=== PATIENT | female | born 1950 | race Caucasian/White ===

== ENCOUNTER 2019-04-05 10:43 | Outpatient (CLI) | payer MEDICARE, SELFPAY ==
[2019-04-05 11:28] LABS: Basophils % 0.2 %; Eosinophils # 0.1 10^3/uL (0.0-0.8); Eosinophils % 1.9 %; Hematocrit 37.3 % (37.0-47.0); Hemoglobin 12.6 g/dL (11.5-15.3); Lymphocytes # 2.5 10^3/uL (0.8-4.8); Lymphocytes % 38.9 %; Mean Corpuscular HGB Conc 33.8 g/dL (30.0-36.0); Mean Corpuscular Hemoglobin 34.2 pg (28.0-34.0); Mean Corpuscular Volume 101.4 fL (81-99); Mean Platelet Volume 9.5 fL (7.4-10.4); Monocytes # 0.5 10^3/uL (0.2-0.9); Monocytes % 7.3 %; Neutrophils # 3.3 10^3/uL (1.8-7.7); Neutrophils % 51.2 %; Nucleated Red Blood Cells % 0 %; Platelet Count 217 10^3/cmm (130-400); Red Blood Count 3.68 10^6/uL (4.1-5.3); Red Cell Distribution Width 12.8 % (12.1-15.1); White Blood Count 6.5 10^3/uL (4.0-10.0)
[2019-04-05 11:54] LABS: Alanine Aminotransferase 25 U/L (0-33); Albumin Level 4.2 g/dL (3.5-5.2); Alkaline Phosphatase 35 IU/L (35-105); Anion Gap 19.2 (5-19); Aspartate Amino Transferase 22 U/L (0-32); Blood Urea Nitrogen 31 mg/dL (8-23); Calcium 10.1 mg/dL (8.5-10.5); Carbon Dioxide 23 mmol/L (22-29); Chloride 99 mmol/L (98-107); Globulin 3.4 g/dL (1.3-4.6); Glomerular Filtration Rate 61.9 mL/min (90-130); Glucose 288 mg/dL (74-106); Potassium 4.2 mmol/L (3.5-5.1); Sodium 137 mmol/L (136-145); Total Bilirubin 0.5 mg/dL (0.15-1.2); Total Protein 7.6 g/dL (6.6-8.7)
== END 2019-04-05 10:44 | disposition home or self-care (01) ==
LOC: ONCMED 10:49
PROVIDERS: Family Provider Family Medicine; PCP Family Medicine; Visit Provider Internal Medicine Medical Oncology
DX: E83.110 Hereditary hemochromatosis (principal)
CPT/HCPCS: 36415; 80053; 85025; 99195; 99211

== ENCOUNTER 2019-04-21 07:50 | Outpatient (CLI) | payer MEDICARE, SELFPAY ==
--- NOTE | 2019-04-21 07:57 | MR_ITS ---
WS: [id number] MRI BRAIN WITH AND WITHOUT CONTRAST HISTORY: Vertigo; pupil ASYMMETRY COMPARISON: 01/16/2015 TECHNIQUE: Multiplanar imaging performed through the brain with Prohance 17 ml's IV. No acute infarcts are seen. Wells-white matter differentiation is well preserved. There are a few scat tered T2 and FLAIR signal hyperintensities in the white matter. No prior infarct. No susceptibility artifacts or prior lacunar infarcts. Ventricles and extra-axial spaces are normal. Clivus and pituitary gland are normal. Again noted is a CSF signal collection in the LEFT posterior fossa consistent with an arachnoid cyst. No increase in size. No mass effect upon the brain. Cerebellar vermis is intact. Postcontrast images are negative for masses or vascular malformations. Dural venous sinuses are normal. Paranasal sinuses: Well aerated with no significant disease. Mastoid air cells: Normal. Calvarium and scalp: Normal. MR/MR head wo/w con [id number] IMPRESSION: 1. No acute infarct or intracranial mass. 2. Stable retrocerebellar arachnoid cyst. 3. Mild chronic microvascular ischemic disease.
== END 2019-04-21 07:51 | disposition home or self-care (01) ==
LOC: RADSHAW 07:54
PROVIDERS: Family Provider Family Medicine; PCP Family Medicine; Visit Provider Nurse Practitioner Family
DX: R42 Dizziness and giddiness (principal); H57.02 Anisocoria
CPT/HCPCS: 70553; A9579

== ENCOUNTER 2019-05-22 12:36 | Outpatient (CLI) | payer MEDICARE, SELFPAY ==
[2019-05-22 13:23] LABS: Basophils % 0.3 %; Eosinophils # 0.1 10^3/uL (0.0-0.8); Eosinophils % 2.1 %; Hematocrit 36.8 % (37.0-47.0); Hemoglobin 12.4 g/dL (11.5-15.3); Lymphocytes # 2.5 10^3/uL (0.8-4.8); Lymphocytes % 40.5 %; Mean Corpuscular HGB Conc 33.7 g/dL (30.0-36.0); Mean Corpuscular Hemoglobin 34.6 pg (28.0-34.0); Mean Corpuscular Volume 102.8 fL (81-99); Mean Platelet Volume 9.7 fL (7.4-10.4); Monocytes # 0.4 10^3/uL (0.2-0.9); Neutrophils # 3.1 10^3/uL (1.8-7.7); Neutrophils % 49.8 %; Nucleated Red Blood Cells % 0 %; Platelet Count 198 10^3/cmm (130-400); Red Blood Count 3.58 10^6/uL (4.1-5.3); Red Cell Distribution Width 12.7 % (12.1-15.1); White Blood Count 6.2 10^3/uL (4.0-10.0)
[2019-05-22 13:38] LABS: Alanine Aminotransferase 30 U/L (0-33); Albumin Level 4.6 g/dL (3.5-5.2); Alkaline Phosphatase 30 IU/L (35-105); Anion Gap 11.6 (5-19); Aspartate Amino Transferase 30 U/L (0-32); Blood Urea Nitrogen 22 mg/dL (8-23); Calcium 10.4 mg/dL (8.5-10.5); Carbon Dioxide 32 mmol/L (22-29); Chloride 102 mmol/L (98-107); Globulin 2.9 g/dL (1.3-4.6); Glomerular Filtration Rate 61.9 mL/min (90-130); Glucose 145 mg/dL (65-115); Osmolality Calculated 291 mOsm/kg (285-295); Potassium 4.6 mmol/L (3.5-5.1); Sodium 141 mmol/L (136-145); Total Bilirubin 0.5 mg/dL (0.15-1.2); Total Protein 7.5 g/dL (6.6-8.7)
[2019-05-22 17:13] LABS: Ferritin 83 ng/mL (15-150); Iron 237 ug/dL (37-145); Percent Saturation 93.3 % (20-50); Total Iron Binding Capacity 254 mcg/dl; Unsaturated Iron Binding 17 ug/dL (112-347)
== END 2019-05-22 12:37 | disposition home or self-care (01) ==
LOC: ONCMED 12:38
PROVIDERS: Family Provider Family Medicine; PCP Family Medicine; Visit Provider Internal Medicine Medical Oncology
DX: E83.110 Hereditary hemochromatosis (principal)
CPT/HCPCS: 36415; 80053; 82728; 83540; 83550; 85025; 99195; 99211

== ENCOUNTER → 2019-07-04 07:50 | Outpatient (BNVA) | payer MEDICARE, SELFPAY | PROVIDERS: Family Provider Family Medicine; PCP Family Medicine; Referring Provider Nurse Practitioner Family; Visit Provider Specialist | DX: M06.9 Rheumatoid arthritis, unspecified (principal); H81.11 Benign paroxysmal vertigo, right ear; E83.119 Hemochromatosis, unspecified | CPT/HCPCS: 72050; 99204 ==

== ENCOUNTER 2019-07-04 09:42 | Outpatient (CLI) | payer MEDICARE, SELFPAY ==
--- NOTE | 2019-07-04 09:48 | XR_ITS ---
WS: [id number] CERVICAL SPINE 6 VIEWS HISTORY: RA COMPARISON: None available. TECHNIQUE: AP, oblique and lateral radiographs. Lateral neutral, flexion and extension. Mild LEFT convex curvature of the cervical spine. Narrowing of the predental space. No erosions at th e odontoid. With flexion and extension there is no instability. The lateral masses are aligned. No figueroa bluxation or invagination at the craniocervical junction. Atherosclerosis aorta. XR/XR cervical spine 4-5V [id number] IMPRESSION: 1. LEFT convex curvature cervical spine. 2. Degenerative changes at the odontoid and predental space. No instability wi th flexion or extension.
== END 2019-07-04 09:43 | disposition home or self-care (01) ==
LOC: RAD 09:47
PROVIDERS: Family Provider Family Medicine; PCP Family Medicine; Visit Provider Specialist
DX: M06.9 Rheumatoid arthritis, unspecified (principal)
CPT/HCPCS: 72050

== ENCOUNTER 2019-07-17 09:05 | Outpatient (CLI) | payer MEDICARE, SELFPAY ==
[2019-07-17 09:34] LABS: Basophils % 0.3 %; Eosinophils # 0.1 10^3/uL (0.0-0.8); Eosinophils % 2.2 %; Hematocrit 37.7 % (37.0-47.0); Hemoglobin 12.5 g/dL (11.5-15.3); Lymphocytes # 1.7 10^3/uL (0.8-4.8); Lymphocytes % 29.4 %; Mean Corpuscular HGB Conc 33.2 g/dL (30.0-36.0); Mean Corpuscular Hemoglobin 33.5 pg (28.0-34.0); Mean Corpuscular Volume 101.1 fL (81-99); Mean Platelet Volume 9.2 fL (7.4-10.4); Monocytes # 0.3 10^3/uL (0.2-0.9); Monocytes % 5.8 %; Neutrophils # 3.6 10^3/uL (1.8-7.7); Neutrophils % 61.8 %; Nucleated Red Blood Cells % 0 %; Platelet Count 216 10^3/cmm (130-400); Red Blood Count 3.73 10^6/uL (4.1-5.3); Red Cell Distribution Width 12.3 % (12.1-15.1); White Blood Count 5.9 10^3/uL (4.0-10.0)
[2019-07-17 09:56] LABS: Alanine Aminotransferase 28 U/L (0-33); Albumin Level 4.5 g/dL (3.5-5.2); Alkaline Phosphatase 34 IU/L (35-105); Anion Gap 15.5 (5-19); Aspartate Amino Transferase 33 U/L (0-32); Blood Urea Nitrogen 19 mg/dL (8-23); Calcium 10.1 mg/dL (8.5-10.5); Carbon Dioxide 28 mmol/L (22-29); Chloride 101 mmol/L (98-107); Globulin 3.2 g/dL (1.3-4.6); Glomerular Filtration Rate 54.8 mL/min (90-130); Glucose 154 mg/dL (65-115); Osmolality Calculated 290 mOsm/kg (285-295); Potassium 4.5 mmol/L (3.5-5.1); Sodium 140 mmol/L (136-145); Total Bilirubin 0.7 mg/dL (0.15-1.2); Total Protein 7.7 g/dL (6.6-8.7)
[2019-07-17 10:57] LABS: Ferritin 59 ng/mL (15-150); Iron 278 ug/dL (37-145)
[2019-07-17 12:53] LABS: Unsaturated Iron Binding < 17 ug/dL (112-347)
--- NOTE | 2019-07-17 14:48 | ONC FU_ITS ---
Dr. Chambers Patient Follow-Up Note Patient: Corinna Lance Unit #: [id number]: 1950 Dicatated By: Travis Chambers M.D.Date of Visit:July 17, 2019 Onc Med Follow-up/Prog Note Chief Complaint: Hemochromatosis. History of Present Illness: This is a 69 year-old woman with hereditary hemochromatosis, initially diagnosed in April 2010. Her ferritin was just moderately elevated at 440 ng/mL. She was found to be homozygous for the C282Y mutation. She was started on a phlebotomy program. As of November 2011 her ferritin was down to 94 ng/mL. In March 2016 she had fallen out of the bathtub and sustained fractures to the left tibia and fibula. I don't have any of those records. She has been showing gradual recovery. With her follow-up visit in August 2016 her transferrin saturation had decreased to 15.8% and her ferritin was down to 27.8 ng/mL. At that point I did have her stop phlebotomies. As of her follow-up visit in February 2018 her transferrin saturation was 29.4% and her serum ferritin remained in target range at 38.0 ng/mL. Her other medical illnesses include rheumatoid arthritis, hypertension, hypercholesterolemia, and type 2 diabetes. She was found to have dvim-mr-ppkyyqib coronary artery disease on cardiac catheterization in December 2009. Other illnesses include GERD and chronic depression. She has had multiple joint surgeries. She is a nonsmoker. INTERIM HISTORY: As of her follow-up visit in January 2019 there was an increase in both the transferrin saturation and ferritin, and I did have her restart phlebotomies every 2 months. She is seen for a scheduled visit. She has been feeling pretty good generally. She says her joint pain is not too bad, but she has been having pain in the sciatic area on the right side. She also has had pain in the left mid back area, which she thinks may have been related to some recent activity. Her pain is managed adequately with the hydrocodone/APAP. Her energy is somewhat variable. She is doing some walking and she is doing light work. ECOG score is 1. She has good appetite. She did not feel good generally this past weekend, and she thinks she may have had a slight fever. She has hot flashes/sweating all the time. She has some shortness of breath with activity. She has not been having cough, and she does not complain of chest pain. She has no GI or complaints. She has not been having headache. She says she just got over a bad spell of vertigo. She has neuropathy in her hands and feet, which is unchanged. Medications: Aldactazide 1 Tablet (of 25-25 mg) Oral daily, Avapro 1 Tablet (of 150 mg) Oral daily, Crestor 1 (10 mg) Tablet Oral daily, Effexor 1 (75 mg) Tablet Oral at bedtime, Fosamax 1 Tablet (of 70 mg) Oral daily, glipiZIDE ER 1 Tablet (of 2.5 mg) Tablet SR 24 HR Oral b.i.d., Hydrocodone-Acetaminophen 1 (10-325 mg) Tablet Oral b.i.d. PRN, Methotrexate 5 Tablet (of 2.5 mg) Oral q 7 days, Metoprolol Succinate ER 1 (25 mg) Tablet SR 24 HR Oral daily, Pantoprazole Sodium 1 Tablet (of 20 mg) Tablet, enteric coated Oral daily, ProAir HFA Aerosol, solution Inhalation PRN, Xeljanz 1 Tablet (of 5 mg) Oral b.i.d. Allergies: lisinopril and Sulfamethoxazole-Trimethoprim. Review of Systems: Constitutional - She is generally feeling good. She is doing some light walking as well as housework. Her appetite is good and weight is stable. She felt feverish over this past weekend. No chills. She has persistent hot flashes with sweating. ECOG score is 1, ENMT - She has sinus congestion/drainage. No mouth sores. She has a throat. No difficulty swallowing, Hematologic/Lymphatic - No abnormal bruising or bleeding, Respiratory - She is having shortness of breath with activity. No cough. No pleuritic pain or hemoptysis, Cardiovascular - No angina pain. No palpitations, Gastrointestinal - No nausea or vomiting. No heartburn or acid reflux. No diarrhea or constipation. No blood in the stool or black stools, Genitourinary (F) - No dysuria or hematuria. No urinary frequency. No urgency or incontinence, Musculoskeletal - She is having some pain in the lower back/sciatic area on the right side. She has some pain in her leftback/rib area. It is adequately managed with her pain medication, Integumentary - No skin complications, Neurologic - No headache or dizziness. She has unchanged neuropathy in her hands and feet, Psychiatric - No anxiety or depression. She has difficulty sleeping. Vital Signs: Performed on July 17, 2019 09:43 Height - 62.00 in Weight - 189.0 lbs (HIGH) BSA - 1.87 sq.m BMI - 34.57 (HIGH) Temperature - 97.5 F (LOW) Pulse - 74 /min Respiration - 20 /min BP - 106/64 mm(hg) O2 Sat - 97 % Pain - 2 Physical Examination: Constitutional - She looks pretty good generally, Eyes - Sclerae nonicteric. Conjunctivae clear, ENMT - No lesions noted in the oral cavity, Hematologic/Lymphatic - No cervical, clavicular, or axillary adenopathy, Respiratory - Lungs are clear, Cardiovascular - Heart rhythm is regular. There is no murmur, gallop, or rub noted, Abdomen - Soft. Liver and spleen are not enlarged. There is no abdominal mass or ascites noted and there is no inguinal adenopathy, Extremities - No edema. There are RA changes in both hands, Neurologic - No focal neurologic deficits noted. Lab/Imaging: Test performed on July 17, 2019 09:20 Ferritin 59 ng/mL Iron 278 mcg/dL Sodium 140 mmol/L Iron Binding Capacity (TIBC) 294.95034 mcg/dl Potassium 4.5 mmol/L % Iron Saturation 94.0 % Chloride 101 mmol/L CO2 28 mmol/L UIBC < 17 mcg/dL Anion Gap 15.5 BUN 19 mg/dL Creatinine 1.0 mg/dL Cr Clearance (Est) 70.8500 mL/min eGFR 54.8 mL/min Glucose 154 mg/dL Calcium 10.1 mg/dL Protein, Total 7.7 g/dL Albumin 4.5 g/dL Globulin 3.2 g/dL Bilirubin, Total 0.7 mg/dL ALT (SGPT) 28 U/L AST (SGOT) 33 U/L Alkaline Phosphatase 34 IU/L WBC 5.9 10 3/uL RBC 3.73 10 6/uL HGB 12.5 g/dL HCT 37.7 % MCV 101.1 fL MCH 33.5 pg MCHC 33.2 g/dL RDW 12.3 % Platelet Count 216 10 3/cmm MPV 9.2 fL Neutrophils 3.6 10 3/uL Lymphocytes 1.7 10 3/uL Monocytes 0.3 10 3/uL Eosinophils 0.1 10 3/uL Basophils 0.0 10 3/uL Neutrophil % 61.8 % Lymphocyte % 29.4 % Monocyte % 5.8 % Eosinophil % 2.2 % Basophils % 0.3 % Impression: 1. Patient with hereditary hemochromatosis, homozygous for the C282Y mutation. She has been managed adequately with phlebotomy. 2. She has underlying rheumatoid arthritis. Her other medical illnesses include: 3. Hypertension. 4. Hyperlipidemia. 5. Type II diabetes. 6. Coronary artery disease. 7. GERD. 8. Chronic depression. She has gradual recovery following a traumatic left leg fracture in March 2016. As of August 2016 her transferrin saturation and ferritin levels were actually a little bit low, and I did have her stop phlebotomies. She was phlebotomized again in August 2017, as her levels had gone up a little. As of her follow-up visit in January 2019 there was increase in both the transferrin saturation and ferritin, and at that point she did restart phlebotomies every 2 months. At this point the serum iron level is elevated, but I am not certain how accurate that is. Her ferritin has come down to 59%, which is in target range. Her clinical status appears stable. Plan: She will be phlebotomized and again in 3 months. I will see her for a follow-up visit in 6 months. Signed By: Travis Chambers M.D. <<Signature on File>>
== END 2019-07-17 09:06 | disposition home or self-care (01) ==
PROVIDERS: Family Provider Family Medicine; PCP Family Medicine; Visit Provider Internal Medicine Medical Oncology
DX: E83.110 Hereditary hemochromatosis (principal); M06.9 Rheumatoid arthritis, unspecified; I10 Essential (primary) hypertension; E78.5 Hyperlipidemia, unspecified; E11.9 Type 2 diabetes mellitus without complications; I25.10 Atherosclerotic heart disease of native coronary artery without angina pectoris; K21.9 Gastro-esophageal reflux disease without esophagitis; F32.9 Major depressive disorder, single episode, unspecified
CPT/HCPCS: 36415; 80053; 82728; 83540; 83550; 85025; 99195; 99214

== ENCOUNTER 2019-07-20 10:47 | Outpatient (CLI) | payer MEDICARE, SELFPAY ==
--- NOTE | 2019-07-20 11:18 | XR_ITS ---
WS: [id number] THORACIC SPINE TECHNIQUE: AP and lateral views are performed. HISTORY: ACUTE MID THORACIC BACK PAIN COMPARISON: 05/09/2010 Mild increase in thoracic kyphosis. No fractures are identified. Slight LEFT convex curvature of the thoracic spine. Pedicles are normal. XR/XR thoracic spine 2V [id number] IMPRESSION: Mild spondylosis and degenerative changes. No fracture.
== END 2019-07-20 10:48 | disposition home or self-care (01) ==
PROVIDERS: PCP Family Medicine; Visit Provider Nurse Practitioner Family
DX: M54.6 Pain in thoracic spine (principal); M47.814 Spondylosis without myelopathy or radiculopathy, thoracic region
CPT/HCPCS: 72070

== ENCOUNTER → 2019-08-23 15:06 | Outpatient (BNVA) | payer MEDICARE, SELFPAY | PROVIDERS: PCP Family Medicine; Visit Provider Internal Medicine | DX: M06.9 Rheumatoid arthritis, unspecified (principal); M35.3 Polymyalgia rheumatica; Z79.899 Other long term (current) drug therapy | CPT/HCPCS: 99213 ==

== ENCOUNTER 2019-09-11 13:05 | Outpatient (CLI) | payer MEDICARE, SELFPAY ==
--- NOTE | 2019-09-11 13:12 | XR_ITS ---
WS: [id number] LUMBAR SPINE TECHNIQUE: 3 views of the lumbar spine CLINICAL INFORMATION: lumbago COMPARISON: None. FINDINGS: Osteopenia. Mild lumbar curve. Valve nonrib-bearing lumbar vertebral bodies. Slight anterolisthesis L 3 on L4 and L4 on L5. Mild facet arthropathy L4-L5 and L5-S1. Anterolisthesis L4 on L5 measures 1.8 m m. XR/XR lumbar spine 2-3V* [id number] IMPRESSION: 1. Mild lumbar curve convex left. Osteopenia. 2. No acute appearing compression fractures. 3. Slight anterolisthesis L4 on L5 measuring 1.8 mm.
== END 2019-09-11 13:06 | disposition home or self-care (01) ==
LOC: RADWPI 13:10
PROVIDERS: Family Provider Family Medicine; PCP Family Medicine; Visit Provider Internal Medicine
DX: M54.5 Low back pain (principal); M85.88 Other specified disorders of bone density and structure, other site
CPT/HCPCS: 72100

== ENCOUNTER 2019-10-17 12:27 | Outpatient (CLI) | payer MEDICARE, SELFPAY ==
[2019-10-17 13:23] LABS: Basophils % 0.4 %; Eosinophils # 0.1 10^3/uL (0.0-0.8); Eosinophils % 1.8 %; Hematocrit 36.1 % (37.0-47.0); Hemoglobin 11.6 g/dL (11.5-15.3); Lymphocytes # 1.6 10^3/uL (0.8-4.8); Lymphocytes % 31.6 %; Mean Corpuscular HGB Conc 32.1 g/dL (30.0-36.0); Mean Corpuscular Hemoglobin 32.5 pg (28.0-34.0); Mean Corpuscular Volume 101.1 fL (81-99); Mean Platelet Volume 9.7 fL (7.4-10.4); Monocytes # 0.4 10^3/uL (0.2-0.9); Monocytes % 8.5 %; Neutrophils % 57.3 %; Nucleated Red Blood Cells % 0 %; Platelet Count 204 10^3/cmm (130-400); Red Blood Count 3.57 10^6/uL (4.1-5.3); Red Cell Distribution Width 13.3 % (12.1-15.1); White Blood Count 5.1 10^3/uL (4.0-10.0)
[2019-10-17 13:42] LABS: Ferritin 49 ng/mL (15-150); Iron 143 ug/dL (37-145); Percent Saturation 52.5 % (20-50); Total Iron Binding Capacity 272 mcg/dl; Unsaturated Iron Binding 129 ug/dL (112-347)
== END 2019-10-17 12:28 | disposition home or self-care (01) ==
LOC: ONCMED 12:29
PROVIDERS: PCP Family Medicine; Visit Provider Internal Medicine Medical Oncology
DX: E83.110 Hereditary hemochromatosis (principal); D50.9 Iron deficiency anemia, unspecified; M06.9 Rheumatoid arthritis, unspecified
CPT/HCPCS: 82728; 83540; 83550; 85025; 99195

== ENCOUNTER → 2019-11-09 12:37 | Outpatient (BNVA) | payer MEDICARE, SELFPAY | PROVIDERS: PCP Family Medicine; Visit Provider Internal Medicine | DX: M06.9 Rheumatoid arthritis, unspecified (principal); M35.3 Polymyalgia rheumatica; Z79.899 Other long term (current) drug therapy | CPT/HCPCS: 36415; 80053; 85025; 85651; 99213 ==

== ENCOUNTER → 2019-11-15 13:41 | Outpatient (BNVA) | payer MEDICARE, SELFPAY | PROVIDERS: PCP Family Medicine; Referring Provider Nurse Practitioner Family; Visit Provider Dermatology | DX: D09.9 Carcinoma in situ, unspecified (principal); D22.9 Melanocytic nevi, unspecified; L81.4 Other melanin hyperpigmentation | CPT/HCPCS: 99203 ==

== ENCOUNTER → 2019-12-06 09:38 | Outpatient (BNVA) | payer MEDICARE, SELFPAY | PROVIDERS: PCP Family Medicine; Visit Provider Dermatology | DX: D09.9 Carcinoma in situ, unspecified (principal); D04.39 Carcinoma in situ of skin of other parts of face | CPT/HCPCS: 17000 ==

== ENCOUNTER → 2020-01-16 08:04 | Outpatient (BNVA) | payer MEDICARE, SELFPAY | PROVIDERS: PCP Family Medicine; Referring Provider Nurse Practitioner Family; Visit Provider Podiatrist Foot & Ankle Surgery | DX: M79.671 Pain in right foot (principal); M79.672 Pain in left foot | CPT/HCPCS: 73630 ==

== ENCOUNTER 2020-03-20 11:20 | Outpatient (CLI) | payer MEDICARE, SELFPAY ==
[2020-03-20 12:26] LABS: Basophils % 0.2 %; Eosinophils # 0.1 10^3/uL (0.0-0.8); Eosinophils % 0.9 %; Hemoglobin 12.4 g/dL (11.5-15.3); Lymphocytes # 1.6 10^3/uL (0.8-4.8); Lymphocytes % 27.7 %; Mean Corpuscular HGB Conc 32.6 g/dL (30.0-36.0); Mean Corpuscular Hemoglobin 30.5 pg (28.0-34.0); Mean Corpuscular Volume 93.6 fL (81-99); Mean Platelet Volume 9.6 fL (7.4-10.4); Monocytes # 0.5 10^3/uL (0.2-0.9); Monocytes % 9.1 %; Neutrophils # 3.62 10^3/uL (1.8-7.7); Neutrophils % 61.8 %; Nucleated Red Blood Cells % 0 %; Platelet Count 217 10^3/cmm (130-400); Red Blood Count 4.06 10^6/uL (4.1-5.3); Red Cell Distribution Width 13.2 % (12.1-15.1); White Blood Count 5.9 10^3/uL (4.0-10.0)
[2020-03-20 13:41] LABS: Alanine Aminotransferase 20 U/L (0-33); Albumin Level 4.3 g/dL (3.5-5.2); Alkaline Phosphatase 33 IU/L (35-105); Anion Gap 14.5 (5-19); Aspartate Amino Transferase 25 U/L (0-32); Blood Urea Nitrogen 23 mg/dL (8-23); Calcium 9.9 mg/dL (8.5-10.5); Carbon Dioxide 26 mmol/L (22-29); Chloride 101 mmol/L (98-107); Ferritin 45 ng/mL (15-150); Globulin 3.3 g/dL (1.3-4.6); Glucose 206 mg/dL (65-115); Iron 233 ug/dL (37-145); Osmolality Calculated 294 mOsm/kg (285-295); Percent Saturation 80.9 % (20-50); Potassium 4.5 mmol/L (3.5-5.1); Sodium 137 mmol/L (136-145); Total Bilirubin 0.4 mg/dL (0.15-1.2); Total Iron Binding Capacity 288 mcg/dl; Total Protein 7.6 g/dL (6.6-8.7); Unsaturated Iron Binding 55 ug/dL (112-347)
[2020-03-20 15:39] LABS: Erythrocyte Sedimentation Rate 19 mm/hr (0-15)
[2020-03-20 16:10] LABS: CRP High Sensitivity Cardiac < 0.150 mg/dL (0.0-0.3)
--- NOTE | 2020-03-23 17:35 | ONC FU_ITS ---
Dr. Chambers Patient Follow-Up Note Patient: Corinna Lance Unit #: [id number]: 1950 Dicatated By: Travis Chambers M.D.Date of Visit:Mar 20, 2020 Onc Med Follow-up/Prog Note Chief Complaint: Hemochromatosis. History of Present Illness: This is a 70 year-old woman with hereditary hemochromatosis, initially diagnosed in April 2010. Her ferritin was just moderately elevated at 440 ng/mL. She was found to be homozygous for the C282Y mutation. She was started on a phlebotomy program. As of November 2011 her ferritin was down to 94 ng/mL. In March 2016 she had fallen out of the bathtub and sustained fractures to the left tibia and fibula. I don't have any of those records. She has been showing gradual recovery. With her follow-up visit in August 2016 her transferrin saturation had decreased to 15.8% and her ferritin was down to 27.8 ng/mL. At that point I did have her stop phlebotomies. As of her follow-up visit in February 2018 her transferrin saturation was 29.4% and her serum ferritin remained in target range at 38.0 ng/mL. However, as of her follow-up visit in January 2019 there was an increase in both the transferrin saturation and ferritin, and at that point I did have her restart phlebotomies every 2 months. Her other medical illnesses include rheumatoid arthritis, hypertension, hypercholesterolemia, and type 2 diabetes. She was found to have qxoo-ax-pjyfhhvr coronary artery disease on cardiac catheterization in December 2009. Other illnesses include GERD and chronic depression. She has had multiple joint surgeries. She is a nonsmoker. INTERIM HISTORY: She is seen for a scheduled visit. Her last phlebotomy was 4 months ago. Her main complaint is that she is getting short of breath with any activity. She was diagnosed with asthma/COPD. She still does not have much energy. Her ECOG score is 1. She has good appetite. She has not had fever. She sometimes has sweating at night. She does not complain of cough and she has not been having chest pain. She has no GI/ complaints other than she recently was treated for urinary tract infection. She has arthritis all over, but especially her hands and feet. She recently has had headache. She has numbness in the toes of her left foot. Medications: Aldactazide 1 Tablet (of 25-25 mg) Oral daily, Avapro 1 Tablet (of 150 mg) Oral daily, Crestor 1 (10 mg) Tablet Oral daily, Effexor 1 (75 mg) Tablet Oral at bedtime, Fosamax 1 Tablet (of 70 mg) Oral daily, glipiZIDE ER 1 Tablet (of 5 mg) Tablet SR 24 HR Oral b.i.d., Hydrocodone-Acetaminophen 1 (10-325 mg) Tablet Oral b.i.d. PRN, Methotrexate 5 Tablet (of 2.5 mg) Oral q 7 days, Metoprolol Succinate ER 1 (25 mg) Tablet SR 24 HR Oral daily, Pantoprazole Sodium 1 Tablet (of 20 mg) Tablet, enteric coated Oral daily, ProAir HFA Aerosol, solution Inhalation PRN, Xeljanz 1 Tablet (of 5 mg) Oral b.i.d. Allergies: lisinopril and Sulfamethoxazole-Trimethoprim. Vital Signs: Performed on Mar 20, 2020 13:14 Height - 62.00 in Weight - 192 lbs (HIGH) BSA - 1.88 sq.m BMI - 35.12 (HIGH) Temperature - 97.6 F (LOW) Pulse - 85 /min Respiration - 17 /min BP - 110/73 mm(hg) O2 Sat - 96 % Pain - 0 Physical Examination: Constitutional - She looks pretty good generally, Eyes - Sclerae nonicteric. Conjunctivae clear, ENMT - No lesions noted in the oral cavity, Hematologic/Lymphatic - No cervical, clavicular, or axillary adenopathy, Respiratory - Lungs are clear with good air movement bilaterally, Cardiovascular - Heart rhythm is regular. There is no murmur, gallop, or rub noted, Abdomen - Soft. Liver and spleen are not enlarged. There is no abdominal mass or ascites noted and there is no inguinal adenopathy, Extremities - No edema. There is ulnar deviation consistent with her rheumatoid arthritis, Neurologic - No focal neurologic deficits noted. Lab/Imaging: Test performed on Mar 20, 2020 11:49 Ferritin 45 ng/mL Iron 233 mcg/dL Sodium 137 mmol/L Iron Binding Capacity (TIBC) 288 mcg/dl Potassium 4.5 mmol/L % Iron Saturation 80.9 % Chloride 101 mmol/L CO2 26 mmol/L UIBC 55 mcg/dL Anion Gap 14.5 BUN 23 mg/dL Creatinine 0.9 mg/dL Cr Clearance (Est) 78.8300 mL/min Glucose 206 mg/dL Osmolality - Calculated 294 mOsm/kg Calcium 9.9 mg/dL Protein, Total 7.6 g/dL Albumin 4.3 g/dL Globulin 3.3 g/dL Bilirubin, Total 0.4 mg/dL ALT (SGPT) 20 U/L AST (SGOT) 25 U/L Alkaline Phosphatase 33 IU/L WBC 5.9 10 3/uL RBC 4.06 10 6/uL HGB 12.4 g/dL HCT 38.0 % MCV 93.6 fL MCH 30.5 pg MCHC 32.6 g/dL RDW 13.2 % Platelet Count 217 10 3/cmm MPV 9.6 fL Neutrophils 3.62 10 3/uL Lymphocytes 1.6 10 3/uL Monocytes 0.5 10 3/uL Eosinophils 0.1 10 3/uL Basophils 0.0 10 3/uL Neutrophil % 61.8 % Lymphocyte % 27.7 % Monocyte % 9.1 % Eosinophil % 0.9 % Basophils % 0.2 % NRBC % 0 % Historic Problem List: 1. Hereditary hemochromatosis, homozygous for the C282Y mutation. She has been managed adequately with phlebotomy. 2. Rheumatoid arthritis. 3. Hypertension. 4. Hyperlipidemia. 5. Type II diabetes. 6. Coronary artery disease. 7. GERD. 8. Chronic depression. Problems Addressed with this Encounter and Plan: 1. Hereditary hemochromatosis, homozygous for the C282Y mutation. She has been managed with phlebotomy. Her serum iron studies show elevated transferrin saturation at 80.9%. The significance of that finding is uncertain, as her ferritin remains in target range at 45 ng/mL. However, given that finding, she will be phlebotomized today and I will have her continue phlebotomies every 3 months. 2. She has having increased exertional dyspnea and decreased activity tolerance. She has been diagnosed with asthma/COPD. If she is agreeable, I will arrange for referral to a audiometrist. Signed By: Travis Chambers M.D. <<Signature on File>>
== END 2020-03-20 11:21 | disposition home or self-care (01) ==
LOC: ONCMED 11:23
PROVIDERS: PCP Nurse Practitioner Family; Visit Provider Internal Medicine Medical Oncology
DX: E83.110 Hereditary hemochromatosis (principal); M06.9 Rheumatoid arthritis, unspecified; I10 Essential (primary) hypertension; E78.5 Hyperlipidemia, unspecified; E11.59 Type 2 diabetes mellitus with other circulatory complications; I25.10 Atherosclerotic heart disease of native coronary artery without angina pectoris; K21.9 Gastro-esophageal reflux disease without esophagitis; F32.9 Major depressive disorder, single episode, unspecified; Z79.899 Other long term (current) drug therapy
CPT/HCPCS: 80053; 82728; 83540; 83550; 85025; 85651; 86140; 86141; 99195; 99214

== ENCOUNTER → 2020-03-25 11:39 | Outpatient (BNVA) | payer MEDICARE, SELFPAY | PROVIDERS: PCP Nurse Practitioner Family; Visit Provider Internal Medicine | DX: M06.9 Rheumatoid arthritis, unspecified (principal); Z79.899 Other long term (current) drug therapy | CPT/HCPCS: 99214 ==

== ENCOUNTER 2020-04-02 10:43 | Outpatient (CLI) | payer MEDICARE, SELFPAY ==
--- NOTE | 2020-04-02 10:46 | MM_ITS ---
WS: [id number] BILATERAL SCREENING DIGITAL MAMMOGRAM WITH CAD HISTORY: SCREENING COMPARISON: 07/29/2017 and 12/16/2015 Bilateral CC and MLO views submitted. Computer aided detection analyzed. Breast composition: There are scattered areas of fibroglandular density. No suspicious masses, microc alcifications or architectural distortion. Benign calcifications in each breast. MM/[place] [id number] IMPRESSION: BI-RADS: 2-Benign FOLLOW UP: 1 Year Follow-up
== END 2020-04-02 10:44 | disposition home or self-care (01) ==
LOC: RADSHAW 10:44
PROVIDERS: PCP Nurse Practitioner Family; Visit Provider Nurse Practitioner Family
DX: Z12.31 Encounter for screening mammogram for malignant neoplasm of breast (principal)
CPT/HCPCS: 77067

== ENCOUNTER 2020-04-08 12:23 | Outpatient (CLI) | payer MEDICARE, SELFPAY ==
[2020-04-08 13:49] LABS: Basophils % 0.4 %; Eosinophils # 0.1 10^3/uL (0.0-0.8); Eosinophils % 1.7 %; Hematocrit 34.2 % (37.0-47.0); Lymphocytes # 1.6 10^3/uL (0.8-4.8); Lymphocytes % 30.5 %; Mean Corpuscular HGB Conc 32.2 g/dL (30.0-36.0); Mean Corpuscular Hemoglobin 30.3 pg (28.0-34.0); Mean Corpuscular Volume 94.2 fL (81-99); Mean Platelet Volume 9.4 fL (7.4-10.4); Monocytes # 0.6 10^3/uL (0.2-0.9); Nucleated Red Blood Cells % 0 %; Platelet Count 219 10^3/cmm (130-400); Red Blood Count 3.63 10^6/uL (4.1-5.3); Red Cell Distribution Width 13.7 % (12.1-15.1); White Blood Count 5.2 10^3/uL (4.0-10.0)
[2020-04-09 17:03] LABS: Alternaria Alternata (M6) Ige <0.10 kU/L; Alternaria Class 0; Cat Dander (E1) Ige <0.10 kU/L; Cat Dander Class 0; Common Ragweed (Short) (W1) Ig <0.10 kU/L; D. Farinae Class 0; Dermatophagoides Class 0; Dermatophagoides Farinae (D2) <0.10 kU/L; Dermatophagoides Pteronyssinus <0.10 kU/L; Dog Dander (E5) Ige <0.10 kU/L; Dog Dander Class 0; Elm (T8) Ige <0.10 kU/L; Elm Class 0; English Plantain (W9) Ige <0.10 kU/L; English Plantain Class 0; House Dust (Greer) (H1) Ige <0.10 kU/L; House Dust (Hollister- Stier) <0.10 kU/L; House Dust Class 0; Immunoglobulin E 54 kU/L (<OR=114); Immunoglobulin E 55 kU/L (<OR=114); Lamb'S Quarters (Goose Foot) <0.10 kU/L; Lamb'S Quarters Class 0; Maple (Box Elder) (T1) Ige <0.10 kU/L; Maple Class 0; Mucor Racemosus Class 0; Oak (T7) Ige <0.10 kU/L; Oak Class 0; Penicillium Class 0; Penicillium Notatum (M1) Ige <0.10 kU/L; Ragweeed Class 0; Rough Marsh Elder (W16) Ige <0.10 kU/L; Rough Marsh Elder Class 0
[2020-04-10 18:09] LABS: Aspergillus Fumigatus, Igg Ab, 8.3 mg/L (<=102)
[2020-04-12 15:38] LABS: Bermuda Class 0; Bermuda Grass (G2) Ige <0.10 kU/L; Johnson Grass (G10) Ige <0.10 kU/L; Johnson Grass Cl 0; June Grass Class 0; June Grass(Kentucky Blue) (G8) <0.10 kU/L; Meadow Fescue (G4) Ige <0.10 kU/L; Meadow Fescue Class 0; Orchard Grass (Cocksfoot) (G3) <0.10 kU/L; Perennial Rye Grass (G5) Ige <0.10 kU/L; Perennial Rye Grass Class 0; Sweet Vernal Class 0; Sweet Vernal Grass (G1) Ige <0.10 kU/L; Timothy Grass (G6) Ige <0.10 kU/L; Timothy Grass Class 0
== END 2020-04-08 12:24 | disposition home or self-care (01) ==
PROVIDERS: PCP Nurse Practitioner Family; Visit Provider Internal Medicine Pulmonary Disease
DX: J44.9 Chronic obstructive pulmonary disease, unspecified (principal)
CPT/HCPCS: 82785; 85025; 86003

== ENCOUNTER → 2020-05-08 10:43 | Outpatient (BNVA) | payer MEDICARE, SELFPAY | PROVIDERS: PCP Nurse Practitioner Family; Visit Provider Emergency Medicine | DX: Z11.52 Encounter for screening for COVID-19 (principal); J44.9 Chronic obstructive pulmonary disease, unspecified | CPT/HCPCS: 87635 ==

== ENCOUNTER 2020-05-13 11:07 | Outpatient (CLI) | payer MEDICARE, SELFPAY ==
--- NOTE | 2020-05-13 11:53 | PC.NURSE ---
Stress test rescheduled Pt unable to walk on treadmill she states. Datar notified and given orders to change to Lexiscan mibi stress test. Pt rescheduled and given instructions for new test, verbalized understanding.
[2020-05-13 14:26] VITALS: BP 140/83
--- NOTE | 2020-05-13 14:34 | PFTS_ITS ---
Date of Study:05/13/20 Date of Dictation: MECHANICS: Forced vital capacity (FVC) is reduced. Forced expiratory volume in one second (FEV1) is reduced. FEV1/FVC is reduced. FLOW VOLUME LOOP: Reduced flow at all lung volumes with significant scooping. LUNG VOLUMES: Total lung capacity (TLC) is normal. Residual volume (RV) is increased. DIFFUSING CAPACITY FOR CARBON MONOXIDE: Normal. INTERPRETATION: The postbronchodilator spirometry is consistent with moderate airflow obstruction. There is no significant postbronchodilator response. Lung volumes are consistent with air trapping. Gas exchange (DLCO) is normal. MTDD
--- NOTE | 2020-05-20 07:00 | ECG_ITS ---
[facility] Test Date: 2020-05-20 Pat Name: Corinna Lance Department: Room: Gender: Female [employer]: : 1950 Requested By: Don Duongr Paulette Order Number: [id number] Sonny MD: CEDRIC ELIAS Interpretive Statements NAME OF STUDY: LEXISCAN SESTAMIBI STRESS TEST INDICATION: Chest Pain; Shortness of Breath NOTE: Please note that this is the electrocardiogram portion of the Lexiscan/Sestamibi stress test. The perfusion scan will be documented separately. DATA: Baseline heart rate was 72 beats per minute. Baseline blood pressure was 130/77 millimeters of mercury. Target heart rate was 149. Maximum heart rate achieved was 96. which was 64 % of the predicted target heart rate. Maximum blood pressure was 136/90 millimeters of mercury. The reason for ending the test was completion of the protocol. The patient did not experience any symptoms. ELECTROCARDIOGRAM: BASELINE: Sinus rhythm. Normal axis. Otherwise, no ST-T changes suggestive of ischemia noted. No arrhythmia noted. EXERCISE: After Lexiscan injection, no ST-T changes suggestive of ischemic noted. No arrhythmia noted. CONCLUSION: Please note due to baseline abnormality of the EKG specificity and sensitivity of the EKG portion of LexiScan MIBI stress test will be low 1. EKG not suggestive of ischemia 2. Lexiscan injection unremarkable. 3. Perfusion scan will be documented separately. Electronically Signed On 05-26-2020 20:49:35 CDT by CEDRIC ELIAS [id number]
== END 2020-05-13 11:08 | disposition home or self-care (01) ==
LOC: CDL 11:11
PROVIDERS: PCP Nurse Practitioner Family; Visit Provider Internal Medicine Pulmonary Disease
DX: J44.9 Chronic obstructive pulmonary disease, unspecified (principal); R06.00 Dyspnea, unspecified
CPT/HCPCS: 94060; 94618; 94726; 94729

== ENCOUNTER 2020-05-20 06:47 | Outpatient (CLI) | payer MEDICARE, SELFPAY ==
--- NOTE | 2020-05-20 07:05 | NMCV_ITS ---
NM kerri perf SPECT r/s* [id number] Corinna Lance Age: 70 Gender: F : 1950 Exam Date: 05/20/2020 08:19 Ordering Phys: Don Mueller MD Technologist: RAGHU Jay Exam Location: [facility] Indications: DYSPNEA; COPD STRESS TEST Please see separate stress test report in [facility] for full findings IMAGE PROTOCOL Rest/Stress 1 Lexiscan Day Radiopharmaceutical Dose (mCi) Administration Site Administered by Rest: Tc-99m 10.4 IV RAGHU Hall Sestamibi Stress:Tc-99m 32.5 IV RAGHU Jay Sestamidaniela Rest: 20-May-2020 60 Discovery 630 Stress: 20-May-2020 30 Discovery 630 0.4mg Lexiscan. Images obtained in supine and prone position. SPECT RESULTS Technical Quality: Excellent Raw Data Analysis: Normal Image Corrections: No attenuation or motion correction applied Summed Stress Score: 0 Summed Rest Score: 0 Summed Difference Score: 0 PERFUSION FINDINGS SPECT images demonstrate homogeneous tracer distribution throughout the myocardium. FUNCTIONAL RESULTS (calculated via Gated SPECT) Stress Image LV EF (%): 79 Stress EDV (mL):52 TID: 0.74 Stress ESV (mL):11 Rest Image LV EF (%): 79 FUNCTIONAL FINDINGS: There is hyperdynamic left ventricular systolic function. IMPRESSIONS Myocardial perfusion imaging is normal low probability for obstructive coronary artery disease. EKG segment will be documented separately. Jani Donovan MD (Electronically Signed) Final Date: 20 May 2020 18:04 S
[2020-05-20 07:12] VITALS: BMI 30.9
--- NOTE | 2020-05-20 09:32 | SUR.PREOP ---
Patient reports no pain or discomfort prior to the start of the procedure.
[2020-05-20] MEDS: regadenoson 0.4 Mg/5 ml Syringe IVP (09:43)
[2020-05-20 10:30] VITALS: BP 128/65; PULSE 70
== END 2020-05-20 06:48 | disposition home or self-care (01) ==
LOC: RAD 06:51 → CDL 07:11
PROVIDERS: PCP Nurse Practitioner Family; Visit Provider Internal Medicine Pulmonary Disease
DX: R06.00 Dyspnea, unspecified (principal); J44.9 Chronic obstructive pulmonary disease, unspecified
CPT/HCPCS: 78452; 93017; A9500; J2785

== ENCOUNTER 2020-06-27 09:45 | Outpatient (CLI) | payer MEDICARE, SELFPAY ==
[2020-06-27 10:31] LABS: Basophils % 0.3 %; Eosinophils % 0.5 %; Hematocrit 39.1 % (37.0-47.0); Hemoglobin 12.3 g/dL (11.5-15.3); Lymphocytes # 1.5 10^3/uL (0.8-4.8); Lymphocytes % 25.1 %; Mean Corpuscular HGB Conc 31.5 g/dL (30.0-36.0); Mean Corpuscular Hemoglobin 29.1 pg (28.0-34.0); Mean Corpuscular Volume 92.7 fL (81-99); Monocytes # 0.5 10^3/uL (0.2-0.9); Neutrophils # 3.75 10^3/uL (1.8-7.7); Neutrophils % 64.9 %; Nucleated Red Blood Cells % 0 %; Platelet Count 240 10^3/cmm (130-400); Red Blood Count 4.22 10^6/uL (4.1-5.3); Red Cell Distribution Width 12.9 % (12.1-15.1); White Blood Count 5.8 10^3/uL (4.0-10.0)
[2020-06-27 10:59] LABS: Alanine Aminotransferase 25 U/L (0-33); Albumin Level 4.7 g/dL (3.5-5.2); Alkaline Phosphatase 31 IU/L (35-105); Anion Gap 15.2 (5-19); Aspartate Amino Transferase 39 U/L (0-32); Blood Urea Nitrogen 11 mg/dL (8-23); Carbon Dioxide 24 mmol/L (22-29); Chloride 100 mmol/L (98-107); Ferritin 24 ng/mL (15-150); Globulin 3.1 g/dL (1.3-4.6); Glucose 150 mg/dL (65-115); Iron 82 ug/dL (37-145); Osmolality Calculated 282 mOsm/kg (285-295); Percent Saturation 22.3 % (20-50); Potassium 4.2 mmol/L (3.5-5.1); Sodium 135 mmol/L (136-145); Total Bilirubin 0.8 mg/dL (0.15-1.2); Total Iron Binding Capacity 367 mcg/dl; Total Protein 7.8 g/dL (6.6-8.7); Unsaturated Iron Binding 285 ug/dL (112-347)
--- NOTE | 2020-07-13 23:48 | ONC FU_ITS ---
[facility] Patient Note Patient: Corinna Gaytan Unit #: [id number]: 1950 Dictated By: Turner MenjivarDate of Visit: Jun 27, 2020 Onc MED Follow-Up/Prog Note Chief Complaint: Hemochromatosis. History of Present Illness: Ms Gaytan is a 70 year-old woman with hereditary hemochromatosis, initially diagnosed in April 2010. Her ferritin was just moderately elevated at 440 ng/mL. She was found to be homozygous for the C282Y mutation. She was started on a phlebotomy program. As of November 2011 her ferritin was down to 94 ng/mL. In March 2016 she had fallen out of the bathtub and sustained fractures to the left tibia and fibula. We do not have any of those records. She has been showing gradual recovery. With her follow-up visit in August 2016 her transferrin saturation had decreased to 15.8% and her ferritin was down to 27.8 ng/mL. At that point Dr Chambers did have her stop phlebotomies. As of her follow-up visit in February 2018 her transferrin saturation was 29.4% and her serum ferritin remained in target range at 38.0 ng/mL. However, as of her follow-up visit in January 2019 there was an increase in both the transferrin saturation and ferritin, and at that point she did restart phlebotomies every 2 months. Her other medical illnesses include rheumatoid arthritis, hypertension, hypercholesterolemia, and type 2 diabetes. She was found to have ajoh-al-qupzlcbi coronary artery disease on cardiac catheterization in December 2009. Other illnesses include GERD and chronic depression. She has had multiple joint surgeries. She is a nonsmoker. INTERIM HISTORY: Ms. Gaytan is here today for follow-up. Her last phlebotomy per our records was March 20, 2020. She has been doing relatively well overall. She states her breathing is about the same. She has seen Dr. Muleler and pulmonology on April 08, 2020. He requested labs, allergy panel, 6-minute walk test/PFT to evaluate obstructive/restrictive lung disease and plan to order age RCT if PFTs show restrictive lung disease to evaluate for RA and interstitial lung disease. She is currently being treated with upadactinib for her RA. He did start her on Symbicort and she feels this has helped her breathing. She has no new concerns today. She denies any chest pain or palpitations. She has had no hemoptysis. She denies any diarrhea or constipation. She states her energy is good and her breathing seems to be better overall with the Symbicort. She has no concerns regarding her need for phlebotomy today. She denies any pain. Her ECOG is 2. She continues to have chronic neuropathy and the toes of her left foot but states is unchanged and certainly no worse. Past Medical History: Depression Gastroesophageal reflux disease Hypercholesterolemia Hypertension Osteoporosis Type II diabetes Elevated Iron Level in 2010 Hemachromatosis in 2010 Coronary artery disease in 2009 Rheumatoid Arthritis in 1956 Past Surgical History: Breast biopsy - 2 breast biopsies for benign disease one in 1971 and one in 1975 Cholecystectomy Foot surgery - four foot surgeries, 1978, 1991, 2007, 2008 Hysterectomy Knuckle replacement - 3 knuckles on Right hand Tubal ligation Wrist surgery Left leg surgery in 2016 Mammogram in 2008 Right knee replacement/total knee arthroplasty in 1999 Appendectomy in 1958 Tonsillectomy in 1951 Allergies: lisinopril and Sulfamethoxazole-Trimethoprim. Medications: Aldactazide 1 Tablet (of 25-25 mg) Oral daily Avapro 1 Tablet (of 150 mg) Oral daily Crestor 1 (10 mg) Tablet Oral daily Effexor 1 (75 mg) Tablet Oral at bedtime Fosamax 1 Tablet (of 70 mg) Oral daily glipiZIDE ER 1 Tablet (of 5 mg) Tablet SR 24 HR Oral b.i.d. Hydrocodone-Acetaminophen 1 (10-325 mg) Tablet Oral b.i.d. PRN metFORMIN HCl 1 Tablet (of 500 mg) Oral daily Methotrexate 5 Tablet (of 2.5 mg) Oral q 7 days Metoprolol Succinate ER 1 (25 mg) Tablet SR 24 HR Oral daily Pantoprazole Sodium 1 Tablet (of 20 mg) Tablet, enteric coated Oral daily ProAir HFA Aerosol, solution Inhalation PRN Xeljanz 1 Tablet (of 5 mg) Oral b.i.d. Family History: Ms. Betancurs mother at age 42: medical history includes APPLIANCE SERVICE TECHNICIAN malignancy and coronary artery disease at age 41 (cause of ). Ms. Betancurs father at age 73: medical history includes emphysema at age 73. Ms. Gaytan has 2 brothers: 2 alive. Ms. Gaytan's first brother's medical history includes coronary artery disease at age 57. Another brother's medical history includes liver disease. She has 3 sisters: 3 alive. Ms. Gaytan's first sister's medical history includes osteoporosis and coronary artery disease. Another sister's medical history includes coronary artery disease. Another sister's cancer history consists of cancer while other medical history includes coronary artery disease and melanoma. She has 1 son who is alive: medical history includes Crohn's disease, liver disease, rheumatoid arthritis, and diabetes. Social History: Ms. Gaytan is and she is retired. Ms. Gaytan has never smoked. She has no history of drinking. Review Of Symptoms: see above Vital Signs: Performed on Jun 27, 2020 11:42 Height - 62.00 in Weight - 186.4 lbs (LOW) BSA - 1.86 sq.m BMI - 34.09 (HIGH) Temperature - 98.6 F Pulse - 109 /min (HIGH) Respiration - 19 /min BP - 115/78 mm(hg) O2 Sat - 95 % (LOW) Pain - 0,1 - No physically strenuous activity, but ambulatory and able to carry out light or sedentary work (e.g. office work, light house work). (ECOG) Physical Examination: Constitutional Alert, oriented, no acute distress. Skin pink, warm and dry. Head Normocephalic; atraumatic. Eyes Conjunctivae and sclerae are clear and without icterus. Pupils are reactive and equal. Neck Supple without masses or thyromegaly. No jugular venous distension. Hematologic/Lymphatic No petechiae or purpura. No tender or palpable lymph nodes in the cervical or supraclavicular areas. Respiratory Lungs are clear to auscultation without rhonchi or wheezing. Cardiovascular Regular rate and rhythm of heart without murmurs,clicks, gallops or rubs. Abdomen Non-tender, non-distended, no masses or ascites. Good bowel sounds noted in all quads. No guarding or rebound tenderness. No pulsatile masses. Back/Spine Non-tender to palpation. Extremities No visible deformities, no cyanosis, clubbing or edema. Musculoskeletal No tenderness or swelling, normal range of motion without obvious weakness. Integumentary No rashes or lesions. Neurologic No sensory or motor deficits, normal cerebellar function, normal gait. Psychiatric Alert and oriented times three. Coherent speech. Verbalizes understanding of our discussions today. Laboratory:Test performed on Jun 27, 2020 10:09 Ferritin 24 ng/mL Iron 82 mcg/dL Sodium 135 mmol/L Iron Binding Capacity (TIBC) 367 mcg/dl Potassium 4.2 mmol/L % Iron Saturation 22.3 % Chloride 100 mmol/L CO2 24 mmol/L UIBC 285 mcg/dL Anion Gap 15.2 BUN 11 mg/dL Creatinine 0.8 mg/dL Cr Clearance (Est) 86.09 mL/min Glucose 150 mg/dL Osmolality - Calculated 282 mOsm/kg Calcium 9.0 mg/dL Protein, Total 7.8 g/dL Albumin 4.7 g/dL Globulin 3.1 g/dL Bilirubin, Total 0.8 mg/dL ALT (SGPT) 25 U/L AST (SGOT) 39 U/L Alkaline Phosphatase 31 IU/L WBC 5.8 10 3/uL RBC 4.22 10 6/uL HGB 12.3 g/dL HCT 39.1 % MCV 92.7 fL MCH 29.1 pg MCHC 31.5 g/dL RDW 12.9 % Platelet Count 240 10 3/cmm MPV 9.0 fL Neutrophils 3.75 10 3/uL Lymphocytes 1.5 10 3/uL Monocytes 0.5 10 3/uL Eosinophils 0.0 10 3/uL Basophils 0.0 10 3/uL Neutrophil % 64.9 % Lymphocyte % 25.1 % Monocyte % 9.0 % Eosinophil % 0.5 % Basophils % 0.3 % NRBC % 0 % Test performed on Mar 20, 2020 11:49 CRP, High Sensitivity < 0.150 mg/dL ESR (Sed Rate) 19 mm/hr Impression: 1. Hereditary hemochromatosis, homozygous for the C282Y mutation. She has been managed adequately with phlebotomy. 2. Rheumatoid arthritis. 3. Hypertension. 4. Hyperlipidemia. 5. Type II diabetes. 6. Coronary artery disease. 7. GERD. 8. Chronic depression. Plan: PROBLEMS ADDRESSED TODAY 1. Hereditary hemochromatosis, homozygous for the C282Y mutation. She has been managed with phlebotomy. Her last phlebotomy was March 20, 2020. A. Her iron saturation today is 22.3% ferritin is 24 and iron level is 82. B. Her hematocrit is 39.1. She will not require phlebotomy today. C. The remainder of her labs were reviewed with her in detail and a copy was given to her. WBC 5.8, hemoglobin 12.2, platelets 240,000 ANC is 3750. Potassium 4.2 random glucose 150 creatinine 0.8 LFTs are normal ALT 39 with normal being 0-32. 2. She has having increased exertional dyspnea and decreased activity tolerance. She has been diagnosed with asthma/COPD. A. She is currently following with Dr. Mueller in [facility]. B. She was recently started on Symbicort and feels better per her report. 3. Follow-up plan We will plan to recheck her CBC CMP and iron studies again in 1 month. B. We will plan to see her back in 3 months with CBC CMP ferritin TIBC. She will tentatively would plan for phlebotomy at that time???it may not be necessary given her recent history of low iron and normal hematocrit. C. Ms. Gaytan has been instructed to contact us in the interim should questions or problems arise. Signed By: Turner Menjivar-, [facility] Travis Chambers MD <<Signature on File>>
== END 2020-06-27 09:46 | disposition home or self-care (01) ==
LOC: ONCMED 09:49
PROVIDERS: PCP Nurse Practitioner Family; Visit Provider Nurse Practitioner
DX: E83.110 Hereditary hemochromatosis (principal); M06.9 Rheumatoid arthritis, unspecified; D50.9 Iron deficiency anemia, unspecified; F32.9 Major depressive disorder, single episode, unspecified; K21.9 Gastro-esophageal reflux disease without esophagitis; E78.00 Pure hypercholesterolemia, unspecified; I10 Essential (primary) hypertension; M81.0 Age-related osteoporosis without current pathological fracture; E11.59 Type 2 diabetes mellitus with other circulatory complications; I25.10 Atherosclerotic heart disease of native coronary artery without angina pectoris; Z79.899 Other long term (current) drug therapy
CPT/HCPCS: 36415; 80053; 82728; 83540; 83550; 85025; 99214

== ENCOUNTER 2020-07-31 10:23 | Outpatient (CLI) | payer MEDICARE, SELFPAY ==
[2020-07-31 10:56] LABS: Basophils % 0.2 %; Eosinophils # 0.1 10^3/uL (0.0-0.8); Hematocrit 37.5 % (37.0-47.0); Hemoglobin 12.2 g/dL (11.5-15.3); Lymphocytes % 39.4 %; Mean Corpuscular HGB Conc 32.5 g/dL (30.0-36.0); Mean Corpuscular Hemoglobin 29.7 pg (28.0-34.0); Mean Corpuscular Volume 91.2 fL (81-99); Mean Platelet Volume 9.3 fL (7.4-10.4); Monocytes # 0.5 10^3/uL (0.2-0.9); Monocytes % 9.7 %; Neutrophils # 2.54 10^3/uL (1.8-7.7); Neutrophils % 49.5 %; Nucleated Red Blood Cells % 0 %; Platelet Count 221 10^3/cmm (130-400); Red Blood Count 4.11 10^6/uL (4.1-5.3); Red Cell Distribution Width 13.8 % (12.1-15.1); White Blood Count 5.1 10^3/uL (4.0-10.0)
[2020-07-31 11:13] LABS: Alanine Aminotransferase 18 U/L (0-33); Albumin Level 4.5 g/dL (3.5-5.2); Alkaline Phosphatase 26 IU/L (35-105); Anion Gap 15.1 (5-19); Aspartate Amino Transferase 23 U/L (0-32); Blood Urea Nitrogen 14 mg/dL (8-23); Calcium 8.8 mg/dL (8.5-10.5); Carbon Dioxide 23 mmol/L (22-29); Chloride 106 mmol/L (98-107); Ferritin 21 ng/mL (15-150); Globulin 3.1 g/dL (1.3-4.6); Glucose 135 mg/dL (65-115); Iron 100 ug/dL (37-145); Osmolality Calculated 293 mOsm/kg (285-295); Percent Saturation 31.5 % (20-50); Potassium 4.1 mmol/L (3.5-5.1); Sodium 140 mmol/L (136-145); Total Bilirubin 0.6 mg/dL (0.15-1.2); Total Iron Binding Capacity 317 mcg/dl; Total Protein 7.6 g/dL (6.6-8.7); Unsaturated Iron Binding 217 ug/dL (112-347)
== END 2020-07-31 10:24 | disposition home or self-care (01) ==
LOC: ONCMED 10:25
PROVIDERS: PCP Nurse Practitioner Family; Visit Provider Internal Medicine Medical Oncology
DX: E83.110 Hereditary hemochromatosis (principal); M06.9 Rheumatoid arthritis, unspecified
CPT/HCPCS: 80053; 82728; 83540; 83550; 85025

== ENCOUNTER → 2020-08-19 09:32 | Outpatient (BNVA) | payer MEDICARE, SELFPAY | PROVIDERS: PCP Nurse Practitioner Family; Visit Provider Internal Medicine Rheumatology | DX: M06.9 Rheumatoid arthritis, unspecified (principal); Z79.899 Other long term (current) drug therapy | CPT/HCPCS: 36415; 80053; 85025; 85651; 86140 ==

== ENCOUNTER → 2020-09-11 14:26 | Outpatient (BNVA) | payer MEDICARE, SELFPAY | PROVIDERS: PCP Nurse Practitioner Family; Visit Provider Internal Medicine | DX: M06.9 Rheumatoid arthritis, unspecified (principal); R05 Cough; Z79.899 Other long term (current) drug therapy | CPT/HCPCS: 71046; 99214 ==

== ENCOUNTER 2020-09-11 15:13 | Outpatient (CLI) | payer MEDICARE, SELFPAY ==
--- NOTE | 2020-09-11 15:21 | XR_ITS ---
WS: [id number] PROCEDURE: XR chest 2V* [id number] CLINICAL INFORMATION: Z79.899 - Other superintendent [employer] (current) drug therapy COMPARISON: FINDINGS: Heart: Cardiomegaly. Lungs: Chronic emphysematous changes. Calcified hilar nodes with calcified granulomas in the mid and lower lungs bilaterally appears progressed compared to previous. Patchy interstitial infiltrates in t he right midlung and right lower lobe new from previous. Lung apices are normal. Bones: Normal visualized bony structures. XR/XR chest 2V* [id number] IMPRESSION: 1. Cardiomegaly. 2. Chronic emphysematous changes. No focal pneumonia. 3. Calcified hilar nodes with patchy right lower lobe interstitial infiltrates and calcified granulomas in the lung bases appear progressed compared to previ ous. This can be further evaluated with chest CT. 4. Lung apices are normal.
== END 2020-09-11 15:14 | disposition home or self-care (01) ==
PROVIDERS: PCP Nurse Practitioner Family; Visit Provider Internal Medicine
DX: Z79.899 Other long term (current) drug therapy (principal)
CPT/HCPCS: 71046

== ENCOUNTER 2020-09-25 09:00 | Outpatient (CLI) | payer MEDICARE, SELFPAY ==
[2020-09-25 10:24] LABS: Basophils % 0.3 %; Eosinophils # 0.1 10^3/uL (0.0-0.8); Eosinophils % 0.9 %; Hematocrit 38.3 % (37.0-47.0); Hemoglobin 12.3 g/dL (11.5-15.3); Lymphocytes # 1.4 10^3/uL (0.8-4.8); Lymphocytes % 21.2 %; Mean Corpuscular HGB Conc 32.1 g/dL (30.0-36.0); Mean Corpuscular Hemoglobin 29.9 pg (28.0-34.0); Mean Corpuscular Volume 93.2 fL (81-99); Mean Platelet Volume 9.3 fL (7.4-10.4); Monocytes # 0.4 10^3/uL (0.2-0.9); Monocytes % 6.7 %; Neutrophils # 4.59 10^3/uL (1.8-7.7); Neutrophils % 70.4 %; Nucleated Red Blood Cells % 0 %; Platelet Count 304 10^3/cmm (130-400); Red Blood Count 4.11 10^6/uL (4.1-5.3); Red Cell Distribution Width 14.6 % (12.1-15.1); White Blood Count 6.5 10^3/uL (4.0-10.0)
[2020-09-25 10:48] LABS: Alanine Aminotransferase 21 U/L (0-33); Albumin Level 4.5 g/dL (3.5-5.2); Alkaline Phosphatase 41 IU/L (35-105); Aspartate Amino Transferase 31 U/L (0-32); Blood Urea Nitrogen 12 mg/dL (8-23); Calcium 9.1 mg/dL (8.5-10.5); Carbon Dioxide 24 mmol/L (22-29); Chloride 102 mmol/L (98-107); Ferritin 40 ng/mL (15-150); Globulin 3.5 g/dL (1.3-4.6); Glucose 142 mg/dL (65-115); Iron 132 ug/dL (37-145); Osmolality Calculated 290 mOsm/kg (285-295); Percent Saturation 44.4 % (20-50); Sodium 139 mmol/L (136-145); Total Bilirubin 0.6 mg/dL (0.15-1.2); Total Iron Binding Capacity 297 mcg/dl; Unsaturated Iron Binding 165 ug/dL (112-347)
[2020-09-25 10:50] LABS: Anion Gap 17.6 (5-19); Potassium 4.6 mmol/L (3.5-5.1)
== END 2020-09-25 09:01 | disposition home or self-care (01) ==
LOC: ONCMED 09:02
PROVIDERS: PCP Nurse Practitioner Family; Visit Provider Internal Medicine Medical Oncology
DX: E83.110 Hereditary hemochromatosis (principal); M06.9 Rheumatoid arthritis, unspecified; I10 Essential (primary) hypertension; E78.5 Hyperlipidemia, unspecified; E11.9 Type 2 diabetes mellitus without complications; I25.10 Atherosclerotic heart disease of native coronary artery without angina pectoris; K21.9 Gastro-esophageal reflux disease without esophagitis; F32.9 Major depressive disorder, single episode, unspecified; Z79.899 Other long term (current) drug therapy; J44.9 Chronic obstructive pulmonary disease, unspecified
CPT/HCPCS: 36415; 80053; 82728; 83540; 83550; 85025

== ENCOUNTER 2020-11-05 12:55 | Outpatient (CLI) | payer MEDICARE, SELFPAY ==
[2020-11-05 13:44] LABS: Basophils % 0.5 %; Eosinophils # 0.2 10^3/uL (0.0-0.8); Eosinophils % 3.4 %; Hematocrit 35.6 % (37.0-47.0); Hemoglobin 11.6 g/dL (11.5-15.3); Lymphocytes # 0.7 10^3/uL (0.8-4.8); Lymphocytes % 16.4 %; Mean Corpuscular HGB Conc 32.6 g/dL (30.0-36.0); Mean Corpuscular Hemoglobin 30.6 pg (28.0-34.0); Mean Corpuscular Volume 93.9 fl (81-99); Mean Platelet Volume 8.9 fL (7.4-10.4); Monocytes # 0.6 10^3/uL (0.2-0.9); Neutrophils # 2.88 10^3/uL (1.8-7.7); Neutrophils % 64.8 %; Nucleated Red Blood Cells % 0 %; Platelet Count 167 10^3/cmm (130-400); Red Blood Count 3.79 10^6/uL (4.1-5.3); Red Cell Distribution Width 14.2 % (12.1-15.1); White Blood Count 4.4 10^3/uL (4.0-10.0)
[2020-11-05 14:13] LABS: Alanine Aminotransferase 30 U/L (0-33); Albumin Level 4.1 g/dL (3.5-5.2); Alkaline Phosphatase 34 IU/L (35-105); Anion Gap 13.9 (5-19); Aspartate Amino Transferase 48 U/L (0-32); Blood Urea Nitrogen 11 mg/dL (8-23); Calcium 8.8 mg/dL (8.5-10.5); Carbon Dioxide 26 mmol/L (22-29); Chloride 105 mmol/L (98-107); Ferritin 27 ng/mL (15-150); Glucose 106 mg/dL (65-115); Iron 64 ug/dL (37-145); Osmolality Calculated 292 mOsm/kg (285-295); Percent Saturation 23.4 % (20-50); Potassium 3.9 mmol/L (3.5-5.1); Sodium 141 mmol/L (136-145); Total Bilirubin 0.6 mg/dL (0.15-1.2); Total Iron Binding Capacity 273 mcg/dl; Total Protein 7.1 g/dL (6.6-8.7); Unsaturated Iron Binding 209 ug/dL (112-347)
--- NOTE | 2020-11-09 12:00 | ONC FU_ITS ---
Dr. Chambers Patient Follow-Up Note Patient: Corinna Lance Unit #: [id number]: 1950 Dicatated By: Travis Chambers M.D.Date of Visit:Nov 05, 2020 Onc Med Follow-up/Prog Note Chief Complaint: Hemochromatosis. History of Present Illness: This is a 70 year-old woman with hereditary hemochromatosis, initially diagnosed in April 2010. Her ferritin was just moderately elevated at 440 ng/mL. She was found to be homozygous for the C282Y mutation. She was started on a phlebotomy program. As of November 2011 her ferritin was down to 94 ng/mL. In March 2016 she had fallen out of the bathtub and sustained fractures to the left tibia and fibula. I don't have any of those records. She has been showing gradual recovery. With her follow-up visit in August 2016 her transferrin saturation had decreased to 15.8% and her ferritin was down to 27.8 ng/mL. At that point I did have her stop phlebotomies. As of her follow-up visit in February 2018 her transferrin saturation was 29.4% and her serum ferritin remained in target range at 38.0 ng/mL. However, as of her follow-up visit in January 2019 there was an increase in both the transferrin saturation and ferritin, and at that point I did have her restart phlebotomies. Her other medical illnesses include rheumatoid arthritis, hypertension, hypercholesterolemia, and type 2 diabetes. She was found to have bidj-ia-kuddruty coronary artery disease on cardiac catheterization in December 2009. Other illnesses include GERD and chronic depression. She has had multiple joint surgeries. She is a nonsmoker. INTERIM HISTORY: As ofMarch 2020 her transferrin saturation remained elevated, and I did have her continue phlebotomies every 3 months. She is seen for a follow-up visit. She says her last phlebotomy was 6 months ago. Her energy is better now than it was. She has been doing some walking and she is able to do housework. ECOG score is 1. She has has been dieting and she has been able to lose some weight. She has not had fever. She does have quite a bit of sweating, sometimes with hot flashes. She has sinus drainage and she has had a bad cough. She does not complain of shortness of breath or chest pain. She has some nausea, possibly from the sinus drainage. She was having constipation, but that has improved. Bladder function has been okay. Her joint pain is adequately managed with medication. She has been having more headaches lately. She has numbness in her hands and feet. Medications: Aldactazide 1 Tablet (of 25-25 mg) Oral daily, Avapro 1 Tablet (of 150 mg) Oral daily, Crestor 1 (10 mg) Tablet Oral daily, Effexor 1 (75 mg) Tablet Oral at bedtime, Fosamax 1 Tablet (of 70 mg) Oral daily, glipiZIDE ER 1 Tablet (of 5 mg) Tablet SR 24 HR Oral b.i.d., Hydrocodone-Acetaminophen 1 (10-325 mg) Tablet Oral b.i.d. PRN, metFORMIN HCl 1 Tablet (of 500 mg) Oral daily, Methotrexate 5 Tablet (of 2.5 mg) Oral q 7 days, Metoprolol Succinate ER 1 (25 mg) Tablet SR 24 HR Oral daily, Pantoprazole Sodium 1 Tablet (of 20 mg) Tablet, enteric coated Oral daily, ProAir HFA Aerosol, solution Inhalation PRN, Xeljanz 1 Tablet (of 5 mg) Oral b.i.d. Allergies: lisinopril and Sulfamethoxazole-Trimethoprim. Vital Signs: Performed on Nov 05, 2020 15:02 Height - 62.00 in Weight - 174.2 lbs (LOW) BSA - 1.80 sq.m BMI - 31.86 (HIGH) Temperature - 98.3 F (LOW) Pulse - 103 /min (HIGH) Respiration - 18 /min BP - 127/86 mm(hg) O2 Sat - 95 % (LOW) Pain - 0 Fatigue - 5 Physical Examination: Constitutional - She looks pretty good generally, Eyes - Sclerae nonicteric. Conjunctivae clear, ENMT - No lesions noted in the oral cavity, Hematologic/Lymphatic - No cervical, clavicular, or axillary adenopathy, Respiratory - Lungs are clear with good air movement bilaterally, Cardiovascular - Heart rhythm is regular. There is no murmur, gallop, or rub noted, Abdomen - Soft. Liver and spleen are not enlarged. There is no abdominal mass or ascites noted and there is no inguinal adenopathy, Extremities - No edema. There are RA changes in both hands, Neurologic - No focal neurologic deficits noted. Lab/Imaging: Test performed on Nov 05, 2020 13:27 Ferritin 27 ng/mL Iron 64 mcg/dL Sodium 141 mmol/L Iron Binding Capacity (TIBC) 273 mcg/dl Potassium 3.9 mmol/L % Iron Saturation 23.4 % Chloride 105 mmol/L CO2 26 mmol/L UIBC 209 mcg/dL Anion Gap 13.9 BUN 11 mg/dL Creatinine 0.6 mg/dL Cr Clearance (Est) 107.28 mL/min Glucose 106 mg/dL Osmolality - Calculated 292 mOsm/kg Calcium 8.8 mg/dL Protein, Total 7.1 g/dL Albumin 4.1 g/dL Globulin 3.0 g/dL Bilirubin, Total 0.6 mg/dL ALT (SGPT) 30 U/L AST (SGOT) 48 U/L Alkaline Phosphatase 34 IU/L WBC 4.4 10 3/uL RBC 3.79 10 6/uL HGB 11.6 g/dL HCT 35.6 % MCV 93.9 fl MCH 30.6 pg MCHC 32.6 g/dL RDW 14.2 % Platelet Count 167 10 3/cmm MPV 8.9 fL Neutrophils 2.88 10 3/uL Lymphocytes 0.7 10 3/uL Monocytes 0.6 10 3/uL Eosinophils 0.2 10 3/uL Basophils 0.0 10 3/uL Neutrophil % 64.8 % Lymphocyte % 16.4 % Monocyte % 14.0 % Eosinophil % 3.4 % Basophils % 0.5 % NRBC % 0 % Problem List: 1. Hereditary hemochromatosis, homozygous for the C282Y mutation. She has been managed adequately with phlebotomy. 2. Rheumatoid arthritis. 3. Hypertension. 4. Hyperlipidemia. 5. Type II diabetes. 6. Coronary artery disease. 7. GERD. 8. Chronic depression. 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 She has been managed with phlebotomy. As of March 2020 her transferrin saturation was significantly elevated at 80.9%, though I was skeptical of the accuracy of that result, as her ferritin was only 45 ng/mL. Nonetheless, I did have her continue phlebotomies. Her current studies now are in target range with ferritin 27 ng/mL and transferrin saturation 23.4%. As such, for the time being she will remain off phlebotomies. She will be scheduled for a follow-up visit and repeat lab studies in 6 months. Signed By: Travis Chambers M.D. <<Signature on File>>
== END 2020-11-05 12:56 | disposition home or self-care (01) ==
LOC: ONCMED 12:58
PROVIDERS: PCP Nurse Practitioner Family; Visit Provider Internal Medicine Medical Oncology
DX: E83.110 Hereditary hemochromatosis (principal); Z79.899 Other long term (current) drug therapy
CPT/HCPCS: 36415; 80053; 82728; 83540; 83550; 85025; 99214

== ENCOUNTER 2020-11-07 10:32 | Outpatient (CLI) | payer MEDICARE, SELFPAY ==
--- NOTE | 2020-11-07 11:00 | CT_ITS ---
WS: [id number] CT CHEST TECHNIQUE: Noncontrast CT of the chest with coronal and sagittal reformatted images. CLINICAL INFORMATION: R93.89 - Abnormal findings on diagnostic imaging of other... COMPARISON: CT chest 6 DLP: 943.[address] scans at [facility] use at least one of these dose optimization techniques: automated e xposure control; mA and/or kV adjustment per patient size (includes targeted exams where dose is matc hed to clinical indication); or iterative reconstruction. FINDINGS: Moderate chronic emphysematous changes. No focal pneumonia or pleural fluid. Stable noncalcified nodu le along the lingula measuring 5 mm. Tree-in-bud micronodular infiltrates in the right upper lobe and both lower lobes new from previous. Subsegmental atelectasis or fibrosis in the right upper lobe suzanne ng the fissure. Mild traction bronchiectasis. Additional interstitial fibrotic infiltrates in the lef t lower lobe laterally. Several new Noncalcified nodules in the right lower lobe largest measuring 7 mm. Additional smaller hazy groundglass nodules right lower lobe. Stable 6.5 mm noncalcified nodule right lower lobe mediall y. This is progressed slightly since 2016 where it measured 5.3 mm. Normal caliber thoracic aorta. No mediastinal or hilar lymphadenopathy. No axillary lymphadenopathy. Adrenal glands are normal. Tiny left renal cyst or angiomyolipoma. CT/CT chest wo con [id number] IMPRESSION: 1. Several new noncalcified pulmonary nodules in the right lower lobe the larg est measuring 7 mm. Recommend 3-6 month follow-up. 2. 6.5 mm right lower lobe pulmonary nodule posterior medially slightly increa sed in size since 2016. 3. Tree-in-bud micronodular infiltrates in the right upper lobe and bilateral lower lobes right greater than left have progressed from previous. This is like ly infectious or inflammatory. 4. No focal pneumonia or pleural fluid. 5. Subsegmental atelectasis and fibrosis in both lower lobes. 6. Moderate chronic emphysematous changes. 7. No mediastinal or hilar lymphadenopathy.
== END 2020-11-07 10:33 | disposition home or self-care (01) ==
PROVIDERS: PCP Nurse Practitioner Family; Visit Provider Internal Medicine
DX: M06.9 Rheumatoid arthritis, unspecified (principal); R93.89 Abnormal findings on diagnostic imaging of other specified body structures
CPT/HCPCS: 71250

== ENCOUNTER → 2020-12-30 11:41 | Outpatient (BNVA) | payer MEDICARE, SELFPAY | PROVIDERS: PCP Nurse Practitioner Family; Visit Provider Internal Medicine | DX: M06.9 Rheumatoid arthritis, unspecified (principal); M79.605 Pain in left leg | CPT/HCPCS: 99213 ==

== ENCOUNTER 2020-12-31 09:10 | Outpatient (CLI) | payer MEDICARE, SELFPAY ==
--- NOTE | 2020-12-31 09:21 | XR_ITS ---
WS: [id number] FEMUR LEFT TECHNIQUE: 2 views of the left femur CLINICAL INFORMATION: M19.079 - Primary osteoarthritis, unspecified ankle and foot COMPARISON: None. FINDINGS: Mild degenerative arthritis left hip. Osteopenia. Normal femoral neck. No acute fractures. Femoral sh aft is normal. Partially visualized hardware in the tibia. XR/XR femur LT min 2V* [id number] IMPRESSION: Normal left femur
--- NOTE | 2020-12-31 09:21 | XR_ITS ---
WS: [id number] LUMBAR SPINE TECHNIQUE: 3 views of the lumbar spine CLINICAL INFORMATION: M19.079 - Primary osteoarthritis, unspecified ankle and foot COMPARISON: None. FINDINGS: Grade 1 anterolisthesis L3 on L4 and L4 on L5 measuring 2.5 mm and 1.8 mm respectively. Moderate face t arthropathy L4-L5 and L5-S1. Mild chronic anterior wedging lower thoracic spine. Mild lumbar curve. XR/XR lumbar spine 2-3V* [id number] IMPRESSION: Grade 1 anterolisthesis L3 on L4 and L4 on L5 measuring 2.5 mm and 1.8 mm respe ctively.
== END 2020-12-31 09:11 | disposition home or self-care (01) ==
PROVIDERS: PCP Nurse Practitioner Family; Visit Provider Internal Medicine
DX: M19.079 Primary osteoarthritis, unspecified ankle and foot (principal)
CPT/HCPCS: 72100; 73552

== ENCOUNTER 2021-03-27 09:44 | Outpatient (CLI) | payer MEDICARE, SELFPAY ==
--- NOTE | 2021-03-27 10:05 | XR_ITS ---
WS: [id number] LUMBAR SPINE TECHNIQUE: 7 views of the lumbar spine CLINICAL INFORMATION: ACUTE LEFT-SIDED LOW BACK PAIN WITHOUT SCIATICA COMPARISON: None. FINDINGS: Five [id number] lumbar vertebral bodies. Lumbar curve convex left. Advanced spondylitic changes lumbar spine with slight anterolisthesis L3 on L4 and L4 on L5. Anterolisthesis L3 on L4 measures 2.9 mm and L4 on L5 measures 2.4 mm. This increases slightly on fl exion to 4.1 mm and 3.5 mm at L3-4 and L4-5 respectively. This also increases in extension to 6.6 mm and 7.5 mm respectively L3-L4 and L4-L5. Disc space narrowing worse at L2-3. Disc space narrowing worse at L4-L5 and L5-S1. Moderate to advanced facet arthropathy L4-L5 and L5-S1 . No acute appearing compression fractures. XR/XR lumbar spine 6V w f/e [id number] IMPRESSION: 1. Lumbar curve convex left with advanced spondylitic changes. 2. No acute appearing compression fractures. 3. Grade 1 anterolisthesis L3 on L4 and L4 on L5 with flexion/extension instab ility described above. 4. Moderate to advanced facet arthropathy L4-L5 and L5-S1. 5. Disc space narrowing worse at L2-3.
--- NOTE | 2021-03-27 10:05 | XR_ITS ---
WS: [id number] HIP WITH PELVIS LEFT TECHNIQUE: 3 views of the left hip with pelvis CLINICAL INFORMATION: ACUTE PAIN OF LEFT HIP COMPARISON: None. FINDINGS: Mild degenerative narrowing left hip. No acute fractures. Normal femoral neck and proximal femoral sh aft. Left pubic rami are normal. Pelvic phleboliths. XR/XR hip LT 2-3V wo/w pel* [id number] IMPRESSION: Mild degenerative arthritis left hip. No acute fractures. Tonnis classification: grade 1: sclerosis of femoral head and acetabulum or sli ght joint space narrowing or slight lippig at joint margins
--- NOTE | 2021-03-27 10:05 | XR_ITS ---
WS: [id number] FEMUR LEFT TECHNIQUE: 2 views of the left femur CLINICAL INFORMATION: LEFT THIGH PAIN COMPARISON: None. FINDINGS: Left femoral shaft is normal in appearance. No acute fractures. Vascular calcification. Degenerative arthritis only partially visualized in the left lateral knee. XR/XR femur LT min 2V* [id number] IMPRESSION: Normal left femoral shaft. No acute fractures.
== END 2021-03-27 09:45 | disposition home or self-care (01) ==
PROVIDERS: PCP Nurse Practitioner Family; Visit Provider Nurse Practitioner Family
DX: M79.652 Pain in left thigh (principal); M47.816 Spondylosis without myelopathy or radiculopathy, lumbar region; M47.817 Spondylosis without myelopathy or radiculopathy, lumbosacral region; M16.12 Unilateral primary osteoarthritis, left hip
CPT/HCPCS: 72114; 73502; 73552

== ENCOUNTER 2021-03-29 08:24 | Emergency (ER) | payer MEDICARE, SELFPAY ==
[2021-03-29 08:46] VITALS: BP 88/57; PULSE 115; RESP 16; TEMP 36.4; O2SAT 97; BMI 31.8
--- NOTE | 2021-03-29 08:57 | ECG_ITS ---
[facility] Test Date: 2021-03-29 Pat Name: Corinna Lance Department: Room: Gender: Female Philosophy Faculty Member: : 1950 Requested By: Dane Waters Order Number: [id number] Sonny MD: Roxana Gonzalez M.D. Measurements Intervals [place] Rate: 96 P: 27 [place]: 163 QRS: -44 QRSD: 84 T: 42 QT: 331 QTc: 418 Interpretive Statements SINUS RHYTHM LEFT AXIS DEVIATION [QRS AXIS < -30] LOW QRS VOLTAGE IN PRECORDIAL LEADS [QRS DEFLECTION < 1.0 mV IN CHEST LEADS] PATTERN CONSISTENT WITH PULMONARY DISEASE INTERPRETATION BASED ON A DEFAULT AGE OF 40 YEARS No previous ECG available for comparison Electronically Signed On 03-30-2021 19:56:38 MACHINE SET UP by Roxana Gonzalez M.D. [id number]
--- NOTE | 2021-03-29 09:20 | ED_ITS ---
HPI - Back Pain/Injury General: Chief Complaint: Back Pain/Injury Stated Complaint: back pain Time Seen by Provider: 03/29/21 09:18 History of Present Illness: HPI Narrative: Ms. Gaytan is a 71-year-old lady with significant past medical history of hypertension, hyperlipidemia, CAD, diabetes who presents emergency department due to back pain. She reports longstanding history of gradual worsening without known specific provoking factor over the past 4 weeks or so. Pain is in the back and left hip region near the buttocks. There is some radiation down the leg and this limits her ability to ambulate secondary to pain. She denies saddle anesthesia or true weakness. No other exhibit red flag symptoms. Overall the course of symptoms has been worsening. Symptoms are exacerbated by ambulation or prolonged positions such as sitting. Intensity is moderate to severe. denies abdominal tenderness associated with this or radiation of pain around to the abdomen. No other specific changes in health, exacerbating, relieving factors identified. Onset (ago): week(s) Timing: progressively worsening Severity: severe Similar Symptoms Previously: Yes Quality: sharp and other Location: lumbar spine and left lower back Radiation: left upper leg Exacerbating factors: movement, sitting upright and walking Relieving factors: none Review of Systems General: Reports: 10 or more systems reviewed and unremarkable except in HPI and below PFSH ED PFSH: Medical History Controlled diabetes mellitus with diabetic polyneuropathy Diabetes Dizziness Surgical History History of appendectomy History of cataract extraction History of cholecystectomy History of hysterectomy History of tonsillectomy Family History Sister Hypertension Social History Smoking and tobacco status: never smoked Second hand smoke exposure: Yes Smoking risk assessment/counseling performed?: Yes Alcohol intake: never Lives independently: Yes Household members: none Housing: Apartment Marital status: / Current occupational status: retired Pets and animals: Yes History of recent travel: No Current gender identity: Female Physical Exam Const: COMMON NORMALS: alert GENERAL APPEARANCE: cooperative and well developed HENMT: COMMON NORMALS: normocephalic and atraumatic HEAD & SCALP: normocephalic and atraumatic THROAT: posterior oropharynx normal Eye: COMMON NORMALS: conjunctivae normal CONJUNCTIVA: Yes conjunctivae normal SCLERA: sclerae normal Neck/C-Spine: COMMON NORMALS: supple GENERAL: Yes trachea midline Resp: COMMON NORMALS: normal respiratory effort EFFORT & INSPECTION: Yes able to speak in complete sentences Cardio: COMMON NORMALS: regular rhythm RATE: tachycardic RHYTHM: regular rhythm GI: COMMON NORMALS: Soft to palpation PALPATION: Yes Soft to palpation and No Tenderness to palpation present (GI) PERCUSSION: normal to percussion Back/Pelvis: LUMBAR SPINE/LOWER BACK: Yes lumbar spinal tenderness, Yes paraspinal muscle tenderness and Yes straight leg raise positive left Extremity: NARRATIVE EXTREMITY EXAM: Distal CMS intact GENERAL: Yes normal exam except as noted and No edema Neuro: COMMON NORMALS: moves all extremities SENSORIUM/ORIENTATION: Yes alert and No Orientation impaired Psych: COMMON NORMALS: mental status grossly normal and Normal thought process present THOUGHT PROCESS: Normal thought process present Course ED course: - Patient was seen and evaluated by me at bedside - Patient placed on cardiac monitors, IV access obtained - Initial evaluation notable for exam as above - Symptom treatment ordered - Given severity of symptoms in conjugation with clinical history, medical hi story, and other factors I feel that medical evaluation is necessary - Labs notable for no leukocytosis, normal hemoglobin. Metabolic panel with perhaps mild evidence of dehydration. Transaminitis of unclear etiology. Urinalysis with evidence of urinary tract infection though there is small amount of squamous epithelial contamination. Given flank and low back component I will treat this. - Imaging notable for multilevel degenerative changes including moderate to severe disease at L5 and S1 - Upon serial reexamination after treatment the patient was improved - Based on patient history, evaluation, labs, and imaging as interpreted the most likely cause of the patient's condition is degenerative lumbar spine changes likely explaining the patient's radicular component of pain as well as urinary tract infection - The results of ED evaluation were discussed with the patient including presc riptions and/or symptomatic cares (if applicable) including appropriate and responsible use, followup plan, and return precautions. The patient verbalized understanding and felt safe for discharge. - Patient discharged in satisfactory condition. Note: Click bubbles or prepopulated son in note writing are used for assistance with data collection and billing and are inherently more limited than narrative and other text portions of this note. Please use narrative for additional clinical history and defer to narrative/free test for any case of contradictory information. If information appears in only free text or click bubble it should be considered present or absent as reported. Please contact note selling underwriter for clarifications of clinical information or contradictory information. MDM is a brief summary, contradictory or erroneous seeming information should be clarified and full note should be reviewed. Vital Signs: Vital signs: Vital Signs Temperature 97.5 F L 03/29/21 08:46 Pulse Rate 71 03/29/21 14:37 Respiratory Rate 16 03/29/21 14:37 Blood Pressure 100/71 03/29/21 14:37 Pulse Oximetry 97 03/29/21 14:37 MDM - Back Pain/Injury MDM Narrative Medical decision making narrative: 71-year-old lady presenting with acute on chronic back pain that has been worse for approximately 4 weeks. No specific red flag symptoms associated with this. Medical evaluation only notable for questionable urinary tract infection which will be treated. Patient satisfactory with improvement in symptoms for outpatient follow-up with orthopedic spine. Medical Records Attestation: I reviewed the patient's medical records. Lab Data Attestation: I reviewed the patient's lab results. Result diagrams: 03/29/21 10:23 03/29/21 10:23 Labs: Lab Results 03/29/21 03/29/21 03/29/21 10:23 10:23 10:23 WBC 8.6 10^3/uL 10^3/uL (4.0-10.0) RBC 4.77 10^6/uL 10^6/uL (4.1-5.3) Hgb 14.5 g/dL g/dL (11.5-15.3) Hct 43.5 % % (37.0-47.0) MCV 91.2 fl fl (81-99) MCH 30.4 pg pg (28.0-34.0) MCHC 33.3 g/dL g/dL (30.0-36.0) RDW 13.7 % % (12.1-15.1) Plt Count 243 10^3/cmm 10^3/cmm (130-400) MPV 9.2 fL fL (7.4-10.4) Neut % (Auto) 65.7 % % Lymph % (Auto) 24.6 % % [place] % (Auto) 8.6 % % Eos % (Auto) 0.6 % % Baso % (Auto) 0.0 % % Neut # (Auto) 5.68 10^3/uL 10^3/uL (1.8-7.7) Lymph # (Auto) 2.1 10^3/uL 10^3/uL (0.8-4.8) [place] # (Auto) 0.7 10^3/uL 10^3/uL (0.2-0.9) Eos # (Auto) 0.1 10^3/uL 10^3/uL (0.0-0.8) Baso # (Auto) 0.0 10^3/uL 10^3/uL (0.0-0.1) Nucleated RBC % (auto) 0 % % Nucleated RBCs # 0.0 /100WBC /100WBC PT 13.10 SECONDS SECONDS (12.1-14.9) INR 0.97 (0.8-1.2) Sodium 136 mmol/L mmol/L (136-145) Potassium 4.8 mmol/L mmol/L (3.5-5.1) Chloride 98 mmol/L mmol/L (98-107) Carbon Dioxide 21 mmol/L L mmol/L (22-29) Anion Gap 21.8 H (5-19) BUN 24 mg/dL H mg/dL (8-23) Creatinine 0.9 mg/dL mg/dL (0.5-0.9) GFR Calculation Not Reportable Glucose 124 mg/dL H mg/dL (65-115) Calculated Osmolality 287 mOsm/kg mOsm/kg (285-295) Calcium 10.1 mg/dL mg/dL (8.5-10.5) Total Bilirubin 0.9 mg/dL mg/dL (0.15-1.2) AST 24 U/L U/L (0-32) ALT 35 U/L H U/L (0-33) Alkaline Phosphatase 35 IU/L IU/L (35-105) Total Protein 7.3 g/dL g/dL (6.6-8.7) Albumin 4.5 g/dL g/dL (3.5-5.2) Globulin 2.8 g/dL g/dL (1.3-4.6) Urine Color Urine Appearance Urine pH Ur Specific [place] Urine Protein Urine Glucose (UA) Urine Ketones Urine Blood Urine Nitrate Urine Bilirubin Urine Urobilinogen Ur Leukocyte Esterase Urine RBC Urine WBC Ur Squamous Epith Cells Amorphous Sediment Urine Bacteria 03/29/21 12:15 WBC RBC Hgb Hct MCV MCH MCHC RDW Plt Count MPV Neut % (Auto) Lymph % (Auto) [place] % (Auto) Eos % (Auto) Baso % (Auto) Neut # (Auto) Lymph # (Auto) [place] # (Auto) Eos # (Auto) Baso # (Auto) Nucleated RBC % (auto) Nucleated RBCs # PT INR Sodium Potassium Chloride Carbon Dioxide Anion Gap BUN Creatinine GFR Calculation Glucose Calculated Osmolality Calcium Total Bilirubin AST ALT Alkaline Phosphatase Total Protein Albumin Globulin Urine Color Yellow (Yellow) Urine Appearance Hazy A (CLEAR) Urine pH 5 (5-7) Ur Specific [place] 1.020 (1.005-1.030) Urine Protein Trace (Negative) Urine Glucose (UA) Norm (Normal) Urine Ketones 1+ H (Negative) Urine Blood Neg (Negative) Urine Nitrate Positive H (Negative) Urine Bilirubin 1+ H (Negative) Urine Urobilinogen 1 mg/dL H mg/dL (Negative) Ur Leukocyte Esterase 2+ H (Negative) Urine RBC None /hpf /hpf (0-2) Urine WBC 40-55 /hpf H /hpf (0-5) Ur Squamous Epith Cells 5-10 /hpf H /hpf (0-5) Amorphous Sediment Not Reportable Urine Bacteria 4+ /hpf H /hpf (NONE) EKG Data^ EKG 1: Interpretation: Twelve-lead EKG shows a regular rhythm at a rate of 96. LA interval 163, QRS duration 84, QTc 384. Left axis deviation Interpretation: Sinus rhythm. Discharge Plan Discharge Patient Disposition: Home Clinical Impression: Lumbar radiculopathy, Lumbar back pain, Acute UTI Condition: Stable Prescriptions: New oxycodone 5 mg tablet 5 mg PO Q6H PRN (Reason: pain) Qty: 14 0RF cephalexin 500 mg capsule 500 mg PO Q6H 10 Days Qty: 40 0RF methocarbamol 750 mg tablet 750 mg PO Q8H PRN (Reason: spasms) Qty: 20 0RF prednisone 20 mg tablet 40 mg PO DAILY 5 Days Qty: 20 0RF No Action (DME) Diabetic Shoes extra deep See Rx Instructions .ROUTE .MEDSUPPLY Qty: 1 0RF Rx Instructions: three pair of custom molded inserts spironolacton-hydrochlorothiaz [Aldactazide] 25-25 mg tablet 1 tab PO DAILY 0RF alendronate 70 mg tablet 70 mg PO Q7D 0RF Rx Instructions: ON FRIDAYS pantoprazole 20 mg tablet,delayed release (DR/EC) 20 mg PO DAILY 0RF fluticasone propionate [Allergy Relief (fluticasone)] 50 mcg/actuation spray,suspension 1 spray INTRANASAL DAILY 0RF metoprolol succinate 25 mg capsule,sprinkle,ER 24hr 25 mg PO DAILY 0RF albuterol sulfate [Ventolin HFA] 90 mcg/actuation HFA aerosol inhaler 2 puff INHALATION Q6H PRN (Reason: Shortness Of Breath) 0RF rosuvastatin [Crestor] 10 mg tablet 10 mg PO DAILY 0RF levothyroxine [Synthroid] 25 mcg tablet 25 mcg PO DAILY 0RF venlafaxine [Effexor XR] 37.5 mg capsule,extended release 24hr 37.5 mg PO DAILY 0RF metformin 500 mg tablet extended release 24 hr 500 mg PO DAILY 0RF montelukast [Singulair] 10 mg tablet 10 mg PO DAILY Qty: 90 3RF Rinvoq 15 mg tablet extended release 24 hr 15 mg PO DAILY Qty: 30 3RF budesonide-formoterol [Symbicort] 80-4.5 mcg/actuation HFA aerosol inhaler 2 puff inhalation BID Qty: 10.2 5RF hydrocodone-acetaminophen 5-325 mg tablet 1 tab PO BID PRN (Reason: Pain) 0RF gabapentin 300 mg Capsule 300 mg PO TID 0RF omeprazole 20 mg Capsule,Delayed Release(Dr/Ec) 20 mg PO BID 0RF irbesartan 150 mg Tablet 150 mg PO DAILY 0RF Discharge Orders: Discharge ED (Routine); Ordered 03/29/21 Ordered By: Wolfgang Slaughter Referrals: Angela Abraham NP [Primary Care Provider] - Discharge Diet: Usual diet Discharge Activity: Resume usual activity Patient Instructions: Urinary Tract Infection in Women (ED), Back Pain (ED), Opioid Safety Activity Restrictions/Additional Instructions: Thank you for visiting the emergency department. You were seen and evaluated for back pain. The exact cause of your symptoms is unclear though you do have significant degenerative changes. This likely requires further outpatient evaluation and I will message our caser up for follow-up with our orthopedic spine surgeon. You may continue to use [id number] medications for treatments in addition to the prescribed medications. Please return to the emergency department for symptoms as discussed such as saddle anesthesia, loss of control of bowel or bladder, uncontrolled pain, or anything that you are concerned about a feel needs emergency department evaluation. Coding Level of Care Code ED Commercial Lines Manager for Shiloh Wright
--- NOTE | 2021-03-29 09:33 | CTR_ITS ---
PROCEDURE INFORMATION: Exam: CT Lumbar Spine Without Contrast Exam date and time: 03/29/2021 9:33 AM Age: 71 years old Clinical indication: Low back pain; Additional info: Low back pain, L leg radiation TECHNIQUE: Imaging protocol: Computed tomography images of the lumbar spine without contrast. Radiation optimization: All CT scans at this facility use at least one of these dose optimization techniques: automated exposure control; mA and/or kV adjustment per patient size (includes targeted exams where dose is matched to clinical indication); or iterative reconstruction. COMPARISON: CR XR lumbar spine 6V w f/e [id number] 03/27/2021 10:15 AM RADIATION DOSE METRICS: Total DLP (mGy-cm): 2113.1 FINDINGS: Vertebrae: L1 and L5 benign intraosseous bony hemangiomas. L1-L2: Mild degenerative disc disease and spondylosis. L2-L3: Moderate degenerative disc disease and spondylosis. Mild bilateral facet hypertrophy and degenerative change. L3-L4: No significant disc protrusion. No severe spinal canal stenosis. No significant neural foraminal narrowing. L4-L5: Mild degenerative disc disease and spondylosis. Mild posterior disc bulge. [id number] bilateral facet hypertrophy and degenerative change. Mild degenerative disc disease and spondylosis. Moderate to severe bilateral facet hypertrophy and degenerative change. L5-S1: Moderate to severe bilateral facet hypertrophy and degenerative change. Vasculature: Calcification of the abdominal aorta and/or iliac arteries consistent with atherosclerotic vessel disease. Soft tissues: Unremarkable. CT/CT lumbar spine wo con* [id number] IMPRESSION: 1. Multilevel degenerative changes as discussed above. 2. No obvious disc herniation or stenosis.
[2021-03-29 10:14] VITALS: RESP 16
[2021-03-29] MEDS: sodium chloride 0.9% 1,000 ML 999 ML IV (10:14)
[2021-03-29] MEDS: morphine 4 mg/mL SDV 1 mL IVP (10:14)
[2021-03-29] MEDS: methocarbamol 750 mg Tablet PO (10:16)
[2021-03-29] MEDS: ketorolac 30 mg/mL INJ 15 MG IVP (10:16)
[2021-03-29 10:20] VITALS: BP 102/64; PULSE 96; RESP 20; O2SAT 94
[2021-03-29 10:41] LABS: Eosinophils # 0.1 10^3/uL (0.0-0.8); Eosinophils % 0.6 %; Hematocrit 43.5 % (37.0-47.0); Hemoglobin 14.5 g/dL (11.5-15.3); Lymphocytes # 2.1 10^3/uL (0.8-4.8); Lymphocytes % 24.6 %; Mean Corpuscular HGB Conc 33.3 g/dL (30.0-36.0); Mean Corpuscular Hemoglobin 30.4 pg (28.0-34.0); Mean Corpuscular Volume 91.2 fl (81-99); Mean Platelet Volume 9.2 fL (7.4-10.4); Monocytes # 0.7 10^3/uL (0.2-0.9); Monocytes % 8.6 %; Neutrophils # 5.68 10^3/uL (1.8-7.7); Neutrophils % 65.7 %; Nucleated Red Blood Cells % 0 %; Platelet Count 243 10^3/cmm (130-400); Red Blood Count 4.77 10^6/uL (4.1-5.3); Red Cell Distribution Width 13.7 % (12.1-15.1); White Blood Count 8.6 10^3/uL (4.0-10.0)
[2021-03-29 10:55] LABS: INR 0.97 (0.8-1.2)
[2021-03-29 11:04] LABS: Alanine Aminotransferase 35 U/L (0-33); Albumin Level 4.5 g/dL (3.5-5.2); Alkaline Phosphatase 35 IU/L (35-105); Anion Gap 21.8 (5-19); Aspartate Amino Transferase 24 U/L (0-32); Blood Urea Nitrogen 24 mg/dL (8-23); Calcium 10.1 mg/dL (8.5-10.5); Carbon Dioxide 21 mmol/L (22-29); Chloride 98 mmol/L (98-107); Globulin 2.8 g/dL (1.3-4.6); Glucose 124 mg/dL (65-115); Osmolality Calculated 287 mOsm/kg (285-295); Potassium 4.8 mmol/L (3.5-5.1); Sodium 136 mmol/L (136-145); Total Bilirubin 0.9 mg/dL (0.15-1.2); Total Protein 7.3 g/dL (6.6-8.7)
[2021-03-29 12:43] LABS: Add Urine Microscopic? YES; Bilirubin Urine 1+ (Negative); Blood Urine Neg (Negative); Glucose Urine UA Norm (Normal); Ketones Urine 1+ (Negative); Leukocyte Esterase Urine 2+ (Negative); Nitrate Urine Positive (Negative); Protein Urine Trace (Negative); Urine Appearance Hazy (CLEAR); Urine Color Yellow (Yellow); Urobilinogen Urine 1 mg/dL (Negative); pH Urine 5 (5-7)
[2021-03-29 12:44] LABS: Add Urine Culture? Yes; Bacteria Urine 4+ /hpf; WBC Urine 40-55 /hpf (0-5)
[2021-03-29 14:15] VITALS: BP 93/62; PULSE 668; RESP 18; O2SAT 97
--- NOTE | 2021-03-29 14:34 | PC.NURSE ---
THIS CHIEF DEVELOPMENT OFFICER REMOVED HER IV AND WENT OVER [facility] [employer] WITH HER AND SON. THIS CHIEF DEVELOPMENT OFFICER TOOK HER OUT TO PRIVATE CAR VIA WHEELCHAIR. IS GOOD CONDITIONS.
[2021-03-29 14:37] VITALS: BP 100/71; PULSE 71; RESP 16; O2SAT 97
--- NOTE | 2021-03-30 14:59 | DCPLANNER ---
Addendum entered by Sandra Maddox 04/03/21 12:45: Patient had a follow up appointment scheduled with ortho - patient did attend appointment. Original Note: manager of operations had message to schedule a follow up appointment for patient with ortho. manager of operations emailed patients information to both Sandra and Sandra at the ortho clinic. Patients information will be printed and reviewed. Clinic will call patient with appointment information.
== END 2021-03-29 14:08 | disposition home or self-care (01) ==
PROVIDERS: Nurse Practitioner Family; Emergency Provider Emergency Medicine; PCP Nurse Practitioner Family
DX: M54.16 Radiculopathy, lumbar region (principal); N39.0 Urinary tract infection, site not specified; Z79.84 Long term (current) use of oral hypoglycemic drugs
CPT/HCPCS: 72131; 80053; 81001; 85025; 85610; 87077; 87086; 87186; 93005; 96361; 96374; 96375; 99284; J1885; J2270; J7030

== ENCOUNTER → 2021-04-01 13:22 | Outpatient (BNVA) | payer MEDICARE, SELFPAY | PROVIDERS: PCP Nurse Practitioner Family; Visit Provider Internal Medicine | DX: M06.9 Rheumatoid arthritis, unspecified (principal); Z79.899 Other long term (current) drug therapy; M54.16 Radiculopathy, lumbar region | CPT/HCPCS: 99214 ==

== ENCOUNTER → 2021-04-07 09:28 | Outpatient (BNVA) | payer MEDICARE, SELFPAY | PROVIDERS: PCP Family Medicine; Referring Provider Orthopaedic Surgery; Visit Provider Anesthesiology Pain Medicine | DX: M43.16 Spondylolisthesis, lumbar region (principal); M51.16 Intervertebral disc disorders with radiculopathy, lumbar region; M47.816 Spondylosis without myelopathy or radiculopathy, lumbar region; Z79.891 Long term (current) use of opiate analgesic | CPT/HCPCS: 99205 ==

== ENCOUNTER → 2021-04-21 13:38 | Outpatient (BNVA) | payer MEDICARE, SELFPAY | PROVIDERS: PCP Family Medicine; Visit Provider Anesthesiology Pain Medicine | DX: M54.16 Radiculopathy, lumbar region (principal); E11.42 Type 2 diabetes mellitus with diabetic polyneuropathy; Z79.891 Long term (current) use of opiate analgesic | CPT/HCPCS: 36416; 64483; 64484; 82962; J1100; J3490 ==

== ENCOUNTER → 2021-05-07 09:42 | Outpatient (BNVA) | payer MEDICARE, SELFPAY | PROVIDERS: PCP Family Medicine; Visit Provider Anesthesiology Pain Medicine | DX: M43.16 Spondylolisthesis, lumbar region (principal); M47.816 Spondylosis without myelopathy or radiculopathy, lumbar region; M51.16 Intervertebral disc disorders with radiculopathy, lumbar region; M79.605 Pain in left leg; Z79.891 Long term (current) use of opiate analgesic | CPT/HCPCS: 99214 ==

== ENCOUNTER 2021-05-08 13:17 | Outpatient (CLI) | payer MEDICARE, SELFPAY ==
[2021-05-08 14:04] LABS: Hematocrit 34.9 % (37.0-47.0); Hemoglobin 11.5 g/dL (11.5-15.3); Mean Corpuscular Hemoglobin 31.3 pg (28.0-34.0); Mean Corpuscular Volume 95.1 fl (81-99); Platelet Count 522 10^3/cmm (130-400); Red Blood Count 3.67 10^6/uL (4.1-5.3); Red Cell Distribution Width 15.6 % (12.1-15.1); White Blood Count 8.1 10^3/uL (4.0-10.0)
[2021-05-08 14:23] LABS: Slide Review Slide Review Perform
[2021-05-08 14:24] LABS: Absolute Eosinophils 0.1 10^3/cmm (0.0-0.7); Absolute Neutrophil 4.7 10^3/cmm (1.4-6.5); Absolute Segmented Neutrophil 4.2 10/cmm (1.6-7.1); Band Neutrophils Absolute 0.5 10^3/cmm (0.0-1.2); Eosinophils 2 %; Lymphocytes 26 %; Lymphocytes Absolute 2.1 10^3/cmm (1.2-3.4); Monocytes Absolute 0.1 10^3/cmm (0.1-0.6); Platelet Estimate Increased (Normal); Segmented Neutrophils 52 %; Total Cells Counted 100 (0-100)
[2021-05-08 14:35] LABS: Alanine Aminotransferase 25 U/L (0-33); Albumin Level 4.2 g/dL (3.5-5.2); Alkaline Phosphatase 57 IU/L (35-105); Anion Gap 23.3 (5-19); Aspartate Amino Transferase 30 U/L (0-32); Blood Urea Nitrogen 42 mg/dL (8-23); Calcium 10.6 mg/dL (8.5-10.5); Carbon Dioxide 18 mmol/L (22-29); Chloride 99 mmol/L (98-107); Ferritin 270 ng/mL (15-150); Globulin 3.8 g/dL (1.3-4.6); Glucose 125 mg/dL (65-115); Iron 256 ug/dL (37-145); Osmolality Calculated 292 mOsm/kg (285-295); Percent Saturation 87.9 % (20-50); Potassium 5.3 mmol/L (3.5-5.1); Sodium 135 mmol/L (136-145); Total Bilirubin 0.4 mg/dL (0.15-1.2); Total Iron Binding Capacity 291 mcg/dl; Unsaturated Iron Binding 35 ug/dL (112-347)
--- NOTE | 2021-05-11 13:26 | ONC FU_ITS ---
Dr. Chambers Patient Follow-Up Note Patient: Corinna Lance Unit #: [id number]: 1950 Dicatated By: Travis Chambers M.D.Date of Visit:May 08, 2021 Onc Med Follow-up/Prog Note Chief Complaint: Hemochromatosis. History of Present Illness: This is a 70 year-old woman with hereditary hemochromatosis, initially diagnosed in April 2010. Her ferritin was just moderately elevated at 440 ng/mL. She was found to be homozygous for the C282Y mutation. She was started on a phlebotomy program. As of November 2011 her ferritin was down to 94 ng/mL. In March 2016 she had fallen out of the bathtub and sustained fractures to the left tibia and fibula. I don't have any of those records. She has been showing gradual recovery. With her follow-up visit in August 2016 her transferrin saturation had decreased to 15.8% and her ferritin was down to 27.8 ng/mL. At that point I did have her stop phlebotomies. As of her follow-up visit in February 2018 her transferrin saturation was 29.4% and her serum ferritin remained in target range at 38.0 ng/mL. However, as of her follow-up visit in January 2019 there was an increase in both the transferrin saturation and ferritin, and at that point I did have her restart phlebotomies. Her other medical illnesses include rheumatoid arthritis, hypertension, hypercholesterolemia, and type 2 diabetes. She was found to have [id number] coronary artery disease on cardiac catheterization in December 2009. Other illnesses include GERD and chronic depression. She has had multiple joint surgeries. She is a nonsmoker. INTERIM HISTORY: As of March 2020 her transferrin saturation remained elevated, and I did have her continue phlebotomies every 3 months. As of her follow-up visit in October 2020 her transferrin saturation and ferritin were in target range, and at that point I opted to stop her phlebotomies. She is seen for a follow-up visit. She has been having back problems. She had seen Dr. Prieto in pain clinic, and her back pain had initially improved with an epidural injection. However, the pain had subsequently recurred, but mainly in the left leg. It is severe enough that she can hardly do anything. She is able to get up and walk, but she cannot stand very long. Her ECOG score is 2. Her appetite has been okay. She has no fever or night sweats. She has not had sore mouth or throat. She has a little bit of cough. She has shortness of breath, and she also tends to have a fast heart rate with activity. She has not been having chest pain. She has no GI complaints other than she has had some diarrhea since her Metformin was increased to twice daily. Bladder function has been okay. Her rheumatoid arthritis pain has not been too bad. She has occasional headache. Recently she has had some dizziness. She has numbness in her feet. Medications: Aldactazide 1 Tablet (of 25-25 mg) Oral daily, Avapro 1 Tablet (of 150 mg) Oral daily, Crestor 1 (10 mg) Tablet Oral daily, Effexor 1 (75 mg) Tablet Oral at bedtime, Fosamax 1 Tablet (of 70 mg) Oral daily, Gabapentin 1 Tablet (of 300 mg) Capsule Oral t.i.d., glipiZIDE ER 1 Tablet (of 5 mg) Tablet SR 24 HR Oral b.i.d., metFORMIN HCl 1 Tablet (of 500 mg) Oral daily, Methocarbamol (750 mg) Tablet Oral Take as Directed, Methotrexate 5 Tablet (of 2.5 mg) Oral q 7 days, Metoprolol Succinate ER 1 (25 mg) Tablet SR 24 HR Oral daily, Pantoprazole Sodium 1 Tablet (of 20 mg) Tablet, enteric coated Oral daily, ProAir HFA Aerosol, solution Inhalation PRN, Xeljanz 1 Tablet (of 5 mg) Oral b.i.d. Allergies: lisinopril and Sulfamethoxazole-Trimethoprim. Vital Signs: Performed on May 08, 2021 16:27 Height - 62.00 in Weight - 162.2 lbs (LOW) BSA - 1.75 sq.m BMI - 29.67 Temperature - 97.0 F (LOW) Pulse - 102 /min (HIGH) Respiration - 18 /min BP - 95/63 mm(hg) O2 Sat - 97 % Pain - 10 Fatigue - 9 Physical Examination: Constitutional - She looks pretty good generally, Eyes - Sclerae nonicteric. Conjunctivae clear, ENMT - No lesions noted in the oral cavity, Hematologic/Lymphatic - No cervical, clavicular, or axillary adenopathy, Respiratory - Lungs are clear with good air movement bilaterally, Cardiovascular - Heart rhythm is regular. There is no murmur, gallop, or rub noted, Abdomen - Soft. Liver and spleen are not enlarged. There is no abdominal mass or ascites noted and there is no inguinal adenopathy, Extremities - No edema. There are significant RA changes in both hands, Neurologic - No focal neurologic deficits noted. Lab/Imaging: Test performed on May 08, 2021 13:46 Ferritin 270 ng/mL Iron 256 mcg/dL Sodium 135 mmol/L Iron Binding Capacity (TIBC) 291 mcg/dl Potassium 5.3 mmol/L % Iron Saturation 87.9 % Chloride 99 mmol/L CO2 18 mmol/L UIBC 35 mcg/dL Anion Gap 23.3 BUN 42 mg/dL Creatinine 1.5 mg/dL Cr Clearance (Est) 39.38 mL/min Glucose 125 mg/dL Osmolality - Calculated 292 mOsm/kg Calcium 10.6 mg/dL Protein, Total 8.0 g/dL Albumin 4.2 g/dL Globulin 3.8 g/dL Bilirubin, Total 0.4 mg/dL ALT (SGPT) 25 U/L AST (SGOT) 30 U/L Alkaline Phosphatase 57 IU/L WBC 8.1 10 3/uL Manual Segs % 52 % Manual Bands % 6.0 % RBC 3.67 10 6/uL HGB 11.5 g/dL Manual Lymphs % 26 % Atypical Lymphs % 0.0 % HCT 34.9 % MCV 95.1 fl Total Cells Counted 100 Manual Monos % 1.0 % MCH 31.3 pg Manual Eos % 2 % MCHC 33.0 g/dL Manual Basos % 0.0 % RDW 15.6 % Metamyelocytes % 9.0 % Platelet Count 522 10 3/cmm MPV 9.0 fL Myelocytes % 4.0 % CBC Slide Review Slide Review Perform IG PRESENT. MANUAL DIFF ORDERED. Platelet Estimate Increased Manual Segs Abs 4.2 10/cmm Manual Bands Abs 0.5 10 3/cmm Manual Neutrophils Abs 4.7 10 3/cmm Manual Lymphocytes Abs 2.1 10 3/cmm Manual Monocytes Abs 0.1 10 3/cmm Manual Eosinophils Abs 0.1 10 3/cmm Manual Basophils Abs 0.0 10 3/cmm Problem List: 1. Hereditary hemochromatosis, homozygous for the C282Y mutation. She has been managed adequately with phlebotomy. 2. Rheumatoid arthritis. 3. Hypertension. 4. Hyperlipidemia. 5. Type II diabetes. 6. Coronary artery disease. 7. GERD. 8. Chronic depression. Problems Addressed with this Encounter and Plan: 1. 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 She has been managed with phlebotomy. As of her follow-up visit in October 2020 her transferrin saturation and ferritin were in target range, and I did have her stop phlebotomies. However, her current studies show significantly elevated transferrin saturation at 87% and ferritin elevated at 270 ng/mL. As such, she will be phlebotomized today and I will put her back on a 3-month phlebotomy schedule. I will see her again in 6 months. 2. Her chest CT from 11/07/2020 showed several new noncalcified pulmonary nodules in the right lower lobe, and there were additional tree-in-bud micronodular infiltrates in the right upper lobe and lower lobes bilaterally. The probability is high that the findings are related to the underlying rheumatoid arthritis, but it does require follow-up, and I will get that scheduled. She will have further evaluation as indicated. Signed By: Travis Chambers M.D. <<Signature on File>>
== END 2021-05-08 13:18 | disposition home or self-care (01) ==
LOC: ONCMED 13:24
PROVIDERS: PCP Family Medicine; Visit Provider Internal Medicine Medical Oncology
DX: E83.110 Hereditary hemochromatosis (principal); I10 Essential (primary) hypertension; E78.00 Pure hypercholesterolemia, unspecified; E11.9 Type 2 diabetes mellitus without complications; I25.10 Atherosclerotic heart disease of native coronary artery without angina pectoris; K21.9 Gastro-esophageal reflux disease without esophagitis; F32.A Depression, unspecified; M06.9 Rheumatoid arthritis, unspecified; Z79.899 Other long term (current) drug therapy
CPT/HCPCS: 80053; 82728; 83540; 83550; 85007; 85025; 99195; 99214

== ENCOUNTER 2021-05-09 11:01 | Observation (INO) | payer MEDICARE, MEDICAID, SELFPAY ==
[2021-05-09] VITALS (12 sets, daily range): BP systolic 89–114; BP diastolic 58–78; PULSE 69–90; RESP 13–19; TEMP 36.6–36.8; O2SAT 93–98; BMI 31.0
--- NOTE | 2021-05-09 11:04 | W.ED.GENADLT ---
HPI - General Adult General: Chief complaint: Fall Stated complaint: HYPOTENSION Time Seen by Provider: 05/09/21 11:03 History of Present Illness: Ms. Lance is a 71-year-old lady with significant past medical history of hypertension, hyperlipidemia, CAD, diabetes, hemochromatosis who presents the emergency department due to recurrent syncope. She reports essentially being at her baseline health over the past week perhaps a mild cough though no other infectious symptoms. Yesterday she began to have lightheadedness associated with position changes. She went to her physician for scheduled appointment for hemochromatosis and had therapeutic phlebotomy. Subsequently she has had 2 or 3 episodes of falls/syncope. She reports that this occurs when going from sitting to standing. She fell and hurt her right knee and one episode did involve focal loss of consciousness. She denies associated chest pain or shortness of breath. Intensity of symptoms when present is moderate to severe. Overall course of symptoms has persisted. No other specific changes in health, exacerbating, or relieving factors identified. Patient does note recent increase in antihypertensive due to hypertension. EMS found the patient to be hypotensive and administered small fluid bolus and subsequently push dose epi. Onset (ago): day(s) Location: lower extremity Severity: moderate Quality: aching and sharp Pain Consistency: constant Relieving factors: none Exacerbating factors: movement Review of Systems General: Reports: 10 or more systems reviewed and unremarkable except in HPI and below PFSH ED PFSH: Medical History (Updated 05/19/21 @ 15:42 by Wolfgang Slaughter MD) SUSAN (acute kidney injury) Asthma CAD (coronary artery disease) Controlled diabetes mellitus with diabetic polyneuropathy COPD (chronic obstructive pulmonary disease) Diabetes Dizziness Fracture of bone adjacent to prosthesis Fracture, femur, distal Hypotension Lactic acidosis Lumbar radiculopathy 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 Pneumonia Pulmonary nodules Rheumatoid arthritis Syncope Surgical History History of appendectomy History of cataract extraction History of cholecystectomy History of hysterectomy History of tonsillectomy Family History Sister Hypertension Social History Smoking and tobacco status: never smoked Second hand smoke exposure: Yes Smoking risk assessment/counseling performed?: Yes Alcohol intake: never Lives independently: Yes Household members: none Housing: Apartment Marital status: / Current occupational status: retired Pets and animals: Yes History of recent travel: No Current gender identity: Female Physical Exam Const: COMMON NORMALS: alert GENERAL APPEARANCE: cooperative and well developed HENMT: COMMON NORMALS: normocephalic and atraumatic HEAD & SCALP: normocephalic and atraumatic Eye: COMMON NORMALS: conjunctivae normal CONJUNCTIVA: Yes conjunctivae normal SCLERA: sclerae normal Neck/C-Spine: COMMON NORMALS: supple GENERAL: Yes trachea midline Resp: COMMON NORMALS: normal respiratory effort EFFORT & INSPECTION: Yes able to speak in complete sentences Cardio: COMMON NORMALS: regular rate and regular rhythm RATE: regular rate RHYTHM: regular rhythm GI: COMMON NORMALS: Soft to palpation PALPATION: Yes Soft to palpation and No Tenderness to palpation present (GI) PERCUSSION: normal to percussion Extremity: NARRATIVE EXTREMITY EXAM: Tenderness to palpation of right knee GENERAL: No edema Neuro: COMMON NORMALS: moves all extremities SENSORIUM/ORIENTATION: Yes alert and No Orientation impaired Psych: COMMON NORMALS: mental status grossly normal and Normal thought process present THOUGHT PROCESS: Normal thought process present Course ED course: - Patient was seen and evaluated by me at bedside - Patient placed on cardiac monitors, IV access obtained - Initial evaluation notable for exam as above - IV fluids given and antibiotics given. - Labs notable for no leukocytosis. Normocytic anemia. Metabolic panel with evidence of dehydration and SUSAN. Lactic acid is elevated, there is some improvement on repeat after fluid administration. Urinalysis is not concerning for urinary tract infection. - Imaging notable for CT head negative for acute intercranial hemorrhage, no evidence of acute surgical pathology. Chest x-ray with possible right midlung opacity concerning for pneumonia versus atelectasis. There is a fracture identified in the periprosthetic region of the right lower extremity. -Case was discussed with orthopedics on-call. Given location adjacent to prosthesis CT requested prior to decision regarding admission versus possible need for transfer for orthopedic surgery. After CT obtained this was reviewed by orthopedics and patient will be seen in hospital though likely no acute surgical invention required. - Upon serial reexamination after treatment the patient was mildly improved though patient continued to be mildly hypotensive. - Based on patient history, evaluation, labs, and imaging as interpreted the most likely cause of the patient's condition is pneumonia with periprosthetic fractures secondary to fall. - The results of ED evaluation were discussed with the patient including plan for admission due to requirement for level of care not available if discharged to prevent significant worsening/deterioration. - Hospitalist service contacted and agreed to meet the patient. In discussion regarding patient's medical history it is noted that she has had intermittent doses of steroids including prolonged courses, therefore hydrocortisone bolus ordered. - Patient was admitted without further deterioration or significant events. Note: Click bubbles or prepopulated son in note writing are used for assistance with data collection and billing and are inherently more limited than narrative and other text portions of this note. Please use narrative for additional clinical history and defer to narrative/free test for any case of contradictory information. If information appears in only free text or click bubble it should be considered present or absent as reported. Please contact note check writer salesperson for clarifications of clinical information or contradictory information. MDM is a brief summary, contradictory or erroneous seeming information should be clarified and full note should be reviewed. Vital Signs: Vital signs: Vital Signs Temperature 98.6 F 05/16/21 10:45 Pulse Rate 87 05/16/21 10:45 Respiratory Rate 18 05/16/21 10:45 Blood Pressure 109/65 05/16/21 10:45 Pulse Oximetry 93 05/16/21 10:45 MDM - General Adult Medical Decision Making 71-year-old lady with complex past medical history presenting with recurrent syncope. Patient apparently hypotensive prehospital a and likely does have orthostatics. Secondary to fall she did have knee pain and was found to have periprosthetic fractures. Additionally patient found to have pneumonia and SUSAN which likely explains some element of symptoms. Admitted for further definitive management and treatment as well as orthopedic evaluation Medical Records I reviewed the patient's medical records. Lab Data I reviewed the patient's lab results. : 05/13/21 02:31 05/13/21 02:31 Radiology Impressions Chest X-Ray 05/09/21 11:05 Impression: Minimal right midlung opacity which could represent atelectasis and/or minimal pneumonia. Cervical Spine CT 05/09/21 11:14 IMPRESSION: No evidence of acute fracture or dislocation. Head CT 05/09/21 11:14 IMPRESSION: 1. No evidence of intracranial hemorrhage or mass effect. 2. Mild small vessel changes. Mild parenchymal volume loss. 3. No acute intracranial findings. Knee X-Ray 05/09/21 11:14 Impression: 1. Fracture of distal right femur with impaction. 2. The fracture is adjacent to the distal femoral arthroplasty component. 3. There is soft tissue swelling in the suprapatellar bursa. Kellgren-Walter Classification: Femur X-Ray 05/09/21 12:50 Impression: 1. Distal right femoral fracture adjacent to femoral arthroplasty component. 2. Proximal right femur and midshaft of the femur are intact. Hip/Pelvis X-Ray 05/09/21 12:50 Impression: Negative right hip. Tonnis classification: grade 0: normal radiographs Knee CT 05/09/21 14:39 IMPRESSION: 1. Comminuted slightly impacted fracture involving the distal femoral diametaphysis extending to the medial femoral condyle. Minimal fracture widening measuring 2-3 mm. 2. Femoral fracture involves the cortex anteriorly and posteriorly with extension to the level of the arthroplasty. 3. Tibial plateau is normal in appearance with normal tibial arthroplasty component. No evidence of hardware loosening involving the tibial component. 4. Mild to moderate suprapatellar hemarthrosis. 5. No other significant findings. Chest CTA 05/12/21 13:28 IMPRESSION: 1. Subsegmental nonocclusive RIGHT lower lobe emboli. 2. Irregular opacification RIGHT upper lobe measures 2.2 x 3.5 cm. New since 11/07/2020. Pneumonia versus neoplasm. Recommend short-term follow-up after treatment. There are additional nodules in the RIGHT lower lobe which are stable over snf. Laboratory Results WBC 9.3 10^3/uL (4.0-10.0) 05/09/21 10:40 RBC 3.25 10^6/uL (4.1-5.3) L 05/09/21 10:40 Hgb 10.1 g/dL (11.5-15.3) L 05/09/21 10:40 Hct 31.5 % (37.0-47.0) L 05/09/21 10:40 MCV 96.9 fl (81-99) 05/09/21 10:40 MCH 31.1 pg (28.0-34.0) 05/09/21 10:40 MCHC 32.1 g/dL (30.0-36.0) 05/09/21 10:40 RDW 15.7 % (12.1-15.1) H 05/09/21 10:40 Plt Count 413 10^3/cmm (130-400) H 05/09/21 10:40 MPV 9.1 fL (7.4-10.4) 05/09/21 10:40 Neut % (Auto) 66.2 % 05/09/21 10:40 Lymph % (Auto) 18.4 % 05/09/21 10:40 [place] % (Auto) 10.8 % 05/09/21 10:40 Eos % (Auto) 0.3 % 05/09/21 10:40 Baso % (Auto) 0.3 % 05/09/21 10:40 Neut # (Auto) 6.16 10^3/uL (1.8-7.7) 05/09/21 10:40 Lymph # (Auto) 1.7 10^3/uL (0.8-4.8) 05/09/21 10:40 [place] # (Auto) 1.0 10^3/uL (0.2-0.9) H 05/09/21 10:40 Eos # (Auto) 0.0 10^3/uL (0.0-0.8) 05/09/21 10:40 Baso # (Auto) 0.0 10^3/uL (0.0-0.1) 05/09/21 10:40 Nucleated RBC % (auto) 0.5 % 05/09/21 10:40 Nucleated RBCs # 0.1 /100WBC 05/09/21 10:40 Sodium 133 mmol/L (136-145) L 05/09/21 10:40 Potassium 5.0 mmol/L (3.5-5.1) 05/09/21 10:40 Chloride 98 mmol/L (98-107) 05/09/21 10:40 Carbon Dioxide 18 mmol/L (22-29) L 05/09/21 10:40 Anion Gap 22.0 (5-19) H 05/09/21 10:40 BUN 47 mg/dL (8-23) H 05/09/21 10:40 Creatinine 1.4 mg/dL (0.5-0.9) H 05/09/21 10:40 GFR Calculation Not Reportable 05/09/21 10:40 Glucose 168 mg/dL (65-115) H 05/09/21 10:40 Calculated Osmolality 292 mOsm/kg (285-295) 05/09/21 10:40 Lactic Acid 4.3 mmol/L (0.5-2.2) H* 05/09/21 11:12 Lactic Acid (Sepsis) 3.5 mmol/L (0.5-2.2) H 05/09/21 13:45 Calcium 9.3 mg/dL (8.5-10.5) 05/09/21 10:40 Total Bilirubin 0.4 mg/dL (0.15-1.2) 05/09/21 10:40 AST 29 U/L (0-32) 05/09/21 10:40 ALT 26 U/L (0-33) 05/09/21 10:40 Alkaline Phosphatase 40 IU/L (35-105) 05/09/21 10:40 Troponin T Baseline 19 ng/L (0-10) H 05/09/21 10:40 Troponin T 120 Minute 11.04 ng/L (0-10) H 05/09/21 13:45 Delta Troponin T -7.96 ABS# (0-10) L 05/09/21 13:45 C-Reactive Protein 10.9 mg/L (0.0-4.9) H 05/09/21 10:40 NT-Pro-B Natriuret Pep 43 pg/mL (0-125) 05/09/21 10:40 Total Protein 6.7 g/dL (6.6-8.7) 05/09/21 10:40 Albumin 3.9 g/dL (3.5-5.2) 05/09/21 10:40 Globulin 2.8 g/dL (1.3-4.6) 05/09/21 10:40 Procalcitonin 0.26 ng/mL (0-0.5) 05/09/21 10:40 TSH 2.88 uIU/mL (0.27-4.20) 05/09/21 10:40 EKG Data EKG 1: I personally reviewed and interpreted this EKG as follows: EKG interpretation date: 05/09/21 EKG interpretation time: 11:27 Interpretation: Twelve-lead EKG shows a regular rhythm at a rate of 75. NM interval 174, QRS duration 69, QTc 394. Normal axis. Interpretation: Sinus rhythm with nonspecific ST segment abnormalities. Computer generated interpretation: Chest X-Ray 05/09/21 11:05 Impression: Minimal right midlung opacity which could represent atelectasis and/or minimal pneumonia. Cervical Spine CT 05/09/21 11:14 IMPRESSION: No evidence of acute fracture or dislocation. Head CT 05/09/21 11:14 IMPRESSION: 1. No evidence of intracranial hemorrhage or mass effect. 2. Mild small vessel changes. Mild parenchymal volume loss. 3. No acute intracranial findings. Knee X-Ray 05/09/21 11:14 Impression: 1. Fracture of distal right femur with impaction. 2. The fracture is adjacent to the distal femoral arthroplasty component. 3. There is soft tissue swelling in the suprapatellar bursa. Kellgren-Walter Classification: Femur X-Ray 05/09/21 12:50 Impression: 1. Distal right femoral fracture adjacent to femoral arthroplasty component. 2. Proximal right femur and midshaft of the femur are intact. Hip/Pelvis X-Ray 05/09/21 12:50 Impression: Negative right hip. Tonnis classification: grade 0: normal radiographs Knee CT 05/09/21 14:39 IMPRESSION: 1. Comminuted slightly impacted fracture involving the distal femoral diametaphysis extending to the medial femoral condyle. Minimal fracture widening measuring 2-3 mm. 2. Femoral fracture involves the cortex anteriorly and posteriorly with extension to the level of the arthroplasty. 3. Tibial plateau is normal in appearance with normal tibial arthroplasty component. No evidence of hardware loosening involving the tibial component. 4. Mild to moderate suprapatellar hemarthrosis. 5. No other significant findings. Chest CTA 05/12/21 13:28 IMPRESSION: 1. Subsegmental nonocclusive RIGHT lower lobe emboli. 2. Irregular opacification RIGHT upper lobe measures 2.2 x 3.5 cm. New since 11/07/2020. Pneumonia versus neoplasm. Recommend short-term follow-up after treatment. 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 EKG 2: I personally reviewed and interpreted this EKG as follows: EKG interpretation date: 05/09/21 EKG interpretation time: 13:45 Interpretation: Twelve-lead EKG shows a regular rhythm at a rate of 73. NM interval 181, QRS duration 73, QTc 417. Normal axis. Interpretation: Sinus rhythm with nonspecific ST segment abnormalities. Computer generated interpretation: Chest X-Ray 05/09/21 11:05 Impression: Minimal right midlung opacity which could represent atelectasis and/or minimal pneumonia. Cervical Spine CT 05/09/21 11:14 IMPRESSION: No evidence of acute fracture or dislocation. Head CT 05/09/21 11:14 IMPRESSION: 1. No evidence of intracranial hemorrhage or mass effect. 2. Mild small vessel changes. Mild parenchymal volume loss. 3. No acute intracranial findings. Knee X-Ray 05/09/21 11:14 Impression: 1. Fracture of distal right femur with impaction. 2. The fracture is adjacent to the distal femoral arthroplasty component. 3. There is soft tissue swelling in the suprapatellar bursa. Kellgren-Walter Classification: Femur X-Ray 05/09/21 12:50 Impression: 1. Distal right femoral fracture adjacent to femoral arthroplasty component. 2. Proximal right femur and midshaft of the femur are intact. Hip/Pelvis X-Ray 05/09/21 12:50 Impression: Negative right hip. Tonnis classification: grade 0: normal radiographs Knee CT 05/09/21 14:39 IMPRESSION: 1. Comminuted slightly impacted fracture involving the distal femoral diametaphysis extending to the medial femoral condyle. Minimal fracture widening measuring 2-3 mm. 2. Femoral fracture involves the cortex anteriorly and posteriorly with extension to the level of the arthroplasty. 3. Tibial plateau is normal in appearance with normal tibial arthroplasty component. No evidence of hardware loosening involving the tibial component. 4. Mild to moderate suprapatellar hemarthrosis. 5. No other significant findings. Chest CTA 05/12/21 13:28 IMPRESSION: 1. Subsegmental nonocclusive RIGHT lower lobe emboli. 2. Irregular opacification RIGHT upper lobe measures 2.2 x 3.5 cm. New since 11/07/2020. Pneumonia versus neoplasm. Recommend short-term follow-up after treatment. 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 EKG 3: I personally reviewed and interpreted this EKG as follows: EKG interpretation date: 05/09/21 EKG interpretation time: 17:45 Interpretation: Twelve-lead EKG shows a 168, QRS duration 75, QTc 379. Nonspecific ST segment abnormalities. Normal axis. Interpretation: Sinus rhythm. Computer generated interpretation: Chest X-Ray 05/09/21 11:05 Impression: Minimal right midlung opacity which could represent atelectasis and/or minimal pneumonia. Cervical Spine CT 05/09/21 11:14 IMPRESSION: No evidence of acute fracture or dislocation. Head CT 05/09/21 11:14 IMPRESSION: 1. No evidence of intracranial hemorrhage or mass effect. 2. Mild small vessel changes. Mild parenchymal volume loss. 3. No acute intracranial findings. Knee X-Ray 05/09/21 11:14 Impression: 1. Fracture of distal right femur with impaction. 2. The fracture is adjacent to the distal femoral arthroplasty component. 3. There is soft tissue swelling in the suprapatellar bursa. Kellgren-Walter Classification: Femur X-Ray 05/09/21 12:50 Impression: 1. Distal right femoral fracture adjacent to femoral arthroplasty component. 2. Proximal right femur and midshaft of the femur are intact. Hip/Pelvis X-Ray 05/09/21 12:50 Impression: Negative right hip. Tonnis classification: grade 0: normal radiographs Knee CT 05/09/21 14:39 IMPRESSION: 1. Comminuted slightly impacted fracture involving the distal femoral diametaphysis extending to the medial femoral condyle. Minimal fracture widening measuring 2-3 mm. 2. Femoral fracture involves the cortex anteriorly and posteriorly with extension to the level of the arthroplasty. 3. Tibial plateau is normal in appearance with normal tibial arthroplasty component. No evidence of hardware loosening involving the tibial component. 4. Mild to moderate suprapatellar hemarthrosis. 5. No other significant findings. Chest CTA 05/12/21 13:28 IMPRESSION: 1. Subsegmental nonocclusive RIGHT lower lobe emboli. 2. Irregular opacification RIGHT upper lobe measures 2.2 x 3.5 cm. New since 11/07/2020. Pneumonia versus neoplasm. Recommend short-term follow-up after treatment. 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 Critical Care Time Critical Care Time: Critical Care Time: Yes Total Critical Care Time: 40 Attestation: Due to a high probability of clinically significant, possibly life threatening deterioration, the patient required my highest level of attention and preparedness to intervene emergently and I personally spent this critical care time directly and personally managing the patient. This critical care time included obtaining a history; examining the patient; pulse oximetry; ordering and review of laboratory and imaging studies; arranging urgent treatment with development of a management plan; evaluation of patient's response to treatment; frequent reassessment; and, discussions with other providers as applicable. It was exclusive of separately billable procedures. Primary systems involved is cardiovascular, pulmonary, immune Discharge Plan Discharge Patient Disposition: Placed in Observation Admit Provider: Butch Dodge Clinical Impression: Pneumonia, Hypotension, SUSAN (acute kidney injury), Sepsis Discharge Diet: Cardiac Discharge Activity: As per PT/OT instructions Coding Level of Care Code ED Telecom Sales Consultant for Chg Fwd Exam Comprehensive
--- NOTE | 2021-05-09 11:05 | XR_ITS ---
WS: [id number] Portable AP upright chest, 05/09/2021 Clinical Data: hypotension Comparison: PA and lateral chest, 09/11/2020. Findings: There is a small patchy opacity in the midportion of the right lung which may represent ate lectasis and/or minimal pneumonia. The remainder of the lungs is clear. The heart is normal. No nodul es, masses or effusions are seen. Monitor leads are on the chest wall. XR/XR chest 1V portable [id number] Impression: Minimal right midlung opacity which could represent atelectasis and/or minimal pneumonia.
--- NOTE | 2021-05-09 11:06 | ECG_ITS ---
[facility] Test Date: 2021-05-09 Pat Name: Corinna Lance Department: Room: Gender: Female Set Decorator: : 1950 Requested By: Wolfgang Slaughter Order Number: [id number] Sonny MD: Kelly Mendez M.D. Measurements Intervals [place] Rate: 75 P: 42 OK: 174 QRS: 9 QRSD: 69 T: 53 QT: 365 QTc: 409 Interpretive Statements SINUS RHYTHM Compared to ECG 03/29/2021 10:00:55 Left-axis deviation no longer present Electronically Signed On 05-10-2021 8:34:07 FOURTH OFFICER by Kelly Mendez M.D. [email or web address]
--- NOTE | 2021-05-09 11:08 | PC.NURSE ---
PT PLACED ON CONTINUOUS SPO2, NIBP, AND CM.
--- NOTE | 2021-05-09 11:14 | CT_ITS ---
WS: [id number] CT CERVICAL TRAUMA TECHNIQUE: Noncontrast CT of the cervical spine with coronal and sagittal reformatted images. CLINICAL INFORMATION: fall, headstrike COMPARISON: MRI 2009 DLP: 761.[address] scans at [facility] use at least one of these dose optimization techniques: automated e xposure control; mA and/or kV adjustment per patient size (includes targeted exams where dose is matc hed to clinical indication); or iterative reconstruction. FINDINGS: Straightening of the normal cervical lordosis. Mild spondylitic changes. Slight anterolisthesis C4 on C5. Disc space narrowing worse at C5-C6 and C6-C7. Normal craniocervical junction. Normal C1-C2 jocelyne culation. Dens is normal in appearance. Normal occipital condyles. No high-grade spinal canal narrowi ng. Normal C1 ring. No evidence of acute fracture or dislocation. Normal prevertebral soft tissues. Mastoids air cells are well aerated. CT/CT cervical spin wo con* [id number] IMPRESSION: No evidence of acute fracture or dislocation.
--- NOTE | 2021-05-09 11:14 | XR_ITS ---
WS: [id number] Right knee, 3 views, 05/09/2021 Clinical Data: fall, knee pain Comparison: None. Findings: There is a fracture of the distal femur just superior and adjacent to the distal femoral arthroplasty component. There is impaction with little displacement. The arthroplasty components remain in position without loosening. There is swelling of the suprapatel lar bursa. XR/XR knee RT 3V* [id number] Impression: 1. Fracture of distal right femur with impaction. 2. The fracture is adjacent to the distal femoral arthroplasty component. 3. There is soft tissue swelling in the suprapatellar bursa. Kellgren-Walter Classification:
--- NOTE | 2021-05-09 11:14 | CT_ITS ---
WS: [id number] CT HEAD TECHNIQUE: Noncontrast CT of the head obtained from the skullbase to the vertex. CLINICAL INFORMATION: fall, headstrike, syncope COMPARISON: MRI April 21, 2019 DLP: 742.[address] scans at [facility] use at least one of these dose optimization techniques: automated e xposure control; mA and/or kV adjustment per patient size (includes targeted exams where dose is matc hed to clinical indication); or iterative reconstruction. FINDINGS: No evidence of intracranial hemorrhage or mass effect. Ventricular system and basal cisterns are alfaro nt. Mild small vessel changes with mild parenchymal volume loss. No extra-axial fluid collections. No evidence of mass or mass effect. Normal pratt-white differentiation. Dense basilar artery calcificati on appears unchanged since CT 2015 Small retention cyst RIGHT maxillary sinus. Paranasal sinuses are otherwise well aerated. Mastoid air cells are well aerated. Normal posterior nasopharynx. CT/CT head wo con* [id number] IMPRESSION: 1. No evidence of intracranial hemorrhage or mass effect. 2. Mild small vessel changes. Mild parenchymal volume loss. 3. No acute intracranial findings.
[2021-05-09 11:24] LABS: Basophils % 0.3 %; Eosinophils % 0.3 %; Hematocrit 31.5 % (37.0-47.0); Hemoglobin 10.1 g/dL (11.5-15.3); Lymphocytes # 1.7 10^3/uL (0.8-4.8); Lymphocytes % 18.4 %; Mean Corpuscular HGB Conc 32.1 g/dL (30.0-36.0); Mean Corpuscular Hemoglobin 31.1 pg (28.0-34.0); Mean Corpuscular Volume 96.9 fl (81-99); Mean Platelet Volume 9.1 fL (7.4-10.4); Monocytes % 10.8 %; Neutrophils # 6.16 10^3/uL (1.8-7.7); Neutrophils % 66.2 %; Nucleated Red Blood Cells # 0.1 /100WBC; Nucleated Red Blood Cells % 0.5 %; Platelet Count 413 10^3/cmm (130-400); Red Blood Count 3.25 10^6/uL (4.1-5.3); Red Cell Distribution Width 15.7 % (12.1-15.1); White Blood Count 9.3 10^3/uL (4.0-10.0)
[2021-05-09] MEDS: lactated ringers 1,000 ML 999 ML IV (11:49)
[2021-05-09 11:51] LABS: Troponin(5th) Baseline 19 ng/L (0-10)
[2021-05-09 11:59] LABS: NT Pro B Type Natriuretic Pept 43 pg/mL (0-125); Procalcitonin 0.26 ng/mL (0-0.5); Thyroid Stimulating Hormone 2.88 uIU/mL (0.27-4.20)
[2021-05-09 12:00] LABS: Lactic Sepsis W/Reflex 4.3 mmol/L (0.5-2.2)
[2021-05-09 12:10] LABS: Alanine Aminotransferase 26 U/L (0-33); Albumin Level 3.9 g/dL (3.5-5.2); Alkaline Phosphatase 40 IU/L (35-105); Blood Urea Nitrogen 47 mg/dL (8-23); C Reactive Protein 10.9 mg/L (0.0-4.9); Calcium 9.3 mg/dL (8.5-10.5); Carbon Dioxide 18 mmol/L (22-29); Chloride 98 mmol/L (98-107); Globulin 2.8 g/dL (1.3-4.6); Glucose 168 mg/dL (65-115); Osmolality Calculated 292 mOsm/kg (285-295); Sodium 133 mmol/L (136-145); Total Bilirubin 0.4 mg/dL (0.15-1.2); Total Protein 6.7 g/dL (6.6-8.7)
[2021-05-09 12:11] LABS: Aspartate Amino Transferase 29 U/L (0-32)
--- NOTE | 2021-05-09 12:50 | XR_ITS ---
WS: [id number] Right femur and thigh, AP and lateral views, 05/09/2021 Clinical Data: fall, distal fx, eval remainder of femur Comparison: None. Findings: The distal right femoral fracture just superior to the femoral arthroplasty component is seen. The sh aft of the femur is intact. The soft tissues are normal. The right hip is unremarkable. XR/XR femur RT min 2V* [id number] Impression: 1. Distal right femoral fracture adjacent to femoral arthroplasty component. 2. Proximal right femur and midshaft of the femur are intact.
--- NOTE | 2021-05-09 12:50 | XR_ITS ---
WS: [id number] Right hip, 2 views, 05/09/2021 Clinical Data: femur fracture Comparison: None. Findings: No fractures or dislocations are seen. The hip joint is intact. The soft tissues are not remarkable. The adjacent pelvis is normal. XR/XR hip RT 2-3V wo/w pel* [id number] Impression: Negative right hip. Tonnis classification: grade 0: normal radiographs
--- NOTE | 2021-05-09 13:06 | ECG_ITS ---
[facility] Test Date: 2021-05-09 Pat Name: Corinna Lance Department: Room: Gender: Female Superintendent Tests: : 1950 Requested By: Wolfgang Slaughter Order Number: [id number] Sonny MD: Kelly Mendez M.D. Measurements Intervals [place] Rate: 73 P: 67 [place]: 181 QRS: 19 QRSD: 73 T: 21 QT: 391 QTc: 433 Interpretive Statements SINUS RHYTHM SEPTAL MYOCARDIAL INFARCTION , OF INDETERMINATE AGE [40+ ms Q WAVE IN V1/V2] Compared to ECG 05/09/2021 11:25:37 Myocardial infarct finding now present Electronically Signed On 05-10-2021 8:59:22 LANGUAGES AND LITERATURE INSTRUCTOR by Kelly Mendez M.D. [id number]
[2021-05-09 13:18] LABS: Reflex Lactate Order REFLEX LACTIC ORDERD
[2021-05-09] MEDS: fentaNYL 50 mcg/mL INJ 2mL IVP (13:23)
[2021-05-09] MEDS: lactated ringers 500 ML 999 ML IV (13:23)
[2021-05-09] MEDS: cefTRIAXone 1,000 MG in sodium chloride 0.9% (plus) 50 ML 100 MG IV (13:28)
[2021-05-09] MEDS: doxycycline 100 MG in sodium chloride 0.9% (plus) 100 ML IV (13:30)
[2021-05-09 14:14] LABS: Lactic Acid level (Lactate) 3.5 mmol/L (0.5-2.2)
[2021-05-09 14:15] LABS: Troponin 5 2HR 11.04 ng/L (0-10)
--- NOTE | 2021-05-09 14:15 | PC.NURSE ---
WHILE AT BEDSIDE PT PROVIDED WITH ADDITIONAL BLANKET PT DENIES ANY FURTHER NEEDS.
[2021-05-09 14:16] LABS: Troponin 5 2HR Delta -7.96 ABS# (0-10)
--- NOTE | 2021-05-09 14:39 | CT_ITS ---
WS: [id number] NONCONTRAST CT RIGHT KNEE TECHNIQUE: Noncontrast CT RIGHT knee with coronal and sagittal reformatted images. CLINICAL INFORMATION: eval fracture COMPARISON: Radiograph earlier today DLP: 405.[address] scans at [facility] use at least one of these dose optimization techniques: automated e xposure control; mA and/or kV adjustment per patient size (includes targeted exams where dose is matc hed to clinical indication); or iterative reconstruction. FINDINGS: Prior postoperative changes RIGHT TKA. RIGHT TKA with patellar resurfacing. Osteopenia. Comminuted fracture involving the distal femoral diametaphysis just above the femoral arthroplasty. T his extends to the medial femoral condyle. Mild fracture widening measuring 2 to 3 mm. Fracture is sl ightly compacted. Small moderate suprapatellar hemarthrosis. Fracture lines involve the anterior and posterior cortex of the femur distally. Normal proximal tibia. Tibial arthroplasty component appears intact. No evidence of loosening. CT/CT knee RT wo con* [id number] IMPRESSION: 1. Comminuted slightly impacted fracture involving the distal femoral diametap hysis extending to the medial femoral condyle. Minimal fracture widening measur ing 2-3 mm. 2. Femoral fracture involves the cortex anteriorly and posteriorly with extens ion to the level of the arthroplasty. 3. Tibial plateau is normal in appearance with normal tibial arthroplasty comp onent. No evidence of hardware loosening involving the tibial component. 4. Mild to moderate suprapatellar hemarthrosis. 5. No other significant findings.
--- NOTE | 2021-05-09 17:06 | ECG_ITS ---
[facility] Test Date: 2021-05-09 Pat Name: Corinna Lance Department: Room: Gender: Female Sap Pi Architect: : 1950 Requested By: Wolfgang Slaughter Order Number: [id number] Sonny MD: Kelly Mendez M.D. Measurements Intervals [place] Rate: 71 P: 4 [place]: 168 QRS: 13 QRSD: 75 T: 47 QT: 357 QTc: 389 Interpretive Statements SINUS RHYTHM Compared to ECG 05/09/2021 13:42:09 Myocardial infarct finding no longer present Electronically Signed On 05-10-2021 8:54:13 HEATING AND VENTILATION ENGINEER by Kelly Mendez M.D. [id number]
[2021-05-09 17:19] LABS: Troponin 5 6HR 9.93 ng/L (0-10)
[2021-05-09] MEDS: hydrocortisone 100 mg/2 mL SDV IVP ×2 (17:29→21:44)
[2021-05-09 17:36] LABS: Cortisol Random 13.52 ug/dL (2.47-19.5)
[2021-05-09 17:41] LABS: Troponin 5 6HR Delta -9.07 ng/L (0-12)
[2021-05-09 17:45] LABS: Add Urine Microscopic? NO; Charge for UA Resulting for Rev
[2021-05-09 17:50] LABS: Bilirubin Urine Neg (Negative); Blood Urine Neg (Negative); Glucose Urine UA Trace (Normal); Ketones Urine Negative (Negative); Leukocyte Esterase Urine Negative (Negative); Nitrate Urine Negative (Negative); Protein Urine Neg (Negative); Urine Appearance Clear (CLEAR); Urine Color Yellow (Yellow); Urobilinogen Urine Neg (Negative); pH Urine 5 (5-7)
--- NOTE | 2021-05-09 19:07 | PC.NURSE ---
report given to mesha lyn assumed care.
--- NOTE | 2021-05-09 20:00 | PM.HP ---
Providers/Chief Complaint Admitting Physician: Butch Dodge Primary Care Provider: Raleigh Carcamo MD Chief Complaint: HYPOTENSION History of Present Illness Pleasant 71-year-old lady presents to the hospital due to recently feeling weak, with episodes of dizziness/lightheadedness, presyncope and one syncopal event, with a fall onto the right knee. She reports she also had phlebotomy performed for hemochromatosis yesterday and reports blood pressure was soft afterward with diastolic blood pressure of 50, but reports she had felt fine so ended up going home. She reports some mild cough recently, nonproductive. She reports intermittent episodes of shortness of breath with asthma. She reports week before last she had a steroid injection for pain in the left hip in pain clinic. She denies any redness, swelling, warmth at the site of the injection or any worse pain in the hip. She reports she received several courses of steroids recently, and I see Solu-Medrol Dosepak as well as prednisone taper in March. She is also on inhaled steroids. Chest x-ray in ER with minimal right midlung opacity which could represent atelectasis and/or minimal pneumonia. UA unremarkable. She is afebrile, without leukocytosis. Hemoglobin 10.1, yesterday was 11.5. Sodium 133, potassium 5. Bicarb 18, anion gap 22, BUN 47, creatinine 1.4, lactic acid 4.3. With fluid resuscitation down to 3.5. Troponin XIX-11. CRP 10.9. We also assessed her serum cortisol which was 13.52, she started on stress dose steroids with hydrocortisone. Additional studies performed include CT head, CT C-spine without evidence of acute process. She is found to have periprosthetic fracture of distal right femur with impaction with remote history of distal femoral arthroplasty. Again noted on femur XR. Noted soft tissue swelling in suprapatellar bursa. CT of right knee with noted comminuted slightly impacted fracture involving distal femoral diametaphysis extending limb medial femoral condyle. Minimal fracture widening measuring 2-3 mm. Femoral fracture involves cortex anteriorly and posteriorly with extension to the level of arthroplasty. Tibial plateau is normal in appearance with normal tibial arthroplasty component. No evidence of hardware loosening involving the tibial component. Mild to moderate suprapatellar hemarthrosis. RLE stabilized in a brace. Unremarkable hip and pelvis x-ray. She had just lost her to COVID. Review of Systems Const: Reports: fatigue; Denies: fever(s), chills, body aches or malaise Eyes: Denies: change in vision or eye redness ENMT: Denies: throat pain, oral sores or ear or mastoid pain Card: Reports: lightheadedness, syncope and pre-syncope; Denies: chest pain, edema or dyspnea on exertion Resp: Reports: non-productive cough; Denies: dyspnea, productive cough, change in phlegm color or hemoptysis GI: Denies: abdominal pain, nausea, vomiting, diarrhea, constipation, hematochezia or melena : Denies: flank pain, urinary frequency or hematuria Musc: Reports: other (R knee pain after fall); Denies: back pain, joint swelling or joint redness Skin/Breast: Denies: rash, sores or new lesions Neuro: Reports: dizziness; Denies: headache(s), numbness in extremities, weakness in extremities, confusion or seizure-like activity Endo: Denies: polyuria or polydipsia Blayne/Lymph: Denies: easy bleeding or purpura All/Imm: Denies: urticaria, throat swelling or tongue swelling Medications/Allergies Home Medications Medication Instructions Recorded Confirmed Last Taken Type albuterol sulfate 90 mcg/actuation 2 puff INHALATION Q6H PRN 07/04/19 05/09/21 Unknown History aerosol inhaler (Ventolin HFA) alendronate 70 mg tablet 70 mg PO Q7D 07/04/19 05/09/21 03/28/21 History spironolactone 25 1 tab PO DAILY 07/04/19 05/09/21 03/29/21 History mg-hydrochlorothiazide 25 mg tablet (Aldactazide) venlafaxine 37.5 mg 37.5 mg PO DAILY 07/04/19 05/09/21 03/29/21 History capsule,extended release 24 hr (Effexor XR) Diabetic Shoes extra deep #1 ea 01/16/20 05/09/21 Unknown Rx montelukast 10 mg tablet 10 mg PO DAILY #90 tab 07/15/20 05/09/21 03/29/21 Rx (Singulair) metformin 500 mg tablet,extended 500 mg PO QPM tab 0905/09/21 03/29/21 History release 24 hr gabapentin 300 mg capsule 300 mg PO TID 03/29/21 05/09/21 03/29/21 History irbesartan 150 mg tablet 150 mg PO DAILY 03/29/21 05/09/21 03/29/21 History omeprazole 20 mg capsule,delayed 20 mg PO BID 03/29/21 05/09/21 03/29/21 History release oxycodone 5 mg tablet 5 mg PO TID PRN 7 Days #21 tab 04/07/21 05/09/21 Unknown Rx Symbicort 80 mcg-4.5 mcg/actuation 2 puff INHALATION BID #10.2 g NS 04/17/21 05/09/21 Unknown Rx HFA aerosol inhaler (budesonide-formoterol) methocarbamol 750 mg tablet 750 mg PO Q8H PRN #120 tab 04/17/21 05/09/21 Unknown Rx upadacitinib 15 mg tablet,extended 15 mg PO DAILY #30 tab 04/22/21 05/09/21 Unknown Rx release 24 hr (Rinvoq) acetaminophen 500 mg tablet 1,000 mg PO Q6H PRN 05/09/21 05/09/21 Unknown History amlodipine 2.5 mg tablet 2.5 mg PO DAILY 05/09/21 05/09/21 Unknown History ibuprofen 200 mg tablet 400 mg PO Q6H PRN 05/09/21 05/09/21 Unknown History metoprolol succinate 50 mg 50 mg PO DAILY 05/09/21 05/09/21 Unknown History tablet,extended release 24 hr rosuvastatin 20 mg tablet 20 mg PO BEDTIME 05/09/21 05/09/21 Unknown History Allergies Allergy/AdvReac Type Severity Reaction Status Date / Time lisinopril Allergy Unknown unknown Verified 05/07/21 09:47 sulfabenzamide Allergy Unknown unknown Verified 05/07/21 09:47 apremilast [From Otezla] Allergy cough Verified 05/07/21 09:47 Sulfa (Sulfonamide Allergy Unknown Verified 05/09/21 11:37 Antibiotics) PFSH Acute PFSH: Medical History (Updated 05/09/21 @ 20:57 by Butch Dodge MD) Asthma CAD (coronary artery disease) Controlled diabetes mellitus with diabetic polyneuropathy COPD (chronic obstructive pulmonary disease) Diabetes Dizziness Lumbar radiculopathy Pulmonary nodules Rheumatoid arthritis Surgical History History of appendectomy History of cataract extraction History of cholecystectomy History of hysterectomy History of tonsillectomy Family History Sister Hypertension Social History Smoking and tobacco status: never smoked Second hand smoke exposure: Yes Smoking risk assessment/counseling performed?: Yes Alcohol intake: never Lives independently: Yes Household members: none Housing: Apartment Marital status: / Current occupational status: retired Pets and animals: Yes History of recent travel: No Current gender identity: Female Vitals/I&O/Wt Last Vital Signs Temp 97.8 F 05/09/21 11:16 Pulse 78 05/09/21 18:00 Resp 17 05/09/21 18:00 BP 107/71 05/09/21 18:00 Pulse Ox 93 05/09/21 18:00 05/09/21 05/09/21 05/09/21 06:59 14:59 22:59 Intake Total 1650 / 1650 Balance 1650 / 1650 Weight last 48 hrs Weight 72.121 kg Physical Exam Narrative: Daughter at bedside. Const: COMMON NORMALS: no acute distress, patient oriented x3 and alert GENERAL APPEARANCE: cooperative NUTRITIONAL APPEARANCE: overweight ORIENTATION/CONSCIOUSNESS: Yes awake HENMT: COMMON NORMALS: oropharynx normal Neck/C-Spine: COMMON NORMALS: no JVD Resp: COMMON NORMALS: normal respiratory effort and clear to auscultation bilaterally AUSCULTATION: clear to auscultation bilaterally Cardio: COMMON NORMALS: no JVD, regular rhythm, S1 normal heart sound present, S2 normal heart sound present and No murmurs present (Cardio) RHYTHM: regular rhythm HEART SOUNDS: S1 normal heart sound present and S2 normal heart sound present GI: COMMON NORMALS: Normal to inspection, nondistended, normoactive bowel sounds present, Soft to palpation and non-tender PALPATION: Yes Soft to palpation Extremity: COMMON NORMALS: no joint enlargement and no pedal edema OTHER: RLE in brace Neuro: COMMON NORMALS: patient oriented x3 and moves all extremities Skin: COMMON NORMALS: no rashes or lesions noted GENERAL SKIN EXAM: no rashes or lesions noted Data : 05/09/21 10:40 05/09/21 10:40 Micro: Microbiology 05/09/21 13:45 Blood Culture - Preliminary Blood SPECIMEN COLLECTED 05/09/21 11:13 Blood Culture - Preliminary Blood SPECIMEN COLLECTED A&P Assessment and plan (1) Hypotension: Appears possibly multifactorial, appears to have adrenal insufficiency with inadequate cortisol response with prior history of repeat courses of steroids, steroid injections, inhaled steroids. Started on stress dose cortisol after fluid challenge. Blood pressure currently better. Continue hydrocortisone, taper as tolerating, and discussed with her with need to progress to evaluate on discharge. Discussed with her risks of steroids. Normal TSH. Additionally phlebotomy yesterday with subsequent soft blood pressure, as well as fall and fracture with possibly some acute blood loss anemia contributing. Hemoglobin 10.1. Follow. Additionally he irbesartan, metoprolol, amlodipine, spironolactone-HCTZ, gabapentin possibly contributing to hypotension in setting of SUSAN. Hold antihypertensives for now. Less likely Metformin induced lactic acidosis. Hold Metformin. Status: Acute (2) Pneumonia: Possible pneumonia right lung. Dry cough. Check COVID-19 has recently lost her to Covid. Continue ceftriaxone, azithromycin. Nonproductive cough. Check urine bacterial antigens, MRSA PCR. Status: Acute (3) Syncope: Likely secondary to hypotension. As above. Status: Acute (4) SUSAN (acute kidney injury): Suspect prerenal with episodes of hypotension. Hold irbesartan, other. Additional management as above antihypertensives. Status: Acute (5) Fracture of bone adjacent to prosthesis: Brace applied in ER. Pending Ortho assessment. Pain management as needed.Recheck hemoglobin. Status: Acute (6) Lactic acidosis: 4.3-3.5. Suspect secondary to hypertension, hypoperfusion. Not suspecting sepsis at this time, but cannot entirely exclude. Blood cultures were collected. Empiric antibiotics as above. Less likely but also possible Metformin induced lactic acidosis, possibly contributing to symptoms of hypotension, although has other causes for this. Hold Metformin at this time. Status: Acute Plan RA Immunocompromised Asthma COPD CAD DM2 Lumbar radiculopathy Other chronic medical conditions Attestations Medical Necessity Statement*: Admission of over [address] in observation for additional assessment and management of hypotension, orthostasis, syncope, adrenal insufficiency, pneumonia, SUSAN, periprosthetic femoral fracture. Coding Level of Care Code Acute [employer] Instructor for Chg Fwd Diagnoses Hypotension I95.9 Pneumonia J18.9 Syncope R55 SUSAN (acute kidney injury) N17.9 Fracture of bone adjacent to prosthesis M97.9XXA Lactic acidosis E87.2
[2021-05-09] MEDS: heparin 5,000 unit/mL INJ 1 mL 5000 UNIT SUBCUT (21:43)
[2021-05-09] MEDS: atorvastatin 40 mg Tablet 80 MG PO (21:43)
[2021-05-09] MEDS: oxyCODONE 5 mg IR Tab/Cap PO (21:44)
[2021-05-09] MEDS: gabapentin 300 mg Capsule PO (21:55)
[2021-05-09 22:13] LABS: Adenovirus Not Detected (NOT DETECT); Chlamydia Pneumoniae Not Detected (NOT DETECT); Coronavirus 229E,HKU1,NL63,OC4 Not Detected (NOT DETECT); Human Metapneumovirus Not Detected (NOT DETECT); Human Rhinovirus/Enterovirus Not Detected (NOT DETECT); Influenza A Not Detected (NOT DETECT); Influenza A H1 Not Detected (NOT DETECT); Influenza A H1-2009 Not Detected (NOT DETECT); Influenza A H3 Not Detected (NOT DETECT); Influenza B Not Detected (NOT DETECT); Mycoplasma Pneumoniae Not Detected (NOT DETECT); Parainfluenza Virus Type 1 Not Detected (NOT DETECT); Parainfluenza Virus Type 2 Not Detected (NOT DETECT); Parainfluenza Virus Type 3 Not Detected (NOT DETECT); Parainfluenza Virus Type 4 Not Detected (NOT DETECT); Respiratory Syncytial Virus A Not Detected (NOT DETECT); Respiratory Syncytial Virus B Not Detected (NOT DETECT); SARS-COV-2 Not Detected (NOT DETECT)
[2021-05-10] VITALS (10 sets, daily range): BP systolic 102–150; BP diastolic 65–91; PULSE 83–112; RESP 16–18; TEMP 36.4–36.8; O2SAT 92–96
[2021-05-10] MEDS: hydrocortisone 100 mg/2 mL SDV IVP (04:13)
[2021-05-10 05:50] LABS: Basophils % 0.3 %; Hematocrit 28.8 % (37.0-47.0); Hemoglobin 9.3 g/dL (11.5-15.3); Lymphocytes # 0.8 10^3/uL (0.8-4.8); Lymphocytes % 7.7 %; Mean Corpuscular HGB Conc 32.3 g/dL (30.0-36.0); Mean Corpuscular Hemoglobin 31.3 pg (28.0-34.0); Mean Platelet Volume 9.3 fL (7.4-10.4); Monocytes # 0.5 10^3/uL (0.2-0.9); Monocytes % 4.7 %; Neutrophils # 9.01 10^3/uL (1.8-7.7); Nucleated Red Blood Cells # 0.1 /100WBC; Nucleated Red Blood Cells % 0.5 %; Platelet Count 340 10^3/cmm (130-400); Red Blood Count 2.97 10^6/uL (4.1-5.3); Red Cell Distribution Width 15.7 % (12.1-15.1); White Blood Count 10.9 10^3/uL (4.0-10.0)
[2021-05-10 06:17] LABS: Alanine Aminotransferase 24 U/L (0-33); Albumin Level 3.8 g/dL (3.5-5.2); Alkaline Phosphatase 43 IU/L (35-105); Anion Gap 15.3 (5-19); Aspartate Amino Transferase 22 U/L (0-32); Blood Urea Nitrogen 33 mg/dL (8-23); Calcium 9.5 mg/dL (8.5-10.5); Carbon Dioxide 25 mmol/L (22-29); Chloride 102 mmol/L (98-107); Globulin 2.9 g/dL (1.3-4.6); Glucose 186 mg/dL (65-115); Osmolality Calculated 298 mOsm/kg (285-295); Potassium 4.3 mmol/L (3.5-5.1); Sodium 138 mmol/L (136-145); Total Bilirubin 0.4 mg/dL (0.15-1.2); Total Protein 6.7 g/dL (6.6-8.7)
--- NOTE | 2021-05-10 08:10 | P.CONIM_ITS ---
Documented by User: Dimitry Bello PA-C 05/10/21 08:17 Providers/Reason For Consult Consulting Physician/Specialty*: Orthopedics Reason for Consult*: Right knee/leg pain Attending Physician: Butch Dodge Primary Care Provider: Raleigh Carcamo MD History of Present Illness History of Present Illness Corinna Lance is a 71 year old female who fell at home sustaining injury to her right lower extremity. She reports having some blood draws for her hemochromatosis felt lightheaded. She fell at her residence denies any elbow or shoulder pain denies any hip pain but has had increased pain in her right leg since the fall. She had a knee replacement done 20+ years ago by an orthopedic surgeon locally but she is unable to recall the name. She is evaluated in room 272 with family present still complaining of intermittent right knee pain. Denies any hip or back pain. She has had injections with Dr. Prieto in her low back. She reports an operative procedure on her left tibia number of years ago as well. Pain has been sharp stabbing constant in the right knee with any movement making it much worse. Rest is giving her some temporary relief. An extensive review of the patient's past medical history, surgical history, allergies, medications, family history, social history, and review of systems was completed Review of Systems General: Reports: 10 or more systems reviewed and unremarkable except in HPI and below Const: Reports: fatigue; Denies: fever(s), chills, body aches or malaise Eyes: Denies: change in vision or eye redness ENMT: Denies: throat pain, oral sores or ear or mastoid pain Card: Reports: lightheadedness, syncope and pre-syncope; Denies: chest pain, edema or dyspnea on exertion Resp: Reports: non-productive cough; Denies: dyspnea, productive cough, change in phlegm color or hemoptysis GI: Denies: abdominal pain, nausea, vomiting, diarrhea, constipation, hematochezia or melena : Denies: flank pain, urinary frequency or hematuria Musc: Reports: other (R knee pain after fall); Denies: back pain, joint swelling or joint redness Skin/Breast: Denies: rash, sores or new lesions Neuro: Reports: dizziness; Denies: headache(s), numbness in extremities, weakness in extremities, confusion or seizure-like activity Endo: Denies: polyuria or polydipsia Blayne/Lymph: Denies: easy bleeding or purpura All/Imm: Denies: urticaria, throat swelling or tongue swelling Medications/Allergies Home Medications Medication Instructions Recorded Confirmed Last Taken Type albuterol sulfate 90 mcg/actuation 2 puff INHALATION Q6H PRN 07/04/19 05/09/21 Unknown History aerosol inhaler (Ventolin HFA) alendronate 70 mg tablet 70 mg PO Q7D 07/04/19 05/09/21 03/28/21 History spironolactone 25 1 tab PO DAILY 07/04/19 05/09/21 03/29/21 History mg-hydrochlorothiazide 25 mg tablet (Aldactazide) venlafaxine 37.5 mg 37.5 mg PO DAILY 07/04/19 05/09/21 03/29/21 History capsule,extended release 24 hr (Effexor XR) Diabetic Shoes extra deep #1 ea 01/16/20 05/09/21 Unknown Rx montelukast 10 mg tablet 10 mg PO DAILY #90 tab 07/15/20 05/09/21 03/29/21 Rx (Singulair) metformin 500 mg tablet,extended 500 mg PO QPM tab 11/21/20 05/09/21 03/29/21 History release 24 hr gabapentin 300 mg capsule 300 mg PO TID 03/29/21 05/09/21 03/29/21 History irbesartan 150 mg tablet 150 mg PO DAILY 03/29/21 05/09/21 03/29/21 History omeprazole 20 mg capsule,delayed 20 mg PO BID 03/29/21 05/09/21 03/29/21 History release oxycodone 5 mg tablet 5 mg PO TID PRN 7 Days #21 tab 04/07/21 05/09/21 Unknown Rx Symbicort 80 mcg-4.5 mcg/actuation 2 puff INHALATION BID #10.2 g NS 04/17/21 05/09/21 Unknown Rx HFA aerosol inhaler (budesonide-formoterol) methocarbamol 750 mg tablet 750 mg PO Q8H PRN #120 tab 04/17/21 05/09/21 Unknown Rx upadacitinib 15 mg tablet,extended 15 mg PO DAILY #30 tab 04/22/21 05/09/21 Unknown Rx release 24 hr (Rinvoq) acetaminophen 500 mg tablet 1,000 mg PO Q6H PRN 05/09/21 05/09/21 Unknown History amlodipine 2.5 mg tablet 2.5 mg PO DAILY 05/09/21 05/09/21 Unknown History ibuprofen 200 mg tablet 400 mg PO Q6H PRN 05/09/21 05/09/21 Unknown History metoprolol succinate 50 mg 50 mg PO DAILY 05/09/21 05/09/21 Unknown History tablet,extended release 24 hr rosuvastatin 20 mg tablet 20 mg PO BEDTIME 05/09/21 05/09/21 Unknown History Allergies Allergy/AdvReac Type Severity Reaction Status Date / Time lisinopril Allergy Unknown unknown Verified 05/07/21 09:47 sulfabenzamide Allergy Unknown unknown Verified 05/07/21 09:47 apremilast [From Otezla] Allergy cough Verified 05/07/21 09:47 Sulfa (Sulfonamide Allergy Unknown Verified 05/09/21 11:37 Antibiotics) Current Medications Generic Name Dose Route Start Last Admin Trade Name Freq PRN Reason Stop Dose Admin Atorvastatin Calcium 80 mg 05/09/21 21:00 05/09/21 21:43 Atorvastatin 40 Mg Tablet PO 80 mg BEDTIME SAVANA Administration Gabapentin 300 mg 05/09/21 21:00 05/09/21 21:55 Gabapentin 300 Mg Capsule PO 300 mg TID SAVANA Administration Heparin Sodium (Porcine) 5,000 unit 05/09/21 21:15 05/09/21 21:43 Heparin 5,000 Unit/Ml Inj 1 Ml SUBCUT 5,000 unit Q12H SAVANA Administration Hydrocortisone Sodium Succinate 100 mg 05/09/21 22:30 05/10/21 04:13 Hydrocortisone 100 Mg/2 Ml Sdv IVP 100 mg Q6H SAVANA Administration Oxycodone HCl 5 mg 05/09/21 20:52 05/09/21 21:44 Oxycodone 5 Mg Ir Tab/Cap PO 5 mg TID PRN Administration pain PFSH Acute PFSH: Medical History (Updated 05/10/21 @ 08:16 by Dimitry Bello PA-C) Asthma CAD (coronary artery disease) Controlled diabetes mellitus with diabetic polyneuropathy COPD (chronic obstructive pulmonary disease) Diabetes Dizziness Lumbar radiculopathy Pulmonary nodules Rheumatoid arthritis Surgical History History of appendectomy History of cataract extraction History of cholecystectomy History of hysterectomy History of tonsillectomy Family History Sister Hypertension Social History Smoking and tobacco status: never smoked Second hand smoke exposure: Yes Smoking risk assessment/counseling performed?: Yes Alcohol intake: never Lives independently: Yes Household members: none Housing: Apartment Marital status: / Current occupational status: retired Pets and animals: Yes History of recent travel: No Current gender identity: Female Vitals/I&O/Wt Last Vital Signs Temp 97.5 F L 05/10/21 07:45 Pulse 90 05/10/21 07:45 Resp 18 05/10/21 07:45 BP 112/75 05/10/21 07:45 Pulse Ox 92 05/10/21 07:45 05/09/21 05/10/21 05/10/21 22:59 06:59 14:59 Intake Total 1890 / 1890 360 / 2250 Balance 1890 / 1890 360 / 2250 Weight last 48 hrs Weight 174 lb 4.8 oz Weight 159 lb Physical Exam Const: COMMON NORMALS: patient oriented x3 HENMT: COMMON NORMALS: normocephalic and atraumatic HEAD & SCALP: normocephalic and atraumatic Resp: COMMON NORMALS: normal respiratory effort Cardio: COMMON NORMALS: regular rate and regular rhythm RATE: regular rate RHYTHM: regular rhythm GI: COMMON NORMALS: Soft to palpation and non-tender PALPATION: Yes Soft to palpation : COMMON NORMALS: Yes no CVA tenderness BLADDER/KIDNEY EXAM: Yes no CVA tenderness Back/Pelvis: COMMON NORMALS: no CVA tenderness Extremity: NARRATIVE EXTREMITY EXAM: Knee immobilizer on her right lower extremity. She wiggles all digits on both lower extremities feet are warm good cap refill dorsalis pedis posterior pulses are palpable. Calves are supple no medial thigh tenderness. She has no palpable pain over either hip. She has well-healed incision over the anterior aspect of her right knee with moderate swelling over the right distal femur region. She has well-healed incision over her left tibia. Neuro: COMMON NORMALS: patient oriented x3, moves all extremities and no sen cristina deficits noted Psych: COMMON NORMALS: mental status grossly normal and cooperative Data : 05/10/21 04:49 05/10/21 04:49 Micro: Microbiology 05/09/21 13:45 Blood Culture - Preliminary Blood SPECIMEN COLLECTED 05/09/21 11:13 Blood Culture - Preliminary Blood SPECIMEN COLLECTED A&P Assessment and plan (1) 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: Continue knee immobilizer. We will follow her closely and try and treat her nonoperatively. we will consult physical therapy for toe-touch weightbearing right lower extremity. Ice and elevate right lower extremity. See her back in the office in 1 to 2 weeks for repeat radiographs. Continue anticoagulants per hospitalist team. 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 [facility] Fwd Exam Comprehensive Diagnoses 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 M97.8XXA; Z96.649 Fracture, femur, distal S72.409A Documented by User: Cristian Dumont DO 05/10/21 09:13 Medications/Allergies Home Medications Medication Instructions Recorded Confirmed Last Taken Type albuterol sulfate 90 mcg/actuation 2 puff INHALATION Q6H PRN 07/04/19 05/09/21 Unknown History aerosol inhaler (Ventolin HFA) alendronate 70 mg tablet 70 mg PO Q7D 07/04/19 05/09/21 03/28/21 History spironolactone 25 1 tab PO DAILY 07/04/19 05/09/21 03/29/21 History mg-hydrochlorothiazide 25 mg tablet (Aldactazide) venlafaxine 37.5 mg 37.5 mg PO DAILY 07/04/19 05/09/21 03/29/21 History capsule,extended release 24 hr (Effexor XR) Diabetic Shoes extra deep #1 ea 01/16/20 05/09/21 Unknown Rx montelukast 10 mg tablet 10 mg PO DAILY #90 tab 07/15/20 05/09/21 03/29/21 Rx (Singulair) metformin 500 mg tablet,extended 500 mg PO QPM tab 11/21/20 05/09/21 03/29/21 History release 24 hr gabapentin 300 mg capsule 300 mg PO TID 03/29/21 05/09/21 03/29/21 History irbesartan 150 mg tablet 150 mg PO DAILY 03/29/21 05/09/21 03/29/21 History omeprazole 20 mg capsule,delayed 20 mg PO BID 03/29/21 05/09/21 03/29/21 History release oxycodone 5 mg tablet 5 mg PO TID PRN 7 Days #21 tab 04/07/21 05/09/21 Unknown Rx Symbicort 80 mcg-4.5 mcg/actuation 2 puff INHALATION BID #10.2 g NS 04/17/21 05/09/21 Unknown Rx HFA aerosol inhaler (budesonide-formoterol) methocarbamol 750 mg tablet 750 mg PO Q8H PRN #120 tab 04/17/21 05/09/21 Unknown Rx upadacitinib 15 mg tablet,extended 15 mg PO DAILY #30 tab 04/22/21 05/09/21 Unknown Rx release 24 hr (Rinvoq) acetaminophen 500 mg tablet 1,000 mg PO Q6H PRN 05/09/21 05/09/21 Unknown History amlodipine 2.5 mg tablet 2.5 mg PO DAILY 05/09/21 05/09/21 Unknown History ibuprofen 200 mg tablet 400 mg PO Q6H PRN 05/09/21 05/09/21 Unknown History metoprolol succinate 50 mg 50 mg PO DAILY 05/09/21 05/09/21 Unknown History tablet,extended release 24 hr rosuvastatin 20 mg tablet 20 mg PO BEDTIME 05/09/21 05/09/21 Unknown History Allergies Allergy/AdvReac Type Severity Reaction Status Date / Time lisinopril Allergy Unknown unknown Verified 05/07/21 09:47 sulfabenzamide Allergy Unknown unknown Verified 05/07/21 09:47 apremilast [From Otezla] Allergy cough Verified 05/07/21 09:47 Sulfa (Sulfonamide Allergy Unknown Verified 05/09/21 11:37 Antibiotics) PFSH Acute PFSH: Medical History (Updated 05/10/21 @ 08:16 by Dimitry Bello PA-C) Asthma CAD (coronary artery disease) Controlled diabetes mellitus with diabetic polyneuropathy COPD (chronic obstructive pulmonary disease) Diabetes Dizziness Lumbar radiculopathy Pulmonary nodules Rheumatoid arthritis Surgical History History of appendectomy History of cataract extraction History of cholecystectomy History of hysterectomy History of tonsillectomy Family History Sister Hypertension Social History Smoking and tobacco status: never smoked Second hand smoke exposure: Yes Smoking risk assessment/counseling performed?: Yes Alcohol intake: never Lives independently: Yes Household members: none Housing: Apartment Marital status: / Current occupational status: retired Pets and animals: Yes History of recent travel: No Current gender identity: Female Data : 05/10/21 04:49 05/10/21 04:49 A&P Assessment and plan (1) 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: Continue knee immobilizer. We will follow her closely and try and treat her nonoperatively. we will consult physical therapy for toe-touch weightbearing right lower extremity. Ice and elevate right lower extremity. See her back in the office in 1 to 2 weeks for repeat radiographs. Continue anticoagulants per hospitalist team. 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
[2021-05-10 08:15] LABS: Glucose Point of Care 195 mg/dL (70-110)
[2021-05-10] MEDS: gabapentin 300 mg Capsule PO ×3 (09:34→20:11)
[2021-05-10] MEDS: pantoprazole DR 40 mg Tablet PO (09:35)
[2021-05-10] MEDS: acetaminophen 325 mg Tablet 650 MG PO (09:35)
[2021-05-10] MEDS: insulin lispro 100 unit/1 mL SUBCUT ×2 (09:35→12:40)
[2021-05-10] MEDS: venlafaxine ER (24HR) 37.5 mg Capsule PO (09:35)
[2021-05-10] MEDS: montelukast sodium 10 mg Tablet PO (09:35)
[2021-05-10] MEDS: heparin 5,000 unit/mL INJ 1 mL 5000 UNIT SUBCUT ×2 (09:35→20:11)
[2021-05-10 11:05] LABS: Glucose Point of Care 273 mg/dL (70-110)
[2021-05-10] MEDS: azithromycin 500 MG in sodium chloride 0.9% 250 ML 250 MG IV (12:33)
[2021-05-10] MEDS: cefTRIAXone 1,000 MG in sodium chloride 0.9% (plus) 50 ML 100 MG IV (12:34)
--- NOTE | 2021-05-10 19:41 | P.PN_ITS ---
Subjective Subjective: She is overall doing better today. Mild intermittent cough. Denies chest pain or pressure. Vitals/I&O/Wt Last Vital Signs Temp 98.2 F 05/10/21 19:34 Pulse 97 05/10/21 19:34 Resp 16 05/10/21 19:34 BP 102/65 05/10/21 19:34 Pulse Ox 95 05/10/21 19:34 05/10/21 05/10/21 05/10/21 06:59 14:59 22:59 Intake Total 360 / 2250 740 / 740 240 / 980 Output Total 250 / 250 Balance 360 / 2250 740 / 740 -10 / 730 Weight last 48 hrs Weight 79.061 kg Weight 72.121 kg Physical Exam Narrative: Daughter at bedside. Const: COMMON NORMALS: no acute distress, patient oriented x3 and alert GENERAL APPEARANCE: cooperative NUTRITIONAL APPEARANCE: overweight ORIENTATION/CONSCIOUSNESS: Yes awake HENMT: COMMON NORMALS: oropharynx normal Neck/C-Spine: COMMON NORMALS: no JVD Resp: COMMON NORMALS: normal respiratory effort and clear to auscultation bilaterally AUSCULTATION: clear to auscultation bilaterally Cardio: COMMON NORMALS: no JVD, regular rhythm, S1 normal heart sound present, S2 normal heart sound present and No murmurs present (Cardio) RHYTHM: regular rhythm HEART SOUNDS: S1 normal heart sound present and S2 normal heart sound present GI: COMMON NORMALS: Normal to inspection, nondistended, normoactive bowel sounds present, Soft to palpation and non-tender PALPATION: Yes Soft to palpation Extremity: COMMON NORMALS: no joint enlargement and no pedal edema OTHER: RLE in brace Neuro: COMMON NORMALS: patient oriented x3 and moves all extremities SENSORIUM/ORIENTATION: Yes alert Skin: COMMON NORMALS: no rashes or lesions noted GENERAL SKIN EXAM: no rashes or lesions noted Data : 05/10/21 04:49 05/10/21 04:49 Micro: Microbiology 05/09/21 13:45 Blood Culture - Preliminary Blood NEGATIVE TO DATE 05/09/21 11:13 Blood Culture - Preliminary Blood NEGATIVE TO DATE A&P Assessment and plan (1) Hypotension: Improved. Pressure is low, although blood pressure still soft.. She has declined hydrocortisone this morning and tonight. Blood pressure 102/65. We will transition to prednisone. Discussed with her multifactorial nature of hypotension likely secondary to IV blood loss after phlebotomy, then fracture, also antihypertensives in the setting of SUSAN, possibly mild hypovolemia with diuretics, as well as adrenal insufficiency. Hold additional IV fluids for now as she received good challenge. Will recheck hemoglobin, however. Hold irbesartan, metoprolol, amlodipine, spironolactone-HCTZ, gabapentin possibly contributing to hypotension in setting of SUSAN. Hold antihypertensives for now. Less likely Metformin induced lactic acidosis. Hold Metformin. Status: Acute (2) Pneumonia: Continues with cough. Continue ceftriaxone, azithromycin. So far has been doing well on room air. Possible pneumonia right lung. Dry cough. Check COVID-19 has recently lost her to Covid. Check urine bacterial antigens, MRSA PCR. Status: Acute (3) Syncope: Likely secondary to hypotension. As above. Status: Acute (4) SUSAN (acute kidney injury): With good response to fluid challenge and improvement in blood pressures. Reassess renal function. Hold irbesartan, other antihypertensives. Avoid hypotension. Status: Acute (5) Fracture of bone adjacent to prosthesis: Appreciate orthopedic recommendations. Toe-touch weightbearing. PT assessment. CM working with her regarding disposition planning and post discharge rehabilitation. Pain management. Recheck hemoglobin. Status: Acute (6) Lactic acidosis: 4.3-3.5 on presentation Suspect secondary to hypertension, hypoperfusion. Not suspecting sepsis at this time, but cannot entirely exclude. Blood cultures were collected. Empiric antibiotics as above. Less likely but also possible Metformin induced lactic acidosis, possibly contributing to symptoms of hypotension, although has other causes for this. Hold Metformin at this time. Likely resolved. Bicarb Improved. Iron gap closed. Status: Acute Plan RA Immunocompromised Asthma COPD CAD DM2 Lumbar radiculopathy Other chronic medical conditions Attestations Medical Necessity Statement*: Of multifactorial low blood pressure, reassessment of hemoglobin after phlebotomy, fracture with acute blood loss ane cricket, improving SUSAN, immobilization following periprosthetic right femoral fracture, disposition planning and arrangements for post discharge rehabilitation. 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
[2021-05-10] MEDS: atorvastatin 40 mg Tablet 80 MG PO (20:10)
[2021-05-10] MEDS: predniSONE 10 mg Tablet PO (20:10)
[2021-05-10] MEDS: oxyCODONE 5 mg IR Tab/Cap PO (20:11)
[2021-05-10 20:23] LABS: Glucose Point of Care 179 mg/dL (70-110)
[2021-05-11] VITALS (11 sets, daily range): BP systolic 105–129; BP diastolic 70–85; PULSE 87–117; RESP 16–20; TEMP 36.7–36.9; O2SAT 90–96
[2021-05-11 04:54] LABS: Basophils % 0.4 %; Eosinophils % 0.1 %; Hematocrit 25.8 % (37.0-47.0); Hemoglobin 8.4 g/dL (11.5-15.3); Lymphocytes # 0.9 10^3/uL (0.8-4.8); Lymphocytes % 10.2 %; Mean Corpuscular HGB Conc 32.6 g/dL (30.0-36.0); Mean Corpuscular Hemoglobin 31.5 pg (28.0-34.0); Mean Corpuscular Volume 96.6 fl (81-99); Mean Platelet Volume 9.3 fL (7.4-10.4); Monocytes # 0.8 10^3/uL (0.2-0.9); Monocytes % 9.1 %; Neutrophils # 6.29 10^3/uL (1.8-7.7); Neutrophils % 75.4 %; Nucleated Red Blood Cells # 0.1 /100WBC; Nucleated Red Blood Cells % 1.7 %; Platelet Count 248 10^3/cmm (130-400); Red Blood Count 2.67 10^6/uL (4.1-5.3); Red Cell Distribution Width 15.9 % (12.1-15.1); White Blood Count 8.3 10^3/uL (4.0-10.0)
[2021-05-11 05:06] LABS: Alanine Aminotransferase 19 U/L (0-33); Albumin Level 3.5 g/dL (3.5-5.2); Alkaline Phosphatase 39 IU/L (35-105); Anion Gap 15.4 (5-19); Aspartate Amino Transferase 19 U/L (0-32); Blood Urea Nitrogen 27 mg/dL (8-23); Calcium 8.4 mg/dL (8.5-10.5); Carbon Dioxide 26 mmol/L (22-29); Chloride 105 mmol/L (98-107); Globulin 2.7 g/dL (1.3-4.6); Glucose 199 mg/dL (65-115); Osmolality Calculated 305 mOsm/kg (285-295); Potassium 4.4 mmol/L (3.5-5.1); Sodium 142 mmol/L (136-145); Total Bilirubin 0.3 mg/dL (0.15-1.2); Total Protein 6.2 g/dL (6.6-8.7)
[2021-05-11 06:42] LABS: Glucose Point of Care 185 mg/dL (70-110)
[2021-05-11] MEDS: insulin lispro 100 unit/1 mL SUBCUT ×3 (10:11→17:59)
[2021-05-11] MEDS: heparin 5,000 unit/mL INJ 1 mL 5000 UNIT SUBCUT ×2 (10:12→20:22)
[2021-05-11] MEDS: pantoprazole DR 40 mg Tablet PO (10:12)
[2021-05-11] MEDS: montelukast sodium 10 mg Tablet PO (10:12)
[2021-05-11] MEDS: gabapentin 300 mg Capsule PO ×3 (10:12→20:22)
[2021-05-11] MEDS: predniSONE 10 mg Tablet PO ×2 (10:12→16:41)
[2021-05-11] MEDS: venlafaxine ER (24HR) 37.5 mg Capsule PO (10:13)
[2021-05-11 11:11] LABS: Glucose Point of Care 308 mg/dL (70-110)
--- NOTE | 2021-05-11 11:51 | PM.PN ---
Subjective Subjective: Having a mild but persistent headache. Continues with cough. Denies chest pain. No further vomiting or diarrhea. Work with physical therapy, having some pain in her right knee after sitting at the edge of bed. Vitals/I&O/Wt Last Vital Signs Temp 98.0 F 05/11/21 07:19 Pulse 87 05/11/21 08:10 Resp 16 05/11/21 08:10 BP 116/85 05/11/21 07:19 Pulse Ox 96 05/11/21 08:10 05/10/21 05/11/21 05/11/21 22:59 06:59 14:59 Intake Total 240 / 980 Output Total 250 / 250 450 / 700 Balance - -450 / 280 Weight last 48 hrs Weight 79.424 kg Weight 79.061 kg Physical Exam Narrative: Daughter at bedside. Const: COMMON NORMALS: no acute distress, patient oriented x3 and alert GENERAL APPEARANCE: cooperative NUTRITIONAL APPEARANCE: overweight ORIENTATION/CONSCIOUSNESS: Yes awake HENMT: COMMON NORMALS: oropharynx normal Neck/C-Spine: COMMON NORMALS: no JVD Resp: COMMON NORMALS: normal respiratory effort and clear to auscultation bilaterally AUSCULTATION: clear to auscultation bilaterally Cardio: COMMON NORMALS: no JVD, regular rhythm, S1 normal heart sound present, S2 normal heart sound present and No murmurs present (Cardio) RHYTHM: regular rhythm HEART SOUNDS: S1 normal heart sound present and S2 normal heart sound present GI: COMMON NORMALS: Normal to inspection, nondistended, normoactive bowel sounds present, Soft to palpation and non-tender PALPATION: Yes Soft to palpation Extremity: COMMON NORMALS: no joint enlargement and no pedal edema OTHER: RLE in brace Neuro: COMMON NORMALS: patient oriented x3 and moves all extremities SENSORIUM/ORIENTATION: Yes alert Skin: COMMON NORMALS: no rashes or lesions noted GENERAL SKIN EXAM: no rashes or lesions noted Data : 05/11/21 04:02 05/11/21 04:02 Micro: Microbiology 05/09/21 13:45 Blood Culture - Preliminary Blood NEGATIVE TO DATE 05/09/21 11:13 Blood Culture - Preliminary Blood NEGATIVE TO DATE A&P Assessment and plan (1) Hypotension: Improved. Stop hydrocortisone. Switch to prednisone. Gradually taper down. For now continue to hold antihypertensives. Multifactorial nature of hypotension likely secondary to IV blood loss after phlebotomy, then fracture, also antihypertensives in the setting of SUSAN, possibly mild hypovolemia with diuretics, as well as adrenal insufficiency. Hold additional IV fluids for now as she received good challenge. Less likely Metformin induced lactic acidosis, corrected acidosis on presentation. Held Metformin. Status: Acute (2) Acute anemia: Giurgius 5 decrease down to 8.4 hemoglobin. Hopefully can avoid blood transfusion due to hemochromatosis. Reassess hemoglobin tomorrow. Discussed with her and family. Multifactorial anemia, had phlebotomy on 05/08. Also with fall, right lower extremity fracture and likely some acute blood loss that way. Status: Acute (3) Pneumonia: Continues with cough. Continue ceftriaxone, azithromycin. So far has been doing well on room air. Possible pneumonia right lung. Dry cough. Negative COVID-19 Requested urine bacterial antigens, MRSA PCR. Status: Acute (4) Syncope: Likely secondary to hypotension. As above. Status: Acute (5) SUSAN (acute kidney injury): Resolving. With good response to fluid challenge and improvement in blood pressures. Reassess renal function. Hold irbesartan, other antihypertensives. Avoid hypotension. Status: Acute (6) Fracture of bone adjacent to prosthesis: Appreciate orthopedic recommendations. Toe-touch weightbearing. PT assessment. CM working with her regarding disposition planning and post discharge rehabilitation. Pain management. Recheck hemoglobin. Status: Acute (7) Lactic acidosis: 4.3-3.5 on presentation Suspect secondary to hypertension, hypoperfusion. Not suspecting sepsis at this time, but cannot entirely exclude. Blood cultures were collected. Empiric antibiotics as above. Less likely but also possible Metformin induced lactic acidosis, possibly contributing to symptoms of hypotension, although has other causes for this. Hold Metformin at this time. Likely resolved. Bicarb Improved. Iron gap closed. Status: Acute Plan RA Immunocompromised Asthma COPD CAD DM2 Lumbar radiculopathy Other chronic medical conditions Attestations Medical Necessity Statement*: Admission for taper steroid after hypertension, atrial fibrillation, on Eliquis, daily pneumonia, reassessment of acute Giurgius anemia, pending arrangements for post discharge rehabilitation. Coding Level of Care Code Acute [facility] for [facility] Diagnoses Hypotension I95.9 Pneumonia J18.9 Syncope R55 SUSAN (acute kidney injury) N17.9 Fracture of bone adjacent to prosthesis M97.9XXA Lactic acidosis E87.2 Acute anemia D64.9
[2021-05-11] MEDS: cefTRIAXone 1,000 MG in sodium chloride 0.9% (plus) 50 ML 100 MG IV (12:30)
[2021-05-11] MEDS: acetaminophen 500 mg Tablet 1000 MG PO (12:30)
[2021-05-11] MEDS: azithromycin 500 MG in sodium chloride 0.9% 250 ML 250 MG IV (16:29)
[2021-05-11 17:05] LABS: Glucose Point of Care 247 mg/dL (70-110)
[2021-05-11 19:17] LABS: Glucose Point of Care 131 mg/dL (70-110)
[2021-05-11] MEDS: atorvastatin 40 mg Tablet 80 MG PO (20:21)
[2021-05-11] MEDS: oxyCODONE 5 mg IR Tab/Cap PO (20:21)
[2021-05-11 21:34] LABS: Glucose Point of Care 251 mg/dL (70-110)
[2021-05-12] VITALS (11 sets, daily range): BP systolic 118–130; BP diastolic 70–82; PULSE 72–130; RESP 16–23; TEMP 36.6–36.8; O2SAT 92–98
[2021-05-12 04:18] LABS: Basophils % 0.4 %; Eosinophils % 0.1 %; Hematocrit 24.9 % (37.0-47.0); Hemoglobin 8.2 g/dL (11.5-15.3); Lymphocytes # 1.1 10^3/uL (0.8-4.8); Lymphocytes % 11.9 %; Mean Corpuscular HGB Conc 32.9 g/dL (30.0-36.0); Mean Corpuscular Hemoglobin 31.7 pg (28.0-34.0); Mean Corpuscular Volume 96.1 fl (81-99); Mean Platelet Volume 9.2 fL (7.4-10.4); Monocytes # 0.8 10^3/uL (0.2-0.9); Monocytes % 9.4 %; Neutrophils # 6.53 10^3/uL (1.8-7.7); Neutrophils % 73.1 %; Nucleated Red Blood Cells # 0.2 /100WBC; Nucleated Red Blood Cells % 2.6 %; Platelet Count 269 10^3/cmm (130-400); Red Blood Count 2.59 10^6/uL (4.1-5.3); Red Cell Distribution Width 16.2 % (12.1-15.1); White Blood Count 8.9 10^3/uL (4.0-10.0)
[2021-05-12 04:39] LABS: Alanine Aminotransferase 18 U/L (0-33); Albumin Level 3.7 g/dL (3.5-5.2); Alkaline Phosphatase 40 IU/L (35-105); Anion Gap 14.8 (5-19); Aspartate Amino Transferase 18 U/L (0-32); Blood Urea Nitrogen 19 mg/dL (8-23); Calcium 8.4 mg/dL (8.5-10.5); Carbon Dioxide 27 mmol/L (22-29); Chloride 102 mmol/L (98-107); Globulin 2.4 g/dL (1.3-4.6); Glucose 171 mg/dL (65-115); Osmolality Calculated 296 mOsm/kg (285-295); Potassium 3.8 mmol/L (3.5-5.1); Sodium 140 mmol/L (136-145); Total Bilirubin 0.4 mg/dL (0.15-1.2); Total Protein 6.1 g/dL (6.6-8.7)
[2021-05-12 04:48] LABS: Slide Review Slide Review Perform
[2021-05-12 06:19] LABS: Glucose Point of Care 164 mg/dL (70-110)
[2021-05-12] MEDS: pantoprazole DR 40 mg Tablet PO (10:51)
[2021-05-12] MEDS: gabapentin 300 mg Capsule PO ×3 (10:51→21:00)
[2021-05-12] MEDS: predniSONE 10 mg Tablet PO ×2 (10:52→18:35)
[2021-05-12] MEDS: montelukast sodium 10 mg Tablet PO (10:52)
[2021-05-12] MEDS: venlafaxine ER (24HR) 37.5 mg Capsule PO (10:53)
--- NOTE | 2021-05-12 11:07 | ECG_ITS ---
[facility] Test Date: 2021-05-12 Pat Name: Corinna Lance Department: Room: 272 Gender: Female Television Cameraman: : 1950 Requested By: Jani Cormier Order Number: [id number] Sonny MD: Kelly Mendez M.D. Measurements Intervals [place] Rate: 131 P: -18 KS: 141 QRS: -9 QRSD: 66 T: 4 QT: 369 QTc: 546 Interpretive Statements SINUS TACHYCARDIA LOW QRS VOLTAGE IN PRECORDIAL LEADS POSSIBLE ANTERIOR MYOCARDIAL INFARCTION , PROBABLY OLD Compared to ECG 05/09/2021 17:39:17 Low QRS voltage now present Myocardial infarct finding now present Sinus rhythm no longer present Electronically Signed On 05-12-2021 16:15:51 COAL GASIFICATION TECHNICIAN by Kelly Mendez M.D. [id number]
[2021-05-12 11:37] LABS: Glucose Point of Care 240 mg/dL (70-110)
--- NOTE | 2021-05-12 13:28 | CT_ITS ---
WS: [id number] CT CHEST ANGIOGRAPHY WITH REFORMATS HISTORY: Persistent sinus tachycardia TECHNIQUE: Contiguous axial images are obtained through the chest during arterial injection of intrav enous contrast. Images are reconstructed to evaluate the pulmonary arteries. MIP imaging also reviewe d. All CT scans at [facility] use at least one of these dose optimization techniques: automat ed exposure control; mA and/or kV adjustment per patient size (includes targeted exams where dose is matched to clinical indication); or iterative reconstruction. CONTRAST: Omnipaque 350; 73 mL IV. DLP: 581.32 mGy.cm COMPARISON: 11/07/2020 Good opacification of the pulmonary arteries. No filling defects within the pulmonary arteries at fe st to the segmental branches. There is a peripheral partial filling defect in a subsegmental branch o f the RIGHT lower lobe pulmonary artery. There is a new irregular shaped opacification in the RIGHT upper lobe measuring 2.2 x 3.5 cm. There a re additional subcentimeter nodules in the RIGHT lower lobe which are stable as 2015. Normal size pulmonary artery. No filling defects. Normal size aorta. Heart size is normal. No pericar dial or pleural effusions. No mediastinal or hilar adenopathy. Small hiatal hernia. No abnormality in the upper abdomen. No adrenal mass. CT/CT angio chest PE protcl [id number] IMPRESSION: 1. Subsegmental nonocclusive RIGHT lower lobe emboli. 2. Irregular opacification RIGHT upper lobe measures 2.2 x 3.5 cm. New since . Pneumonia versus neoplasm. Recommend short-term follow-up after treatm ent. There are additional nodules in the RIGHT lower lobe which are stable over intermediate.
--- NOTE | 2021-05-12 13:59 | PM.PN ---
Subjective Subjective: Patient was laying flat no active complaints Family at the bedside Tachycardic, obtain 12-lead EKG, no chest pain EKG shows sinus rhythm, sinus tachycardia, no signs of ischemia or infarctive changes however T wave inversion noted troponin unremarkable at the time of admission Awaiting half-way placement Resume metoprolol succinate which she was missing since her admission Obtain D-dimer requested CTA chest Vitals/I&O/Wt Last Vital Signs Temp 97.9 F 05/12/21 12:00 Pulse 130 H 05/12/21 12:00 Resp 18 05/12/21 12:00 BP 129/70 05/12/21 12:00 Pulse Ox 95 05/12/21 12:00 05/11/21 05/12/21 05/12/21 22:59 06:59 14:59 Intake Total 370 / 660 950 / 1610 120 / 120 Output Total 600 / 600 350 / 950 Balance -230 / 60 600 / 660 120 / 120 Weight last 48 hrs Weight 78.698 kg Weight 79.424 kg Physical Exam Narrative: Patient was laying supine Saturating well on room air Sinus tachycardia No active chest pain S1, S2 No signs of fluid overload No audible stridor or wheezing Appropriate mood Nonfocal neuro exam Data : 05/12/21 03:41 05/12/21 03:41 Micro: Microbiology 05/09/21 12:55 MRSA Culture - Final Nose A&P Assessment and plan (1) Acute anemia: Status: Acute (2) Fracture, femur, distal: Status: Acute (3) 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: Status: Acute (4) Lactic acidosis: Status: Acute (5) Fracture of bone adjacent to prosthesis: Status: Acute (6) Syncope: Status: Acute Plan Became hypotensive after phlebotomy Hypotension related SUSAN Periprosthetic distal right femur fracture with conservative management Blood pressure improved w multiple fluid boluses Hypotension is multifactorial related to adrenal deficiency and volume depletion This morning patient was tachycardic, requested D-dimer, CTA chest rule out PE, I resume her metoprolol succinate For hemochromatosis she gets scheduled regular phlebotomy On empirical antibiotic coverage secondary to immunocompromise state, changed to p.o. Levaquin Toe-touch weightbearing as per orthopedics Pending half-way placement Attestations Medical Necessity Statement*: Continue hospitalization, awaiting half-way placement Time Spent in Patient Care: 20min Coding Level of Care Code Acute Grants Director for Chg Fwd Diagnoses Acute anemia D64.9 Fracture, femur, distal S72.409A 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 M97.8XXA; Z96.649 Lactic acidosis E87.2 Fracture of bone adjacent to prosthesis M97.9XXA Syncope R55
[2021-05-12] MEDS: iohexol 350 mg/mL 100 mL Btl IV (14:36)
[2021-05-12 15:23] LABS: D Dimer 3.56 ug/mIFEU (0-0.59)
[2021-05-12] MEDS: metoprolol succinate ER (24 HR) 50 mg Tablet PO (16:27)
[2021-05-12 17:03] LABS: Glucose Point of Care 243 mg/dL (70-110)
--- NOTE | 2021-05-12 18:13 | USCV_ITS ---
Corinna Lance Age: 71 Gender: F : 1950 Exam Date: 05/12/2021 19:10 Ordering Phys: Jani Cormier MD Technologist: Abundio Mendoza [place]am [place] [facility] [place]: PE HISTORY: Pulmonary embolism. PROCEDURES: Venous duplex imaging was performed in bilateral lower extremities. The following venous structures were evaluated: common femoral vein, profunda vein, proximal portion of the greater saphenous vein, superficial femoral vein, and the popliteal vein. In addition, the posterior tibial and peroneal trunk were evaluated. Serial compression, augmentation maneuvers, and spectral Doppler flow evaluation were performed. FINDINGS: The veins were found to be easily compressible with spontaneous blood flow. Non pulsatile flow pattern. CONCLUSIONS No evidence of DVT in the above-mentioned identifiable veins. Dr Roxana Gonzalez MD [facility] (Electronically Signed) Final Date: 15 May 2021 00:44 S
[2021-05-12] MEDS: insulin lispro 100 unit/1 mL SUBCUT (18:36)
[2021-05-12] MEDS: enoxaparin 80 mg/0.8 mL Syringe SUBCUT (19:30)
[2021-05-12] MEDS: acetaminophen 500 mg Tablet 1000 MG PO (21:00)
[2021-05-12] MEDS: atorvastatin 40 mg Tablet 80 MG PO (21:00)
[2021-05-12 21:23] LABS: Glucose Point of Care 232 mg/dL (70-110)
[2021-05-13] VITALS (11 sets, daily range): BP systolic 104–117; BP diastolic 66–74; PULSE 70–106; RESP 16–22; TEMP 36.6–36.9; O2SAT 92–96
[2021-05-13] MEDS: methocarbamol 750 mg Tablet PO (02:10)
[2021-05-13 03:24] LABS: Basophils % 0.3 %; Eosinophils % 0.1 %; Hemoglobin 8.1 g/dL (11.5-15.3); Lymphocytes % 11.8 %; Mean Corpuscular HGB Conc 32.4 g/dL (30.0-36.0); Mean Corpuscular Hemoglobin 31.9 pg (28.0-34.0); Mean Corpuscular Volume 98.4 fl (81-99); Mean Platelet Volume 9.4 fL (7.4-10.4); Monocytes # 0.8 10^3/uL (0.2-0.9); Monocytes % 9.6 %; Neutrophils # 6.38 10^3/uL (1.8-7.7); Neutrophils % 73.9 %; Nucleated Red Blood Cells # 0.2 /100WBC; Nucleated Red Blood Cells % 2.3 %; Platelet Count 241 10^3/cmm (130-400); Red Blood Count 2.54 10^6/uL (4.1-5.3); Red Cell Distribution Width 16.5 % (12.1-15.1); White Blood Count 8.6 10^3/uL (4.0-10.0)
[2021-05-13 03:43] LABS: Anion Gap 16.1 (5-19); Blood Urea Nitrogen 21 mg/dL (8-23); Calcium 9.3 mg/dL (8.5-10.5); Carbon Dioxide 25 mmol/L (22-29); Chloride 100 mmol/L (98-107); Glucose 196 mg/dL (65-115); Osmolality Calculated 292 mOsm/kg (285-295); Potassium 4.1 mmol/L (3.5-5.1); Sodium 137 mmol/L (136-145)
[2021-05-13] MEDS: enoxaparin 80 mg/0.8 mL Syringe SUBCUT ×2 (05:42→18:14)
[2021-05-13] MEDS: levoFLOXacin 750 mg Tablet PO (05:42)
[2021-05-13 06:38] LABS: Glucose Point of Care 171 mg/dL (70-110)
[2021-05-13] MEDS: predniSONE 10 mg Tablet PO (08:49)
[2021-05-13] MEDS: gabapentin 300 mg Capsule PO ×3 (08:49→20:18)
[2021-05-13] MEDS: venlafaxine ER (24HR) 37.5 mg Capsule PO (08:49)
[2021-05-13] MEDS: insulin lispro 100 unit/1 mL SUBCUT ×3 (08:49→18:14)
[2021-05-13] MEDS: montelukast sodium 10 mg Tablet PO (08:49)
[2021-05-13] MEDS: pantoprazole DR 40 mg Tablet PO (08:49)
[2021-05-13 11:17] LABS: Glucose Point of Care 177 mg/dL (70-110)
--- NOTE | 2021-05-13 11:47 | P.PN_ITS ---
Subjective Subjective: For sinus tachycardia CTA revealed PE Started therapeutic Lovenox Initiation of metoprolol succinate also helped to bring her heart rate down No overnight events Awaiting residential placement Vitals/I&O/Wt Last Vital Signs Temp 97.9 F 05/13/21 11:11 Pulse 95 05/13/21 11:11 Resp 18 05/13/21 11:11 BP 115/72 05/13/21 11:11 Pulse Ox 96 05/13/21 11:11 05/12/21 05/13/21 05/13/21 22:59 06:59 14:59 Intake Total 360 / 720 120 / 120 Output Total 600 / 600 450 / 1050 Balance -240 / 120 -450 / -330 120 / 120 Weight last 48 hrs Weight 77.882 kg Weight 78.698 kg Physical Exam Narrative: Patient is euvolemic Saturating well on room air S1, S2 Abdomen soft Right leg in brace No signs of vascular compromise Nonfocal neuro exam Abdomen soft No audible stridor or wheezing Data : 05/13/21 02:31 05/13/21 02:31 A&P Assessment and plan (1) Acute anemia: Status: Acute (2) Fracture, femur, distal: Status: Acute (3) 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: Status: Acute (4) Lactic acidosis: Status: Acute (5) Fracture of bone adjacent to prosthesis: Status: Acute (6) Syncope: Status: Acute (7) Hypotension: Status: Acute Plan Acute pulmonary embolism Venous Doppler results pending CTA consistent with PE I do not believe this PE is the cause of her syncopal event, no signs of right heart strain Will need therapeutic Eliquis at the time of discharge Sinus tachycardia improved Awaiting residential placement Hypotension I will de-escalate prednisone to 10 mg daily SUSAN: Resolved Pneumonia: Currently on Levaquin Acute anemia being managed medically, patient does phlebotomy for iron overload Attestations Medical Necessity Statement*: Awaiting residential placement Time Spent in Patient Care: 20min Coding Level of Care Code Acute Manager Category for Chg Fwd Diagnoses Acute anemia D64.9 Fracture, femur, distal S72.409A 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 M97.8XXA; Z96.649 Lactic acidosis E87.2 Fracture of bone adjacent to prosthesis M97.9XXA Syncope R55 Hypotension I95.9
[2021-05-13] MEDS: metoprolol succinate ER (24 HR) 50 mg Tablet PO (12:37)
[2021-05-13 16:41] LABS: Glucose Point of Care 214 mg/dL (70-110)
[2021-05-13] MEDS: acetaminophen 500 mg Tablet 1000 MG PO (20:18)
[2021-05-13] MEDS: atorvastatin 40 mg Tablet 80 MG PO (20:19)
[2021-05-13 20:54] LABS: Glucose Point of Care 248 mg/dL (70-110)
[2021-05-14] VITALS (9 sets, daily range): BP systolic 100–132; BP diastolic 62–78; PULSE 68–113; RESP 16–18; TEMP 36.5–36.9; O2SAT 92–96
[2021-05-14] MEDS: enoxaparin 80 mg/0.8 mL Syringe SUBCUT (06:26)
[2021-05-14] MEDS: levoFLOXacin 750 mg Tablet PO (06:26)
[2021-05-14 08:01] LABS: Glucose Point of Care 134 mg/dL (70-110)
[2021-05-14] MEDS: gabapentin 300 mg Capsule PO ×3 (09:33→20:52)
[2021-05-14] MEDS: venlafaxine ER (24HR) 37.5 mg Capsule PO (09:34)
[2021-05-14] MEDS: pantoprazole DR 40 mg Tablet PO (09:34)
[2021-05-14] MEDS: montelukast sodium 10 mg Tablet PO (09:34)
[2021-05-14] MEDS: metoprolol succinate ER (24 HR) 50 mg Tablet PO (09:35)
--- NOTE | 2021-05-14 10:20 | P.PN_ITS ---
Subjective Subjective: No overnight events She is complaining of leg cramps in her left leg Saturating well on room air Awaiting jail placement Vitals/I&O/Wt Last Vital Signs Temp 97.7 F 05/14/21 07:29 Pulse 104 H 05/14/21 08:42 Resp 18 05/14/21 08:42 BP 111/72 05/14/21 07:29 Pulse Ox 95 05/14/21 08:42 05/13/21 05/14/21 05/14/21 22:59 06:59 14:59 Intake Total 360 / 720 120 / 120 Output Total 350 / 350 360 / 710 Balance 10 / 370 -360 / 10 120 / 120 Weight last 48 hrs Weight 77.927 kg Weight 77.882 kg Physical Exam Narrative: Comfortably in her bed Satting well on room air No active chest pain or shortness of breath No audible stridor or wheezing Abdomen soft Left leg no active signs swelling edema or sign of cellulitis Rojo catheter in place Awake and alert Nonfocal neuro exam Data : 05/13/21 02:31 05/13/21 02:31 A&P Assessment and plan (1) Fracture, femur, distal: Status: Acute (2) 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: Status: Acute (3) Syncope: Status: Acute (4) Hypotension: Status: Acute (5) Pulmonary embolism: Status: Acute Plan Pulmonary embolism Distal right femoral fracture, leg in brace Switch therapeutic Lovenox to Eliquis Venous Doppler report is pending Sinus tachycardia has improved Participating with PT Awaiting jail placement Cardiac diet Patient well on room air Normotensive Pain control with analgesia Senna S bowel regimen Limited resuscitation Avoid Metformin at the time of discharge SUSAN: Resolved Hemoglobin stable Hemodynamically stable Hypertension: Resolved Attestations Medical Necessity Statement*: Awaiting jail placement Time Spent in Patient Care: 20min Coding Level of Care Code Acute Executive Compensation Analyst for g Fwd Diagnoses Fracture, femur, distal S72.409A 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 M97.8XXA; Z96.649 Syncope R55 Hypotension I95.9 Pulmonary embolism I26.99
[2021-05-14 10:48] LABS: Glucose Point of Care 155 mg/dL (70-110)
[2021-05-14] MEDS: insulin lispro 100 unit/1 mL SUBCUT (12:41)
[2021-05-14 16:59] LABS: Glucose Point of Care 122 mg/dL (70-110)
[2021-05-14 20:27] LABS: Glucose Point of Care 176 mg/dL (70-110)
[2021-05-14] MEDS: oxyCODONE 5 mg IR Tab/Cap PO (20:51)
[2021-05-14] MEDS: atorvastatin 40 mg Tablet 80 MG PO (20:53)
[2021-05-14] MEDS: apixaban 5 mg Tablet 10 MG PO (20:53)
[2021-05-14] MEDS: lanolin oint 7 gm 1 APPLIC TOPICAL (21:34)
[2021-05-15] VITALS (9 sets, daily range): BP systolic 113–128; BP diastolic 74–78; PULSE 76–100; RESP 16–18; TEMP 36.5–37.1; O2SAT 92–98
[2021-05-15] MEDS: levoFLOXacin 750 mg Tablet PO (05:55)
[2021-05-15 06:20] LABS: Glucose Point of Care 139 mg/dL (70-110)
[2021-05-15] MEDS: apixaban 5 mg Tablet 10 MG PO ×2 (08:18→22:12)
[2021-05-15] MEDS: metoprolol succinate ER (24 HR) 50 mg Tablet PO (08:18)
[2021-05-15] MEDS: pantoprazole DR 40 mg Tablet PO (08:18)
[2021-05-15] MEDS: venlafaxine ER (24HR) 37.5 mg Capsule PO (08:18)
[2021-05-15] MEDS: gabapentin 300 mg Capsule PO ×3 (08:19→22:12)
[2021-05-15] MEDS: montelukast sodium 10 mg Tablet PO (08:19)
[2021-05-15 11:39] LABS: SARS Covid-2 Antigen Negative (Negative)
[2021-05-15 13:03] LABS: Glucose Point of Care 191 mg/dL (70-110)
[2021-05-15] MEDS: insulin lispro 100 unit/1 mL SUBCUT ×2 (13:10→19:19)
[2021-05-15] MEDS: oxyCODONE 5 mg IR Tab/Cap PO (15:36)
[2021-05-15 16:36] LABS: Glucose Point of Care 167 mg/dL (70-110)
--- NOTE | 2021-05-15 18:48 | PM.MISC ---
Miscellaneous Note Note: This is a progress note No overnight events Patient is not complaining of any new complaints Patient was laying comfortably in the bed Saturating well on room air Abdomen soft No cramps of legs No edema of legs Abdomen soft Nonfocal neuro exam S1, S2 variable Continue loading dose of Eliquis for PE Continue analgesia along bowel regimen Able to pass flatus No change in her medications No evidence of DVT on venous Doppler Likely will be discharged tomorrow Time: 10 minutes
[2021-05-15 21:15] LABS: Glucose Point of Care 213 mg/dL (70-110)
[2021-05-15] MEDS: atorvastatin 40 mg Tablet 80 MG PO (22:12)
[2021-05-16] VITALS: BP 110/72; PULSE 88; RESP 16; O2SAT 93
[2021-05-16 04:00] VITALS: BP 117/71; PULSE 90; RESP 16; TEMP 36.6; O2SAT 95
[2021-05-16 06:00] VITALS: BMI 33.3
[2021-05-16] MEDS: levoFLOXacin 750 mg Tablet PO (06:32)
[2021-05-16 07:40] VITALS: BP 94/66; PULSE 97; RESP 18; TEMP 36.7; O2SAT 92
[2021-05-16] MEDS: montelukast sodium 10 mg Tablet PO (08:07)
[2021-05-16] MEDS: metoprolol succinate ER (24 HR) 50 mg Tablet PO (08:07)
[2021-05-16] MEDS: pantoprazole DR 40 mg Tablet PO (08:07)
[2021-05-16] MEDS: gabapentin 300 mg Capsule PO (08:08)
[2021-05-16] MEDS: apixaban 5 mg Tablet 10 MG PO (08:08)
[2021-05-16] MEDS: venlafaxine ER (24HR) 37.5 mg Capsule PO (08:08)
[2021-05-16 08:16] LABS: Glucose Point of Care 131 mg/dL (70-110)
--- NOTE | 2021-05-16 08:55 | PM.DCS ---
Discharge Providers Date of Admission: 05/09/21 16:41 Date of Discharge: May 16, 2021 Attending Provider at Admission: Butch Dodge Attending Provider at Discharge: Jani Cormier MD Primary Care Provider: Raleigh Carcamo MD Diagnoses at Discharge Discharge Diagnosis (1) Fracture, femur, distal: Status: Acute (2) 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: Status: Acute (3) Syncope: Status: Acute (4) Hypotension: Status: Acute (5) Pulmonary embolism: Status: Acute Reason for Visit Reason for Visit: HYPOTENSION Hospital Course Hospital Course 71-year-old female with a history of hemochromatosis has been receiving regular phlebotomies, presented to the hospital with episode of lightheadedness presyncope, 1 syncopal event after her phlebotomy. Her syncopal event led to periprosthetic distal right femur fracture. On presentation she received multiple fluid boluses, secondary to hemochromatosis blood transfusion was avoided. Hypotension improved after fluids and stress dose steroids. Midodrine was added. Blood pressure remained stable afterwards. Steroids not continued, she did not show any signs of adrenal insufficiency. Her antihypertensive regimen was held. During her hospitalization her heart rate was pretty high, EKG showed sinus tachycardia, CTA chest revealed nonocclusive right-sided pulmonary embolism. Venous Doppler negative. She was started on therapeutic dose of Eliquis. She remained hemodynamically stable afterwards. She will be discharged to half-way on 05/16. Antihypertensive regimen has been discontinued. Midodrine added. Orthopedics recommended conservative management for her periprosthetic fracture. Orthopedics recommended only toe-touch weightbearing and leg brace. Her syncope was related to hypotension related to polypharmacy. I do not think PE contributed to her syncope. Considering her sedentary lifestyle now Eliquis has been resumed. There was concern related to Metformin induced lactic acidosis, which I will discontinue at the time of discharge. Hemoglobin remained stable. Community-acquired pneumonia: Received antibiotics during her hospitalization, CT chest showed irregular opacity of right upper lobe 2 x 2 x3.5 cm which is new since 11/07/2020. I will give her follow-up CT scan after 8 weeks and referral to pulmonary medicine SUSAN improved with IV fluid hydration Physical Exam Narrative: Comfortably in her bed Satting well on room air No active chest pain or shortness of breath No audible stridor or wheezing Abdomen soft Left leg no active signs swelling edema or sign of cellulitis Rojo catheter in place Awake and alert Nonfocal neuro exam Discharge Data Studies Completed and Pending Completed Studies During Hospitalization Category Date Time Status CT cervical spin wo con* [id number] Urgent Cat Scan 05/09/21 11:[address] head wo con* [id number] Urgent Cat Scan 05/09/21 11:[address] knee RT wo con* [id number] Urgent Cat Scan 05/09/21 14:39 Completed CTA PE [CT angio chest PE protcl [id number]] Stat Cat Scan 05/12/21 13:28 Completed XR chest 1V portable [id number] Urgent Exams 05/09/21 11:05 Completed XR femur RT min 2V* [id number] Urgent Exams 05/09/21 12:50 Completed XR hip RT 2-3V wo/w pel* [id number] Urgent Exams 05/09/21 12:50 Completed XR knee RT 3V* [id number] Urgent Exams 05/09/21 11:14 [place] [id number] Routine Ultrasound 05/12/21 18:13 Completed Radiology Impressions Chest X-Ray 05/09/21 11:05 Impression: Minimal right midlung opacity which could represent atelectasis and/or minimal pneumonia. Cervical Spine CT 05/09/21 11:14 IMPRESSION: No evidence of acute fracture or dislocation. Head CT 05/09/21 11:14 IMPRESSION: 1. No evidence of intracranial hemorrhage or mass effect. 2. Mild small vessel changes. Mild parenchymal volume loss. 3. No acute intracranial findings. Knee X-Ray 05/09/21 11:14 Impression: 1. Fracture of distal right femur with impaction. 2. The fracture is adjacent to the distal femoral arthroplasty component. 3. There is soft tissue swelling in the suprapatellar bursa. Kellgren-Walter Classification: Femur X-Ray 05/09/21 12:50 Impression: 1. Distal right femoral fracture adjacent to femoral arthroplasty component. 2. Proximal right femur and midshaft of the femur are intact. Hip/Pelvis X-Ray 05/09/21 12:50 Impression: Negative right hip. Tonnis classification: grade 0: normal radiographs Knee CT 05/09/21 14:39 IMPRESSION: 1. Comminuted slightly impacted fracture involving the distal femoral diametaphysis extending to the medial femoral condyle. Minimal fracture widening measuring 2-3 mm. 2. Femoral fracture involves the cortex anteriorly and posteriorly with extension to the level of the arthroplasty. 3. Tibial plateau is normal in appearance with normal tibial arthroplasty component. No evidence of hardware loosening involving the tibial component. 4. Mild to moderate suprapatellar hemarthrosis. 5. No other significant findings. Chest CTA 05/12/21 13:28 IMPRESSION: 1. Subsegmental nonocclusive RIGHT lower lobe emboli. 2. Irregular opacification RIGHT upper lobe measures 2.2 x 3.5 cm. New since 11/07/2020. Pneumonia versus neoplasm. Recommend short-term follow-up after treatment. There are additional nodules in the RIGHT lower lobe which are stable over emt intermediate. Laboratory Results WBC 8.6 10^3/uL (4.0-10.0) 05/13/21 02:31 RBC 2.54 10^6/uL (4.1-5.3) L 05/13/21 02:31 Hgb 8.1 g/dL (11.5-15.3) L 05/13/21 02:31 Hct 25.0 % (37.0-47.0) L 05/13/21 02:31 MCV 98.4 fl (81-99) 05/13/21 02:31 MCH 31.9 pg (28.0-34.0) 05/13/21 02:31 MCHC 32.4 g/dL (30.0-36.0) 05/13/21 02:31 RDW 16.5 % (12.1-15.1) H 05/13/21 02:31 Plt Count 241 10^3/cmm (130-400) 05/13/21 02:31 MPV 9.4 fL (7.4-10.4) 05/13/21 02:31 Neut % (Auto) 73.9 % 05/13/21 02:31 Lymph % (Auto) 11.8 % 05/13/21 02:31 Ashe % (Auto) 9.6 % 05/13/21 02:31 Eos % (Auto) 0.1 % 05/13/21 02:31 Baso % (Auto) 0.3 % 05/13/21 02:31 Neut # (Auto) 6.38 10^3/uL (1.8-7.7) 05/13/21 02:31 Lymph # (Auto) 1.0 10^3/uL (0.8-4.8) 05/13/21 02:31 Ashe # (Auto) 0.8 10^3/uL (0.2-0.9) 05/13/21 02:31 Eos # (Auto) 0.0 10^3/uL (0.0-0.8) 05/13/21 02:31 Baso # (Auto) 0.0 10^3/uL (0.0-0.1) 05/13/21 02:31 Nucleated RBC % (auto) 2.3 % 05/13/21 02:31 Nucleated RBCs # 0.2 /100WBC 05/13/21 02:31 D-Dimer 3.56 ug/mIFEU (0-0.59) H 05/12/21 14:32 Sodium 137 mmol/L (136-145) 05/13/21 02:31 Potassium 4.1 mmol/L (3.5-5.1) 05/13/21 02:31 Chloride 100 mmol/L (98-107) 05/13/21 02:31 Carbon Dioxide 25 mmol/L (22-29) 05/13/21 02:31 Anion Gap 16.1 (5-19) 05/13/21 02:31 BUN 21 mg/dL (8-23) 05/13/21 02:31 Creatinine 0.5 mg/dL (0.5-0.9) 05/13/21 02:31 GFR Calculation Not Reportable 05/13/21 02:31 Glucose 196 mg/dL (65-115) H 05/13/21 02:31 POC Glucose 131 mg/dL (70-110) H 05/16/21 06:35 Calculated Osmolality 292 mOsm/kg (285-295) 05/13/21 02:31 Lactic Acid 4.3 mmol/L (0.5-2.2) H* 05/09/21 11:12 Lactic Acid (Sepsis) 3.5 mmol/L (0.5-2.2) H 05/09/21 13:45 Calcium 9.3 mg/dL (8.5-10.5) 05/13/21 02:31 Total Bilirubin 0.4 mg/dL (0.15-1.2) 05/12/21 03:41 AST 18 U/L (0-32) 05/12/21 03:41 ALT 18 U/L (0-33) 05/12/21 03:41 Alkaline Phosphatase 40 IU/L (35-105) 05/12/21 03:41 Troponin T Baseline 19 ng/L (0-10) H 05/09/21 10:40 Troponin T 120 Minute 11.04 ng/L (0-10) H 05/09/21 13:45 Delta Troponin T -7.96 ABS# (0-10) L 05/09/21 13:45 Troponin T Hi Sens 6Hr 9.93 ng/L (0-10) 05/09/21 16:45 Troponin T Hi Sens 6Hr Delta -9.07 ng/L (0-12) L 05/09/21 16:45 C-Reactive Protein 10.9 mg/L (0.0-4.9) H 05/09/21 10:40 NT-Pro-B Natriuret Pep 43 pg/mL (0-125) 05/09/21 10:40 Total Protein 6.1 g/dL (6.6-8.7) L 05/12/21 03:41 Albumin 3.7 g/dL (3.5-5.2) 05/12/21 03:41 Globulin 2.4 g/dL (1.3-4.6) 05/12/21 03:41 Procalcitonin 0.26 ng/mL (0-0.5) 05/09/21 10:40 TSH 2.88 uIU/mL (0.27-4.20) 05/09/21 10:40 Random Cortisol 13.52 ug/dL (2.47-19.5) 05/09/21 16:45 Urine Color Yellow (Yellow) 05/09/21 17:34 Urine Appearance Clear (CLEAR) 05/09/21 17:34 Urine pH 5 (5-7) 05/09/21 17:34 Ur Specific Bittinger 1.020 (1.005-1.030) 05/09/21 17:34 Urine Protein Neg (Negative) 05/09/21 17:34 Urine Glucose (UA) Trace (Normal) H 05/09/21 17:34 Urine Ketones Negative (Negative) 05/09/21 17:34 Urine Blood Neg (Negative) 05/09/21 17:34 Urine Nitrate Negative (Negative) 05/09/21 17:34 Urine Bilirubin Neg (Negative) 05/09/21 17:34 Urine Urobilinogen Neg mg/dL (Negative) 05/09/21 17:34 Ur Leukocyte Esterase Negative (Negative) 05/09/21 17:34 Coronavirus 229E (PCR) Not detected (NOT DETECT) 05/09/21 19:55 SARS-CoV-2 (PCR) Not detected (NOT DETECT) 05/09/21 19:55 SARS-CoV-2 Ag (Rapid) Negative (Negative) 05/15/21 10:50 Vitals Last Vital Signs Temp 98.1 F 05/16/21 07:40 Pulse 97 05/16/21 07:40 Resp 18 05/16/21 07:40 BP 94/66 05/16/21 07:40 Pulse Ox 92 05/16/21 07:40 Discharge Plan Discharge Patient Disposition: Xfer SNF Condition: Stable Prescriptions: New levofloxacin 750 mg Tablet 750 mg PO DAILY@0600 Qty: 5 0RF Eliquis DVT-PE Treat 30D Start 5 mg (74 tabs) tablets,dose pack 5 mg PO BID Qty: 74 2RF oxycodone 10 mg tablet 10 mg PO DAILY Qty: 20 0RF Senna-S 8.6-50 mg tablet 1 tab-cap PO DAILY Qty: 20 0RF Senna-S 8.6-50 mg tablet 1 tab-cap PO DAILY Qty: 20 0RF Continued (DME) Diabetic Shoes extra deep See Rx Instructions .ROUTE .MEDSUPPLY Qty: 1 0RF Rx Instructions: three pair of custom molded inserts alendronate 70 mg tablet 70 mg PO Q7D 0RF albuterol sulfate [Ventolin HFA] 90 mcg/actuation HFA aerosol inhaler 2 puff INHALATION Q6H PRN (Reason: Shortness Of Breath) 0RF venlafaxine [Effexor XR] 37.5 mg capsule,extended release 24hr 37.5 mg PO DAILY 0RF oxycodone 5 mg tablet 5 mg PO TID PRN (Reason: pain) 7 Days Qty: 21 0RF Rx Instructions: Not to be taken with hydrocodone. Only for PRN severe pain. methocarbamol 750 mg tablet 750 mg PO Q8H PRN (Reason: spasms) Qty: 120 0RF montelukast [Singulair] 10 mg tablet 10 mg PO DAILY Qty: 90 3RF budesonide-formoterol [Symbicort] 80-4.5 mcg/actuation HFA aerosol inhaler 2 puff inhalation BID Qty: 10.2 5RF Rinvoq 15 mg tablet extended release 24 hr 15 mg PO DAILY Qty: 30 3RF acetaminophen 500 mg Tablet 1,000 mg PO Q6H PRN (Reason: Pain) 0RF metoprolol succinate 50 mg tablet extended release 24 hr 50 mg PO DAILY 0RF rosuvastatin 20 mg tablet 20 mg PO BEDTIME 0RF gabapentin 300 mg Capsule 300 mg PO TID 0RF omeprazole 20 mg Capsule,Delayed Release(Dr/Ec) 20 mg PO BID 0RF Discontinued spironolacton-hydrochlorothiaz [Aldactazide] 25-25 mg tablet 1 tab PO DAILY 0RF metformin 500 mg tablet extended release 24 hr 500 mg PO QPM 0RF ibuprofen 200 mg Tablet 400 mg PO Q6H PRN (Reason: Pain) 0RF amlodipine 2.5 mg tablet 2.5 mg PO DAILY 0RF irbesartan 150 mg Tablet 150 mg PO DAILY 0RF Discharge Orders: Discharge Order (Routine); Ordered 05/16/21 Ordered By: Jani Cormier Other Ambulatory Orders: CT chest w con* [id number] (Routine) Timeframe: 8 Weeks Facility: [facility] - Location: Radiology [facility] Ordered By: Jani Cormier Referrals: [facility], [place] [Outside] Cristian Dumont DO [Physician] - 2 weeks Raleigh Carcamo MD [Primary Care Provider] - 05/23/21 8:50 am DatarDon MD [Physician] - 6 Weeks Discharge Diet: Cardiac Discharge Activity: As per PT/OT instructions Activity Restrictions/Additional Instructions: ?toe-touch weightbearing right lower extremity Discharge Attestations Time Spent in Discharge Care*: less than 30 min Quality Metrics Clinical Quality Measures [ No reported AMI, CVA or VTE this stay] Coding Level of Care Code Acute Chg FW DC note Diagnoses Fracture, femur, distal S72.409A 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 M97.8XXA; Z96.649 Syncope R55 Hypotension I95.9 Pulmonary embolism I26.99
--- NOTE | 2021-05-16 09:49 | PC.NURSE ---
Report called to Monica at [facility]. PIV and gardner cath removed per student.
[2021-05-16 10:45] VITALS: BP 109/65; PULSE 87; RESP 18; TEMP 37; O2SAT 93
--- NOTE | 2021-05-16 11:51 | PC.NURSE ---
Pt taken to waiting NH van. Tolerated well. NH staff took pt from this nurse
== END 2021-05-16 11:35 | disposition skilled nursing facility (03) ==
LOC: ER 17:09 → MEDSURG 18:59
PROVIDERS: Admitting Provider Internal Medicine; Emergency Provider Emergency Medicine; PCP Family Medicine; Visit Provider Internal Medicine
DX: S72.401A Unspecified fracture of lower end of right femur, initial encounter for closed fracture (principal); M97.8XXA Periprosthetic fracture around other internal prosthetic joint, initial encounter; Z96.649 Presence of unspecified artificial hip joint; R55 Syncope and collapse; I95.9 Hypotension, unspecified; I26.99 Other pulmonary embolism without acute cor pulmonale; J90 Pleural effusion, not elsewhere classified; D64.9 Anemia, unspecified; J18.9 Pneumonia, unspecified organism; Z79.01 Long term (current) use of anticoagulants; I25.10 Atherosclerotic heart disease of native coronary artery without angina pectoris; E11.42 Type 2 diabetes mellitus with diabetic polyneuropathy; M06.9 Rheumatoid arthritis, unspecified
CPT/HCPCS: 36415; 36416; 70450; 71045; 71275; 72125; 73502; 73552; 73562; 73700; 80048; 80053; 81003; 82533; 82962; 83605; 83880; 84145; 84443; 84484; 85025; 85378; 86140; 86403; 87040; 87426; 87449; 87635; 87641; 93005; 93970; 94640; 96365; 96367; 96372; 96375; 97161; 97165; 97530; 97535; 99285; G0378; J0456; J0696; J1644; J1650; J1720; J1815; J3010; J3490; J7050; J7512; Q9967

== ENCOUNTER → 2021-05-27 10:03 | Outpatient (BNVA) | payer MEDICARE, SELFPAY | PROVIDERS: PCP Family Medicine; Visit Provider Physician Assistant | DX: Z20.822 Contact with and (suspected) exposure to COVID-19 (principal); M97.11XD Periprosthetic fracture around internal prosthetic right knee joint, subsequent encounter; S72.90XA Unspecified fracture of unspecified femur, initial encounter for closed fracture; X58.XXXA Exposure to other specified factors, initial encounter | CPT/HCPCS: 73560; 87635 ==

== ENCOUNTER 2021-05-30 09:02 | Inpatient (IN) | payer MEDICARE, MEDICAID, SELFPAY ==
[2021-05-29 15:59] VITALS: BMI 31.0
[2021-05-30] VITALS (24 sets, daily range): BP systolic 121–174; BP diastolic 69–105; PULSE 75–99; RESP 12–20; TEMP 36.3–37.1; O2SAT 91–100
--- NOTE | 2021-05-30 | SCC_ITS ---
Procedure done: Intramedullary nail Right distal femur 159.5 seconds of fluoroscopic guidance, for a cumulative dose of 13.19 mGy, was provided to Dr. Dumont by the radiology department. C-arm images of the right femur were saved for the patient's permanent record. [facility]
[2021-05-30 06:48] LABS: Glucose Point of Care 151 mg/dL (70-110)
[2021-05-30] MEDS: sodium chloride 0.9% 1,000 ML 30 ML IV (06:50)
--- NOTE | 2021-05-30 06:52 | W.PM.OPSUD ---
Surgery/Procedure H&P Update DATE OF PROCEDURE: May 30, 2021 DATE H&P PERFORMED: 05/27/21 H&P UPDATE INFORMATION: I have reviewed H&P completed within last 30 days, I have examined patient prior to procedure and No changes to prior documentation PREOP DIAGNOSIS: Right Distal Femur Fracture PLANNED PROCEDURE: Operation Date: 05/30/21 07:00 Proposed Procedures p ORIF Distal Femur 87231/s72.4002a(Right) - Cristian Dumont DO
--- NOTE | 2021-05-30 07:44 | ANES.PREANE2 ---
Pre-Anesthetic Assessment Height/Weight: Height 1.52 m Weight 72.121 kg Preop Diagnosis: Right Distal Femur Fracture Operation Date: 05/30/21 07:00 Proposed Procedures p ORIF Distal Femur [id number]/s72.4002a(Right) - Cristian Dumont DO Familial anesthetic complications: None Was Beta Violette taken within 24 hours: Yes Was Clonidine taken within 24 hours: N/A Last intake: Intake Last Liquid Date 05/29/21 Last Liquid Time 21:00 Last Solid Date 05/29/21 Last Solid Time 17:30 Social No alcohol and No tobacco Exam alert, oriented x 3, clear to auscultation bilaterally and regular rate & rhythm Airway Submandibular: within normal limits Cervical ROM: within normal limits Mallampati: Class II Dentition: partials Pulmonary Asthma CV/HEM Deep Vein Thrombosis (PE) and Hypertension GI Gastroesophageal Reflux Disease Metabolic Hyperlipidemia and Morbid Obesity Musc/skel Lower Back Pain and Rheumatoid Arthritis Anesthetic Plan ASA status: 3 Anesthesia: General Medications/Allergies Home Medications Medication Instructions Recorded Confirmed Last Taken Type albuterol sulfate 90 mcg/actuation 2 puff INHALATION Q6H PRN 07/04/19 05/29/21 Unknown History aerosol inhaler (Ventolin HFA) alendronate 70 mg tablet 70 mg PO Q7D 07/04/19 05/30/21 05/23/21 History venlafaxine 37.5 mg 37.5 mg PO DAILY 07/04/19 05/30/21 05/29/21 History capsule,extended release 24 hr (Effexor XR) Diabetic Shoes extra deep #1 ea 01/16/20 05/27/21 Unknown Rx montelukast 10 mg tablet 10 mg PO DAILY #90 tab 07/15/20 05/30/21 05/29/21 Rx (Singulair) gabapentin 300 mg capsule 300 mg PO TID 03/29/21 05/30/21 05/29/21 History omeprazole 20 mg capsule,delayed 20 mg PO BID 03/29/21 05/30/21 05/29/21 History release oxycodone 5 mg tablet 5 mg PO TID PRN 7 Days #21 tab 04/07/21 05/29/21 Unknown Rx Symbicort 80 mcg-4.5 mcg/actuation 2 puff INHALATION BID #10.2 g NS 04/17/21 05/29/21 Unknown Rx HFA aerosol inhaler (budesonide-formoterol) methocarbamol 750 mg tablet 750 mg PO Q8H PRN #120 tab 04/17/21 05/29/21 Unknown Rx acetaminophen 500 mg tablet 1,000 mg PO Q6H PRN 05/09/21 05/29/21 Unknown History metoprolol succinate 50 mg 50 mg PO DAILY 05/09/21 05/30/21 05/29/21 History tablet,extended release 24 hr rosuvastatin 20 mg tablet 20 mg PO BEDTIME 05/09/21 05/30/21 05/29/21 History oxycodone 10 mg tablet 10 mg PO DAILY #20 tab 05/16/21 05/30/21 05/29/21 Rx sennosides 8.6 mg-docusate sodium 1 tab-cap PO DAILY #20 tab 05/16/21 05/30/21 05/29/21 Rx 50 mg tablet (Senna-S) amlodipine 2.5 mg tablet 2.5 mg PO DAILY 05/29/21 05/30/21 05/29/21 History apixaban 5 mg tablet (Eliquis) 10 mg PO BID 05/29/21 05/29/21 05/17/21 History guaifenesin 600 mg tablet, 600 mg PO BID 05/29/21 05/30/21 05/29/21 History extended release 12 hr (Mucinex) oxycodone 5 mg capsule 5 mg PO TID PRN 05/29/21 05/30/21 Unknown History Allergies Allergy/AdvReac Type Severity Reaction Status Date / Time lisinopril Allergy Unknown unknown Verified 05/30/21 06:22 sulfabenzamide Allergy Unknown unknown Verified 05/30/21 06:22 apremilast [From Otezla] Allergy cough Verified 05/30/21 06:22 Sulfa (Sulfonamide Allergy Unknown Verified 05/30/21 06:22 Antibiotics) Current Medications Generic Name Dose Route Start Last Admin Trade Name Freq PRN Reason Stop Dose Admin Sodium Chloride 1,000 mls @ 30 mls/hr 05/30/21 06:15 05/30/21 06:50 Sodium Chloride 0.9% IV 05/31/21 06:14 30 mls/hr .Q24H SAVANA Administration PFSH Anesthesia Medical History SUSAN (acute kidney injury) Asthma CAD (coronary artery disease) Controlled diabetes mellitus with diabetic polyneuropathy COPD (chronic obstructive pulmonary disease) Diabetes Dizziness Fracture of bone adjacent to prosthesis Fracture, femur, distal Hypotension Lactic acidosis Lumbar radiculopathy Cehly-prosthetic femur fracture at tip of prosthesis Pneumonia Pulmonary nodules Rheumatoid arthritis Syncope Surgical History History of appendectomy History of cataract extraction History of cholecystectomy History of hysterectomy History of tonsillectomy Family History Sister Hypertension Social History Smoking and tobacco status: never smoked Second hand smoke exposure: Yes Smoking risk assessment/counseling performed?: Yes Alcohol intake: never Lives independently: Yes Household members: none Housing: Apartment Marital status: / Current occupational status: retired Pets and animals: Yes History of recent travel: No Current gender identity: Female Data Anesthesia Cardiac Studies: Sestamibi Stress Test (Cardiology) 05/20/20
--- NOTE | 2021-05-30 09:03 | XR_ITS ---
WS: [id number] Right femur and thigh, C-arm fluoroscopy, 05/30/2021 Clinical Data: OR PICS Comparison: Right knee, 05/27/2021. Findings: Dr. Dumont inserted a long femoral marco antonio to repair a distal right femoral fracture. XR/XR femur RT 1V [id number] Impression: Internal fixation of distal right femoral fracture.
--- NOTE | 2021-05-30 09:18 | PM.OP ---
Operative Report Date of procedure: May 30, 2021 Pre-op diagnosis: Preop Diagnosis Right Distal Femur Fracture Post-op diagnosis: same Procedure done: Intramedullary nail Right distal femur Surgeon: Cristian Dumont Pocketed Spring Machine Operator: Dimitry Bello Pocketed Spring Machine Operator: The cardiovascular surgical tech, Dimitry Bello, EZIO was needed for his expertise under the microscope. He was important and necessary throughout the procedure to complete in a safe and timely manner. He assisted with patient positioning prepping and draping tissue retraction suctioning of the operative field protection of the dural sac and tissue closure Estimated blood loss (mL): 25 Procedure: 1. Intramedullary nail Right distal femur Patient was brought to the operative suite after undergoing anesthesia was placed in the supine position all areas impingement were well-padded. The right leg was prepped and draped in normal sterile fashion. The anterior condylar split was reduced with a King brigid retractor. Once this was reduced then a cannulated wire was placed across from the medial to lateral side holding the fracture in place as well. Next incision was made over the patella tendon using the previous incision of her total knee. The patella tendon was split and then the opening reamer was inserted through the center of the total knee. Wire was passed nail was then measured it was a 340 nail. And we plan on putting in a 10 mm diameter nail. The canal was reamed to 11-1/2. And the size 10 x 340 Eunice nail was inserted. Multiple screws were placed through the distal holes as well as cannulated screws to hold the distal fragments in place. And then 2 screws were placed proximally in the nail. AP and lateral fluoroscopy were done ensure the hardware and fracture were in good position. Wounds irrigated and closed with Vicryl and jovon. Sterile dressings were applied and patient was transferred to the PACU in stable condition.
[2021-05-30] MEDS: fentaNYL 50 mcg/mL INJ 2mL IVP ×2 (09:22→09:32)
[2021-05-30 11:51] LABS: Glucose Point of Care 196 mg/dL (70-110)
[2021-05-30] MEDS: oxyCODONE 5 mg IR Tab/Cap PO ×2 (12:02→20:04)
[2021-05-30] MEDS: gabapentin 300 mg Capsule PO ×3 (14:45→20:05)
[2021-05-30] MEDS: acetaminophen 500 mg Tablet 1000 MG PO (14:56)
--- NOTE | 2021-05-30 17:39 | ANE.PACU2 ---
Inpatient post-anesthesia follow up: Airway intact: Yes Vital signs: Temperature 98.8 F Pulse Rate 99 Respiratory Rate 16 Blood Pressure 124/80 Pulse Oximetry 91 Oxygen Delivery Me thod Room Air Oxygen Flow Rate 3 Fraction of Inspir ed Oxygen Hydration adequate: Yes Nausea and vomiting: No Pain level: 2 Mental status: Baseline
[2021-05-30] MEDS: docusate sodium 100 mg Capsule PO (17:46)
[2021-05-30] MEDS: guaiFENesin 600 mg Tablet PO (17:46)
[2021-05-30] MEDS: apixaban 5 mg Tablet 10 MG PO (17:46)
[2021-05-30] MEDS: pantoprazole DR 40 mg Tablet PO (17:46)
[2021-05-30] MEDS: sodium chloride 0.9% 1,000 ML 80 ML IV (20:03)
[2021-05-30] MEDS: atorvastatin 40 mg Tablet 80 MG PO (20:05)
[2021-05-31] VITALS (12 sets, daily range): BP systolic 88–123; BP diastolic 59–85; PULSE 79–103; RESP 16–18; TEMP 36.5–37.1; O2SAT 91–95
[2021-05-31] MEDS: oxyCODONE 5 mg IR Tab/Cap PO ×3 (03:48→23:02)
--- NOTE | 2021-05-31 05:22 | PC.NURSE ---
SHIFT SUMMARY Has had a good night.Medicated X2 with po OXYIR tonight with good relief expressed. Dressing/delgado wrap to right LE. Had some drainage showing through at beginning of shift and has not came all the way through or changed. Immobilizer to E and ice packs t knee. Neurovascular check to E WNL. Denies any numbness or tingling. IV fluids infusing at 80ml/hr rate and will receive last dose of IV antibiotics this am at 0700. Voiding well per bedpan. Taking po well. Is very pleasant
--- NOTE | 2021-05-31 07:34 | P.PN_ITS ---
Subjective Subjective: POD 1 Patient resting comfortably. Has mild right knee pain. Denies any chest pain, shortness of breath. Vitals/I&O/Wt Last Vital Signs Temp 98.5 F 05/31/21 04:06 Pulse 92 05/31/21 04:06 Resp 17 05/31/21 04:06 BP 123/85 05/31/21 04:06 Pulse Ox 94 05/31/21 04:06 05/30/21 05/31/21 05/31/21 22:59 06:59 14:59 Intake Total 260 / 320 310 / 630 60 / 60 Output Total 700 / 850 875 / 1725 Balance -440 / -530 -565 / -1095 60 / 60 Weight last 48 hrs Weight 159 lb Weight 159 lb Physical Exam Narrative: She is alert and orient x3 she has good general appearance normal normal affect. Incisions are clean and dry. She is wiggling her toes on the right lower extremity. Normal station light touch they are warm to the touch. Good cap refill all digits. A&P Assessment and plan (1) Periprosthetic fracture around internal prosthetic right knee joint, subsequent encounter: Physical therapy to eval with toe-touch weightbearing only to the right lower extremity. Ice and elevate the right lower extremity. Plan for [facility]. Status: Acute Attestations Medical Necessity Statement*: Transfer back to [facility] when bed available Coding Level of Care Code Acute Electromechanical Equipment Assembler for Shiloh Wright Diagnoses Periprosthetic fracture around internal prosthetic right knee joint, subsequent encounter M97.11XD
[2021-05-31] MEDS: apixaban 5 mg Tablet 10 MG PO ×2 (08:55→17:08)
[2021-05-31] MEDS: montelukast sodium 10 mg Tablet PO (08:55)
[2021-05-31] MEDS: docusate sodium 100 mg Capsule PO ×2 (08:55→17:09)
[2021-05-31] MEDS: sennosides-docusate Tablet 1 TAB PO (08:55)
[2021-05-31] MEDS: guaiFENesin 600 mg Tablet PO ×2 (08:55→17:09)
[2021-05-31] MEDS: oxyCODONE 5 mg IR Tab/Cap 10 MG PO (08:55)
[2021-05-31] MEDS: pantoprazole DR 40 mg Tablet PO ×2 (08:56→17:09)
[2021-05-31] MEDS: venlafaxine ER (24HR) 37.5 mg Capsule PO (08:56)
[2021-05-31] MEDS: metoprolol succinate ER (24 HR) 50 mg Tablet PO (08:56)
[2021-05-31] MEDS: sodium chloride 0.9% 1,000 ML 80 ML IV ×2 (08:56→20:27)
[2021-05-31] MEDS: amlodipine 5 mg Tablet 2.5 MG PO (08:56)
--- NOTE | 2021-05-31 11:50 | PC.CHAP ---
Pastoral Care Encounter/Spiritual Assessment Type of Contact [] Declined dipper and drier visit [] Patient/Family/Request visit [] Outpatient visit [] Follow-up visit [] Physician referral [] Code/Alert [X] Routine visit [] Staff referral [] Actively dying [] Patient sleeping [] Family support [] [] Out of room [] Palliative care [] [] Receiving care in room [] Pre-surgical visit [] Trauma [] Long length of stay [] ICU visit [X] Other: Pt on phone Relational/Emotional Strength [] Patient feels connected with others/family/visitors/staff [] Distress [] Loneliness/isolation [] Abandonment Spirituality of Patient [] Person of [place] [] Attends Rastafarian of their [place] [] Believes in Prayer [] Reads Bible or Anglican materials [] There are Spiritual issues to be addressed Brick Chimney Builder Interventions [] Prayer [] Active listening [] Non-anxious presence [] Spiritual/emotional support [] Crisis/trauma care [] Spiritual counseling [] Bereavement support [] Provided bereavement packet [] Provided Bible/devotional materials [] Provided toy/stuffed animal, coloring book to patient or family member [] Provided Communion [] Anointing/Portal [] Salvation [] Completed spiritual assessment [] Other: Impact on Illness or Injury [] Angry [] Fearful [] Anxious [] Often cries [] Exhaustion [] Unable to work [] Unable to attend cheondoism [] Unable to walk/stand [] Unable to read [] Unable to drive [] Unable to eat/drink [] Unable to sleep [] Unable to be with family [] Patient intubated [] Other: Summary Time spent with patient
[2021-05-31] MEDS: gabapentin 300 mg Capsule PO ×2 (15:02→20:24)
[2021-05-31] MEDS: acetaminophen 500 mg Tablet 1000 MG PO (19:20)
[2021-05-31] MEDS: atorvastatin 40 mg Tablet 80 MG PO (20:24)
[2021-06-01] VITALS (8 sets, daily range): BP systolic 95–107; BP diastolic 62–70; PULSE 76–88; RESP 16–18; TEMP 36.6–36.9; O2SAT 92–95
--- NOTE | 2021-06-01 06:45 | P.PN_ITS ---
Subjective Subjective: POD 2 Patient resting comfortably. Denies any shortness of breath or chest pain. Vitals/I&O/Wt Last Vital Signs Temp 98.2 F 06/01/21 04:00 Pulse 78 06/01/21 04:00 Resp 16 06/01/21 04:00 BP 97/64 06/01/21 04:00 Pulse Ox 92 06/01/21 04:00 05/31/21 05/31/21 06/01/21 14:59 22:59 06:59 Intake Total 1060 / 1060 921.333 / 1981.333 240 / 2221.333 Output Total 300 / 300 950 / 1250 550 / 1800 Balance 760 / 760 -28.667 / 731.333 -310 / 421.333 Physical Exam Narrative: She is alert and orient x3 has a good general appearance normal normal affect. Toes are warm good cap refill wiggling all digits. Dressings clean and dry. Calves are supple. A&P Assessment and plan (1) Periprosthetic fracture around internal prosthetic right knee joint, subsequent encounter: Continue with physical therapy. Ice and elevate the right lower extremity. Transfer back to longterm tomorrow. Status: Acute Attestations Medical Necessity Statement*: Nursing tomorrow Coding Level of Care Code Acute Payroll And Benefits Analyst for Shiloh Wright Diagnoses Periprosthetic fracture around internal prosthetic right knee joint, subsequent encounter M97.11XD
[2021-06-01] MEDS: metoprolol succinate ER (24 HR) 50 mg Tablet PO (08:09)
[2021-06-01] MEDS: apixaban 5 mg Tablet 10 MG PO ×2 (08:09→17:21)
[2021-06-01] MEDS: docusate sodium 100 mg Capsule PO ×2 (08:09→17:21)
[2021-06-01] MEDS: montelukast sodium 10 mg Tablet PO (08:09)
[2021-06-01] MEDS: gabapentin 300 mg Capsule PO ×3 (08:10→20:05)
[2021-06-01] MEDS: pantoprazole DR 40 mg Tablet PO ×2 (08:10→17:21)
[2021-06-01] MEDS: amlodipine 5 mg Tablet 2.5 MG PO (08:10)
[2021-06-01] MEDS: oxyCODONE 5 mg IR Tab/Cap 10 MG PO (08:10)
[2021-06-01] MEDS: guaiFENesin 600 mg Tablet PO ×2 (08:10→17:21)
[2021-06-01] MEDS: sennosides-docusate Tablet 1 TAB PO (08:10)
[2021-06-01] MEDS: venlafaxine ER (24HR) 37.5 mg Capsule PO (08:13)
[2021-06-01] MEDS: sodium chloride 0.9% 1,000 ML 80 ML IV ×2 (09:35→21:43)
[2021-06-01] MEDS: oxyCODONE 5 mg IR Tab/Cap PO (15:50)
[2021-06-01] MEDS: atorvastatin 40 mg Tablet 80 MG PO (20:05)
[2021-06-01] MEDS: acetaminophen 500 mg Tablet 1000 MG PO (20:07)
[2021-06-02] VITALS (11 sets, daily range): BP systolic 100–139; BP diastolic 65–74; PULSE 69–82; RESP 14–20; TEMP 36.6–36.9; O2SAT 92–97
[2021-06-02] MEDS: oxyCODONE 5 mg IR Tab/Cap PO ×2 (00:07→15:26)
--- NOTE | 2021-06-02 05:38 | PC.NURSE ---
SHIFT SUMMARY Had a good night. Getting up to BSC for voiding with use of walker and one assist. Dressings intact to right knee and upper thigh areas. No drainage noted. Received po Tylenol and OXYIR for pain. Is very pleasant and is hoping to go to SNF today for therapy. Taking po well and IV infusing at 80ml/hr rate
--- NOTE | 2021-06-02 07:10 | PM.PN ---
Subjective Subjective: Patient resting comfortably. No complaints this morning. Ready for discharge back to detention. Vitals/I&O/Wt Last Vital Signs Temp 98.4 F 06/02/21 04:00 Pulse 76 06/02/21 04:00 Resp 17 06/02/21 04:00 BP 112/73 06/02/21 04:00 Pulse Ox 96 06/02/21 04:00 06/01/21 06/02/21 06/02/21 22:59 06:59 14:59 Intake Total 1090.667 / 2255.667 240 / 2495.667 Output Total 600 / 900 950 / 1850 Balance 490.667 / 1355.667 -710 / 645.667 Physical Exam Narrative: She is alert and orient x3 has a good general appearance normal normal affect.? Toes are warm good cap refill wiggling all digits.? Dressings clean and dry.? Calves are supple. A&P Assessment and plan (1) Periprosthetic fracture around internal prosthetic right knee joint, subsequent encounter: Continue physical therapy. Okay from orthopedic standpoint transfer to detention when bed available. Have her follow-up in the office in 2 weeks time for staple removal. Continue to ice and elevate right lower extremity. Status: Acute Attestations Medical Necessity Statement*: defer to medical team Coding Level of Care Code Acute Clinical Study Manager for Shiloh Wright Diagnoses Periprosthetic fracture around internal prosthetic right knee joint, subsequent encounter M97.11XD
[2021-06-02] MEDS: apixaban 5 mg Tablet 10 MG PO ×2 (08:18→17:11)
[2021-06-02] MEDS: montelukast sodium 10 mg Tablet PO (08:18)
[2021-06-02] MEDS: guaiFENesin 600 mg Tablet PO ×2 (08:19→17:11)
[2021-06-02] MEDS: docusate sodium 100 mg Capsule PO ×2 (08:19→17:11)
[2021-06-02] MEDS: venlafaxine ER (24HR) 37.5 mg Capsule PO (08:19)
[2021-06-02] MEDS: oxyCODONE 5 mg IR Tab/Cap 10 MG PO (08:19)
[2021-06-02] MEDS: gabapentin 300 mg Capsule PO ×3 (08:19→21:13)
[2021-06-02] MEDS: metoprolol succinate ER (24 HR) 50 mg Tablet PO (08:19)
[2021-06-02] MEDS: amlodipine 5 mg Tablet 2.5 MG PO (08:20)
[2021-06-02] MEDS: pantoprazole DR 40 mg Tablet PO ×2 (08:20→17:11)
[2021-06-02] MEDS: sennosides-docusate Tablet 1 TAB PO (08:20)
--- NOTE | 2021-06-02 09:47 | PC.SOCIAL ---
IMM update IMM updated with patient. Copy Pg 2 provided. Verbalized an understanding. Initialled, dated, timed, and placed in chart.
[2021-06-02] MEDS: atorvastatin 40 mg Tablet 80 MG PO (21:13)
[2021-06-03] VITALS (8 sets, daily range): BP systolic 104–118; BP diastolic 66–76; PULSE 75–90; RESP 13–17; TEMP 36.4–36.8; O2SAT 95–96
[2021-06-03] MEDS: docusate sodium 100 mg Capsule PO (08:07)
[2021-06-03] MEDS: gabapentin 300 mg Capsule PO (08:07)
[2021-06-03] MEDS: guaiFENesin 600 mg Tablet PO (08:07)
[2021-06-03] MEDS: pantoprazole DR 40 mg Tablet PO (08:07)
[2021-06-03] MEDS: montelukast sodium 10 mg Tablet PO (08:07)
[2021-06-03] MEDS: apixaban 5 mg Tablet 10 MG PO (08:07)
[2021-06-03] MEDS: oxyCODONE 5 mg IR Tab/Cap 10 MG PO (08:08)
[2021-06-03] MEDS: sennosides-docusate Tablet 1 TAB PO (08:08)
[2021-06-03] MEDS: metoprolol succinate ER (24 HR) 50 mg Tablet PO (08:08)
[2021-06-03] MEDS: amlodipine 5 mg Tablet 2.5 MG PO (08:08)
[2021-06-03] MEDS: venlafaxine ER (24HR) 37.5 mg Capsule PO (08:15)
--- NOTE | 2021-06-03 09:09 | P.PN_ITS ---
Subjective Subjective: POD 4 Patient resting comfortably. She is ready for [facility]. Denies any chest pain, shortness of breath. Vitals/I&O/Wt Last Vital Signs Temp 98.3 F 06/03/21 08:00 Pulse 90 06/03/21 08:55 Resp 16 06/03/21 08:54 BP 112/75 06/03/21 08:00 Pulse Ox 95 06/03/21 08:54 06/02/21 06/03/21 06/03/21 22:59 06:59 14:59 Intake Total 300 / 1570 Balance 300 / 1570 Physical Exam Narrative: Incisions are clean and dry. Wiggles both feet and ankle without any problem. Calves are supple no medial thigh tenderness. A&P Assessment and plan (1) Periprosthetic fracture around internal prosthetic right knee joint, subsequent encounter: Okay to discharge patient back to prison. Continue physical therapy. See her back in the office in 1 week's time for wound check. Continue splint incentive spirometer for pulmonary toilet. Status: Acute Attestations Medical Necessity Statement*: DC back to NH when medical stable Coding Level of Care Code Acute Plug Overwrap Machine Tender for Shiloh Wright Diagnoses Periprosthetic fracture around internal prosthetic right knee joint, subsequent encounter M97.11XD
--- NOTE | 2021-06-03 10:08 | PC.CHAP ---
Pastoral Care Encounter/Spiritual Assessment Type of Contact [] Declined consumer loan processor visit [] Patient/Family/Request visit [] Outpatient visit [] Follow-up visit [] Physician referral [] Code/Alert [x] Routine visit [] Staff referral [] Actively dying [] Patient sleeping [] Family support [] [] Out of room [] Palliative care [] [] Receiving care in room [] Pre-surgical visit [] Trauma [] Long length of stay [] ICU visit [] Other: Relational/Emotional Strength [x] Patient feels connected with others/family/visitors/staff [] Distress [] Loneliness/isolation [] Abandonment Spirituality of Patient [x] Person of [place] [x] Attends Denominational of their [place] [x] Believes in Prayer [x] Reads Bible or Quaker materials [] There are Spiritual issues to be addressed Forest Examiner Interventions [x] Prayer [x] Active listening [x] Non-anxious presence [x] Spiritual/emotional support [] Crisis/trauma care [] Spiritual counseling [] Bereavement support [] Provided bereavement packet [] Provided Bible/devotional materials [] Provided toy/stuffed animal, coloring book to patient or family member [] Provided Communion [] Anointing/[place] [] Salvation [x] Completed spiritual assessment [] Other: Impact on Illness or Injury [] Angry [] Fearful [] Anxious [] Often cries [] Exhaustion [] Unable to work [] Unable to attend confucianist [] Unable to walk/stand [] Unable to read [] Unable to drive [] Unable to eat/drink [] Unable to sleep [] Unable to be with family [] Patient intubated [] Other: Summary Pt stated she is leaving hospital today. She will not be able to go home just yet, going into a longterm for a short while before returning home. She had been in the longterm prior to coming to hospital. She says she has not been home for about a month. She does enjoy the longterm and is looking forward to returning for her stay. She does have in home health arranged so when she is able to go home she will continue with PT and has aids coming into assist. Her sister, who lives in [facility], is taking care of her dog for her while she is away. Pt is a person of [place]ma [place] and said one thing she misses, due to her illness, is being able to attend christian. She hopes she will heal and be able to attend soon. Time spent with patient 15m
--- NOTE | 2021-06-03 11:15 | PC.NURSE ---
Tried calling report to [facility] twice with no answer. Will continue to try. Patients IV discontinued. Belongings accounted for. Vitals stable. Dressing dry clean and intact. Neurovasculars are WNL.
--- NOTE | 2021-06-03 12:00 | PC.NURSE ---
Report given to MAREK Boateng at [facility].
--- NOTE | 2021-06-17 10:28 | P.DS_ITS ---
Discharge Providers Date of Admission: 05/30/21 09:02 Date of Discharge: 06/03/212021 Attending Provider at Admission: Cristian Dumont DO Attending Provider at Discharge: Cristian uDmont DO Primary Care Provider: Raleigh Carcamo MD Diagnoses at Discharge Discharge Diagnosis (1) Periprosthetic fracture around internal prosthetic right knee joint, subsequent encounter: Status: Acute Reason for Visit Reason for Visit: Right distal femur fx Hospital Course Hospital Course uneventful Discharge Data Studies Completed and Pending Completed Studies During Hospitalization Category Date Time Status XR femur RT 1V [id number] Routine Exams 05/30/21 09:03 Completed Radiology Impressions Femur X-Ray 05/30/21 09:03 Impression: Internal fixation of distal right femoral fracture. Laboratory Results POC Glucose 196 mg/dL (70-110) H 05/30/21 11:04 Vitals Last Vital Signs Temp 98.3 F 06/03/21 10:13 Pulse 78 06/03/21 11:59 Resp 13 06/03/21 11:59 BP 104/66 06/03/21 11:59 Pulse Ox 95 06/03/21 11:59 Discharge Plan Discharge Patient Disposition: Xfer SNF Condition: Stable Prescriptions: Continued (DME) Diabetic Shoes extra deep See Rx Instructions .ROUTE .MEDSUPPLY Qty: 1 0RF Rx Instructions: three pair of custom molded inserts alendronate 70 mg tablet 70 mg PO Q7D 0RF albuterol sulfate [Ventolin HFA] 90 mcg/actuation HFA aerosol inhaler 2 puff INHALATION Q6H PRN (Reason: Shortness Of Breath) 0RF venlafaxine [Effexor XR] 37.5 mg capsule,extended release 24hr 37.5 mg PO DAILY 0RF oxycodone 5 mg tablet 5 mg PO TID PRN (Reason: pain) 7 Days Qty: 21 0RF methocarbamol 750 mg tablet 750 mg PO Q8H PRN (Reason: spasms) Qty: 120 0RF montelukast [Singulair] 10 mg tablet 10 mg PO DAILY Qty: 90 3RF budesonide-formoterol [Symbicort] 80-4.5 mcg/actuation HFA aerosol inhaler 2 puff inhalation BID Qty: 10.2 5RF acetaminophen 500 mg Tablet 1,000 mg PO Q6H PRN (Reason: Pain) 0RF metoprolol succinate 50 mg tablet extended release 24 hr 50 mg PO DAILY 0RF rosuvastatin 20 mg tablet 20 mg PO BEDTIME 0RF oxycodone 10 mg tablet 10 mg PO DAILY Qty: 20 0RF sennosides-docusate sodium [Senna-S] 8.6-50 mg tablet 1 tab-cap PO DAILY Qty: 20 0RF gabapentin 300 mg Capsule 300 mg PO TID 0RF omeprazole 20 mg Capsule,Delayed Release(Dr/Ec) 20 mg PO BID 0RF amlodipine 2.5 mg Tablet 2.5 mg PO DAILY 0RF Eliquis 5 mg Tablet 5 mg PO BID 0RF guaifenesin [Mucinex] 600 mg Tablet Extended Release 12hr 600 mg PO BID 0RF albuterol sulfate 2.5 mg /3 mL (0.083 %) Solution For Nebulization 2.5 mg INHALATION Q4H PRN (Reason: Shortness Of Breath) 0RF magnesium hydroxide [Milk of Magnesia] 400 mg/5 mL Suspension 30 ml PO DAILY PRN (Reason: Constipation) 0RF bisacodyl 10 mg Suppository 10 mg DC DAILY PRN (Reason: Constipation) 0RF Fleet Enema 19-7 gram/118 mL Enema 118 ml DC DAILY PRN (Reason: Constipation) 0RF Discharge Orders: Discharge Order (Routine); Ordered 06/03/21 Ordered By: Dimitry Bello Discharge Diet: Advance as tolerated Discharge Activity: Limit activity as instructed Patient Instructions: Pain Management After Surgery (GEN), Acute Wound Care (GEN), Opioid Safety (GEN) Activity Restrictions/Additional Instructions: You are being discharged from the hospital today during which time you have been under the care of Dr Dumont. You had a distal femur fracture. You were treated for this injury with IM nail. You may resume you normal diet (including any special diets as directed by your primary doctor) as well as your home medications. You should follow up with you primary doctor if you have any questions regarding medication you took prior to your stay in the hospital. You may take your pain medication as prescribed. After the first few days, take your pain medication as needed. Do not drive or drink alcohol while taking your pain medication. Your injury may increase your risk of developing a blood clot,or DVT, in your arm or leg. This could potentially dislodge and travel to your lungs and become a life threatening condition called apulmonary embolus,or PE. You have been prescribed eliquis to be taken to prevent this. Frequent movement of the legs will also help prevent this from occurring. If you develop any new or worsening cough, chestpain, bloody sputum or shortness of breath, call 911 or go to the EmergencyRoom. Always keep your surgical incision/dressing clean and dry. If you experience increasing pain at your incision site, redness, swelling, increasing discharge, foul odors, or fevers (greater than 100.4), night sweats or chills you should call the office at the above number. If you feel this is an emergency you should be evaluated in the Emergency Department of a nearby hospital. Orthopedic Patient Instructions Summary: Weight Bearing: TTWB Activity: as tolerated. Diet: regular. Wound Care: Keep dressing clean and dry. Change as needed Anticoagulation: eliquis Pain Medication: Take only as needed. Ice, rest and elevation will be of great benefit. Please plan to follow-up [facility] Dr Dumont in 2 weeks. You will need to call the clinic [phone] to schedule this visit. Thank you far allowing me to participate in your care. Do not hesitate to call the office with any questions or concerns. Discharge Attestations Time Spent in Discharge Care*: less than 30 min Quality Metrics Clinical Quality Measures [ No reported AMI, CVA or VTE this stay] Coding Level of Care Code Acute Chg FW [place] note Diagnoses Periprosthetic fracture around internal prosthetic right knee joint, subsequent encounter M97.11XD
== END 2021-06-03 13:45 | disposition skilled nursing facility (03) | DRG 482 ==
LOC: MEDSURG 09:18
PROVIDERS: Admitting Provider Orthopaedic Surgery; PCP Family Medicine; Visit Provider Orthopaedic Surgery
PROC: 0QSB06Z Reposition Right Lower Femur with Intramedullary Internal Fixation Device, Open Approach (ICD-10-PCS; principal; 2021-05-30 07:00)
DX: M97.11XD Periprosthetic fracture around internal prosthetic right knee joint, subsequent encounter (principal); E78.5 Hyperlipidemia, unspecified; K21.9 Gastro-esophageal reflux disease without esophagitis; J45.909 Unspecified asthma, uncomplicated
CPT/HCPCS: 36416; 73551; 73560; 76000; 82962; 87635; 94640; 97110; 97162; 97165; 97530; 97535; C1713; J0690; J2405; J2704; J2710; J3010; J3490; J7030

== ENCOUNTER 2021-06-09 15:40 | Outpatient (CLI) | payer MEDICARE, SELFPAY ==
[2021-06-09 16:11] LABS: Basophils % 0.5 %; Eosinophils # 0.1 10^3/uL (0.0-0.8); Eosinophils % 2.9 %; Hematocrit 28.7 % (37.0-47.0); Hemoglobin 8.3 g/dL (11.5-15.3); Lymphocytes # 1.2 10^3/uL (0.8-4.8); Lymphocytes % 28.6 %; Mean Corpuscular HGB Conc 28.9 g/dL (30.0-36.0); Mean Platelet Volume 9.2 fL (7.4-10.4); Monocytes # 0.5 10^3/uL (0.2-0.9); Monocytes % 10.9 %; Neutrophils # 2.34 10^3/uL (1.8-7.7); Neutrophils % 56.6 %; Nucleated Red Blood Cells % 0 %; Platelet Count 209 10^3/cmm (130-400); Red Blood Count 2.96 10^6/uL (4.1-5.3); Red Cell Distribution Width 16.4 % (12.1-15.1); White Blood Count 4.1 10^3/uL (4.0-10.0)
[2021-06-09 16:42] LABS: Anion Gap 11.5 (5-19); Blood Urea Nitrogen 7 mg/dL (8-23); Carbon Dioxide 27 mmol/L (22-29); Chloride 103 mmol/L (98-107); Glucose 158 mg/dL (65-115); Osmolality Calculated 287 mOsm/kg (285-295); Potassium 3.5 mmol/L (3.5-5.1); Sodium 138 mmol/L (136-145)
[2021-06-09 22:27] LABS: Iron 36 ug/dL (37-145); Percent Saturation 19.5 % (20-50); Total Iron Binding Capacity 184 mcg/dl; Unsaturated Iron Binding 148 ug/dL (112-347)
== END 2021-06-09 15:41 | disposition home or self-care (01) ==
PROVIDERS: PCP Family Medicine; Visit Provider Internal Medicine
DX: N17.9 Acute kidney failure, unspecified (principal)
CPT/HCPCS: 80048; 83540; 83550; 85025

== ENCOUNTER → 2021-06-12 10:04 | Outpatient (BNVA) | payer MEDICARE, MEDICAID, SELFPAY | PROVIDERS: PCP Family Medicine; Visit Provider Orthopaedic Surgery | DX: M97.11XD Periprosthetic fracture around internal prosthetic right knee joint, subsequent encounter (principal) | CPT/HCPCS: 73552; 99024 ==

== ENCOUNTER 2021-06-23 08:43 | Outpatient (CLI) | payer MEDICARE, MEDICAID, SELFPAY ==
--- NOTE | 2021-06-23 08:53 | CT_ITS ---
WS: [id number] CT CHEST WITHOUT INTRAVENOUS CONTRAST HISTORY: FOLLOW UP PULMONARY NODULES TECHNIQUE: Contiguous 5 mm axial imaging performed on the thorax. Coronal and sagittal reformats are submitted. All CT scans at [facility] use at least one of these dose optimization techniques: automated exposure control; mA and/or kV adjustment per patient size (includes targeted exams where dose is matched to clinical indication); or iterative reconstruction. CONTRAST: None DLP: 712.38 mGy.cm COMPARISON: 05/12/2021, 08/14/2011 and 11/07/2020 Lungs and central airway: Hyperexpanded lungs with emphysema. Focal consolidation RIGHT upper lobe urias s mildly progressed. There is more dense consolidation centrally with adjacent atelectatic lung. The dense area of consolidation now measures 2.0 x 1.5 cm. There is also more central bronchial wall thic kening with moderate narrowing of the lumen RIGHT upper lobe. There are numerous bilateral subcentime ter pulmonary nodules which have been seen on prior examinations. Some of these nodules appear slight ly larger in size. This may be due to volume averaging and slice selection. The largest nodules measu re approximately 6 mm. Pleura: Normal. No pleural effusion. Heart and pericardium: Normal size heart with no pericardial effusion. Mediastinum and allison: No mediastinum or hilar adenopathy. Vessels: Mild atherosclerosis aorta. No aneurysm. Normal pulmonary artery. Chest wall and lower neck: No soft tissue masses. Upper abdomen: Small hiatal hernia. Distended stomach with food products. 8mm nodule cortex upper nacho e LEFT kidney is stable. No adrenal mass. Osseous structures: Prior healed rib fracture lateral inferior RIGHT thorax. No destructive bone lesi ons. CT/CT chest wo con [id number] IMPRESSION: 1. Increased consolidation with adjacent atelectasis RIGHT upper lobe with no improvement since 05/12/2021. There is bronchial wall thickening centrally. Recom mend bronchoscopy for further evaluation and exclude endobronchial lesion. PET/ CT may be helpful also. 2. There are additional subcentimeter scattered pulmonary nodules which are st able.
== END 2021-06-23 08:44 | disposition home or self-care (01) ==
LOC: RAD 08:45
PROVIDERS: PCP Family Medicine; Visit Provider Internal Medicine Medical Oncology
DX: J98.11 Atelectasis (principal); R91.8 Other nonspecific abnormal finding of lung field
CPT/HCPCS: 71250

== ENCOUNTER → 2021-07-10 11:16 | Outpatient (BNVA) | payer MEDICARE, MEDICAID, SELFPAY | PROVIDERS: PCP Family Medicine; Visit Provider Orthopaedic Surgery | DX: M97.11XD Periprosthetic fracture around internal prosthetic right knee joint, subsequent encounter (principal); X58.XXXD Exposure to other specified factors, subsequent encounter | CPT/HCPCS: 73552; 99024 ==

== ENCOUNTER → 2021-07-17 09:37 | Outpatient (BNVA) | payer MEDICARE, SELFPAY | PROVIDERS: PCP Family Medicine; Visit Provider Internal Medicine Pulmonary Disease | DX: J44.9 Chronic obstructive pulmonary disease, unspecified (principal); I25.10 Atherosclerotic heart disease of native coronary artery without angina pectoris; J45.20 Mild intermittent asthma, uncomplicated; M06.9 Rheumatoid arthritis, unspecified; R06.00 Dyspnea, unspecified | CPT/HCPCS: 99214 ==

== ENCOUNTER 2021-08-07 06:00 | Outpatient (CLI) | payer MEDICARE, SELFPAY | END 2021-08-07 06:01 | disposition home or self-care (01) | LOC: RAD 01-01 07:10 | PROVIDERS: PCP Family Medicine; Visit Provider Internal Medicine Pulmonary Disease | DX: Z51.81 Encounter for therapeutic drug level monitoring (principal); I10 Essential (primary) hypertension; E11.8 Type 2 diabetes mellitus with unspecified complications | CPT/HCPCS: 80053; 83036; 85025 ==

== ENCOUNTER 2021-08-13 12:51 | Oncology outpatient (recurring) (ONCR) | payer MEDICARE, SELFPAY ==
[2021-08-13 13:44] LABS: Eosinophils # 0.1 10^3/uL (0.0-0.8); Eosinophils % 1.7 %; Hematocrit 36.3 % (37.0-47.0); Hemoglobin 10.5 g/dL (11.5-15.3); Lymphocytes % 41.8 %; Mean Corpuscular HGB Conc 28.9 g/dL (30.0-36.0); Mean Corpuscular Hemoglobin 24.4 pg (28.0-34.0); Mean Corpuscular Volume 84.2 fl (81-99); Mean Platelet Volume 9.7 fL (7.4-10.4); Monocytes # 0.3 10^3/uL (0.2-0.9); Monocytes % 6.9 %; Neutrophils # 2.35 10^3/uL (1.8-7.7); Neutrophils % 49.4 %; Nucleated Red Blood Cells % 0 %; Platelet Count 222 10^3/cmm (130-400); Red Blood Count 4.31 10^6/uL (4.1-5.3); Red Cell Distribution Width 16.8 % (12.1-15.1); White Blood Count 4.8 10^3/uL (4.0-10.0)
[2021-08-13 14:12] LABS: Alanine Aminotransferase 10 U/L (0-33); Albumin Level 4.5 g/dL (3.5-5.2); Alkaline Phosphatase 84 IU/L (35-105); Aspartate Amino Transferase 16 U/L (0-32); Blood Urea Nitrogen 15 mg/dL (8-23); Calcium 9.1 mg/dL (8.5-10.5); Carbon Dioxide 25 mmol/L (22-29); Chloride 106 mmol/L (98-107); Globulin 2.6 g/dL (1.3-4.6); Glucose 156 mg/dL (65-115); Osmolality Calculated 296 mOsm/kg (285-295); Sodium 141 mmol/L (136-145); Total Bilirubin 0.4 mg/dL (0.15-1.2); Total Protein 7.1 g/dL (6.6-8.7)
[2021-08-13 14:25] VITALS: BP 144/88; PULSE 77; RESP 16; TEMP 36; O2SAT 98
[2021-08-13 14:33] LABS: Ferritin 24 ng/mL (15-150); Iron 60 ug/dL (37-145); Percent Saturation 20.7 % (20-50); Total Iron Binding Capacity 289 mcg/dl; Unsaturated Iron Binding 229 ug/dL (112-347)
[2021-08-13 14:39] VITALS: BP 119/82; PULSE 83; RESP 16; TEMP 35.9; O2SAT 99
== END 2021-09-04 23:59 | disposition home or self-care (01) ==
PROVIDERS: PCP Family Medicine; Visit Provider Internal Medicine Medical Oncology
DX: E83.119 Hemochromatosis, unspecified (principal)
CPT/HCPCS: 36415; 80053; 82728; 83540; 83550; 85025; 99195

== ENCOUNTER 2021-08-19 05:36 | Day surgery (SDC) | payer MEDICARE, SELFPAY ==
[2021-08-08 10:01] VITALS: BMI 31.6
[2021-08-15 12:35] VITALS: BMI 31.6
--- NOTE | 2021-08-19 | CT_ITS ---
Guided Bronchoscopy Planning CT images; total exam DLP:764.08 mGy-cm MTDD
[2021-08-19] MEDS: sodium chloride 0.9% 1,000 ML 30 ML IV ×2 (06:20→08:30)
[2021-08-19 06:27] VITALS: BP 136/93; PULSE 87; RESP 18; TEMP 36.2; O2SAT 98
--- NOTE | 2021-08-19 06:41 | P.ANESASSM_ITS ---
Pre-Anesthetic Assessment Height/Weight: Height 1.52 m Weight 73.482 kg Temp Pulse Resp BP Pulse Ox 97.1 F L 87 18 136/93 98 08/19/21 06:27 08/19/21 06:27 08/19/21 06:27 08/19/21 06:27 08/19/21 06:27 Preop Diagnosis: Right Distal Femur Fracture Operation Date: 08/19/21 07:10 Proposed Procedures p Navigational Bronchoscopy 16286, 00669, 60457, 38433, 76293, 46032, 84898,R91.8(Not Applicable) Chanda Caldwell DatarMD Familial anesthetic complications: none Last intake: Intake Last Liquid Date 08/18/21 Last Liquid Time 18:00 Last Solid Date 08/18/21 Last Solid Time 17:30 Social No alcohol and No tobacco Airway Submandibular: within normal limits Cervical ROM: within normal limits Mallampati: Class III Dentition: partials Pulmonary Asthma, Chronic Obstructive Pulmonary Disease and Shortness of Breath CV/HEM Coronary Artery Disease, Deep Vein Thrombosis and Hypertension None reported Hepatic None reported GI Gastroesophageal Reflux Disease Metabolic Diabetes Mellitus and Hyperlipidemia [facility] [place] Rheumatoid Arthritis Neuropsych None reported Anesthetic Plan ASA status: 3 Anesthesia: General Medications/Allergies Home Medications Medication Instructions Recorded Confirmed Last Taken Type alendronate 70 mg tablet 70 mg PO Q7D 07/04/19 08/19/21 08/15/21 History venlafaxine 37.5 mg 37.5 mg PO DAILY 07/04/19 08/19/21 08/18/21 History capsule,extended release 24 hr (Effexor XR) Diabetic Shoes extra deep #1 ea 01/16/20 07/17/21 Unknown Rx montelukast 10 mg tablet 10 mg PO DAILY #90 tab 07/15/20 08/15/21 08/18/21 Rx (Singulair) gabapentin 300 mg capsule 300 mg PO TID 03/29/21 08/15/21 08/18/21 History omeprazole 20 mg capsule,delayed 20 mg PO BID 03/29/21 08/15/21 08/18/21 History release Symbicort 80 mcg-4.5 mcg/actuation 2 puff INHALATION BID #10.2 g NS 04/17/21 08/15/21 Unknown Rx HFA aerosol inhaler (budesonide-formoterol) methocarbamol 750 mg tablet 750 mg PO Q8H PRN #120 tab 04/17/21 08/15/21 08/18/21 Rx acetaminophen 500 mg tablet 1,000 mg PO DAILY PRN 05/09/21 08/15/21 Unknown History metoprolol succinate 50 mg 50 mg PO DAILY 05/09/21 08/19/21 08/19/21 History tablet,extended release 24 hr rosuvastatin 20 mg tablet 20 mg PO BEDTIME 05/09/21 08/15/21 08/18/21 History amlodipine 2.5 mg tablet 2.5 mg PO DAILY 05/29/21 08/15/21 08/18/21 History apixaban 5 mg tablet (Eliquis) 5 mg PO BID 05/29/21 08/19/21 08/15/21 History Allergies Allergy/AdvReac Type Severity Reaction Status Date / Time lisinopril Allergy Unknown unknown Verified 08/15/21 12:32 sulfabenzamide Allergy Unknown unknown Verified 08/15/21 12:32 apremilast [From Otezla] Allergy cough Verified 08/15/21 12:32 Sulfa (Sulfonamide Allergy Unknown Verified 08/15/21 12:32 Antibiotics) [facility] Anesthesia Medical History SUSAN (acute kidney injury) Asthma CAD (coronary artery disease) Controlled diabetes mellitus with diabetic polyneuropathy COPD (chronic obstructive pulmonary disease) Diabetes Dizziness Fracture of bone adjacent to prosthesis Fracture, femur, distal Hypotension Lactic acidosis Lumbar radiculopathy 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 Pneumonia Pulmonary nodules Rheumatoid arthritis Syncope Surgical History History of appendectomy History of cataract extraction History of cholecystectomy History of hysterectomy History of tonsillectomy Family History Sister Hypertension Social History Smoking and tobacco status: never smoked Second hand smoke exposure: Yes Smoking risk assessment/counseling performed?: Yes Alcohol intake: never Lives independently: Yes Household members: none Housing: Apartment Marital status: / Current occupational status: retired Pets and animals: Yes History of recent travel: No Current gender identity: Female Data Anesthesia Cardiac Studies: Sestamibi Stress Test (Cardiology) 05/20/20
--- NOTE | 2021-08-19 07:11 | P.HP_ITS ---
Providers/Chief Complaint Admitting Physician: Don Mueller MD Primary Care Provider: Raleigh Carcamo MD Chief Complaint: Persistent right upper lobe opacity on CT chest History of Present Illness Corinna Lance is a 71 year old female with past medical history of diabetes, hereditary hemochromatosis, COPD/asthma, hypertension, hypercholesterolemia, rheumatoid arthritis, mild to moderate coronary artery disease, nonmelanoma skin cancer on left cheek, GERD, chronic depression had a right upper lobe opacity measuring 2.5 x 3[address] chest 05/11/2021 along with subsegmental nonocclusive right lower lobe emboli. She was treated with antibiotic and follow-up CT chest in 6 weeks 06/23/2021 again showed increased consolidation with adjacent atelectasis right upper lobe with no improvement since 05/12/2021. There is bronchial wall thickening centrally. PET/CT was ordered but it was not covered by insurance. Planning to do navigational bronchoscopy guided biopsies of right upper lobe opacity. Patient is on Eliquis for her nonocclusive pulmonary emboli seen on CT dated 05/30/2021. She held Eliquis 48 hours ago She is on upadacitinib for her RA which was diagnosed in her 20s. Still complaining of exertional shortness of breath. Medications/Allergies Home Medications Medication Instructions Recorded Confirmed Last Taken Type alendronate 70 mg tablet 70 mg PO Q7D 07/04/19 08/19/21 08/15/21 History venlafaxine 37.5 mg 37.5 mg PO DAILY 07/04/19 08/19/21 08/18/21 History capsule,extended release 24 hr (Effexor XR) Diabetic Shoes extra deep #1 ea 01/16/20 07/17/21 Unknown Rx montelukast 10 mg tablet 10 mg PO DAILY #90 tab 07/15/20 08/15/21 08/18/21 Rx (Singulair) gabapentin 300 mg capsule 300 mg PO TID 03/29/21 08/15/21 08/18/21 History omeprazole 20 mg capsule,delayed 20 mg PO BID 03/29/21 08/15/21 08/18/21 History release Symbicort 80 mcg-4.5 mcg/actuation 2 puff INHALATION BID #10.2 g NS 04/17/21 08/15/21 Unknown Rx HFA aerosol inhaler (budesonide-formoterol) methocarbamol 750 mg tablet 750 mg PO Q8H PRN #120 tab 04/17/21 08/15/21 08/18/21 Rx acetaminophen 500 mg tablet 1,000 mg PO DAILY PRN 05/09/21 08/15/21 Unknown History metoprolol succinate 50 mg 50 mg PO DAILY 05/09/21 08/19/21 08/19/21 History tablet,extended release 24 hr rosuvastatin 20 mg tablet 20 mg PO BEDTIME 05/09/21 08/15/21 08/18/21 History amlodipine 2.5 mg tablet 2.5 mg PO DAILY 05/29/21 08/15/21 08/18/21 History apixaban 5 mg tablet (Eliquis) 5 mg PO BID 05/29/21 08/19/21 08/15/21 History Allergies Allergy/AdvReac Type Severity Reaction Status Date / Time lisinopril Allergy Unknown unknown Verified 08/15/21 12:32 sulfabenzamide Allergy Unknown unknown Verified 08/15/21 12:32 apremilast [From Otezla] Allergy cough Verified 08/15/21 12:32 Sulfa (Sulfonamide Allergy Unknown Verified 08/15/21 12:32 Antibiotics) PFSH PFSH: Medical History SUSAN (acute kidney injury) Asthma CAD (coronary artery disease) Controlled diabetes mellitus with diabetic polyneuropathy COPD (chronic obstructive pulmonary disease) Diabetes Dizziness Fracture of bone adjacent to prosthesis Fracture, femur, distal Hypotension Lactic acidosis Lumbar radiculopathy 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 Pneumonia Pulmonary nodules Rheumatoid arthritis Syncope Surgical History History of appendectomy History of cataract extraction History of cholecystectomy History of hysterectomy History of tonsillectomy Family History Sister Hypertension Social History Smoking and tobacco status: never smoked Second hand smoke exposure: Yes Smoking risk assessment/counseling performed?: Yes Alcohol intake: never Lives independently: Yes Household members: none Housing: Apartment Marital status: / Current occupational status: retired Pets and animals: Yes History of recent travel: No Current gender identity: Female Dietary Habits: Caffeine: No Vital Signs Vitals Signs: Last Vital Signs Temp 97.1 F L 08/19/21 06:27 Pulse 87 08/19/21 06:27 Resp 18 08/19/21 06:27 BP 136/93 08/19/21 06:27 Pulse Ox 98 08/19/21 06:27 Physical Exam Narrative: EXAM NARRATIVE: General: alert, NAD HEENT: conj clear, EOMI, PERRL, mmm, Neck: supple, no meningismus Heme: no cervical LAP Pulmonary: CTAB, no wheezing, rhonchi, crackles Cardiovascular: rrr, nl s1s2, no mrg Abdomen: soft, nt, nd, no r/g, bs+ Extremities: Deformed bilateral hand digits, pulses +, no edema, no c/c : no CVA tenderness Skin: intact, no rash MSK: no back or neck pain Neurologic: grossly intact A&P Assessment and plan (1) Opacity of lung on imaging study: Status: Acute (2) Pulmonary embolism: Status: Acute (3) Rheumatoid arthritis: Status: Acute Qualifiers: Rheumatoid arthritis location: hand Rheumatoid factor presence: unspecified presence Laterality: bilateral Qualified Code(s): M06.9 - Rheumatoid arthritis, unspecified Plan # Irregular opacification RIGHT upper lobe measures 2.2 x 3.5 cm. New since 11/07/2020 -? Increased consolidation with adjacent atelectasis RIGHT upper lobe with no improvement since 05/12/2021 # Several new noncalcified pulmonary nodules in the right lower lobe the largest measuring [address] chest 11/07/2020 #? 6.5 mm right lower lobe pulmonary nodule posterior medially slightly increased in size since 2016. -Likely RA related nodules -Patient had an episode of syncope and was admitted to hospital on 05/11/2021- initial chest x-ray and following CT chest showed? Subsegmental nonocclusive RIGHT lower lobe emboli..? Follow-up CT chest in 6 weeks on 06/23/2021 again showed increased consolidation with adjacent atelectasis RIGHT upper lobe with no improvement since 05/12/2021. There is bronchial wall thickening centrally. -Today she is scheduled for bronchoscopy guided biopsies for endobronchial lesion and right upper lobe opacity - There are additional subcentimeter scattered pulmonary nodules which are stable. -? she underwent IM nail repair of right distal femur fracture. She is currently on Eliquis for her sedentary life and her nonocclusive pulmonary emboli seen on CT dated -on 05/30/2021. 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
[2021-08-19] MEDS: lidocaine 1% INJ 20 mL XX (07:45)
--- NOTE | 2021-08-19 08:25 | P.OP_ITS ---
Operative Report Date of procedure: August 19, 2021 Pre-op diagnosis: Preop Diagnosis persistent right upper lobe opacity-suspicious for pneumonia; rule out malignancy Post-op diagnosis: Pneumonia-rule out malignancy Procedure done: -CPT code 17067: Bronchoscope for airway inspection -CPT code 54524: Bronchoscope with BAL from right upper lobe -CPT Code 14917: Navigational Bronchoscopy -CPT code 27717: Bronchoscope with transbronchial lung biopsy of right upper lobe -CPT Code 42623: Bronchoscopy w/Transbronchial needle aspiration biopsy(s) of right upper lobe -Control of bleeding Surgeon: Don Mueller MD Brief History: Corinna Lance is a 71 year old female with past medical history of diabetes, hereditary hemochromatosis, COPD/asthma, hypertension, hypercholesterolemia, rheumatoid arthritis, mild to moderate coronary artery disease, nonmelanoma skin cancer on left cheek, GERD, chronic depression had a right upper lobe opacity measuring 2.5 x 3.[address] chest 05/11/2021 along with subsegmental nonocclusive right lower lobe emboli.? She was treated with antibiotic and follow-up CT chest in 6 weeks 06/23/2021 again showed increased consolidation with adjacent atelectasis right upper lobe with no improvement since 05/12/2021.? There is bronchial wall thickening centrally. There is no mediastinal or hilar adenopathy. PET/CT was ordered but it was not covered by insurance.? Patient is on Eliquis for her nonocclusive pulmonary emboli seen on CT dated 05/30/2021.? She held Eliquis 48 hours ago. She is on upadacitinib for her RA which was diagnosed in her 20s. Still complaining of exertional shortness of breath. Today's plan is to do navigational bronchoscopy guided transbronchial biopsies of right upper lobe opacity Procedure: Procedure: -CPT code 42255: Bronchoscope for airway inspection -CPT code 27058: Bronchoscope with BAL from right upper lobe -CPT Code 84889: Navigational Bronchoscopy -CPT code 57302: Bronchoscope with transbronchial lung biopsy of right upper lobe -CPT Code 45604: Bronchoscopy w/Transbronchial needle aspiration biopsy(s) of right upper lobe -Control of bleeding Indication: Persistent right upper lobe opacity on CT chest Anesthesia: General anesthesia. Local anesthesia: The farshad in the right and left mainstem bronchi were anesthetized with 1% lidocaine, 3 mL. Description of the procedure: The procedure was explained to the patient and the consent was obtained. The patient was brought to the OR. The patient underwent endotracheal intubation for general anesthesia. Following induction of general anesthesia, the bronchoscope was advanced through the ET tube. The lower trachea mucosa appeared normal, no endotracheal lesion was seen. The farshad was sharp. The farshad, the right and left mainstem bronchi are anesthetized with 1% lidocaine. In a systematic manner bilateral bronchial tree was then examined. The bronchoscope was advanced into the left mainstem bronchus. The mucosa appeared normal with no endobronchial lesions. The left upper lobe, lingula and left lower lobe bronchi were examined up to the third subsegmental level and no abnormalities were identified. Mucosa appeared normal with no endobronchial lesion, active bleeding or mucous plug. There were some clear secretions in lower lobe-which were suctioned right away. The bronchoscope was then introduced into the right mainstem bronchus. The right upper lobe, right middle lobe and right lower lobe bronchi were examined up to the third subsegmental level and no abnormalities were identified. The mucosa appeared normal with no endobronchial lesions, active bleeding or mucous plugs. Using [employer] navigational system-obtained 3 biopsies specimens with forceps and 4 specimens with aspiration needle for cytology from right upper lobe opacity. All specimens were placed in cup with formalin and sent to pathology. 2 forceps specimen from same site were placed in normal saline and sent for microbiology.. Bronchoalveolar lavage was performed from the anterior segment of the right upper lobe. 40 mL of saline was instilled, fluid return was 20 mL. The fluid was mixed with blood. Samples: 1. Bronchoalveolar lavage specimen was sent for cell count and differential, gram stain and culture, fungal stain and culture, AFB stain and culture, histoplasma antigen, galactomannan antigen, HCV PCR 2. The transbronchial forcep biopsies are sent for histopathology. 3. Transbronchial fine-needle aspiration cytology of right upper lobe lesion sent for cytology 4. 1 specimen was sent for microbiology. Complications: There was no immediate complications. Postprocedure fluoroscopy did not reveal any pneumothorax. The patient was extubated and brought to the PACU in stable condition. Chest x-ray: No evidence of pneumothorax
[2021-08-19 08:42] VITALS: BP 169/101; PULSE 86; RESP 10; TEMP 36.4; O2SAT 97
[2021-08-19 08:47] VITALS: BP 162/93; PULSE 80; RESP 18; O2SAT 100
[2021-08-19 08:52] VITALS: BP 160/88; PULSE 75; RESP 18; O2SAT 100
[2021-08-19 09:01] VITALS: BP 142/113; PULSE 77; RESP 18; TEMP 36.1; O2SAT 94
--- NOTE | 2021-08-19 09:01 | XRR_ITS ---
PROCEDURE INFORMATION: Exam: XR Chest Exam date and time: 08/19/2021 9:08 AM Age: 71 years old Clinical indication: Device placement; Other: Post bronch; Prior surgery; Surgery date: Post-operative (0-2 days) TECHNIQUE: Imaging protocol: XR of the chest. Views: 1 view. Total images: 2 COMPARISON: 1. CT chest wo con [id number] 08/19/2021 7:03 AM 2. CR XR chest 1V portable [id number] 05/09/2021 11:45 AM FINDINGS: Lungs: Irregular opacities present in the right upper lung seen on prior CT felt to represent areas of atelectasis, scarring, or neoplasm. These areas appear slightly worse when compared to prior chest x-ray. Trace atelectasis or scar noted in the left lung base. Pleural spaces: No pneumothorax nor pleural fluid collection. Heart/Mediastinum: Unremarkable. No cardiomegaly. Bones/joints: Unremarkable. XR/XR chest 1V portable [id number] IMPRESSION: 1. Irregular opacities present in the right upper lung seen on prior CT felt to represent areas of atelectasis, scarring, or neoplasm. These areas appear slightly worse when compared to prior chest x-ray. 2. Trace atelectasis or scar noted in the left lung base. 3. No pneumothorax nor pleural fluid collection.
[2021-08-19 09:14] VITALS: BP 161/81; PULSE 76; RESP 18; O2SAT 95
[2021-08-19 10:40] LABS: Cyto Order Verification Order Verified
[2021-08-19 19:22] LABS: Apprearance, Bronch Wash Bloody (CLEAR); Color, Bronc Wash Red; Other Cells, Bronch Wash 29 %; PATH Referral Yes; Total Cells Counted Bronch 200
[2021-08-19 19:23] LABS: Bronch Source Right Upper Lobe
--- NOTE | 2021-08-20 17:12 | ANE.PACU2 ---
Inpatient post-anesthesia follow up: Airway intact: Yes Vital signs: Temperature 97.0 F Pulse Rate 76 Respiratory Rate 18 Blood Pressure 161/81 Pulse Oximetry 95 Oxygen Delivery Me thod Room Air Oxygen Flow Rate 3 Fraction of Inspir ed Oxygen Hydration adequate: Yes Nausea and vomiting: Yes Pain level: 2 Mental status: Baseline
[2021-08-22 21:48] LABS: Pneumocystis Jirovecii Carinii NOT DETECTED
[2021-08-22 21:53] LABS: Legionella Specimen Source BRONCH WASH
[2021-08-26 10:03] LABS: Aspergillus AG,EIA DETECTED; Aspergillus AG,EIA, Index 0.83
== END 2021-08-19 09:32 | disposition home or self-care (01) ==
PROVIDERS: PCP Family Medicine; Visit Provider Internal Medicine Pulmonary Disease
PROC: 0BJ08ZZ Inspection of Tracheobronchial Tree, Via Natural or Artificial Opening Endoscopic (ICD-10-PCS; CPT 31622; principal; 2021-08-19 07:00)
DX: J18.0 Bronchopneumonia, unspecified organism (principal); J44.9 Chronic obstructive pulmonary disease, unspecified; I25.10 Atherosclerotic heart disease of native coronary artery without angina pectoris; I10 Essential (primary) hypertension; Z86.718 Personal history of other venous thrombosis and embolism; K21.9 Gastro-esophageal reflux disease without esophagitis; E78.5 Hyperlipidemia, unspecified; M06.9 Rheumatoid arthritis, unspecified; E11.42 Type 2 diabetes mellitus with diabetic polyneuropathy
CPT/HCPCS: 31624; 31627; 31628; 71045; 71250; 77011; 80503; 87015; 87070; 87102; 87116; 87176; 87205; 87206; 87278; 87281; 87305; 87798; 87799; 87801; 88108; 88305; 88307; 89050; J1100; J2370; J2405; J2704; J3010; J3490; J7030

== ENCOUNTER → 2021-08-21 10:42 | Outpatient (BNVA) | payer MEDICARE, SELFPAY | PROVIDERS: PCP Family Medicine; Visit Provider Orthopaedic Surgery | DX: M97.11XD Periprosthetic fracture around internal prosthetic right knee joint, subsequent encounter (principal) | CPT/HCPCS: 73552; 99024 ==

== ENCOUNTER → 2021-08-28 11:00 | Outpatient (BNVA) | payer MEDICARE, SELFPAY | PROVIDERS: PCP Family Medicine; Visit Provider Internal Medicine Pulmonary Disease | DX: J44.9 Chronic obstructive pulmonary disease, unspecified (principal); R06.00 Dyspnea, unspecified; J45.20 Mild intermittent asthma, uncomplicated; M06.9 Rheumatoid arthritis, unspecified; I25.10 Atherosclerotic heart disease of native coronary artery without angina pectoris; I26.99 Other pulmonary embolism without acute cor pulmonale; R91.8 Other nonspecific abnormal finding of lung field | CPT/HCPCS: 36415; 85378; 99214 ==

== ENCOUNTER → 2021-09-01 14:26 | Outpatient (BNVA) | payer MEDICARE, SELFPAY | PROVIDERS: PCP Family Medicine; Visit Provider Internal Medicine | DX: M06.9 Rheumatoid arthritis, unspecified (principal); I26.99 Other pulmonary embolism without acute cor pulmonale; R91.8 Other nonspecific abnormal finding of lung field; R91.1 Solitary pulmonary nodule; Z79.01 Long term (current) use of anticoagulants | CPT/HCPCS: 99214 ==

== ENCOUNTER 2021-09-10 09:41 | Observation (INO) | payer MEDICARE, SELFPAY ==
[2021-09-10] VITALS (12 sets, daily range): BP systolic 99–162; BP diastolic 60–90; PULSE 68–86; RESP 15–20; TEMP 36.4–36.7; O2SAT 94–96; BMI 31.4
--- NOTE | 2021-09-10 10:02 | CT_ITS ---
WS: [id number] CT HEAD TECHNIQUE: Noncontrast CT of the head obtained from the skullbase to the vertex. CLINICAL INFORMATION: syncope COMPARISON: May 09, 2021 DLP: 978.[address] scans at [facility] use at least one of these dose optimization techniques: automated e xposure control; mA and/or kV adjustment per patient size (includes targeted exams where dose is matc hed to clinical indication); or iterative reconstruction. FINDINGS: No evidence of intracranial hemorrhage or mass effect. Ventricular system and basal cisterns are alfaro nt. Mild small vessel changes with mild parenchymal volume loss. No extra-axial fluid collections. No evidence of mass or mass effect. Intracranial vascular calcification. Paranasal sinuses and mastoid air cells are well aerated. .Normal visualized soft tissues. CT/CT head wo con* [id number] IMPRESSION: 1. No evidence of intracranial hemorrhage or mass effect. 2. Mild small vessel changes. Mild parenchymal volume loss. 3. No acute intracranial findings.
--- NOTE | 2021-09-10 10:03 | ECG_ITS ---
[facility] Test Date: 2021-09-10 Pat Name: Corinna Lance Department: Room: Gender: Female Station Installer: : [id number] Requested By: Abdullahi Moscoso Order Number: [id number] Sonny MD: Joselito Romero M.D. Measurements Intervals [place] Rate: 68 P: 13 W[place]: 172 QRS: -1 QRSD: 82 T: 48 QT: 396 QTc: 421 Interpretive Statements SINUS RHYTHM NONSPECIFIC T-WAVE ABNORMALITY Compared to ECG 05/12/2021 11:44:44 T-wave abnormality now present Sinus tachycardia no longer present Myocardial infarct finding no longer present Electronically Signed On 09-10-2021 17:55:30 CDT by Joselito Romero M.D. [email or web address]
--- NOTE | 2021-09-10 10:03 | CT_ITS ---
WS: [id number] CT CERVICAL TRAUMA TECHNIQUE: Noncontrast CT of the cervical spine with coronal and sagittal reformatted images. CLINICAL INFORMATION: syncope COMPARISON: May 09, 2021 DLP: 275.[address] scans at [facility] use at least one of these dose optimization techniques: automated e xposure control; mA and/or kV adjustment per patient size (includes targeted exams where dose is matc hed to clinical indication); or iterative reconstruction. FINDINGS: Straightening of the normal cervical lordosis. Mild spondylitic changes. Disc space narrowing worse a t C5-C6 and C6-C7. Anterior hypertrophic changes. Normal craniocervical junction. Normal C1-C2 articu lation. Dens is normal in appearance. Normal occipital condyles. No high-grade spinal canal narrowing . Normal C1 ring. No evidence of acute fracture or dislocation. Normal prevertebral soft tissues. Mastoids air cells are well aerated. CT/CT cervical spin wo con* [id number] IMPRESSION: 1. No evidence of acute fracture or dislocation. 2. Straightening of the normal cervical lordosis with mild spondylitic changes .
--- NOTE | 2021-09-10 10:04 | ED_ITS ---
HPI - Syncope General: Chief Complaint: Weakness Stated Complaint: LIGHTHEADED Time Seen by Provider: 09/10/21 09:55 History of Present Illness: 71-year-old presents after syncopal episode. Today she was walking around food pantry. Then felt lightheaded and passed out. Denies any focal pain. Denies any headache neck pain chest pain shortness of breath palpitations. Denies any focal weakness numbness tingling. Denies any vertigo. Per EMS blood pressure was 85/60 at the scene but improved after 300 cc bolus of normal saline. She is currently 99/60. Review of Systems Narrative: - CONSTITUTIONAL: Denies weight loss, fever and chills. - HEENT: Denies changes in vision and hearing. - RESPIRATORY: Denies SOB and cough. - CV: Denies palpitations and CP. - GI: Denies abdominal pain, nausea, vomiting and diarrhea. - : Denies dysuria and urinary frequency. - MSK: Denies myalgia and joint pain. - SKIN: Denies rash and pruritus. - NEUROLOGICAL: Denies headache, weakness, numbness. - PSYCHIATRIC: Denies suicidal ideation PFSH ED PFSH: Medical History SUSAN (acute kidney injury) Asthma CAD (coronary artery disease) Controlled diabetes mellitus with diabetic polyneuropathy COPD (chronic obstructive pulmonary disease) Diabetes Dizziness Fracture of bone adjacent to prosthesis Fracture, femur, distal Hypotension Lactic acidosis Lumbar radiculopathy 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 Pneumonia Pulmonary nodules Rheumatoid arthritis Syncope Surgical History History of appendectomy History of cataract extraction History of cholecystectomy History of hysterectomy History of tonsillectomy Family History Sister Hypertension Social History Smoking and tobacco status: never smoked Second hand smoke exposure: Yes Smoking risk assessment/counseling performed?: Yes Alcohol intake: never Lives independently: Yes Household members: none Housing: Apartment Marital status: / Current occupational status: retired Pets and animals: Yes History of recent travel: No Current gender identity: Female Physical Exam Narrative: EXAM NARRATIVE: - GENERAL: Alert and oriented x 3. No acute distress. Well-nourished. - EYES: EOMI. Anicteric. - HENT: Atraumatic, no C-spine tenderness. Moist mucous membranes. No scleral icterus. No cervical lymphadenopathy. - LUNGS: Clear to auscultation bilaterally. No accessory muscle use. Equal lung sounds bilaterally. No respiratory distress. - CARDIOVASCULAR: Regular rate and rhythm. No murmur. No JVD. - ABDOMEN: Soft, non-tender and non-distended. Negative CVA tenderness bilaterally, no rebound or guarding, negative [place] sign. No palpable masses. - EXTREMITIES: No edema. Non-tender. - SKIN: No rashes or lesions. Warm. - NEUROLOGIC: No meningismus or focal neurological deficits. CN II-XII grossly intact. - PSYCHIATRIC: Cooperative. Appropriate mood and affect. Course Vital Signs: Vital signs: Vital Signs Temperature 97.6 F 09/10/21 10:19 Pulse Rate 69 09/10/21 10:19 Respiratory Rate 16 09/10/21 10:19 Blood Pressure 99/60 09/10/21 10:19 Pulse Oximetry 95 09/10/21 10:19 MDM - Syncope Medical Decision Making 71-year-old presents after syncopal episode. Denies any focal pain. CT scan of the head and C-spine does not reveal any intracranial hemorrhage fracture dislocation. She was initially hypotensive but improved with IV fluids. Currently she is hemodynamically stable. EKG does not show any arrhythmia. Lab work unremarkable except for low white blood cell count and absolute neutrophil count. She denies any focal infectious signs. Major blood work unremarkable. Remainder of lab work and imaging reviewed. Discussed with hospitalist and they agreed patient would benefit from admission. Patient admitted in stable condition. Further evaluation management per hospitalist team. Lab Data : 09/10/21 10:15 09/10/21 10:[address] 09/10/21 10:02 IMPRESSION: 1. No evidence of intracranial hemorrhage or mass effect. 2. Mild small vessel changes. Mild parenchymal volume loss. 3. No acute intracranial findings. Cervical Spine CT 09/10/21 10:03 IMPRESSION: 1. No evidence of acute fracture or dislocation. 2. Straightening of the normal cervical lordosis with mild spondylitic changes. Laboratory Results WBC 2.3 10^3/uL (4.0-10.0) L 09/10/21 10:15 RBC 3.85 10^6/uL (4.1-5.3) L 09/10/21 10:15 Hgb 10.3 g/dL (11.5-15.3) L 09/10/21 10:15 Hct 34.1 % (37.0-47.0) L 09/10/21 10:15 MCV 88.6 fl (81-99) 09/10/21 10:15 MCH 26.8 pg (28.0-34.0) L 09/10/21 10:15 MCHC 30.2 g/dL (30.0-36.0) 09/10/21 10:15 RDW 21.9 % (12.1-15.1) H 09/10/21 10:15 Plt Count 101 10^3/cmm (130-400) L 09/10/21 10:15 MPV 10.1 fL (7.4-10.4) 09/10/21 10:15 Neut % (Auto) 41.5 % 09/10/21 10:15 Lymph % (Auto) 43.3 % 09/10/21 10:15 [place] % (Auto) 13.0 % 09/10/21 10:15 Eos % (Auto) 0.9 % 09/10/21 10:15 Baso % (Auto) 0.4 % 09/10/21 10:15 Neut # (Auto) 0.96 10^3/uL (1.8-7.7) L* 09/10/21 10:15 Lymph # (Auto) 1.0 10^3/uL (0.8-4.8) 09/10/21 10:15 [place] # (Auto) 0.3 10^3/uL (0.2-0.9) 09/10/21 10:15 Eos # (Auto) 0.0 10^3/uL (0.0-0.8) 09/10/21 10:15 Baso # (Auto) 0.0 10^3/uL (0.0-0.1) 09/10/21 10:15 Nucleated RBC % (auto) 0 % 09/10/21 10:15 Nucleated RBCs # 0.0 /100WBC 09/10/21 10:15 Sodium 140 mmol/L (136-145) 09/10/21 10:15 Potassium 3.8 mmol/L (3.5-5.1) 09/10/21 10:15 Chloride 106 mmol/L (98-107) 09/10/21 10:15 Carbon Dioxide 20 mmol/L (22-29) L 09/10/21 10:15 Anion Gap 17.8 (5-19) 09/10/21 10:15 BUN 13 mg/dL (8-23) 09/10/21 10:15 Creatinine 0.8 mg/dL (0.5-0.9) 09/10/21 10:15 GFR Calculation Not Reportable 09/10/21 10:15 Glucose 202 mg/dL (65-115) H 09/10/21 10:15 Calculated Osmolality 296 mOsm/kg (285-295) H 09/10/21 10:15 Calcium 8.4 mg/dL (8.5-10.5) L 09/10/21 10:15 Total Bilirubin 0.4 mg/dL (0.15-1.2) 09/10/21 10:15 AST 48 U/L (0-32) H 09/10/21 10:15 ALT 33 U/L (0-33) 09/10/21 10:15 Alkaline Phosphatase 56 IU/L (35-105) 09/10/21 10:15 Troponin T Baseline 9 ng/L (0-10) 09/10/21 10:15 NT-Pro-B Natriuret Pep 28 pg/mL (0-125) 09/10/21 10:15 Total Protein 6.6 g/dL (6.6-8.7) 09/10/21 10:15 Albumin 4.2 g/dL (3.5-5.2) 09/10/21 10:15 Globulin 2.4 g/dL (1.3-4.6) 09/10/21 10:15 TSH 2.66 uIU/mL (0.27-4.20) 09/10/21 10:15 Free T4 0.66 ng/dL (0.82-1.77) L 09/10/21 10:15 Urine Color Yellow (Yellow) 09/10/21 10:35 Urine Appearance Clear (CLEAR) 09/10/21 10:35 Urine pH 5 (5-7) 09/10/21 10:35 Ur Specific [place] 1.025 (1.005-1.030) 09/10/21 10:35 Urine Protein 1+ (Negative) H 09/10/21 10:35 Urine Glucose (UA) Norm (Normal) 09/10/21 10:35 Urine Ketones Negative (Negative) 09/10/21 10:35 Urine Blood Neg (Negative) 09/10/21 10:35 Urine Nitrate Negative (Negative) 09/10/21 10:35 Urine Bilirubin 1+ (Negative) H 09/10/21 10:35 Urine Urobilinogen Norm mg/dL (Negative) 09/10/21 10:35 Ur Leukocyte Esterase Negative (Negative) 09/10/21 10:35 Urine RBC 0-4 /hpf (0-2) H 09/10/21 10:35 Urine WBC 0-4 /hpf (0-5) H 09/10/21 10:35 Ur Squamous Epith Cells 0-4 /hpf (0-5) H 09/10/21 10:35 Amorphous Sediment Not Reportable 09/10/21 10:35 Urine Bacteria 2+ /hpf (NONE) H 09/10/21 10:35 Hyaline Casts 15-25 /lpf H 09/10/21 10:35 Urine Opiates Screen Negative ng/mL (Negative) 09/10/21 10:35 Ur Barbiturates Screen Negative ng/mL (Negative) 09/10/21 10:35 Ur Phencyclidine Scrn Negative ng/mL (Negative) 09/10/21 10:35 Ur Amphetamines Screen Negative ng/mL (Negative) 09/10/21 10:35 U Benzodiazepines Scrn Negative ng/mL (Negative) 09/10/21 10:35 Urine Cocaine Screen Negative ng/mL (Negative) 09/10/21 10:35 U Marijuana (THC) Screen Negative ng/mL (Negative) 09/10/21 10:35 EKG Data EKG 1: Other EKG Comments: Sinus rhythm, rate of 68, no sign of acute ischemia or acute abnormality. Discharge Plan Discharge Condition: Stable Prescriptions: No Action (DME) Diabetic Shoes extra deep See Rx Instructions .ROUTE .MEDSUPPLY Qty: 1 0RF Rx Instructions: three pair of custom molded inserts alendronate 70 mg tablet 70 mg PO Q7D 0RF venlafaxine [Effexor XR] 37.5 mg capsule,extended release 24hr 37.5 mg PO DAILY 0RF methocarbamol 750 mg tablet 750 mg PO Q8H PRN (Reason: spasms) Qty: 120 0RF ferrous sulfate [FeroSul] 325 mg (65 mg iron) tablet 325 mg PO DAILY 0RF montelukast [Singulair] 10 mg tablet 10 mg PO DAILY Qty: 90 3RF budesonide-formoterol [Symbicort] 80-4.5 mcg/actuation HFA aerosol inhaler 2 puff inhalation BID Qty: 10.2 5RF Rinvoq 15 mg tablet extended release 24 hr 15 mg PO DAILY Qty: 30 3RF acetaminophen 500 mg Tablet 1,000 mg PO DAILY PRN (Reason: Pain) 0RF metoprolol succinate 50 mg tablet extended release 24 hr 50 mg PO DAILY 0RF rosuvastatin 20 mg tablet 20 mg PO BEDTIME 0RF gabapentin 300 mg Capsule 300 mg PO TID 0RF omeprazole 20 mg Capsule,Delayed Release(Dr/Ec) 20 mg PO BID 0RF amlodipine 2.5 mg Tablet 2.5 mg PO DAILY 0RF Eliquis 5 mg Tablet 5 mg PO BID 0RF Referrals: Raleigh Carcamo MD [Primary Care Provider] - Coding Level of Care Code ED Dry Cleaning Supervisor for [facility]
[2021-09-10 10:41] LABS: Troponin(5th) Baseline 9 ng/L (0-10)
[2021-09-10 10:42] LABS: Basophils % 0.4 %; Eosinophils % 0.9 %; Hematocrit 34.1 % (37.0-47.0); Hemoglobin 10.3 g/dL (11.5-15.3); Lymphocytes % 43.3 %; Mean Corpuscular HGB Conc 30.2 g/dL (30.0-36.0); Mean Corpuscular Hemoglobin 26.8 pg (28.0-34.0); Mean Corpuscular Volume 88.6 fl (81-99); Mean Platelet Volume 10.1 fL (7.4-10.4); Monocytes # 0.3 10^3/uL (0.2-0.9); Neutrophils % 41.5 %; Nucleated Red Blood Cells % 0 %; Platelet Count 101 10^3/cmm (130-400); Red Blood Count 3.85 10^6/uL (4.1-5.3); Red Cell Distribution Width 21.9 % (12.1-15.1); White Blood Count 2.3 10^3/uL (4.0-10.0)
[2021-09-10 10:44] LABS: Neutrophils # 0.96 10^3/uL (1.8-7.7)
[2021-09-10 10:56] LABS: Alanine Aminotransferase 33 U/L (0-33); Albumin Level 4.2 g/dL (3.5-5.2); Alkaline Phosphatase 56 IU/L (35-105); Anion Gap 17.8 (5-19); Aspartate Amino Transferase 48 U/L (0-32); Blood Urea Nitrogen 13 mg/dL (8-23); Calcium 8.4 mg/dL (8.5-10.5); Carbon Dioxide 20 mmol/L (22-29); Chloride 106 mmol/L (98-107); Free T4 Free Thyroxine 0.66 ng/dL (0.82-1.77); Globulin 2.4 g/dL (1.3-4.6); Glucose 202 mg/dL (65-115); NT Pro B Type Natriuretic Pept 28 pg/mL (0-125); Osmolality Calculated 296 mOsm/kg (285-295); Potassium 3.8 mmol/L (3.5-5.1); Sodium 140 mmol/L (136-145); Thyroid Stimulating Hormone 2.66 uIU/mL (0.27-4.20); Total Bilirubin 0.4 mg/dL (0.15-1.2); Total Protein 6.6 g/dL (6.6-8.7)
[2021-09-10 10:57] LABS: Amphetamines Screen Urine Negative (Negative); Barbiturates Screen Urine Negative (Negative); Benzodiazepines Screen Urine Negative (Negative); Cocaine Screen Urine Negative (Negative); Opiate Screen Urine Negative (Negative); PCP Screen Urine Negative (Negative); THC Screen Urine Negative (Negative)
[2021-09-10 11:17] LABS: Add Urine Culture? Yes; Bacteria Urine 2+ /hpf; Bilirubin Urine 1+ (Negative); Blood Urine Neg (Negative); Glucose Urine UA Norm (Normal); Hyaline Casts Urine 15-25 /lpf; Ketones Urine Negative (Negative); Leukocyte Esterase Urine Negative (Negative); Nitrate Urine Negative (Negative); Protein Urine 1+ (Negative); RBC Urine 0-4 /hpf (0-2); Specific Gravity, Urine 1.025 (1.005-1.030); Squamous Epithelial Cell Urine 0-4 /hpf (0-5); Urine Appearance Clear (CLEAR); Urine Color Yellow (Yellow); Urobilinogen Urine Norm (Negative); WBC Urine 0-4 /hpf (0-5); pH Urine 5 (5-7)
--- NOTE | 2021-09-10 12:35 | P.HP_ITS ---
Providers/Chief Complaint Admitting Physician: Toby Cutler MD, hospitalist Primary Care Provider: Raleigh Carcamo MD Chief Complaint: LIGHTHEADED History of Present Illness Corinna Lance is a 71 year old female who presents to the emergency department after syncopal episode. She reports that when she went in the food pantry, she commented that she felt weak thought she was going to faint and did. She is not for sure if she lost consciousness. She thinks she hit her head on some water bottles when collapsing. She reports her legs felt very weak prior to the event. She also had some nausea and vomiting directly afterwards. She states just prior to this she had gone outside to walk to the [facility] and back which was approximately 1 block. It was very hot out, and she was sweating. She did not feel bad at that time. She has had syncope in the past, approximately 2 months ago was her last episode but this was associated with phlebotomy for her hemochromatosis. She states she has had a sore throat and a slight cough lately but no fever. She denies any chest discomfort, or nausea currently. The event occurred at approximately 9 AM this morning. She does report occasional tick bites, and did find some ticks on her lately. There is been no recent changes in her medicine. She comets that occasionally her blood pressure is low, but she is still taking blood pressure medication. Last phlebotomy over a month ago for hemochromatosis. Reports she is vaccinated for COVID, and knows of no recent exposure. Review of Systems General: Reports: 10 or more systems reviewed and unremarkable except in HPI and below Const: Reports: fatigue and malaise; Denies: fever(s) or chills Eyes: Denies: change in vision ENMT: Reports: throat pain Card: Denies: chest pain Resp: Reports: non-productive cough; Denies: dyspnea GI: Reports: nausea and vomiting; Denies: abdominal pain, hematochezia or melena : Denies: flank pain or difficulty voiding Musc: Denies: neck pain Skin/Breast: Denies: rash Neuro: Reports: weakness in extremities; Denies: headache(s) Psych: Denies: anxiety or depression Endo: Denies: polyuria [place]/Lymph: Denies: easy bruising All/Imm: Denies: urticaria Medications/Allergies Home Medications Medication Instructions Recorded Confirmed Last Taken Type alendronate 70 mg tablet 70 mg PO Q7D 07/04/19 09/01/21 08/15/21 History venlafaxine 37.5 mg 37.5 mg PO DAILY 07/04/19 09/01/21 08/18/21 History capsule,extended release 24 hr (Effexor XR) Diabetic Shoes extra deep #1 ea 01/16/20 09/01/21 Unknown Rx montelukast 10 mg tablet 10 mg PO DAILY #90 tab 07/15/20 09/01/21 08/18/21 Rx (Singulair) gabapentin 300 mg capsule 300 mg PO TID 03/29/21 09/01/21 08/18/21 History Symbicort 80 mcg-4.5 mcg/actuation 2 puff INHALATION BID #10.2 g NS 04/17/21 09/01/21 Unknown Rx HFA aerosol inhaler (budesonide-formoterol) methocarbamol 750 mg tablet 750 mg PO Q8H PRN #120 tab 04/17/21 09/01/21 08/18/21 Rx acetaminophen 500 mg tablet 1,000 mg PO DAILY PRN 05/09/21 09/01/21 Unknown History metoprolol succinate 50 mg 50 mg PO DAILY 05/09/21 09/01/21 08/19/21 History tablet,extended release 24 hr rosuvastatin 20 mg tablet 20 mg PO BEDTIME 05/09/21 09/01/21 08/18/21 History amlodipine 2.5 mg tablet 2.5 mg PO DAILY 05/29/21 09/01/21 08/18/21 History apixaban 5 mg tablet (Eliquis) 5 mg PO BID 05/29/21 09/01/21 08/15/21 History upadacitinib 15 mg tablet,extended 15 mg PO DAILY #30 tab 08/25/21 09/01/21 U nknown Rx release 24 hr (Rinvoq) ferrous sulfate 325 mg (65 mg 325 mg PO DAILY 08/28/21 09/01/21 Unknown History iron) tablet (FeroSul) albuterol sulfate 90 mcg/actuation 2 puff INHALATION 6XD PRN 09/10/21 09/10/21 Unknown History aerosol inhaler irbesartan 150 mg tablet 150 mg PO DAILY 09/10/21 09/10/21 Unknown History pantoprazole 20 mg tablet,delayed 20 mg PO DAILY 09/10/21 09/10/21 Unknown History release sennosides 8.6 mg tablet (senna) 8.6 mg PO DAILY 09/10/21 09/10/21 Unknown History spironolactone 25 1 tab PO DAILY 09/10/21 09/10/21 Unknown History mg-hydrochlorothiazide 25 mg tablet Allergies Allergy/AdvReac Type Severity Reaction Status Date / Time lisinopril Allergy Unknown unknown Verified 09/10/21 13:16 sulfabenzamide Allergy Unknown unknown Verified 09/10/21 13:16 apremilast [From Otezla] Allergy cough Verified 09/10/21 13:16 Sulfa (Sulfonamide Allergy Unknown Verified 09/10/21 13:16 Antibiotics) PFSH Acute PFSH: Medical History (Updated 09/10/21 @ 13:23 by Toby Cutler MD) SUSAN (acute kidney injury) Asthma CAD (coronary artery disease) Controlled diabetes mellitus with diabetic polyneuropathy COPD (chronic obstructive pulmonary disease) Diabetes Dizziness Fracture of bone adjacent to prosthesis Fracture, femur, distal GERD (gastroesophageal reflux disease) Hemochromatosis Hyperlipidemia Hypotension Lactic acidosis Lumbar radiculopathy 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 Pneumonia Pulmonary nodules Rheumatoid arthritis Surgical History History of appendectomy History of cataract extraction History of cholecystectomy History of hysterectomy History of tonsillectomy Family History Sister Hypertension Social History Smoking and tobacco status: never smoked Second hand smoke exposure: Yes Smoking risk assessment/counseling performed?: Yes Alcohol intake: never Lives independently: Yes Household members: none Housing: Apartment Marital status: / Current occupational status: retired Pets and animals: Yes History of recent travel: No Current gender identity: Female Vitals/I&O/Wt Last Vital Signs Temp 97.6 F 09/10/21 10:19 Pulse 69 09/10/21 10:19 Resp 16 09/10/21 10:19 BP 99/60 09/10/21 10:19 Pulse Ox 95 09/10/21 10:19 Weight last 48 hrs Weight 73.028 kg Physical Exam Narrative: General exam is a white female, conversant, denying any symptoms currently. HEENT: Pupils equally round. Oropharynx clear.Mucous membranes dry Neck is supple no lymphadenopathy or thyromegaly Cardiovascular regular rate and rhythm without murmur, no S3 or S4 Lungs clear no wheezing or crackles Abdomen is soft nontender positive bowel sounds. No obvious organomegaly. exams deferred Extremities no cyanosis clubbing or edema, cap refill brisk Skin no rash Neuro no obvious focal deficits. Data : 09/10/21 10:15 09/10/21 10:15 Other Labs: EKG demonstrates sinus rhythm, borderline left axis deviation, rate of 68, no ST or T wave changes Head CT no acute findings Cervical spine CT, femur x-ray with no fractures Nuclear stress test May 2020 negative Absolute neutrophil count of 960 Calcium 8.4 LFTs normal with exception of AST of 48 BNP 28 TSH 2.66 Urinalysis 0-4 reds 0-4 whites Urine drug screen negative A&P Assessment and plan (1) Syncope: Patient presented to the ED with an episode of syncope. Patient has had synco pal episodes and falls in the past. Patient states she was outside walking approximately a block prior to her syncopal episode. She states that she was hot and sweaty. Syncopal episode may be relative to hypotension caused by blood pressure medication or due to dehydration. Vasovagal episode is suspected. Rule out cardiac arrhythmia. Toxicology report was conducted in the ER was negative. Will hold patient blood pressure medications. Start patient on maintenance fluids. Ordered magnesium level. Ordered random cortisol. Ordered COVID. Secondary to laboratory abnormalities regarding thrombocytopenia and leukopenia elevated AST and patient with history of tick bites do a tick panel and initiate doxycycline, see below Status: Acute (2) Neutropenia: Patient CBC shows neutropenia at 0.96. Neutropenia may be relative to possible tick bite. Patient reports having 2-3 tick bites in her lower legs recently. Neutropenia may also be relative to her upadacitinib. We will hold the patient's upadacitinib. Tick panel has been ordered. Will start the patient on doxycycline p.o. Recheck laboratory in the morning Blood culture will be obtained Status: Acute (3) Pulmonary embolism: Patient has history of pulmonary embolism. Continue her chronic Eliquis Status: Acute (4) CAD (coronary artery disease): Patient with history of coronary artery disease. Troponin conducted in the ED was within normal limits. She has not had a recent echocardiogram. Certainly major valvular abnormalities could cause syncope, although unlikely with a normal physical exam. Check echocardiogram. Status: Acute Qualifiers: Associated angina: angina presence unspecified Coronary Disease- Associated Artery/Lesion type: unspecified vessel or lesion type [place] vs. transplanted heart: unspecified whether [place] or transplanted heart Qualified Code(s): I25.10 - Atherosclerotic heart disease of [place] coronary artery without angina pectoris (5) Rheumatoid arthritis: Patient has rheumatoid arthritis. Patient currently taking upadacitinib. Will hold upadacitinib due to neutropenia. Status: Acute Qualifiers: Laterality: bilateral Rheumatoid arthritis location: hand Rheumatoid factor presence: unspecified presence Qualified Code(s): M06.9 - Rheumatoid arthritis, unspecified (6) Hypotension: Patient presented with hypotension. This may reflect her blood pressure medications, in combination with dehydration and other factors. Continue to monitor. Rehydrate. Hold blood pressure medication. Status: Acute Plan Multiple other medical conditions as noted in past medical history. Observation patient Eliquis will suffice for DVT prophylaxis Attestations Medical Necessity Statement*: Will need less than 2 midnight stay for evaluation and treatment of syncope, hypotension. Coding Level of Care Code Acute Wafer Batter Mixer for [facility] Kyle Diagnoses Pulmonary embolism I26.99 CAD (coronary artery disease) I25.10 Associated angina: angina presence unspecified Coronary Disease-Associated Artery/Lesion type: unspecified vessel or lesion type [place] vs. transplanted heart: unspecified whether [place] or transplanted heart Syncope R55 Rheumatoid arthritis M06.9 Laterality: bilateral Rheumatoid arthritis location: hand Rheumatoid factor presence: unspecified presence Neutropenia D70.9 Hypotension I95.9
--- NOTE | 2021-09-10 12:38 | XR_ITS ---
WS: [id number] Portable AP upright chest, 09/10/2021 Clinical Data: cough Comparison: Portable chest, 08/19/2021. Findings: No nodules, masses or effusions are seen. The patchy right lung opacities have cleared. The heart is normal. The pulmonary vascularity is not increased. No pneumonia or pneumothorax is seen. T he aortic arch and descending thoracic aorta show tortuosity. XR/XR chest 1V portable [id number] Impression: Atherosclerosis.
[2021-09-10] MEDS: doxycycline 100 mg Tablet PO ×2 (13:06→18:22)
[2021-09-10 14:09] LABS: Magnesium 2.1 mg/dL (1.7-2.3)
--- NOTE | 2021-09-10 15:03 | USCV_ITS ---
Corinna Lance Age: 71 Gender: F : 1950 Exam Date: 09/10/2021 16:05 Ordering Phys: Toby Cutler MD Technologist: Issa Patel Exam Location: [facility] [place] Indication: sob BP: 136 / 75 HR: 81 Rhythm: Sinus Technical Quality: Adequate MEASUREMENTS (Male / Female) Normal Values 2D ECHO LV Diastolic Diameter PLAX 3.4 cm 4.2 - 5.9 / 3.9 - 5.3 cm LV Systolic Diameter PLAX 2.2 cm IVS Diastolic Thickness 1.1 cm 0.6 - 1.0 / 0.6 - 0.9 cm IVS Systolic Thickness 1.3 cm LVPW Diastolic Thickness 1.1 cm 0.6 - 1.0 / 0.6 - 0.9 cm LVPW Systolic Thickness 1.3 cm LVOT Diameter 2.0 cm LV Ejection Fraction 2D Teich 57.5 % LV Ejection Fraction MOD 2C 62.6 % LV Ejection Fraction 2C AL 62.9 % LA Diameter 3.3 cm IVC Diameter 2.0 cm M-MODE LV Diastolic Diameter MM 4.5 cm 4.2 - 5.9 / 3.9 - 5.3 cm LV Systolic Diameter MM 2.9 cm LV Ejection Fraction MM Teich 64.7 % IVS Diastolic Thickness MM 1.2 cm 0.6 - 1.0 / 0.6 - 0.9 cm IVS Systolic Thickness MM 1.6 cm LVPW Diastolic Thickness MM 1.0 cm 0.6 - 1.0 / 0.6 - 0.9 cm LVPW Systolic Thickness MM 1.6 cm RV Diastolic Diameter MM 1.3 cm Aortic Annulus Diameter 1.8 cm LA Ao Ratio MM 2.0 MV E Point Septal Separation 0.5 cm DOPPLER AV Peak Velocity 169.3 cm/s LVOT Peak Velocity 108.0 cm/s AV Area Cont Eq vti 2.3 cm squared AV Area Cont Eq pk 2.0 cm squared MV Area PHT 5.0 cm squared Mitral E to A Ratio 0.6 MV E' Velocity 31.5 cm/s Mitral E to MV E' Ratio 8.2 Mitral E to LV E' Lateral Ratio 8.6 Mitral E to LV E' Septal Ratio 7.8 TR Peak Velocity 136.3 cm/s TR Peak Gradient 7.4 mmHg TV Peak E Velocity 73.0 cm/s Right Atrial Pressure 3.0 mmHg Pulmonary Artery Systolic Pressu 10.4 mmHg PV Peak Velocity 108.0 cm/s FINDINGS Left Ventricle Normal left ventricular size. LV systolic function is normal with EF of 55-60%. No regional wall motion abnormalities. Grade 1 diastolic dysfunction Right Ventricle The right ventricle is normal in size and function. Right Atrium The right atrium is normal in size. Left Atrium The left atrium is normal in size. Mitral Valve Mild mitral annular calcification without significant stenosis or prolapse. There is no mitral regurgitation. Aortic Valve Structurally normal aortic valve without significant sclerosis or stenosis. There is no aortic regurgitation. Tricuspid Valve Structurally normal tricuspid valve without significant stenosis. Trace tricuspid regurgitation. Insufficient TR jet to calculate RVSP Pulmonic Valve Not well-visualized Pericardium Normal pericardium without effusion. Aorta Normal ascending aorta dimension. IVC CONCLUSIONS LV systolic function is normal with EF 55 to 60%. Grade 1 diastolic dysfunction. Trace tricuspid regurgitation. Mild mitral annular calcification is seen. Compared to prior echocardiogram from 01/09/2014, no significant changes seen Joselito Romero MD (Electronically Signed) Final Date: 10 September 2021 19:38 S
[2021-09-10] MEDS: ipratropium-albuterol 3 mL Neb INHALATION ×2 (15:21→20:15)
--- NOTE | 2021-09-10 15:21 | PC.NURSE ---
received report from any in the ed. pt received into 272. a/o, no c/o pain or lightheadedness. assessment completed, pt oriented to room. call light in reach. no further needs at this time
[2021-09-10] MEDS: sodium chloride 0.9% 1,000 ML 75 ML IV (15:27)
[2021-09-10] MEDS: gabapentin 300 mg Capsule PO ×2 (15:27→20:23)
[2021-09-10 17:07] LABS: Adenovirus Not Detected (NOT DETECT); Chlamydia Pneumoniae Not Detected (NOT DETECT); Coronavirus 229E,HKU1,NL63,OC4 Not Detected (NOT DETECT); Human Metapneumovirus Not Detected (NOT DETECT); Human Rhinovirus/Enterovirus Not Detected (NOT DETECT); Influenza A Not Detected (NOT DETECT); Influenza A H1 Not Detected (NOT DETECT); Influenza A H1-2009 Not Detected (NOT DETECT); Influenza A H3 Not Detected (NOT DETECT); Influenza B Not Detected (NOT DETECT); Mycoplasma Pneumoniae Not Detected (NOT DETECT); Parainfluenza Virus Type 1 Not Detected (NOT DETECT); Parainfluenza Virus Type 2 Not Detected (NOT DETECT); Parainfluenza Virus Type 3 Not Detected (NOT DETECT); Parainfluenza Virus Type 4 Not Detected (NOT DETECT); Respiratory Syncytial Virus A Not Detected (NOT DETECT); Respiratory Syncytial Virus B Not Detected (NOT DETECT); SARS-COV-2 Detected (NOT DETECT)
[2021-09-10] MEDS: apixaban 5 mg Tablet PO (18:22)
[2021-09-10] MEDS: acetaminophen 325 mg Tablet 650 MG PO (19:47)
[2021-09-10] MEDS: budesonide 0.5 mg/2 mL Neb INHALATION (20:15)
[2021-09-10] MEDS: atorvastatin 40 mg Tablet 80 MG PO (20:23)
[2021-09-11] VITALS (11 sets, daily range): BP systolic 124–160; BP diastolic 78–97; PULSE 76–98; RESP 16–18; TEMP 36.7–36.8; O2SAT 95–99
[2021-09-11] MEDS: ipratropium-albuterol 3 mL Neb INHALATION (03:02)
[2021-09-11] MEDS: sodium chloride 0.9% 1,000 ML 75 ML IV (05:23)
[2021-09-11 05:58] LABS: Eosinophils % 0.6 %; Hematocrit 29.3 % (37.0-47.0); Hemoglobin 9.1 g/dL (11.5-15.3); Lymphocytes # 0.8 10^3/uL (0.8-4.8); Lymphocytes % 44.9 %; Mean Corpuscular HGB Conc 31.1 g/dL (30.0-36.0); Mean Corpuscular Hemoglobin 26.8 pg (28.0-34.0); Mean Corpuscular Volume 86.2 fl (81-99); Mean Platelet Volume 9.5 fL (7.4-10.4); Monocytes # 0.2 10^3/uL (0.2-0.9); Neutrophils % 41.9 %; Nucleated Red Blood Cells % 0 %; Platelet Count 108 10^3/cmm (130-400); Red Cell Distribution Width 21.6 % (12.1-15.1); White Blood Count 1.7 10^3/uL (4.0-10.0)
[2021-09-11 06:17] LABS: Alanine Aminotransferase 29 U/L (0-33); Albumin Level 3.7 g/dL (3.5-5.2); Alkaline Phosphatase 46 IU/L (35-105); Aspartate Amino Transferase 39 U/L (0-32); Blood Urea Nitrogen 12 mg/dL (8-23); Calcium 8.4 mg/dL (8.5-10.5); Carbon Dioxide 24 mmol/L (22-29); Chloride 109 mmol/L (98-107); Globulin 2.2 g/dL (1.3-4.6); Glucose 111 mg/dL (65-115); Magnesium 1.8 mg/dL (1.7-2.3); Osmolality Calculated 296 mOsm/kg (285-295); Sodium 143 mmol/L (136-145); Total Bilirubin 0.4 mg/dL (0.15-1.2); Total Protein 5.9 g/dL (6.6-8.7)
--- NOTE | 2021-09-11 08:02 | USCV_ITS ---
Corinna Lance Age: 71 Gender: F : 1950 Exam Date: 09/11/2021 09:03 Ordering Phys: Toby Cutler MD Technologist: Shawn Prieto Exam Location: [facility] – [place] Indication: left calf pain PROCEDURES: Venous duplex imaging was performed in only the left lower extremity. The following venous structures were evaluated: common femoral vein, profunda vein, proximal portion of the greater saphenous vein, superficial femoral vein, and the popliteal vein. In addition, the posterior tibial and peroneal trunk were evaluated. Serial compression, augmentation maneuvers, and spectral Doppler flow evaluation were performed. FINDINGS: Normal 2-D Doppler and augmentation and compressibility throughout the lower extremity venous structures. Additional imaging through the proximal calf veins also reveals no thrombus. Limited evaluation of the greater saphenous vein is patent with no thrombus. CONCLUSIONS No DVT left lower extremity. Dr. Annie Escalona DO (Electronically Signed) Final Date: 11 September 2021 09:31 S
[2021-09-11] MEDS: budesonide 0.5 mg/2 mL Neb INHALATION (08:42)
[2021-09-11] MEDS: doxycycline 100 mg Tablet PO (09:13)
[2021-09-11] MEDS: venlafaxine ER (24HR) 37.5 mg Capsule PO (09:13)
[2021-09-11] MEDS: pantoprazole DR 40 mg Tablet PO (09:13)
[2021-09-11] MEDS: gabapentin 300 mg Capsule PO (09:13)
[2021-09-11] MEDS: apixaban 5 mg Tablet PO (09:14)
[2021-09-11] MEDS: metoprolol succinate ER (24 HR) 50 mg Tablet PO (09:16)
--- NOTE | 2021-09-11 09:18 | PM.DCS ---
Discharge Providers Date of Admission: 09/10/21 11:53 Date of Discharge: September 11, 2021 Attending Provider at Admission: Toby Cutler MD Attending Provider at Discharge: Toby Cutler MD Primary Care Provider: Raliegh Carcamo MD Diagnoses at Discharge Discharge Diagnosis (1) Syncope: Status: Acute (2) Neutropenia: Status: Acute (3) Pulmonary embolism: Status: Acute (4) CAD (coronary artery disease): Status: Acute Qualifiers: Coronary Disease-Associated Artery/Lesion type: unspecified vessel or lesion type [place] vs. transplanted heart: unspecified whether [place] or transplanted heart Associated angina: angina presence unspecified Qualified Code(s): I25.10 - Atherosclerotic heart disease of [place] coronary artery without angina pectoris (5) Rheumatoid arthritis: Status: Acute Qualifiers: Rheumatoid arthritis location: hand Rheumatoid factor presence: unspecified presence Laterality: bilateral Qualified Code(s): M06.9 - Rheumatoid arthritis, unspecified (6) Hypotension: Status: Acute Reason for Visit Reason for Visit: LIGHTHEADED Hospital Course Hospital Course Corinna is a 69-year-old white female who presented to the hospital after syncopal episode. She had been out walking in the hot environment, sweating. She had some nausea directly after the fainting episode. She is not for sure if she lost consciousness. She has had no recent fevers. She had some minor cough and congestion. She had been on quite a bit of blood pressures lately and worried her blood pressures been low. During her hospital course her blood pressure medicine was held secondary to hypotension on presentation. She was rehydrated. Secondary to some history of tick bites she was placed on doxycycline and a tick titers sent. TSH and cortisol level were checked and normal. There was no significant electrolyte abnormalities. White blood cell count was low, as well as slight decreases in hemoglobin and platelet count. Absolute neutrophil count was low but not less than 500. Therefore, tickborne illness was entertained as noted above as well as COVID or reaction/side effect from rheumatoid arthritis medicine. Rheumatoid arthritis medicine was held. COVID test, PCR, returned positive. Remdesivir was ordered but patient refused. She was not interested in any other treatment for COVID. She reported she was fully vaccinated and not really experiencing any symptoms. She was not interested in monoclonal antibody or oral medication as well. Of note her CRP was not elevated, chest x-ray showed no infiltrate, and she did not need oxygen. After rehydration, she was able to ambulate without difficulty or dizziness. She did have a slight drop in her systolic blood pressure from approximately 155-130 but this was asymptomatic. It was thought she could discharge home, with close follow-up with her primary care provider. She will finish her course of doxycycline. She will hold her rheumatoid arthritis medicine, upadacitinib, and call or return if she develops any shortness of breath, fever, other symptoms related to COVID. She was told to isolate for the next 10 days. Day of discharge she also had an ultrasound of her left leg if she had some pain behind the knee. This was negative for DVT. She will restart her metoprolol. Other blood pressure medication will be held, and she will keep track of her blood pressures and bring a list to her primary care provider for review. Questions were addressed and answered to the patient's satisfaction. Secondary to her low neutrophil count, she should have a repeat CBC on follow-up in 3 to 5 days with her primary care provider. This was discussed with the patient in detail. Physical Exam Narrative: General exam no distress Neck is supple Cardiovascular regular rate and rhythm without murmur Lungs clear Abdomen is soft, positive bowel sounds Extremities no cyanosis clubbing or edema Discharge Data Studies Completed and Pending Completed Studies During Hospitalization Category Date Time Status CT cervical spin wo con* [id number] Stat Cat Scan 09/10/21 10:[address] head wo con* [id number] Stat Cat Scan 09/10/21 10:02 Completed XR chest 1V portable [id number] Routine Exams 09/10/21 12:38 Completed CV. echo complete* [id number] Routine Ultrasound 09/10/21 15:03 Completed Pending at discharge Category Date Time Status Blood Culture Stat Lab 09/10/21 13:59 Results Tick Panel Routine Lab 09/10/21 14:44 Received Urine Culture Stat Lab 09/10/21 10:35 [place] [id number] Routine Ultrasound 09/11/21 08:02 Ordered Radiology Impressions Head CT 09/10/21 10:02 IMPRESSION: 1. No evidence of intracranial hemorrhage or mass effect. 2. Mild small vessel changes. Mild parenchymal volume loss. 3. No acute intracranial findings. Cervical Spine CT 09/10/21 10:03 IMPRESSION: 1. No evidence of acute fracture or dislocation. 2. Straightening of the normal cervical lordosis with mild spondylitic changes. Chest X-Ray 09/10/21 12:38 Impression: Atherosclerosis. Laboratory Results WBC 1.7 10^3/uL (4.0-10.0) L 09/11/21 05:40 RBC 3.40 10^6/uL (4.1-5.3) L 09/11/21 05:40 Hgb 9.1 g/dL (11.5-15.3) L 09/11/21 05:40 Hct 29.3 % (37.0-47.0) L 09/11/21 05:40 MCV 86.2 fl (81-99) 09/11/21 05:40 MCH 26.8 pg (28.0-34.0) L 09/11/21 05:40 MCHC 31.1 g/dL (30.0-36.0) 09/11/21 05:40 RDW 21.6 % (12.1-15.1) H 09/11/21 05:40 Plt Count 108 10^3/cmm (130-400) L 09/11/21 05:40 MPV 9.5 fL (7.4-10.4) 09/11/21 05:40 Neut % (Auto) 41.9 % 09/11/21 05:40 Lymph % (Auto) 44.9 % 09/11/21 05:40 [place] % (Auto) 12.0 % 09/11/21 05:40 Eos % (Auto) 0.6 % 09/11/21 05:40 Baso % (Auto) 0.0 % 09/11/21 05:40 Neut # (Auto) 0.70 10^3/uL (1.8-7.7) L* 09/11/21 05:40 Lymph # (Auto) 0.8 10^3/uL (0.8-4.8) 09/11/21 05:40 [place] # (Auto) 0.2 10^3/uL (0.2-0.9) 09/11/21 05:40 Eos # (Auto) 0.0 10^3/uL (0.0-0.8) 09/11/21 05:40 Baso # (Auto) 0.0 10^3/uL (0.0-0.1) 09/11/21 05:40 Nucleated RBC % (auto) 0 % 09/11/21 05:40 Nucleated RBCs # 0.0 /100WBC 09/11/21 05:40 Sodium 143 mmol/L (136-145) 09/11/21 05:40 Potassium 4.0 mmol/L (3.5-5.1) 09/11/21 05:40 Chloride 109 mmol/L (98-107) H 09/11/21 05:40 Carbon Dioxide 24 mmol/L (22-29) 09/11/21 05:40 Anion Gap 14.0 (5-19) 09/11/21 05:40 BUN 12 mg/dL (8-23) 09/11/21 05:40 Creatinine 0.5 mg/dL (0.5-0.9) 09/11/21 05:40 GFR Calculation Not Reportable 09/11/21 05:40 Glucose 111 mg/dL (65-115) 09/11/21 05:40 Calculated Osmolality 296 mOsm/kg (285-295) H 09/11/21 05:40 Calcium 8.4 mg/dL (8.5-10.5) L 09/11/21 05:40 Magnesium 1.8 mg/dL (1.7-2.3) 09/11/21 05:40 Total Bilirubin 0.4 mg/dL (0.15-1.2) 09/11/21 05:40 AST 39 U/L (0-32) H 09/11/21 05:40 ALT 29 U/L (0-33) 09/11/21 05:40 Alkaline Phosphatase 46 IU/L (35-105) 09/11/21 05:40 Troponin T Baseline 9 ng/L (0-10) 09/10/21 10:15 C-Reactive Protein 3.0 mg/L (0.0-4.9) 09/10/21 10:15 NT-Pro-B Natriuret Pep 28 pg/mL (0-125) 09/10/21 10:15 Total Protein 5.9 g/dL (6.6-8.7) L 09/11/21 05:40 Albumin 3.7 g/dL (3.5-5.2) 09/11/21 05:40 Globulin 2.2 g/dL (1.3-4.6) 09/11/21 05:40 TSH 2.66 uIU/mL (0.27-4.20) 09/10/21 10:15 Free T4 0.66 ng/dL (0.82-1.77) L 09/10/21 10:15 Random Cortisol 19.50 ug/dL (2.47-19.5) 09/10/21 10:15 Urine Color Yellow (Yellow) 09/10/21 10:35 Urine Appearance Clear (CLEAR) 09/10/21 10:35 Urine pH 5 (5-7) 09/10/21 10:35 Ur Specific Sullivan 1.025 (1.005-1.030) 09/10/21 10:35 Urine Protein 1+ (Negative) H 09/10/21 10:35 Urine Glucose (UA) Norm (Normal) 09/10/21 10:35 Urine Ketones Negative (Negative) 09/10/21 10:35 Urine Blood Neg (Negative) 09/10/21 10:35 Urine Nitrate Negative (Negative) 09/10/21 10:35 Urine Bilirubin 1+ (Negative) H 09/10/21 10:35 Urine Urobilinogen Norm mg/dL (Negative) 09/10/21 10:35 Ur Leukocyte Esterase Negative (Negative) 09/10/21 10:35 Urine RBC 0-4 /hpf (0-2) H 09/10/21 10:35 Urine WBC 0-4 /hpf (0-5) H 09/10/21 10:35 Ur Squamous Epith Cells 0-4 /hpf (0-5) H 09/10/21 10:35 Amorphous Sediment Not Reportable 09/10/21 10:35 Urine Bacteria 2+ /hpf (NONE) H 09/10/21 10:35 Hyaline Casts 15-25 /lpf H 09/10/21 10:35 Urine Opiates Screen Negative ng/mL (Negative) 09/10/21 10:35 Ur Barbiturates Screen Negative ng/mL (Negative) 09/10/21 10:35 Ur Phencyclidine Scrn Negative ng/mL (Negative) 09/10/21 10:35 Ur Amphetamines Screen Negative ng/mL (Negative) 09/10/21 10:35 U Benzodiazepines Scrn Negative ng/mL (Negative) 09/10/21 10:35 Urine Cocaine Screen Negative ng/mL (Negative) 09/10/21 10:35 U Marijuana (THC) Screen Negative ng/mL (Negative) 09/10/21 10:35 Coronavirus 229E (PCR) Not detected (NOT DETECT) 09/10/21 13:16 SARS-CoV-2 (PCR) Detected (NOT DETECT) A 09/10/21 13:16 Vitals Last Vital Signs Temp 98.1 F 09/11/21 08:00 Pulse 94 09/11/21 08:54 Resp 16 09/11/21 08:50 BP 129/88 09/11/21 08:00 Pulse Ox 99 09/11/21 08:50 Discharge Plan Discharge Patient Disposition: Home Condition: Stable Prescriptions: New doxycycline monohydrate 100 mg Tablet 100 mg PO BID Qty: 17 0RF Continued (DME) Diabetic Shoes extra deep See Rx Instructions .ROUTE .MEDSUPPLY Qty: 1 0RF Rx Instructions: three pair of custom molded inserts alendronate 70 mg tablet 70 mg PO Q7D 0RF venlafaxine [Effexor XR] 37.5 mg capsule,extended release 24hr 37.5 mg PO DAILY 0RF ferrous sulfate [FeroSul] 325 mg (65 mg iron) tablet 325 mg PO DAILY 0RF montelukast [Singulair] 10 mg tablet 10 mg PO DAILY Qty: 90 3RF budesonide-formoterol [Symbicort] 80-4.5 mcg/actuation HFA aerosol inhaler 2 puff inhalation BID Qty: 10.2 5RF acetaminophen 500 mg Tablet 1,000 mg PO DAILY PRN (Reason: Pain) 0RF metoprolol succinate 50 mg tablet extended release 24 hr 50 mg PO DAILY 0RF rosuvastatin 20 mg tablet 20 mg PO BEDTIME 0RF gabapentin 300 mg Capsule 300 mg PO TID 0RF Eliquis 5 mg Tablet 5 mg PO BID 0RF senna 8.6 mg Tablet 8.6 mg PO DAILY 0RF pantoprazole 20 mg Tablet,Delayed Release (Dr/Ec) 20 mg PO DAILY 0RF albuterol sulfate 90 mcg/actuation Hfa Aerosol Inhaler 2 puff INHALATION 6XD PRN (Reason: Shortness Of Breath) 0RF Discontinued methocarbamol 750 mg tablet 750 mg PO Q8H PRN (Reason: spasms) Qty: 120 0RF Rinvoq 15 mg tablet extended release 24 hr 15 mg PO DAILY Qty: 30 3RF amlodipine 2.5 mg Tablet 2.5 mg PO DAILY 0RF spironolacton-hydrochlorothiaz 25-25 mg Tablet 1 tab PO DAILY 0RF irbesartan 150 mg Tablet 150 mg PO DAILY 0RF Discharge Orders: Discharge Order (Routine); Ordered 09/11/21 Ordered By: Toby Cutler Referrals: Gita Salvador MD [Physician] - 1 week (Follow-up low white count, rheumatoid arthritis) Raleigh Carcamo MD [Primary Care Provider] - 4-7 days (CBC on follow-up) Discharge Diet: Regular Discharge Activity: Increase activity as tolerated Patient Instructions: Opioid Safety Activity Restrictions/Additional Instructions: Take all medicine as prescribed Keep track of blood pressure and take to primary care provider's office visit Return for any shortness of breath Encourage hydration Discharge Attestations Time Spent in Discharge Care*: greater than 30 min Quality Metrics Clinical Quality Measures [ No reported AMI, CVA or VTE this stay] Coding Level of Care Code Acute g [facility] note Diagnoses Syncope R55 Neutropenia D70.9 Pulmonary embolism I26.99 CAD (coronary artery disease) I25.10 Coronary Disease-Associated Artery/Lesion type: unspecified vessel or lesion type [place] vs. transplanted heart: unspecified whether [place] or transplanted heart Associated angina: angina presence unspecified Rheumatoid arthritis M06.9 Rheumatoid arthritis location: hand Rheumatoid factor presence: unspecified presence Laterality: bilateral Hypotension I95.9
--- NOTE | 2021-09-11 11:02 | PC.CHAP ---
Pastoral Care Encounter/Spiritual Assessment Type of Contact [] Declined manager training and development visit [] Patient/Family/Request visit [] Outpatient visit [] Follow-up visit [] Physician referral [] Code/Alert [] Routine visit [] Staff referral [] Actively dying [] Patient sleeping [] Family support [] [] Out of room [] Palliative care [] [] Receiving care in room [] Pre-surgical visit [] Trauma [] Long length of stay [] ICU visit [x] Other: Isolation Relational/Emotional Strength [] Patient feels connected with others/family/visitors/staff [] Distress [] Loneliness/isolation [] Abandonment Spirituality of Patient [] Person of [place] [] Attends U[place]din of their [place] [] Believes in Prayer [] Reads Bible or Rastafari materials [] There are Spiritual issues to be addressed Auditor/Quality Interventions [] Prayer [] Active listening [] Non-anxious presence [] Spiritual/emotional support [] Crisis/trauma care [] Spiritual counseling [] Bereavement support [] Provided bereavement packet [] Provided Bible/devotional materials [] Provided toy/stuffed animal, coloring book to patient or family member [] Provided Communion [] Anointing/[place] [] Salvation [] Completed spiritual assessment [] Other: Impact on Illness or Injury [] Angry [] Fearful [] Anxious [] Often cries [] Exhaustion [] Unable to work [] Unable to attend pentecostal [] Unable to walk/stand [] Unable to read [] Unable to drive [] Unable to eat/drink [] Unable to sleep [] Unable to be with family [] Patient intubated [] Other: Summary Isolation Time spent with patient 5 mikns
[2021-09-11 13:17] LABS: Lyme AB Screen <0.90 index
[2021-09-17 18:19] LABS: RMSF IGG NOT DETECTED; RMSF IGM NOT DETECTED
[2021-09-17 22:03] LABS: E. Chaffeensis AB IGG <1:64; E. Chaffeensis AB IGM <1:20
== END 2021-09-11 12:30 | disposition home or self-care (01) ==
LOC: ER 12:01 → MEDSURG 09-11 02:14
PROVIDERS: Admitting Provider Internal Medicine; Emergency Provider Emergency Medicine; PCP Family Medicine; Visit Provider Internal Medicine
DX: R55 Syncope and collapse (principal); D70.9 Neutropenia, unspecified; I26.99 Other pulmonary embolism without acute cor pulmonale; I25.10 Atherosclerotic heart disease of native coronary artery without angina pectoris; M06.9 Rheumatoid arthritis, unspecified; I95.9 Hypotension, unspecified; M79.662 Pain in left lower leg; E11.9 Type 2 diabetes mellitus without complications; K21.9 Gastro-esophageal reflux disease without esophagitis; E78.5 Hyperlipidemia, unspecified
CPT/HCPCS: 36415; 70450; 71045; 72125; 80053; 80306; 81001; 82533; 83735; 83880; 84439; 84443; 84484; 85025; 86140; 86618; 86666; 86757; 87040; 87086; 87635; 93005; 93306; 93971; 94640; 96365; 96366; 99285; G0378; J7030; J7626

== ENCOUNTER → 2021-09-16 09:28 | Outpatient (BNVA) | payer MEDICARE, SELFPAY | PROVIDERS: PCP Family Medicine; Visit Provider Family Medicine | DX: D70.9 Neutropenia, unspecified (principal) | CPT/HCPCS: 85025 ==

== ENCOUNTER → 2021-10-06 10:42 | Outpatient (BNVA) | payer MEDICARE, SELFPAY | PROVIDERS: PCP Family Medicine; Visit Provider Family Medicine | DX: D70.9 Neutropenia, unspecified (principal); E11.42 Type 2 diabetes mellitus with diabetic polyneuropathy; E83.119 Hemochromatosis, unspecified; E78.5 Hyperlipidemia, unspecified; I26.99 Other pulmonary embolism without acute cor pulmonale; M97.11XD Periprosthetic fracture around internal prosthetic right knee joint, subsequent encounter; R91.8 Other nonspecific abnormal finding of lung field; I25.10 Atherosclerotic heart disease of native coronary artery without angina pectoris; J45.909 Unspecified asthma, uncomplicated; M06.9 Rheumatoid arthritis, unspecified; Z51.81 Encounter for therapeutic drug level monitoring | CPT/HCPCS: 80048; 83036; 85025 ==

== ENCOUNTER → 2021-10-09 10:31 | Outpatient (BNVA) | payer MEDICARE, SELFPAY | PROVIDERS: PCP Family Medicine; Visit Provider Internal Medicine | DX: M06.9 Rheumatoid arthritis, unspecified (principal); D70.9 Neutropenia, unspecified | CPT/HCPCS: 99214 ==

== ENCOUNTER 2021-10-28 10:00 | Outpatient (CLI) | payer MEDICARE, SELFPAY ==
--- NOTE | 2021-10-28 10:09 | MM_ITS ---
WS: [id number] BILATERAL SCREENING DIGITAL TOMOSYNTHESIS MAMMOGRAM WITH CAD HISTORY: Screening mammogram COMPARISON: 04/02/2020, 07/29/2017 and 07/06/2013 Bilateral CC and MLO views with tomosynthesis and synthetic mammography submitted. Computer aided det ection analyzed. Breast composition: There are scattered areas of fibroglandular density. No suspicious masses, microc alcifications or architectural distortion. Scattered asymmetries in each breast and bilateral benign calcifications. MM/[place] [id number] IMPRESSION: BI-RADS: 2-Benign FOLLOW UP: 1 Year Follow-up
[2021-10-28 11:15] LABS: Basophils % 0.3 %; Eosinophils # 0.1 10^3/uL (0.0-0.8); Eosinophils % 2.2 %; Hematocrit 39.9 % (37.0-47.0); Hemoglobin 12.2 g/dL (11.5-15.3); Lymphocytes # 1.1 10^3/uL (0.8-4.8); Lymphocytes % 17.6 %; Mean Corpuscular HGB Conc 30.6 g/dL (30.0-36.0); Mean Corpuscular Hemoglobin 28.4 pg (28.0-34.0); Mean Corpuscular Volume 92.8 fl (81-99); Mean Platelet Volume 9.1 fL (7.4-10.4); Monocytes # 0.5 10^3/uL (0.2-0.9); Monocytes % 8.3 %; Neutrophils # 4.61 10^3/uL (1.8-7.7); Neutrophils % 71.3 %; Nucleated Red Blood Cells % 0 %; Platelet Count 174 10^3/cmm (130-400); Red Cell Distribution Width 16.3 % (12.1-15.1); White Blood Count 6.5 10^3/uL (4.0-10.0)
[2021-10-28 11:27] LABS: Erythrocyte Sedimentation Rate 18 mm/hr (0-15)
[2021-10-28 11:39] LABS: Alanine Aminotransferase 16 U/L (0-33); Albumin Level 4.3 g/dL (3.5-5.2); Alkaline Phosphatase 75 U/L (35-105); Anion Gap 13.8 (5-19); Aspartate Amino Transferase 19 U/L (0-32); Blood Urea Nitrogen 11 mg/dL (8-23); Calcium 9.6 mg/dL (8.5-10.5); Carbon Dioxide 28 mmol/L (22-29); Chloride 107 mmol/L (98-107); Globulin 3.3 g/dL (1.3-4.6); Glucose 154 mg/dL (65-115); Osmolality Calculated 300 mOsm/kg (285-295); Potassium 4.8 mmol/L (3.5-5.1); Sodium 144 mmol/L (136-145); Total Bilirubin 0.4 mg/dL (0.15-1.2); Total Protein 7.6 g/dL (6.6-8.7)
== END 2021-10-28 10:01 | disposition home or self-care (01) ==
LOC: RAD 10:02
PROVIDERS: Internal Medicine; PCP Family Medicine; Visit Provider Family Medicine
DX: Z12.31 Encounter for screening mammogram for malignant neoplasm of breast (principal); M06.9 Rheumatoid arthritis, unspecified; M47.816 Spondylosis without myelopathy or radiculopathy, lumbar region
CPT/HCPCS: 36415; 77063; 77067; 80053; 85025; 85651; 86140

== ENCOUNTER → 2021-10-29 07:49 | Outpatient (BNVA) | payer MEDICARE, SELFPAY | PROVIDERS: PCP Family Medicine; Referring Provider Family Medicine; Visit Provider Specialist | DX: G56.21 Lesion of ulnar nerve, right upper limb (principal) | CPT/HCPCS: 95908; 95910 ==

== ENCOUNTER 2021-11-12 11:40 | Oncology outpatient (recurring) (ONCR) | payer MEDICARE, SELFPAY ==
[2021-11-12 11:59] LABS: Basophils % 0.7 %; Eosinophils # 0.1 10^3/uL (0.0-0.8); Eosinophils % 2.9 %; Hematocrit 39.4 % (37.0-47.0); Hemoglobin 12.5 g/dL (11.5-15.3); Lymphocytes # 1.5 10^3/uL (0.8-4.8); Lymphocytes % 32.2 %; Mean Corpuscular HGB Conc 31.7 g/dL (30.0-36.0); Mean Corpuscular Hemoglobin 29.1 pg (28.0-34.0); Mean Corpuscular Volume 91.6 fl (81-99); Mean Platelet Volume 9.1 fL (7.4-10.4); Monocytes # 0.5 10^3/uL (0.2-0.9); Monocytes % 11.7 %; Neutrophils # 2.37 10^3/uL (1.8-7.7); Neutrophils % 52.3 %; Nucleated Red Blood Cells % 0 %; Platelet Count 167 10^3/cmm (130-400); Red Cell Distribution Width 14.6 % (12.1-15.1); White Blood Count 4.5 10^3/uL (4.0-10.0)
[2021-11-12 12:15] LABS: Alanine Aminotransferase 10 U/L (0-33); Albumin Level 4.3 g/dL (3.5-5.2); Alkaline Phosphatase 54 U/L (35-105); Anion Gap 14.6 (5-19); Aspartate Amino Transferase 16 U/L (0-32); Blood Urea Nitrogen 17 mg/dL (8-23); Calcium 9.2 mg/dL (8.5-10.5); Carbon Dioxide 26 mmol/L (22-29); Chloride 104 mmol/L (98-107); Ferritin 19 ng/mL (15-150); Glucose 118 mg/dL (65-115); Iron 48 ug/dL (37-145); Osmolality Calculated 293 mOsm/kg (285-295); Percent Saturation 17.9 % (20-50); Potassium 4.6 mmol/L (3.5-5.1); Sodium 140 mmol/L (136-145); Total Bilirubin 0.3 mg/dL (0.15-1.2); Total Iron Binding Capacity 268 mcg/dl; Total Protein 7.3 g/dL (6.6-8.7); Unsaturated Iron Binding 220 ug/dL (112-347)
== END 2021-12-05 23:59 | disposition home or self-care (01) ==
PROVIDERS: PCP Family Medicine; Visit Provider Internal Medicine Medical Oncology
DX: E83.110 Hereditary hemochromatosis (principal); R91.1 Solitary pulmonary nodule; I26.99 Other pulmonary embolism without acute cor pulmonale
CPT/HCPCS: 36415; 80053; 82728; 83540; 83550; 85025; 99214

== ENCOUNTER → 2022-01-06 14:27 | Outpatient (BNVA) | payer MEDICARE, MEDICAID, SELFPAY | PROVIDERS: PCP Family Medicine; Visit Provider Internal Medicine | DX: M06.9 Rheumatoid arthritis, unspecified (principal); Z51.81 Encounter for therapeutic drug level monitoring | CPT/HCPCS: 99213; 99214 ==

== ENCOUNTER 2022-02-05 10:35 | Outpatient (CLI) | payer MEDICARE, MEDICAID, SELFPAY ==
--- NOTE | 2022-02-05 11:00 | CTR_ITS ---
PROCEDURE INFORMATION: Exam: CT Chest Without Contrast; Diagnostic Exam date and time: 02/05/2022 10:57 AM Age: 71 years old Clinical indication: Abnormal findings; Abnormal radiologic exam of lung or chest; Patient HX: Opacity; Additional info: 6 month f/u assess resolution TECHNIQUE: Imaging protocol: Diagnostic computed tomography of the chest without contrast. Radiation optimization: All CT scans at this facility use at least one of these dose optimization techniques: automated exposure control; mA and/or kV adjustment per patient size (includes targeted exams where dose is matched to clinical indication); or iterative reconstruction. COMPARISON: CT chest wo con [id number] 06/23/2021 9:03 AM RADIATION DOSE METRICS: Total DLP (mGy-cm): 710.94 FINDINGS: Thyroid: Symmetric thyroid lobes. Lungs: Multiple pre-existing noncalcified bilateral pulmonary nodules are stable in size from comparison. Largest measures 8 mm in the medial basal segment of the right lower lobe conspicuous on coronal series 6, image 33. Small ground-glass lesion in the posterior left upper lobe new from comparison. Bronchiectasis localized in the inferior aspect of the right middle lobe without significant change from comparison. Relatively linear platelike opacity in the anterior right upper lobe has largely resolved since comparison. On axial images there is still an 8 mm nodular opacity at the anterior margin of the residual linear opacity. No central airway obstruction. Small irregular opacity in the medial left upper lobe on axial series 4, image 16 with a slightly more nodular appearance on coronal series 6, image 27 is new from comparison with craniocaudad height 5-6 mm. Pleural spaces: Unremarkable. No pneumothorax. No pleural effusion. Heart: Unremarkable. No cardiomegaly. No pericardial effusion. Mediastinal space: Unremarkable thoracic esophagus. Negative for fluid collection. Lymph nodes: Unremarkable. No enlarged lymph nodes. Vasculature: Unremarkable. No aortic aneurysm. Bones/joints: Unremarkable. No acute fracture. Soft tissues: Unremarkable. CT/CT chest wo con [id number] IMPRESSION: 1. Previous right upper lobe pulmonary lesion has largely resolved. There is residual linear scarring and a small nodular opacity associated with the abnormality anteriorly measuring 8 mm. 2. New ground-glass nodular opacities in the left upper lobe. 3. Other additional pre-existing noncalcified pulmonary nodules are stable from comparison. 4. For patients at low risk (minimal or absent history of smoking and of other known risk factors), recommend CT Chest at 3-6 months, then consider CT Chest at 18-24 months. For patients at high risk (history of smoking or of other known risk factors), recommend CT Chest at 3-6 months, then CT Chest at 18-24 months. (Reference: Silvia) REFERENCES: Silvia Alves, et al. Guidelines for Management of Incidental Pulmonary Nodules Detected on CT Images: From the Fleischner Society 2017. Radiology. 2017;284(1):228-243.
== END 2022-02-05 10:36 | disposition home or self-care (01) ==
PROVIDERS: PCP Family Medicine; Visit Provider Internal Medicine Pulmonary Disease
DX: R91.8 Other nonspecific abnormal finding of lung field (principal)
CPT/HCPCS: 71250

== ENCOUNTER → 2022-02-26 10:34 | Outpatient (BNVA) | payer MEDICARE, MEDICAID, SELFPAY | PROVIDERS: PCP Family Medicine; Visit Provider Internal Medicine Pulmonary Disease | DX: R91.8 Other nonspecific abnormal finding of lung field (principal); J44.9 Chronic obstructive pulmonary disease, unspecified; R06.00 Dyspnea, unspecified; J45.20 Mild intermittent asthma, uncomplicated; M06.9 Rheumatoid arthritis, unspecified; I25.10 Atherosclerotic heart disease of native coronary artery without angina pectoris | CPT/HCPCS: 99214 ==

== ENCOUNTER → 2022-03-16 10:12 | Outpatient (BNVA) | payer MEDICARE, MEDICAID, SELFPAY | PROVIDERS: PCP Family Medicine; Referring Provider Family Medicine; Visit Provider Specialist | DX: G56.21 Lesion of ulnar nerve, right upper limb (principal); M20.031 Swan-neck deformity of right finger(s); M06.9 Rheumatoid arthritis, unspecified | CPT/HCPCS: 73080 ==

== ENCOUNTER → 2022-04-08 09:55 | Outpatient (BNVA) | payer MEDICARE, MEDICAID, SELFPAY | PROVIDERS: PCP Family Medicine; Visit Provider Family Medicine | DX: E11.9 Type 2 diabetes mellitus without complications (principal); J45.20 Mild intermittent asthma, uncomplicated; J44.9 Chronic obstructive pulmonary disease, unspecified; R73.03 Prediabetes; D70.9 Neutropenia, unspecified; E83.110 Hereditary hemochromatosis; E11.42 Type 2 diabetes mellitus with diabetic polyneuropathy; F32.A Depression, unspecified; G56.21 Lesion of ulnar nerve, right upper limb; I10 Essential (primary) hypertension; Z51.81 Encounter for therapeutic drug level monitoring | CPT/HCPCS: 80053; 83036; 83735; 85025 ==

== ENCOUNTER → 2022-04-14 10:08 | Outpatient (BNVA) | payer MEDICARE, MEDICAID, SELFPAY | PROVIDERS: PCP Family Medicine; Visit Provider Internal Medicine | DX: M06.9 Rheumatoid arthritis, unspecified (principal); Z79.899 Other long term (current) drug therapy | CPT/HCPCS: 99213 ==

== ENCOUNTER 2022-05-19 08:50 | Emergency (ER) | payer MEDICARE, MEDICAID, SELFPAY ==
--- NOTE | 2022-05-19 08:54 | XRR_ITS ---
PROCEDURE INFORMATION: Exam: XR Right Knee Exam date and time: 05/19/2022 9:27 AM Age: 72 years old Clinical indication: Pain; Right; Prior surgery; Surgery date: 6+ months; Surgery type: RT knee replacement 1999, RT femur rodding 05/2021; Additional info: Pain/ knot TECHNIQUE: Imaging protocol: Radiologic exam of the right knee. Views: 3 views. COMPARISON: CR XR knee RT 1-2V [id number] 05/27/2021 10:13 AM FINDINGS: Bones/joints: Right total knee arthroplasty. Intramedullary nail and screw fixation of the right femur for a healed periprosthetic fracture. No acute fracture or malalignment. Moderate joint effusion. Osteopenia. Soft tissues: Normal. XR/XR knee RT 3V* [id number] IMPRESSION: 1. Right total knee arthroplasty and intramedullary nail and screw fixation of the right femur for a healed periprosthetic fracture. 2. No acute fracture or malalignment. 3. Moderate joint effusion.
[2022-05-19 09:01] VITALS: BP 173/98; PULSE 68; RESP 18; TEMP 36.4; O2SAT 94
--- NOTE | 2022-05-19 09:25 | W.ED.EXTPRO ---
HPI - Extremity Problem General: Chief complaint: Extremity Problem,Nontraumatic Stated complaint: knot on right knee Time Seen by Provider: 05/19/22 08:51 Source: patient Mode of arrival: ambulatory History of Present Illness: 72-year-old female presents emergency room complaining which she describes as a knot on her right knee. She previously had a knee arthroplasty had some complications with a periprosthetic fracture she requiring a revision. This morning she noticed some swelling and discomfort. She has not had any trauma recently that she can recall. No fever sweats chills no redness. MD Complaint: joint swelling Onset (ago): hour(s) Pain Consistency: intermittent Location: right Quality: aching Radiation: none Relieving factors: nothing Exacerbating factors: nothing Associated symptoms: Reports arthralgias; Deny chest pain, fever(s), myalgias, rash, short of breath or other Review of Systems Const: Denies: fever(s) ENMT: Denies: throat pain, ear or mastoid pain, nasal discharge or nasal congestion Card: Denies: chest pain Resp: Denies: dyspnea, productive cough or non-productive cough GI: Denies: abdominal pain, nausea, vomiting, hematemesis, coffee ground emesis, diarrhea, constipation, bloating, hematochezia or melena : Denies: flank pain, difficulty voiding, dysuria, urinary frequency or urinary urgency Skin/Breast: Denies: rash PFSH ED PFSH: Medical History Asthma CAD (coronary artery disease) COPD (chronic obstructive pulmonary disease) Depression GERD (gastroesophageal reflux disease) Hereditary hemochromatosis History of COVID-19 Hyperlipidemia Hypertension Hypothyroidism Lumbar radiculopathy Osteoporosis 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 Peripheral neuropathy Psoriasis Pulmonary embolism Pulmonary nodules Rheumatoid arthritis Type 2 diabetes mellitus Surgical History History of appendectomy History of cataract extraction History of cholecystectomy History of foot surgery History of hand surgery History of hysterectomy History of tonsillectomy History of tubal ligation Status post total knee replacement, right Family History Sister Hypertension Social History Smoking and tobacco status: never smoked Second hand smoke exposure: Yes Smoking risk assessment/counseling performed?: Yes Alcohol intake: never Lives independently: Yes Household members: none Housing: Apartment Marital status: / Current occupational status: retired Pets and animals: Yes Current gender identity: Female Physical Exam Const: GENERAL APPEARANCE: cooperative and comfortable ORIENTATION/CONSCIOUSNESS: Yes awake, Yes oriented to person, Yes oriented to place and Yes oriented to time HENMT: COMMON NORMALS: normocephalic, atraumatic and hearing grossly normal bilaterally HEAD & SCALP: normocephalic and atraumatic Resp: COMMON NORMALS: normal respiratory effort, No retractions, No use of accessory muscles and clear to auscultation bilaterally AUSCULTATION: clear to auscultation bilaterally Cardio: COMMON NORMALS: regular rate, regular rhythm and No murmurs present (Cardio) RATE: regular rate RHYTHM: regular rhythm GI: COMMON NORMALS: Soft to palpation and No hepatosplenomegaly present AUSCULTATION: Yes normoactive bowel sounds PALPATION: Yes Soft to palpation, No Tenderness to palpation present (GI), No Guarding due to palpation present (GI) and Yes No hepatosplenomegaly present Extremity: COMMON NORMALS: no pedal edema OTHER: Mild swelling on the medial lateral aspect of the femoral condyles. No ecchymosis no deformity no redness or inflammation or erythema. Mildly tender to the touch Neuro: SENSORIUM/ORIENTATION: Yes oriented to person, Yes oriented to place and Yes oriented to time Skin: COMMON NORMALS: no rashes or lesions noted GENERAL SKIN EXAM: no rashes or lesions noted Course Vital Signs: Vital signs: Vital Signs Temperature 97.6 F 05/19/22 09:01 Pulse Rate 68 05/19/22 09:01 Respiratory Rate 18 05/19/22 09:01 Blood Pressure 173/98 05/19/22 09:01 Pulse Oximetry 94 05/19/22 09:01 Oxygen Delivery Me thod 05/19/22 09:01 MDM - Extremity (Nontraumatic) Medical Decision Making Some of these screws from the periprosthetic fracture repair seem to have loosened and are protruding very slightly on the x-ray. Nothing acute there is no loose foreign bodies or completely broken off portions. We will have her use a knee immobilizer nonweightbearing and follow-up with Ortho Medical Records I reviewed the patient's medical records. Lab Data I reviewed the patient's lab results. Radiology Impressions Knee X-Ray 05/19/22 08:54 IMPRESSION: 1. Right total knee arthroplasty and intramedullary nail and screw fixation of the right femur for a healed periprosthetic fracture. 2. No acute fracture or malalignment. 3. Moderate joint effusion. Discharge Plan Discharge Patient Disposition: Home Clinical Impression: Acute knee pain Condition: Stable Prescriptions: New diclofenac sodium 75 mg tablet,delayed release (DR/EC) 75 mg PO Q12H PRN (Reason: pain) Qty: 20 0RF No Action (DME) Diabetic Shoes extra deep See Rx Instructions .ROUTE .MEDSUPPLY Qty: 1 0RF Rx Instructions: three pair of custom molded inserts clobetasol 0.05 % cream 1 applic topical BID Qty: 30 2RF albuterol sulfate 90 mcg/actuation HFA aerosol inhaler 2 puff INHALATION 6XD PRN (Reason: Shortness Of Breath) Qty: 8.5 6RF alendronate 70 mg tablet 70 mg PO Q7D Qty: 12 4RF gabapentin 300 mg capsule 300 mg PO TID Qty: 270 3RF losartan 25 mg tablet 25 mg PO DAILY Qty: 30 6RF metoprolol succinate 50 mg tablet extended release 24 hr 50 mg PO DAILY Qty: 90 3RF montelukast [Singulair] 10 mg tablet 10 mg PO DAILY Qty: 90 3RF pantoprazole 20 mg tablet,delayed release (DR/EC) 20 mg PO DAILY Qty: 90 3RF rosuvastatin 20 mg tablet 20 mg PO BEDTIME Qty: 90 3RF budesonide-formoterol [Symbicort] 80-4.5 mcg/actuation HFA aerosol inhaler 2 puff inhalation BID Qty: 10.2 12RF venlafaxine [Effexor XR] 37.5 mg capsule,extended release 24hr 37.5 mg PO DAILY Qty: 90 3RF prednisone 5 mg tablet 5 mg PO DAILY Qty: 30 0RF Rx Instructions: PRN Humira Pen 40 mg/0.8 mL pen injector kit 40 mg SUBCUT Q14D 30 Days Qty: 2 6RF glipizide 2.5 mg tablet extended release 24hr 2.5 mg PO BID Qty: 60 3RF Discharge Orders: Discharge ED (Routine); Ordered 05/19/22 Ordered By: Reji Farley Referrals: Raleigh Carcamo MD [Primary Care Provider] - Discharge Diet: Usual diet Discharge Activity: Limit activity as instructed Patient Instructions: Opioid Safety, Pain Management Activity Restrictions/Additional Instructions: You are seen today for acute knee pain. There are no fractures around the prosthetic however some of the hardware appears to have loosened. Recommend that you follow-up with your orthopedist to see what they recommend at this point. You can use Tylenol or the diclofenac you are prescribed today apply ice minimal weightbearing as tolerated. Coding Level of Care Code ED Solar Systems Designer for Shiloh Wright
--- NOTE | 2022-05-19 11:43 | DCPLANNER ---
Addendum entered by Sandra Maddox 05/21/22 14:42: Patient had a follow up appointment scheduled with ortho - patient did attend appointment Addendum entered by Sandra Maddox 05/20/22 08:50: Patient has a follow up appointment scheduled for , May 21, 2022 at 11:15 with Dimitry Alves at ortho. Clinic will call patient with appointment information. Original Note: medical laboratory manager had message to schedule a follow up appointment for patient with ortho. medical laboratory manager sent patients information to the front office staff at ortho. Patients information will be printed and reviewed. Clinic will call patient with appointment information.
== END 2022-05-19 11:42 | disposition home or self-care (01) ==
PROVIDERS: Emergency Provider Family Medicine; PCP Family Medicine
DX: M25.561 Pain in right knee (principal); M25.461 Effusion, right knee; Z96.651 Presence of right artificial knee joint; I25.10 Atherosclerotic heart disease of native coronary artery without angina pectoris; J44.9 Chronic obstructive pulmonary disease, unspecified; E78.5 Hyperlipidemia, unspecified; I10 Essential (primary) hypertension
CPT/HCPCS: 73562; 99283

== ENCOUNTER 2022-05-19 11:58 | Oncology outpatient (recurring) (ONCR) | payer MEDICARE, MEDICAID, SELFPAY ==
[2022-05-19 12:33] LABS: Basophils % 0.3 %; Eosinophils # 0.2 10^3/uL (0.0-0.8); Eosinophils % 2.3 %; Hematocrit 45.3 % (37.0-47.0); Hemoglobin 14.1 g/dL (11.5-15.3); Lymphocytes # 1.9 10^3/uL (0.8-4.8); Lymphocytes % 28.8 %; Mean Corpuscular HGB Conc 31.1 g/dL (30.0-36.0); Mean Corpuscular Hemoglobin 27.1 pg (28.0-34.0); Mean Corpuscular Volume 86.9 fl (81-99); Mean Platelet Volume 9.7 fL (7.4-10.4); Monocytes # 0.5 10^3/uL (0.2-0.9); Monocytes % 7.4 %; Neutrophils # 4.05 10^3/uL (1.8-7.7); Neutrophils % 60.9 %; Nucleated Red Blood Cells % 0 %; Platelet Count 193 10^3/cmm (130-400); Red Blood Count 5.21 10^6/uL (4.1-5.3); Red Cell Distribution Width 13.2 % (12.1-15.1); White Blood Count 6.6 10^3/uL (4.0-10.0)
[2022-05-19 12:56] LABS: Alanine Aminotransferase 13 U/L (0-33); Albumin Level 4.5 g/dL (3.5-5.2); Alkaline Phosphatase 75 U/L (35-105); Anion Gap 14.1 (5-19); Aspartate Amino Transferase 17 U/L (0-32); Blood Urea Nitrogen 15 mg/dL (8-23); Calcium 9.6 mg/dL (8.5-10.5); Carbon Dioxide 27 mmol/L (22-29); Chloride 101 mmol/L (98-107); Ferritin 36 ng/mL (15-150); Globulin 3.2 g/dL (1.3-4.6); Glucose 126 mg/dL (65-115); Iron 102 ug/dL (37-145); Osmolality Calculated 288 mOsm/kg (285-295); Percent Saturation 36.8 % (20-50); Potassium 4.1 mmol/L (3.5-5.1); Sodium 138 mmol/L (136-145); Total Bilirubin 0.6 mg/dL (0.15-1.2); Total Iron Binding Capacity 277 mcg/dl; Total Protein 7.7 g/dL (6.6-8.7); Unsaturated Iron Binding 175 ug/dL (112-347)
== END 2022-06-05 23:59 | disposition home or self-care (01) ==
PROVIDERS: PCP Family Medicine; Visit Provider Internal Medicine Medical Oncology
DX: E83.110 Hereditary hemochromatosis (principal); R91.1 Solitary pulmonary nodule; I26.99 Other pulmonary embolism without acute cor pulmonale; Z79.899 Other long term (current) drug therapy
CPT/HCPCS: 36415; 80053; 82728; 83540; 83550; 85025; 99213

== ENCOUNTER → 2022-05-21 11:05 | Outpatient (BNVA) | payer MEDICARE, MEDICAID, SELFPAY | PROVIDERS: PCP Family Medicine; Referring Provider Family Medicine; Visit Provider Physician Assistant | DX: M97.11XD Periprosthetic fracture around internal prosthetic right knee joint, subsequent encounter (principal); X58.XXXD Exposure to other specified factors, subsequent encounter | CPT/HCPCS: 99213 ==

== ENCOUNTER → 2022-07-20 07:44 | Outpatient (BNVA) | payer MEDICARE, MEDICAID, SELFPAY | PROVIDERS: PCP Family Medicine; Visit Provider Podiatrist Foot & Ankle Surgery | DX: E11.42 Type 2 diabetes mellitus with diabetic polyneuropathy (principal); L60.3 Nail dystrophy; L84 Corns and callosities; M20.22 Hallux rigidus, left foot; M20.21 Hallux rigidus, right foot; M21.41 Flat foot [pes planus] (acquired), right foot; M21.42 Flat foot [pes planus] (acquired), left foot; M06.9 Rheumatoid arthritis, unspecified; M19.079 Primary osteoarthritis, unspecified ankle and foot | CPT/HCPCS: 11056; 11721 ==

== ENCOUNTER → 2022-07-21 09:06 | Outpatient (BNVA) | payer MEDICARE, MEDICAID, SELFPAY | PROVIDERS: PCP Family Medicine; Visit Provider Physician Assistant | DX: Z01.818 Encounter for other preprocedural examination (principal); M25.569 Pain in unspecified knee | CPT/HCPCS: 36415; 73560; 73565; 80053; 85025; 99213 ==

== ENCOUNTER 2022-07-23 05:33 | Outpatient (CLI) | payer MEDICARE, MEDICAID, SELFPAY | END 2022-07-23 05:34 | disposition home or self-care (01) | LOC: RT 08-14 05:34 | PROVIDERS: PCP Family Medicine; Visit Provider Orthopaedic Surgery | DX: Z01.810 Encounter for preprocedural cardiovascular examination (principal) | CPT/HCPCS: 93005 ==

== ENCOUNTER → 2022-07-29 09:23 | Outpatient (BNVA) | payer MEDICARE, MEDICAID, SELFPAY | PROVIDERS: PCP Family Medicine; Referring Provider Orthopaedic Surgery; Visit Provider Family Medicine | DX: Z01.818 Encounter for other preprocedural examination (principal); E11.42 Type 2 diabetes mellitus with diabetic polyneuropathy | CPT/HCPCS: 83036 ==

== ENCOUNTER 2022-08-07 06:57 | Day surgery (SDC) | payer MEDICARE, MEDICAID, SELFPAY ==
[2022-07-23 13:22] VITALS: BMI 32.8
--- NOTE | 2022-07-23 13:48 | ECG_ITS ---
[facility] Test Date: 2022-07-23 Pat Name: Corinna Lance Department: Room: Gender: Female Safe Technician: : 1950 Requested By: Ivis Field Order Number: [id number] Sonny MD: Kelly Mendez M.D. Measurements Intervals [place] Rate: 68 P: -5 TX: 187 QRS: -23 QRSD: 70 T: 29 QT: 382 QTc: 406 Interpretive Statements SINUS RHYTHM LOW QRS VOLTAGE IN PRECORDIAL LEADS [QRS DEFLECTION < 1.0 mV IN CHEST LEADS] POSSIBLE ANTERIOR MYOCARDIAL INFARCTION , PROBABLY OLD [30 ms Q WAVE IN V3/V4, OR R < 0.2 mV IN V4] Compared to ECG 09/10/2021 10:21:18 Low QRS voltage now present Myocardial infarct finding now present T-wave abnormality no longer present Electronically Signed On 07-25-2022 6:55:42 CDT by Kelly Mendez M.D. [id number]
[2022-08-07] VITALS (13 sets, daily range): BP systolic 131–170; BP diastolic 79–107; PULSE 64–93; RESP 12–20; TEMP 36.2–36.7; O2SAT 94–100
--- NOTE | 2022-08-07 | XR_ITS ---
WS: [id number] Exam: XR knee RT 1-2V [id number] Date/Time of Exam: 08/07/2022 12:00 AM Reason For Exam: or pic, hardware removal AP and lateral C-arm images of the right knee are obtained for intraoperative planning. The images de pict a total knee prosthesis as well as additional hardware in the lower femur.
[2022-08-07 07:26] LABS: Glucose Point of Care 139 mg/dL (70-110)
[2022-08-07] MEDS: sodium chloride 0.9% 1,000 ML 30 ML IV (07:39)
--- NOTE | 2022-08-07 07:41 | ANES.PAUD2 ---
Pre-Anesthetic Update Pre-Anesthetic Assessment: Date of Surgery/Procedure: 08/07/22 Preop Diagnosis: Painful hardware distal femur Proposed Procedure: Operation Date: 08/07/22 08:50 Proposed Procedures p Removal of Deep Hardware from Right Distal Femur: 93811,m25.569(Right) - Cristian Dumont, DO Any changes to Pre-Anesthetic Assessment?: No Last Intake: Intake Last Liquid Date 08/06/22 Last Liquid Time 22:00 Last Solid Date 08/06/22 Last Solid Time 16:00 Vitals: Temperature 97.2 F L 08/07/22 07:15 Temperature Source Temporal Artery S can 08/07/22 07:15 Pulse Rate 64 08/07/22 07:15 Respiratory Rate 16 08/07/22 07:15 Blood Pressure 161/107 08/07/22 07:15 Blood Pressure Jessica n 125 08/07/22 07:15 Pulse Oximetry 95 08/07/22 07:15 Oxygen Delivery Me thod Room Air 08/07/22 07:16 Exam: Pre-Anes Outpt Exam: alert, oriented x 3, clear to auscultation bilaterally and regular rate & rhythm Cardiac Studies: Echocardiogram 09/10/21 Sestamibi Stress Test (Cardiology) 05/20/20
--- NOTE | 2022-08-07 08:17 | W.PM.OPSUD ---
Surgery/Procedure H&P Update DATE OF PROCEDURE: August 07, 2022 DATE H&P PERFORMED: 07/17/21 H&P UPDATE INFORMATION: I have reviewed H&P completed within last 30 days, I have examined patient prior to procedure and No changes to prior documentation PREOP DIAGNOSIS: Painful hardware distal femur PLANNED PROCEDURE: Operation Date: 08/07/22 08:50 Proposed Procedures p Removal of Deep Hardware from Right Distal Femur: 43443,m25.569(Right) - Cristian Dumont DO
[2022-08-07] MEDS: ceFAZolin 2,000 MG in sodium chloride 0.9% (plus) 50 ML 100 MG IV (08:38)
[2022-08-07] MEDS: lidocaine-epi 1% 20 mL INJ INJECTION (09:16)
--- NOTE | 2022-08-07 09:52 | P.OP_ITS ---
Operative Report Date of procedure: August 07, 2022 Pre-op diagnosis: Preop Diagnosis Painful hardware distal femur Post-op diagnosis: same Procedure done: Removal of deep hardware from right knee Surgeon: Cristian Dumont Turbine Blade Assembler: none Estimated blood loss (mL): 5 Procedure: Removal of painful hardware from right knee Patient is brought to the operative suite after ongoing disease placed in supine position. His impingement well-padded. Patient's prepped draped also fashion. Skin incision was made over the medial aspect of the knee the prominent screws were identified incision was made down to the screw heads screw was removed with washer that was outside of the nail and then one of the screw heads that was in the nail was taken out. Cannot palpate any of the other screws both medially and laterally. This point wounds irrigated closed in layered fashion with 0 Vicryl in the Vicryl and jovon. Sterile dressings were applied and patient was transferred to PACU in stable condition.
[2022-08-07] MEDS: hyDRALAzine 20 mg/mL INJ 1 mL 5 MG IVP (10:00)
[2022-08-07] MEDS: HYDROcodone-acetaminophen 5-325 mg Tablet 1 TAB PO (10:31)
--- NOTE | 2022-08-07 12:10 | ANE.PACU2 ---
Inpatient post-anesthesia follow up: Airway intact: Yes Vital signs: Temperature 97.4 F Pulse Rate 74 Respiratory Rate 16 Blood Pressure 159/88 Pulse Oximetry 96 Oxygen Delivery Me thod Room Air Oxygen Flow Rate Fraction of Inspir ed Oxygen Hydration adequate: Yes Nausea and vomiting: No Pain level: 1 Mental status: Baseline
== END 2022-08-07 10:54 | disposition home or self-care (01) ==
PROVIDERS: PCP Family Medicine; Visit Provider Orthopaedic Surgery
PROC: (CPT 20680; principal; 2022-08-07 08:40)
DX: T84.84XA Pain due to internal orthopedic prosthetic devices, implants and grafts, initial encounter (principal); Y79.2 Prosthetic and other implants, materials and accessory orthopedic devices associated with adverse incidents; E11.9 Type 2 diabetes mellitus without complications
CPT/HCPCS: 20680; 36416; 73560; 76000; 82962; J0360; J0690; J1100; J2405; J2704; J3010; J7030

== ENCOUNTER → 2022-08-10 11:05 | Outpatient (BNVA) | payer MEDICARE, MEDICAID, SELFPAY | PROVIDERS: PCP Family Medicine; Visit Provider Internal Medicine | DX: M06.9 Rheumatoid arthritis, unspecified (principal); Z51.81 Encounter for therapeutic drug level monitoring | CPT/HCPCS: 99213 ==

== ENCOUNTER 2022-08-19 09:03 | Outpatient (CLI) | payer MEDICARE, MEDICAID, SELFPAY ==
--- NOTE | 2022-08-19 09:14 | CT_ITS ---
WS: [id number] CT chest wo con [id number] HISTORY: 6 month f/u 8 mm nodular opacity TECHNIQUE: Axial imaging performed through the thorax. Coronal and sagittal reformats are submitted. All CT scans at [facility] use at least one of these dose optimization techniques: automated exposure control; mA and/or kV adjustment per patient size (includes targeted exams where dose is mat ched to clinical indication); or iterative reconstruction. CONTRAST: None DLP: 296.43 mGy.cm COMPARISON: 02/05/2022, 06/23/2021 and 11/07/2020 Lungs and central airway: Hyperinflated lungs. Multiple subcentimeter nodules throughout the RIGHT eula ng are stable. No new or increasing size of any nodules. Atelectasis and mild bronchial thickening RI GHT upper lobe and portions of the RIGHT middle lobe are improving are stable. Pleura: Normal. No pleural effusion. Heart and pericardium: Normal size heart with no pericardial effusion. Mediastinum and allison: No mediastinum or hilar adenopathy. Vessels: Mild atherosclerosis aorta. Normal size pulmonary artery. Chest wall and lower neck: No soft tissue masses. Upper abdomen: 6 mm cortical cyst upper pole LEFT kidney. Osseous structures: No destructive process. CT/CT chest wo con [id number] IMPRESSION: 1. Stable pulmonary nodules since 11/07/2020. 2. Scarring and atelectasis involving a small portion of the RIGHT upper and R IGHT middle lobe is stable. 3. No adenopathy.
== END 2022-08-19 09:04 | disposition home or self-care (01) ==
LOC: RAD 09:05
PROVIDERS: PCP Family Medicine; Visit Provider Internal Medicine Pulmonary Disease
DX: R91.8 Other nonspecific abnormal finding of lung field (principal); J98.11 Atelectasis
CPT/HCPCS: 71250

== ENCOUNTER 2022-08-26 11:48 | Oncology outpatient (recurring) (ONCR) | payer MEDICARE, MEDICAID, SELFPAY ==
--- NOTE | 2022-07-23 13:54 | ANES.PREANE2 ---
Pre-Anesthetic Assessment Height/Weight: Height 1.52 m Preop Diagnosis: Right Distal Femur Fracture Familial anesthetic complications: none Social No alcohol and No tobacco Exam alert, oriented x 3, clear to auscultation bilaterally and regular rate & rhythm Airway Mallampati: Class II Pulmonary Asthma CV/HEM Coronary Artery Disease, Deep Vein Thrombosis (post op) and Hypertension [facility] [place] Rheumatoid Arthritis Anesthetic Plan ASA status: 3 Anesthesia: General Risk of > 500 ml blood loss (7ml/kg in children): No Medications/Allergies Home Medications Medication Instructions Recorded Confirmed Last Taken Type Diabetic Shoes extra deep #1 ea 01/16/20 07/21/22 Unknown Rx adalimumab 40 mg/0.8 mL 40 mg (0.8 mL) SUBCUT Q14D 30 days 01/13/22 07/23/22 07/21/22 Rx subcutaneous pen kit (Humira Pen) #2 ea albuterol sulfate 90 mcg/actuation 2 puff inhalation 6XD PRN 04/08/22 07/23/22 07/23/22 07:30 Rx aerosol inhaler Shortness Of Breath #8.5 grams metoprolol succinate 50 mg 50 mg PO DAILY #90 tabs 04/08/22 07/23/22 07/23/22 07:30 Rx tablet,extended release 24 hr prednisone 5 mg tablet 5 mg PO DAILY #30 tabs 04/14/22 07/23/22 Unknown Rx glipizide 2.5 mg tablet, extended 2.5 mg PO BID #60 tabs 04/23/22 07/23/22 07/23/22 07:30 Rx release 24 hr diclofenac sodium 75 mg 75 mg PO Q12H PRN pain #20 tabs 05/19/22 07/23/22 Unknown Rx tablet,delayed release losartan 100 mg tablet 100 mg PO DAILY #30 tabs 06/03/22 07/23/22 07/23/22 07:30 Rx clobetasol 0.05 % topical cream 1 applic topical BID #30 grams 06/05/22 07/23/22 07/23/22 12:00 Rx Symbicort 80 mcg-4.5 mcg/actuation 2 puff inhalation BID #10.2 grams 06/16/22 07/23/22 07/23/22 07:30 Rx HFA aerosol inhaler (budesonide-formoterol) alendronate 70 mg tablet 70 mg PO Q7D #12 tabs 06/16/22 07/23/22 07/17/22 Rx gabapentin 300 mg capsule 300 mg PO TID #270 caps 06/16/22 07/23/22 07/23/22 07:30 Rx montelukast 10 mg tablet 10 mg PO DAILY #90 tabs 06/16/22 07/23/22 07/23/22 07:30 Rx (Singulair) pantoprazole 20 mg tablet,delayed 20 mg PO DAILY #90 tabs 06/16/22 07/23/22 07/23/22 07:30 Rx release rosuvastatin 20 mg tablet 20 mg PO BEDTIME #90 tabs 06/16/22 07/23/22 07/22/22 22:00 Rx venlafaxine 37.5 mg 37.5 mg PO DAILY #90 caps 06/16/22 07/23/22 07/23/22 07:30 Rx capsule,extended release 24 hr (Effexor XR) Allergies Allergy/AdvReac Type Severity Reaction Status Date / Time lisinopril Allergy Unknown unknown Verified 07/23/22 13:17 sulfabenzamide Allergy Unknown unknown Verified 07/23/22 13:17 apremilast [From Otezla] Allergy cough Verified 07/23/22 13:17 Sulfa (Sulfonamide Allergy Unknown Verified 07/23/22 13:17 Antibiotics) [facility] [place] Anesthesia Medical History Asthma CAD (coronary artery disease) COPD (chronic obstructive pulmonary disease) Depression GERD (gastroesophageal reflux disease) Hereditary hemochromatosis History of COVID-19 Hyperlipidemia Hypertension Hypothyroidism Lumbar radiculopathy Osteoporosis 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 Peripheral neuropathy Psoriasis Pulmonary embolism Pulmonary nodules Rheumatoid arthritis Type 2 diabetes mellitus Surgical History History of appendectomy History of cataract extraction History of cholecystectomy History of foot surgery History of hand surgery History of hysterectomy History of tonsillectomy History of tubal ligation Status post total knee replacement, right Family History Sister Hypertension Social History Smoking and tobacco status: never smoked Second hand smoke exposure: Yes Smoking risk assessment/counseling performed?: Yes Alcohol intake: never Substance/Drug Use: never Lives independently: Yes Household members: none Housing: Apartment Marital status: / Current occupational status: retired Pets and animals: Yes Do you think of yourself as: Straight/Heterosexual Current gender identity: Female Data Anesthesia Cardiac Studies: Echocardiogram 09/10/21 Sestamibi Stress Test (Cardiology) 05/20/20
[2022-08-26 12:01] VITALS: BP 134/84; PULSE 70; RESP 18; TEMP 36.6; O2SAT 96
[2022-08-26 12:18] LABS: Basophils % 0.4 %; Eosinophils # 0.3 10^3/uL (0.0-0.8); Eosinophils % 7.3 %; Hematocrit 40.3 % (37.0-47.0); Hemoglobin 12.9 g/dL (11.5-15.3); Lymphocytes # 1.5 10^3/uL (0.8-4.8); Lymphocytes % 33.9 %; Mean Corpuscular Hemoglobin 28.9 pg (28.0-34.0); Mean Corpuscular Volume 90.2 fl (81-99); Mean Platelet Volume 9.7 fL (7.4-10.4); Monocytes # 0.4 10^3/uL (0.2-0.9); Monocytes % 8.6 %; Neutrophils # 2.25 10^3/uL (1.8-7.7); Neutrophils % 49.6 %; Nucleated Red Blood Cells % 0 %; Platelet Count 155 10^3/cmm (130-400); Red Blood Count 4.47 10^6/uL (4.1-5.3); Red Cell Distribution Width 13.5 % (12.1-15.1); White Blood Count 4.5 10^3/uL (4.0-10.0)
[2022-08-26 12:38] LABS: Alanine Aminotransferase 11 U/L (0-33); Albumin Level 3.9 g/dL (3.5-5.2); Alkaline Phosphatase 48 U/L (35-105); Anion Gap 12.1 (5-19); Aspartate Amino Transferase 16 U/L (0-32); Carbon Dioxide 26 mmol/L (22-29); Ferritin 45 ng/mL (15-150); Globulin 2.9 g/dL (1.3-4.6); Iron 90 ug/dL (37-145); Percent Saturation 38.6 % (20-50); Potassium 4.1 mmol/L (3.5-5.1); Sodium 142 mmol/L (136-145); Total Bilirubin 0.5 mg/dL (0.15-1.2); Total Iron Binding Capacity 233 mcg/dl; Total Protein 6.8 g/dL (6.6-8.7); Unsaturated Iron Binding 143 ug/dL (112-347)
[2022-08-26 12:46] LABS: Blood Urea Nitrogen 12 mg/dL (8-23); Calcium 8.7 mg/dL (8.5-10.5)
[2022-08-26 13:54] LABS: Glucose 115 mg/dL (65-115); Osmolality Calculated 295 mOsm/kg (285-295)
[2022-08-26 14:08] LABS: Chloride 105 mmol/L (98-107)
== END 2022-09-04 23:59 | disposition home or self-care (01) ==
PROVIDERS: Nurse Practitioner Family; PCP Family Medicine; Visit Provider Internal Medicine Medical Oncology
DX: E83.110 Hereditary hemochromatosis (principal)
CPT/HCPCS: 80053; 82728; 83540; 83550; 85025; 99213

== ENCOUNTER → 2022-08-27 09:21 | Outpatient (BNVA) | payer MEDICARE, MEDICAID, SELFPAY | PROVIDERS: PCP Family Medicine; Visit Provider Internal Medicine Pulmonary Disease | DX: R91.8 Other nonspecific abnormal finding of lung field (principal); J44.9 Chronic obstructive pulmonary disease, unspecified; J45.20 Mild intermittent asthma, uncomplicated; M06.9 Rheumatoid arthritis, unspecified; I25.10 Atherosclerotic heart disease of native coronary artery without angina pectoris; Z77.22 Contact with and (suspected) exposure to environmental tobacco smoke (acute) (chronic); E11.9 Type 2 diabetes mellitus without complications; I10 Essential (primary) hypertension; E78.5 Hyperlipidemia, unspecified | CPT/HCPCS: 99214 ==

== ENCOUNTER → 2022-10-19 08:03 | Outpatient (BNVA) | payer MEDICARE, MEDICAID, SELFPAY | PROVIDERS: PCP Family Medicine; Visit Provider Podiatrist Foot & Ankle Surgery | DX: E11.8 Type 2 diabetes mellitus with unspecified complications (principal); L84 Corns and callosities; L60.3 Nail dystrophy; M06.9 Rheumatoid arthritis, unspecified; E11.42 Type 2 diabetes mellitus with diabetic polyneuropathy; M19.079 Primary osteoarthritis, unspecified ankle and foot; M21.41 Flat foot [pes planus] (acquired), right foot; M21.42 Flat foot [pes planus] (acquired), left foot; M20.21 Hallux rigidus, right foot; M20.22 Hallux rigidus, left foot | CPT/HCPCS: 11056; 11721 ==

== ENCOUNTER → 2022-12-22 10:30 | Outpatient (BNVA) | payer MEDICARE, MEDICAID, SELFPAY | PROVIDERS: PCP Family Medicine; Visit Provider Family Medicine | DX: Z51.81 Encounter for therapeutic drug level monitoring (principal); E11.9 Type 2 diabetes mellitus without complications; E11.42 Type 2 diabetes mellitus with diabetic polyneuropathy; Z13.220 Encounter for screening for lipoid disorders; I10 Essential (primary) hypertension; F32.A Depression, unspecified; D64.9 Anemia, unspecified | CPT/HCPCS: 80053; 80061; 82728; 83036; 83550; 83735; 85025 ==

== ENCOUNTER 2022-12-28 14:30 | Oncology outpatient (recurring) (ONCR) | payer MEDICARE, MEDICAID, SELFPAY | END 2023-01-05 23:59 | disposition home or self-care (01) | PROVIDERS: PCP Family Medicine; Visit Provider Internal Medicine Medical Oncology | DX: D64.9 Anemia, unspecified (principal); E83.110 Hereditary hemochromatosis; E11.42 Type 2 diabetes mellitus with diabetic polyneuropathy | CPT/HCPCS: 99195; 99214 ==

== ENCOUNTER → 2023-01-19 08:52 | Outpatient (BNVA) | payer MEDICARE, MEDICAID, SELFPAY | PROVIDERS: PCP Family Medicine; Visit Provider Podiatrist Foot & Ankle Surgery | DX: E11.42 Type 2 diabetes mellitus with diabetic polyneuropathy; M06.9 Rheumatoid arthritis, unspecified; M21.41 Flat foot [pes planus] (acquired), right foot; M21.42 Flat foot [pes planus] (acquired), left foot; M20.21 Hallux rigidus, right foot; M20.22 Hallux rigidus, left foot; L60.3 Nail dystrophy; L84 Corns and callosities | CPT/HCPCS: 11055; 11721 ==

== ENCOUNTER → 2023-01-21 08:46 | Outpatient (BNVA) | payer OTHER, MEDICAID, SELFPAY | PROVIDERS: PCP Family Medicine; Visit Provider Internal Medicine | DX: M06.9 Rheumatoid arthritis, unspecified (principal); Z51.81 Encounter for therapeutic drug level monitoring | CPT/HCPCS: 99213 ==

== ENCOUNTER 2023-01-22 09:33 | Outpatient (CLI) | payer OTHER, MEDICAID, SELFPAY ==
--- NOTE | 2023-01-22 10:00 | FL_ITS ---
WS: [id number] Exam: FL barium swallow modifd [id number] Date/Time of Exam: 01/22/2023 9:54 AM Reason For Exam: Fluoroscopy time: 2min 59.204264cut minutes # of spot films: Modified barium swallow was performed in conjunction with the speech therapy service. The patient tolerated all consistencies of barium mixture foodstuffs without aspiration or penetratio n. Oropharyngeal phase of swallowing was grossly normal. Ingestion of a barium tablet demonstrated te mporary retention of the tablet in the mid esophageal region. An underlying stricture or narrowing in the mid esophagus might cause this. The tablet eventually was passed into the stomach. IMPRESSION: 1. Normal swallowing function. No indication of aspiration or penetration. 2. Temporary retention of the ingested barium tablet in the midesophagus. An underlying stricture or narrowing in this region is not ruled out. FL/FL barium swallow modifd [id number] Recommendation: A conventional barium swallow study is suggested for follow-up.
== END 2023-01-22 09:34 | disposition home or self-care (01) ==
LOC: RAD 09:33
PROVIDERS: PCP Family Medicine; Visit Provider Family Medicine
DX: R13.10 Dysphagia, unspecified (principal)
CPT/HCPCS: 74230; 80053; 80061; 83036; 83735; 85025; 92611

== ENCOUNTER 2023-02-17 10:26 | Outpatient (CLI) | payer OTHER, MEDICAID, SELFPAY ==
--- NOTE | 2023-02-17 11:00 | CT_ITS ---
WS: [id number] CT chest wo con [id number] HISTORY: Pulmonary nodules TECHNIQUE: Axial imaging performed through the thorax. Coronal and sagittal reformats are submitted. All CT scans at [facility] use at least one of these dose optimization techniques: automated exposure control; mA and/or kV adjustment per patient size (includes targeted exams where dose is mat ched to clinical indication); or iterative reconstruction. CONTRAST: None DLP: 429.89 mGy.cm COMPARISON: 11/07/2020, 08/19/2022 Lungs and central airway: Noncalcified, subcentimeter pulmonary nodules are noted throughout the RIGH T lung. These have been seen before and previously described and stable since 2020. The largest nodul e is 6.2 mm in the medial RIGHT lower lobe. There are additional areas of platelike linear atelectasi s in the RIGHT middle and RIGHT lower lobes. No new mass or enlarging nodule. No pneumonia. Pleura: Normal. No pleural effusion. Heart and pericardium: Normal size heart with no pericardial effusion. Mediastinum and allison: No mediastinum or hilar adenopathy. Vessels: Mild atherosclerosis aorta. No aneurysm. Normal size pulmonary artery. Chest wall and lower neck: No soft tissue masses. Upper abdomen: 6 mm cortical low-attenuation mass LEFT kidney. Stable. No adrenal mass. There is an a dditional 6 mm hypodensity in the inferior medial RIGHT lobe of the liver which is stable. Mild ather osclerosis aorta. Osseous structures: No destructive process. IMPRESSION: 1. Long-term stability of stable subcentimeter nodules in the RIGHT lung. No additional follow-up nec essary. 2. No pneumonia. No adenopathy.
== END 2023-02-17 10:27 | disposition home or self-care (01) ==
LOC: RAD 10:26
PROVIDERS: PCP Family Medicine; Visit Provider Internal Medicine Pulmonary Disease
DX: R91.8 Other nonspecific abnormal finding of lung field (principal); I26.99 Other pulmonary embolism without acute cor pulmonale
CPT/HCPCS: 71250; 99024

== ENCOUNTER → 2023-02-18 13:11 | Outpatient (BNVA) | payer OTHER, MEDICAID, SELFPAY | PROVIDERS: PCP Family Medicine; Referring Provider Family Medicine; Visit Provider Surgery | DX: R13.10 Dysphagia, unspecified (principal) | CPT/HCPCS: 99204 ==

== ENCOUNTER 2023-03-04 07:55 | Day surgery (SDC) | payer OTHER, MEDICAID, SELFPAY ==
--- NOTE | 2023-03-04 06:29 | P.HPUD_ITS ---
Surgery/Procedure H&P Update DATE OF PROCEDURE: March 04, 2023 DATE H&P PERFORMED: 02/18/23 H&P UPDATE INFORMATION: I have reviewed H&P completed within last 30 days, I have examined patient prior to procedure, No changes to prior documentation and H&P is in [facility] [place] on date indicated PLANNED PROCEDURE: Operation Date: 03/04/23 09:10 Proposed Procedures p [id number] EGD R13.10(Not Applicable) - Heranndo Melendrez MD
[2023-03-04 08:25] VITALS: BP 139/94; PULSE 72; RESP 16; TEMP 36.4; O2SAT 94; BMI 33.4
[2023-03-04] MEDS: sodium chloride 0.9% 1,000 ML 30 ML IV (08:30)
--- NOTE | 2023-03-04 08:39 | ANES.PREANE2 ---
Pre-Anesthetic Assessment Height/Weight: Height 1.52 m Weight 77.564 kg Temp Pulse Resp BP Pulse Ox O2 Del Method 97.5 F L 72 16 139/94 94 Room Air 03/04/23 08:25 03/04/23 08:25 03/04/23 08:25 03/04/23 08:25 03/04/23 08:25 03/04/23 08:25 Operation Date: 03/04/23 09:10 Proposed Procedures p 31230 EGD R13.10(Not Applicable) - Hernando Melendrez MD Familial anesthetic complications: None Was Beta Violette taken within 24 hours: N/A Was Clonidine taken within 24 hours: N/A Last intake: Intake Last Liquid Date 03/03/23 Last Liquid Time 22:00 Last Solid Date 03/03/23 Last Solid Time 13:30 Social No alcohol and No tobacco Exam alert, oriented x 3, clear to auscultation bilaterally and regular rate & rhythm Airway Mallampati: Class II Pulmonary Asthma CV/HEM Coronary Artery Disease, Deep Vein Thrombosis (postop w/ nonocclussive PE in 2021 - now no longer on blood thinners) and Hypertension Hepatic hereditary hemochromatosis Metabolic Diabetes Mellitus [facility] [place] Rheumatoid Arthritis Anesthetic Plan ASA status: 3 Anesthesia: MAC Risk of > 500 ml blood loss (7ml/kg in children): No Medications/Allergies Home Medications Medication Instructions Recorded Confirmed Last Taken Type albuterol sulfate 90 mcg/actuation 2 puff inhalation 6XD PRN 04/08/22 03/04/23 03/03/23 Rx aerosol inhaler Shortness Of Breath #8.5 grams metoprolol succinate 50 mg 50 mg PO DAILY #90 tabs 04/08/22 03/04/23 03/04/23 Rx tablet,extended release 24 hr 0615 Symbicort 80 mcg-4.5 mcg/actuation 2 puff inhalation BID #10.2 grams 06/16/22 03/04/23 03/03/23 Rx HFA aerosol inhaler (budesonide-formoterol) alendronate 70 mg tablet 70 mg PO Q7D #12 tabs 06/16/22 03/04/23 03/03/23 Rx gabapentin 300 mg capsule 300 mg PO TID #270 caps 06/16/22 03/04/23 03/03/23 Rx rosuvastatin 20 mg tablet 20 mg PO BEDTIME #90 tabs 06/16/22 03/04/23 03/03/23 Rx venlafaxine 37.5 mg 37.5 mg PO DAILY #90 caps 06/16/22 03/04/23 03/03/23 Rx capsule,extended release 24 hr (Effexor XR) losartan 100 mg tablet 100 mg PO DAILY #90 tabs 09/03/22 03/04/23 03/03/23 Rx clobetasol 0.05 % topical cream 1 applic topical BID PRN Rash 12/24/22 03/02/23 Unknown History adalimumab 40 mg/0.8 mL See Rx Instructions SUBCUT 01/21/23 03/02/23 02/19/23 Rx subcutaneous pen kit (Humira Pen) .COMPLEX #4 ea prednisone 5 mg tablet 5 mg PO DAILY #30 tabs 01/21/23 03/02/23 Unknown Rx glipizide 2.5 mg tablet, extended 2.5 mg PO DAILY 03/02/23 03/04/23 03/03/23 History release 24 hr omeprazole 40 mg capsule,delayed 40 mg PO DAILY 03/02/23 03/04/23 03/03/23 History release Allergies Allergy/AdvReac Type Severity Reaction Status Date / Time lisinopril Allergy Unknown unknown Verified 02/18/23 13:22 sulfabenzamide Allergy Unknown unknown Verified 02/18/23 13:22 apremilast [From Otezla] Allergy cough Verified 02/18/23 13:22 Sulfa (Sulfonamide Allergy Unknown Verified 02/18/23 13:22 Antibiotics) Current Medications Generic Name Dose Route Start Last Admin Trade Name Freq PRN Reason Stop Dose Admin Sodium Chloride 1,000 mls @ 30 mls/hr 03/04/23 08:15 03/04/23 08:30 Sodium Chloride 0.9% IV 03/05/23 08:14 30 mls/hr .Q24H SAVANA Administration PFSH Anesthesia Medical History Hypothyroidism Depression Hypertension History of COVID-19 Osteoporosis Peripheral neuropathy Type 2 diabetes mellitus Hereditary hemochromatosis Psoriasis Hyperlipidemia GERD (gastroesophageal reflux disease) Pulmonary embolism 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 Pulmonary nodules CAD (coronary artery disease) Asthma COPD (chronic obstructive pulmonary disease) Lumbar radiculopathy Rheumatoid arthritis Surgical History (Updated 02/18/23 @ 13:26 by Lovely Kirkland) History of knee surgery Right knee fracture History of foot surgery History of hand surgery Status post total knee replacement, right History of tubal ligation History of hysterectomy History of cataract extraction History of tonsillectomy History of cholecystectomy History of appendectomy Family History Sister Hypertension Social History Smoking and tobacco/nicotine status: never used tobacco/nicotine Second hand smoke exposure: Yes Alcohol intake: never Substance/Drug Use: never Lives independently: Yes Household members: none Housing: Apartment Marital status: / Current occupational status: retired Pets and animals: Yes Do you think of yourself as: Straight/Heterosexual Current gender identity: Female Data Anesthesia Cardiac Studies: Echocardiogram 09/10/21 Sestamibi Stress Test (Cardiology) 05/20/20
[2023-03-04 09:17] VITALS: BP 96/68; PULSE 70; RESP 14; TEMP 36.1; O2SAT 94
[2023-03-04 09:27] VITALS: BP 99/69; PULSE 67; RESP 14; TEMP 36.4; O2SAT 92
[2023-03-04 09:37] VITALS: BP 131/87; PULSE 64; RESP 16; O2SAT 97
--- NOTE | 2023-03-04 09:40 | ANE.PACU2 ---
Inpatient post-anesthesia follow up: Airway intact: Yes Vital signs: Temperature 97.6 F Pulse Rate 64 Respiratory Rate 16 Blood Pressure 131/87 Pulse Oximetry 97 Oxygen Delivery Me thod Room Air Oxygen Flow Rate Fraction of Inspir ed Oxygen Hydration adequate: Yes Nausea and vomiting: No Pain level: 1 Mental status: Baseline
== END 2023-03-04 10:14 | disposition home or self-care (01) ==
PROVIDERS: PCP Family Medicine; Visit Provider Surgery
PROC: 0DJ08ZZ Inspection of Upper Intestinal Tract, Via Natural or Artificial Opening Endoscopic (ICD-10-PCS; CPT 43235; principal; 2023-03-04 09:10)
DX: R13.10 Dysphagia, unspecified (principal); I85.00 Esophageal varices without bleeding; K29.50 Unspecified chronic gastritis without bleeding; I25.10 Atherosclerotic heart disease of native coronary artery without angina pectoris; Z86.718 Personal history of other venous thrombosis and embolism; I10 Essential (primary) hypertension; E11.9 Type 2 diabetes mellitus without complications; M06.9 Rheumatoid arthritis, unspecified; E03.9 Hypothyroidism, unspecified; Z86.16 Personal history of COVID-19; M81.0 Age-related osteoporosis without current pathological fracture; E78.5 Hyperlipidemia, unspecified; Z86.711 Personal history of pulmonary embolism; J44.9 Chronic obstructive pulmonary disease, unspecified
CPT/HCPCS: 43239; 88305; 88342; J2704; J3010; J7030

== ENCOUNTER → 2023-04-01 15:28 | Outpatient (BNVA) | payer MEDICARE, MEDICAID, SELFPAY | PROVIDERS: PCP Family Medicine; Visit Provider Surgery | DX: R13.10 Dysphagia, unspecified (principal) | CPT/HCPCS: 99212 ==

== ENCOUNTER → 2023-04-28 08:37 | Outpatient (BNVA) | payer MEDICARE, MEDICAID, SELFPAY | PROVIDERS: PCP Family Medicine; Visit Provider Podiatrist Foot & Ankle Surgery | DX: M06.9 Rheumatoid arthritis, unspecified (principal); E11.42 Type 2 diabetes mellitus with diabetic polyneuropathy; M19.071 Primary osteoarthritis, right ankle and foot; M19.072 Primary osteoarthritis, left ankle and foot; M21.41 Flat foot [pes planus] (acquired), right foot; M21.42 Flat foot [pes planus] (acquired), left foot; M20.21 Hallux rigidus, right foot; M20.22 Hallux rigidus, left foot; L60.3 Nail dystrophy; L84 Corns and callosities | CPT/HCPCS: 11056; 11721 ==

== ENCOUNTER 2023-04-29 14:50 | Emergency (ER) | payer MEDICARE, MEDICAID, SELFPAY ==
[2023-04-29 14:55] VITALS: BP 145/90; PULSE 83; RESP 16; TEMP 37.1; O2SAT 94; BMI 32.4
--- NOTE | 2023-04-29 15:49 | XR_ITS ---
WS: [id number] Examination: XR chest 1V portable [id number] Reason for Exam: chest pain, palpitation Date: 2023 Comparison: September 10, 2021 Findings: The cardiomediastinal silhouette is within normal limits. There is no pulmonary edema or pleural effusion. There is no dense consolidation Impression: No acute lung process is seen.
[2023-04-29 16:17] LABS: Basophils % 0.6 %; Eosinophils # 0.3 10^3/uL (0.0-0.8); Eosinophils % 6.4 %; Hematocrit 43.8 % (36-47); Lymphocytes # 1.9 10^3/uL (0.8-4.8); Mean Corpuscular HGB Conc 32.9 g/dL (30-55); Mean Corpuscular Hemoglobin 28.3 pg (27-33); Mean Corpuscular Volume 86.2 fl (85-98); Mean Platelet Volume 9.5 fL (7.4-10.4); Monocytes # 0.5 10^3/uL (0.2-0.9); Neutrophils # 2.29 10^3/uL (1.8-7.7); Neutrophils % 45.8 %; Nucleated Red Blood Cells % 0 %; Platelet Count 159 10^3/cmm (157-399); Red Blood Count 5.08 10^6/uL (3.85-5.65); Red Cell Distribution Width 13.2 % (12.1-15.1)
[2023-04-29 16:44] LABS: Troponin(5th) Baseline 8 ng/L (0-10)
[2023-04-29 16:45] LABS: Alanine Aminotransferase 20 U/L (0-33); Albumin Level 4.2 g/dL (3.5-5.2); Alkaline Phosphatase 57 U/L (35-105); Anion Gap 14.3 (5-19); Aspartate Amino Transferase 48 U/L (0-32); Blood Urea Nitrogen 9 mg/dL (8-23); Calcium 9.3 mg/dL (8.5-10.5); Carbon Dioxide 28 mmol/L (22-29); Chloride 102 mmol/L (98-107); Globulin 3.6 g/dL (1.3-4.6); Glucose 181 mg/dL (65-115); Osmolality Calculated 293 mOsm/kg (285-295); Potassium 4.3 mmol/L (3.5-5.1); Sodium 140 mmol/L (136-145); Total Bilirubin 0.8 mg/dL (0.15-1.2); Total Protein 7.8 g/dL (6.6-8.7)
[2023-04-29 16:56] VITALS: BP 130/88; PULSE 80; RESP 16; O2SAT 93
--- NOTE | 2023-04-29 17:29 | ECG_ITS ---
[facility] Test Date: 2023-04-29 Pat Name: Corinna Lance Department: Room: Gender: Female Cat Dog Or Other Pet Groomer: : 1950 Requested By: Micah Paris Order Number: [id number] Sonny MD: Roxana Gonzalez M.D. Measurements Intervals [place] Rate: 73 P: 10 [place]: 174 QRS: -41 QRSD: 75 T: 65 QT: 383 QTc: 425 Interpretive Statements SINUS RHYTHM LEFT AXIS DEVIATION [QRS AXIS < -30] ANTEROSEPTAL MYOCARDIAL INFARCTION , PROBABLY OLD [40+ ms Q WAVE IN V1-V4] Compared to ECG 07/23/2022 13:48:05 Left-axis deviation now present Myocardial infarct finding still present Electronically Signed On 04-29-2023 20:23:11 CLASSIFIED COPY CONTROL CLERK by Roxana Gonzalez M.D. [id number]
--- NOTE | 2023-04-29 17:50 | ED_ITS ---
HPI - Arrhythmia/Palpitations 2 General: Chief Complaint: Arrhythmia/Palpitations Stated Complaint: dr dawson, heart rate issues Time Seen by Provider: 04/29/23 17:33 History of Present Illness: Patient presents to the ER for complaints of heart racing and palpitations. Patient says for about the last 24 hours her heart has been anywhere between approximately 50 beats a minute to 160 beats a minute. Patient also says she has had some chest pressure and left bicipital pain. These appear to be 2 discrete issues and the chest pain does not radiate down into the bicep. Per the patient she has no history of cardiac issues. Patient does have a history of hypertension, hypothyroidism, type 2 diabetes, patient says she gets mildly short of breath with fatigue and has had intermittent episodes of nausea since this all started. Patient is not having chest pain currently. Upon arrival to the ER patient's heart rate was 83 bpm. Review of Systems 2 General: Reports: 10 or more systems reviewed and unremarkable except in HPI and below PFSH ED 2 PFSH: Medical History Hypothyroidism Depression Hypertension History of COVID-19 Osteoporosis Peripheral neuropathy Type 2 diabetes mellitus Hereditary hemochromatosis Psoriasis Hyperlipidemia GERD (gastroesophageal reflux disease) Pulmonary embolism 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 Pulmonary nodules CAD (coronary artery disease) Asthma COPD (chronic obstructive pulmonary disease) Lumbar radiculopathy Rheumatoid arthritis Surgical History History of knee surgery Right knee fracture History of foot surgery History of hand surgery Status post total knee replacement, right History of tubal ligation History of hysterectomy History of cataract extraction History of tonsillectomy History of cholecystectomy History of appendectomy Family History Sister Hypertension Social History Smoking and tobacco/nicotine status: never used tobacco/nicotine Second hand smoke exposure: Yes Alcohol intake: never Substance/Drug Use: never Lives independently: Yes Household members: none Housing: Apartment Marital status: / Current occupational status: retired Pets and animals: Yes Do you think of yourself as: Straight/Heterosexual Current gender identity: Female Physical Exam 2 Const: COMMON NORMALS: no acute distress, average body habitus, patient oriented x3, no limitations, healthy appearing, alert and well nourished HENMT: COMMON NORMALS: normocephalic, atraumatic, hearing grossly normal bilaterally, external ears normal, Normal external nose present, moist oral mucous membranes and oropharynx normal HEAD & SCALP: normocephalic and atraumatic NOSE: Normal external nose present EXTERNAL EAR: Yes external ears normal Eye: COMMON NORMALS: Equal, round and reactive pupils present, EOMs intact bilaterally, conjunctivae normal and no scleral icterus CONJUNCTIVA: Yes conjunctivae normal PUPIL: Yes Equal, round and reactive pupils present Neck/C-Spine: COMMON NORMALS: full ROM, no lymphadenopathy, supple, no meningeal signs, no JVD and Thyroid normal THYROID: Thyroid normal Chest: COMMONS NORMALS: normal inspection of the chest and normal palpation of entire chest wall Resp: COMMON NORMALS: normal respiratory effort, No retractions, No use of accessory muscles and clear to auscultation bilaterally AUSCULTATION: clear to auscultation bilaterally Cardio: COMMON NORMALS: no JVD, regular rate, regular rhythm, S1 normal heart sound present, S2 normal heart sound present, No gallops present (Cardio), No clicks present (Cardio), No murmurs present (Cardio) and No rub (Cardio) R ATE: regular rate RHYTHM: regular rhythm HEART SOUNDS: S1 normal heart sound present and S2 normal heart sound present GI: COMMON NORMALS: Normal to inspection, nondistended, normoactive bowel sounds present, Soft to palpation, non-tender, No hepatosplenomegaly present and no masses PALPATION: Yes Soft to palpation and Yes No hepatosplenomegaly present Neuro: COMMON NORMALS: patient oriented x3 SENSORIUM/ORIENTATION: Yes alert MENINGEAL SIGNS: Yes no meningeal signs Course 2 Vital Signs: Vital signs: Vital Signs Temperature 98.8 F 04/29/23 14:55 Pulse Rate 69 04/29/23 20:37 Respiratory Rate 17 04/29/23 20:37 Blood Pressure 151/90 04/29/23 20:37 Pulse Oximetry 93 04/29/23 20:37 Oxygen Delivery Me thod Room Air 04/29/23 16:56 MDM - Arrhythmia/Palpitations Medical Decision Making Patient presents to the ER with complaints of high heart rate. Upon arrival to the ER her heart rate was 83 beats a minute and she was never tachycardic during her ER stay. Patient was worked up with serial EKGs, serial lab work, and chest x-ray. All of which was essentially benign. It is felt that the patient is probably having paroxysmal tachycardia. These results was explained to the patient's. Patient will be instructed to follow-up with her PCP for further evaluation and treatment which may include referral to cardiology and/or Holter monitor. Differential Diagnosis Likely palpitations; Unlikely anxiety, sinus tachycardia, artial fibrillation, artial flutter, ventricular premature beats, supraventricular tachycardia, ventricular tachycardia or WPW Medical Records I reviewed the patient's medical records. Lab Data I reviewed the patient's lab results. 04/29/23 16:12 04/29/23 16:12 Laboratory Results WBC 5.00 10^3/uL (3.29-11.43) 04/29/23 16:12 RBC 5.08 10^6/uL (3.85-5.65) 04/29/23 16:12 Hgb 14.40 g/dL (11.27-16.99) 04/29/23 16:12 Hct 43.8 % (36-47) 04/29/23 16:12 MCV 86.2 fl (85-98) 04/29/23 16:12 MCH 28.3 pg (27-33) 04/29/23 16:12 MCHC 32.9 g/dL (30-55) 04/29/23 16:12 RDW 13.2 % (12.1-15.1) 04/29/23 16:12 Plt Count 159 10^3/cmm (157-399) 04/29/23 16:12 MPV 9.5 fL (7.4-10.4) 04/29/23 16:12 Neut % (Auto) 45.8 % 04/29/23 16:12 Lymph % (Auto) 37.0 % 04/29/23 16:12 [place] % (Auto) 10.0 % 04/29/23 16:12 Eos % (Auto) 6.4 % 04/29/23 16:12 Baso % (Auto) 0.6 % 04/29/23 16:12 Neut # (Auto) 2.29 10^3/uL (1.8-7.7) 04/29/23 16:12 Lymph # (Auto) 1.9 10^3/uL (0.8-4.8) 04/29/23 16:12 [place] # (Auto) 0.5 10^3/uL (0.2-0.9) 04/29/23 16:12 Eos # (Auto) 0.3 10^3/uL (0.0-0.8) 04/29/23 16:12 Baso # (Auto) 0.0 10^3/uL (0.0-0.1) 04/29/23 16:12 Nucleated RBC % (auto) 0 % 04/29/23 16:12 Nucleated RBCs # 0.0 /100WBC 04/29/23 16:12 Sodium 140 mmol/L (136-145) 04/29/23 16:12 Potassium 4.3 mmol/L (3.5-5.1) 04/29/23 16:12 Chloride 102 mmol/L (98-107) 04/29/23 16:12 Carbon Dioxide 28 mmol/L (22-29) 04/29/23 16:12 Anion Gap 14.3 (5-19) 04/29/23 16:12 BUN 9 mg/dL (8-23) 04/29/23 16:12 Creatinine 0.9 mg/dL (0.5-0.9) 04/29/23 16:12 GFR Calculation Not Reportable 04/29/23 16:12 Glucose 181 mg/dL (65-115) H 04/29/23 16:12 Calculated Osmolality 293 mOsm/kg (285-295) 04/29/23 16:12 Calcium 9.3 mg/dL (8.5-10.5) 04/29/23 16:12 Total Bilirubin 0.8 mg/dL (0.15-1.2) 04/29/23 16:12 AST 48 U/L (0-32) H 04/29/23 16:12 ALT 20 U/L (0-33) 04/29/23 16:12 Alkaline Phosphatase 57 U/L (35-105) 04/29/23 16:12 Troponin T Baseline 8 ng/L (0-10) 04/29/23 16:12 Troponin T 120 Minute 6.00 ng/L (0-10) 04/29/23 18:48 Delta Troponin T -2.00 ABS# (0-10) L 04/29/23 18:48 Total Protein 7.8 g/dL (6.6-8.7) 04/29/23 16:12 Albumin 4.2 g/dL (3.5-5.2) 04/29/23 16:12 Globulin 3.6 g/dL (1.3-4.6) 04/29/23 16:12 All radiology interpretation(s) finalized by discharge EKG Data EKG 1: I personally reviewed and interpreted this EKG as follows: EKG interpretation date: 04/29/23 EKG interpretation time: 17:29 Prior EKG tracings: not available for review Interpretation: Ventricular rate 73 bpm, VT interval 174, QRS duration 75, QTc of 410, sinus rhythm, left axis deviation Discharge Plan Discharge Patient Disposition: Home Clinical Impression: Paroxysmal tachycardia Hypertension Qualifiers: Hypertension type: unspecified Qualified Code(s): I10 - Essential (primary) hypertension Condition: Stable Prescriptions: No Action albuterol sulfate 90 mcg/actuation HFA aerosol inhaler 2 puff INHALATION 6XD PRN (Reason: Shortness Of Breath) Qty: 8.5 6RF metoprolol succinate 50 mg tablet extended release 24 hr 50 mg PO DAILY Qty: 90 3RF Humira Pen 40 mg/0.8 mL pen injector kit See Rx Instructions SUBCUT .COMPLEX Qty: 4 6RF Rx Instructions: inject one - 40 mg/0.8 mL pen every 2 weeks SUBCUT clobetasol 0.05 % cream 1 applic topical BID PRN (Reason: Rash) losartan 100 mg tablet 100 mg PO DAILY Qty: 90 3RF alendronate 70 mg tablet 70 mg PO Q7D Qty: 12 4RF gabapentin 300 mg capsule 300 mg PO TID Qty: 270 3RF rosuvastatin 20 mg tablet 20 mg PO BEDTIME Qty: 90 3RF budesonide-formoterol [Symbicort] 80-4.5 mcg/actuation HFA aerosol inhaler 2 puff inhalation BID Qty: 10.2 12RF venlafaxine [Effexor XR] 37.5 mg capsule,extended release 24hr 37.5 mg PO DAILY Qty: 90 3RF glipizide 2.5 mg tablet extended release 24hr 2.5 mg PO DAILY Rx Instructions: TAKE 1 TABLET BY MOUTH TWICE DAILY Discharge Orders: Discharge ED (Routine); Ordered 04/29/23 Ordered By: Micah Paris Referrals: Raleigh Carcamo MD [Primary Care Provider] - 1 week Patient Instructions: Tachycardia (ED), Hypertension in the Older Adult (ED) Activity Restrictions/Additional Instructions: Your evaluation in the ER including physical exam, blood work, EKG and chest x- ray did not show any cardiac cause of your intermittent tachycardia. Is felt that this is what is called paroxysmal tachycardia. Please follow-up with your family practice physician for further evaluation and testing which may include referral to a landscape and yardwork laborer and/or Holter monitor. If your symptoms return please feel free to return to the ER. Coding Level of Care Code ED Applications Programmer for Shiloh Wright
[2023-04-29 19:00] VITALS: BP 165/102; PULSE 63; RESP 16; O2SAT 94
[2023-04-29 19:30] VITALS: BP 192/113; PULSE 66; RESP 14; O2SAT 95
[2023-04-29 20:30] VITALS: BP 145/90
[2023-04-29 20:37] VITALS: BP 151/90; PULSE 69; RESP 17; O2SAT 93
== END 2023-04-29 20:39 | disposition home or self-care (01) ==
PROVIDERS: Emergency Provider Emergency Medicine; PCP Family Medicine
DX: I47.9 Paroxysmal tachycardia, unspecified (principal); I10 Essential (primary) hypertension; Z79.84 Long term (current) use of oral hypoglycemic drugs; Z77.22 Contact with and (suspected) exposure to environmental tobacco smoke (acute) (chronic); E11.42 Type 2 diabetes mellitus with diabetic polyneuropathy; E78.5 Hyperlipidemia, unspecified; I25.10 Atherosclerotic heart disease of native coronary artery without angina pectoris; J44.9 Chronic obstructive pulmonary disease, unspecified
CPT/HCPCS: 36415; 71045; 80053; 84484; 85025; 93005; 99285

== ENCOUNTER 2023-05-03 12:46 | Oncology outpatient (recurring) (ONCR) | payer MEDICARE, MEDICAID, SELFPAY ==
[2023-05-03 13:10] LABS: Basophils % 0.6 %; Eosinophils # 0.3 10^3/uL (0.0-0.8); Eosinophils % 5.6 %; Lymphocytes # 1.8 10^3/uL (0.8-4.8); Lymphocytes % 34.8 %; Mean Corpuscular Hemoglobin 27.6 pg (27-33); Mean Corpuscular Volume 86.3 fl (85-98); Mean Platelet Volume 9.7 fL (7.4-10.4); Monocytes # 0.4 10^3/uL (0.2-0.9); Monocytes % 7.8 %; Neutrophils # 2.62 10^3/uL (1.8-7.7); Nucleated Red Blood Cells % 0 %; Platelet Count 149 10^3/cmm (157-399); Red Blood Count 4.75 10^6/uL (3.85-5.65); Red Cell Distribution Width 13.3 % (12.1-15.1); White Blood Count 5.14 10^3/uL (3.29-11.43)
[2023-05-03 13:26] LABS: Alanine Aminotransferase 19 U/L (0-33); Albumin Level 3.9 g/dL (3.5-5.2); Alkaline Phosphatase 50 U/L (35-105); Anion Gap 12.8 (5-19); Aspartate Amino Transferase 19 U/L (0-32); Blood Urea Nitrogen 10 mg/dL (8-23); Calcium 9.6 mg/dL (8.5-10.5); Carbon Dioxide 28 mmol/L (22-29); Chloride 104 mmol/L (98-107); Ferritin 23 ng/mL (15-150); Globulin 3.2 g/dL (1.3-4.6); Glucose 198 mg/dL (65-115); Iron 63 ug/dL (37-145); Osmolality Calculated 295 mOsm/kg (285-295); Percent Saturation 23.5 % (20-50); Potassium 4.8 mmol/L (3.5-5.1); Sodium 140 mmol/L (136-145); Total Bilirubin 0.5 mg/dL (0.15-1.2); Total Iron Binding Capacity 268 mcg/dl; Total Protein 7.1 g/dL (6.6-8.7); Unsaturated Iron Binding 205 ug/dL (112-347)
== END 2023-05-06 23:59 | disposition home or self-care (01) ==
PROVIDERS: Nurse Practitioner Family; PCP Family Medicine; Visit Provider Internal Medicine Medical Oncology
DX: E83.110 Hereditary hemochromatosis (principal); E11.42 Type 2 diabetes mellitus with diabetic polyneuropathy; Z79.899 Other long term (current) drug therapy; Z79.84 Long term (current) use of oral hypoglycemic drugs
CPT/HCPCS: 36415; 80053; 82728; 83540; 83550; 85025; 99214

== ENCOUNTER → 2023-06-07 09:37 | Outpatient (BNVA) | payer MEDICARE, MEDICAID, SELFPAY | PROVIDERS: PCP Family Medicine; Visit Provider Family Medicine | DX: E11.9 Type 2 diabetes mellitus without complications (principal); I10 Essential (primary) hypertension; J45.20 Mild intermittent asthma, uncomplicated | CPT/HCPCS: 83036 ==

== ENCOUNTER → 2023-06-11 11:26 | Outpatient (BNVA) | payer MEDICARE, MEDICAID, SELFPAY | PROVIDERS: PCP Family Medicine; Visit Provider Internal Medicine Pulmonary Disease | DX: J44.9 Chronic obstructive pulmonary disease, unspecified (principal); R06.00 Dyspnea, unspecified; J45.20 Mild intermittent asthma, uncomplicated; M06.9 Rheumatoid arthritis, unspecified; I25.10 Atherosclerotic heart disease of native coronary artery without angina pectoris | CPT/HCPCS: 99214 ==

== ENCOUNTER 2023-07-27 13:29 | Oncology outpatient (recurring) (ONCR) | payer MEDICARE, MEDICAID, SELFPAY ==
[2023-07-27 14:18] LABS: Basophils % 0.4 %; Eosinophils # 0.2 10^3/uL (0.0-0.8); Eosinophils % 4.4 %; Hematocrit 38.1 % (36-47); Lymphocytes # 1.7 10^3/uL (0.8-4.8); Lymphocytes % 34.7 %; Mean Corpuscular HGB Conc 33.1 g/dL (30-55); Mean Corpuscular Hemoglobin 29.4 pg (27-33); Mean Corpuscular Volume 88.8 fl (85-98); Monocytes # 0.3 10^3/uL (0.2-0.9); Monocytes % 7.1 %; Neutrophils # 2.54 10^3/uL (1.8-7.7); Neutrophils % 52.8 %; Nucleated Red Blood Cells % 0 %; Platelet Count 162 10^3/cmm (157-399); Red Blood Count 4.29 10^6/uL (3.85-5.65); Red Cell Distribution Width 13.9 % (12.1-15.1); White Blood Count 4.81 10^3/uL (3.29-11.43)
[2023-07-27 14:43] LABS: Alanine Aminotransferase 14 U/L (0-33); Albumin Level 3.8 g/dL (3.5-5.2); Alkaline Phosphatase 47 U/L (35-105); Anion Gap 13.1 (5-19); Aspartate Amino Transferase 16 U/L (0-32); Blood Urea Nitrogen 13 mg/dL (8-23); Calcium 8.5 mg/dL (8.5-10.5); Carbon Dioxide 28 mmol/L (22-29); Chloride 106 mmol/L (98-107); Ferritin 54 ng/mL (15-150); Globulin 3.1 g/dL (1.3-4.6); Glucose 213 mg/dL (65-115); Iron 117 ug/dL (37-145); Osmolality Calculated 302 mOsm/kg (285-295); Percent Saturation 53.9 % (20-50); Potassium 4.1 mmol/L (3.5-5.1); Sodium 143 mmol/L (136-145); Total Bilirubin 0.7 mg/dL (0.15-1.2); Total Iron Binding Capacity 217 mcg/dl; Total Protein 6.9 g/dL (6.6-8.7); Unsaturated Iron Binding 100 ug/dL (112-347)
== END 2023-08-06 23:59 | disposition home or self-care (01) ==
PROVIDERS: Nurse Practitioner Family; PCP Family Medicine; Visit Provider Internal Medicine Medical Oncology
DX: E83.110 Hereditary hemochromatosis (principal); L60.3 Nail dystrophy; L84 Corns and callosities; E11.42 Type 2 diabetes mellitus with diabetic polyneuropathy; M19.071 Primary osteoarthritis, right ankle and foot; M19.072 Primary osteoarthritis, left ankle and foot; M20.21 Hallux rigidus, right foot; M20.22 Hallux rigidus, left foot; M21.41 Flat foot [pes planus] (acquired), right foot; M21.42 Flat foot [pes planus] (acquired), left foot
CPT/HCPCS: 11056; 11721; 36415; 80053; 82728; 83540; 83550; 85025

== ENCOUNTER → 2023-08-11 12:56 | Outpatient (BNVA) | payer MEDICARE, MEDICAID, SELFPAY | PROVIDERS: PCP Family Medicine; Visit Provider Internal Medicine Rheumatology | DX: Z79.899 Other long term (current) drug therapy; M05.79 Rheumatoid arthritis with rheumatoid factor of multiple sites without organ or systems involvement; Z71.85 Encounter for immunization safety counseling | CPT/HCPCS: 36415; 82565; 84520; 99214 ==

== ENCOUNTER 2023-08-12 11:22 | Oncology outpatient (recurring) (ONCR) | payer MEDICARE, MEDICAID, SELFPAY ==
[2023-08-12 11:38] VITALS: BP 124/78
== END 2023-09-05 23:59 | disposition home or self-care (01) ==
PROVIDERS: PCP Family Medicine; Visit Provider Internal Medicine Medical Oncology
DX: E83.110 Hereditary hemochromatosis (principal)
CPT/HCPCS: 99195

== ENCOUNTER → 2023-10-26 08:17 | Outpatient (BNVA) | payer MEDICARE, MEDICAID, SELFPAY | PROVIDERS: PCP Family Medicine; Visit Provider Podiatrist Foot & Ankle Surgery | DX: M06.9 Rheumatoid arthritis, unspecified (principal); E11.42 Type 2 diabetes mellitus with diabetic polyneuropathy; M19.071 Primary osteoarthritis, right ankle and foot; M19.072 Primary osteoarthritis, left ankle and foot; L60.3 Nail dystrophy; L84 Corns and callosities; Z51.81 Encounter for therapeutic drug level monitoring | CPT/HCPCS: 11056; 11721; 80053; 83036; 83735; 85025 ==

== ENCOUNTER 2023-10-27 12:55 | Oncology outpatient (recurring) (ONCR) | payer MEDICARE, MEDICAID, SELFPAY ==
[2023-10-27 13:07] LABS: Basophils % 0.4 %; Eosinophils # 0.2 10^3/uL (0.0-0.8); Eosinophils % 3.9 %; Hematocrit 39.3 % (36-47); Lymphocytes # 1.7 10^3/uL (0.8-4.8); Lymphocytes % 33.2 %; Mean Corpuscular HGB Conc 32.1 g/dL (30-55); Mean Corpuscular Hemoglobin 28.3 pg (27-33); Mean Corpuscular Volume 88.1 fl (85-98); Mean Platelet Volume 9.8 fL (7.4-10.4); Monocytes # 0.5 10^3/uL (0.2-0.9); Monocytes % 8.8 %; Neutrophils # 2.71 10^3/uL (1.8-7.7); Neutrophils % 53.3 %; Nucleated Red Blood Cells % 0 %; Platelet Count 173 10^3/cmm (157-399); Red Blood Count 4.46 10^6/uL (3.85-5.65); White Blood Count 5.09 10^3/uL (3.29-11.43)
[2023-10-27 13:27] LABS: Albumin Level 4.1 g/dL (3.5-5.2); Alkaline Phosphatase 44 U/L (35-105); Blood Urea Nitrogen 15 mg/dL (8-23); Calcium 9.4 mg/dL (8.5-10.5); Carbon Dioxide 27 mmol/L (22-29); Chloride 102 mmol/L (98-107); Ferritin 18 ng/mL (15-150); Globulin 3.2 g/dL (1.3-4.6); Glucose 169 mg/dL (65-115); Iron 56 ug/dL (37-145); Osmolality Calculated 293 mOsm/kg (285-295); Sodium 139 mmol/L (136-145); Total Bilirubin 0.6 mg/dL (0.15-1.2); Total Protein 7.3 g/dL (6.6-8.7)
[2023-10-27 13:30] LABS: Anion Gap 14.4 (5-19); Aspartate Amino Transferase 29 U/L (0-32); Percent Saturation 20.5 % (20-50); Potassium 4.4 mmol/L (3.5-5.1); Total Iron Binding Capacity 273 mcg/dl; Unsaturated Iron Binding 217 ug/dL (112-347)
[2023-10-27 13:31] LABS: Alanine Aminotransferase 14 U/L (0-33)
== END 2023-11-06 23:55 | disposition home or self-care (01) ==
PROVIDERS: Nurse Practitioner Family; PCP Family Medicine; Visit Provider Internal Medicine Medical Oncology
DX: E83.110 Hereditary hemochromatosis (principal)
CPT/HCPCS: 36415; 80053; 82728; 83540; 83550; 85025; 99214

== ENCOUNTER 2023-10-29 09:22 | Outpatient (CLI) | payer MEDICARE, MEDICAID, SELFPAY ==
[2023-10-29 10:43] LABS: Hepatitis B Core AB, Total Non-Reactive (Nonreactive); Hepatitis B Surface Antigen Non-Reactive (Nonreactive); Hepatitis C Virus Antibody Non-Reactive (Nonreactive)
== END 2023-10-29 09:23 | disposition home or self-care (01) ==
PROVIDERS: PCP Family Medicine; Visit Provider Internal Medicine Rheumatology
DX: Z11.59 Encounter for screening for other viral diseases (principal); Z11.1 Encounter for screening for respiratory tuberculosis; M47.816 Spondylosis without myelopathy or radiculopathy, lumbar region; M06.9 Rheumatoid arthritis, unspecified
CPT/HCPCS: 36415; 86480; 86704; 86803; 87340

== ENCOUNTER → 2023-12-22 13:30 | Outpatient (BNVA) | payer MEDICARE, MEDICAID, SELFPAY | PROVIDERS: PCP Family Medicine; Visit Provider Internal Medicine Rheumatology | DX: M05.79 Rheumatoid arthritis with rheumatoid factor of multiple sites without organ or systems involvement (principal); Z79.899 Other long term (current) drug therapy; Z71.85 Encounter for immunization safety counseling; Z86.718 Personal history of other venous thrombosis and embolism | CPT/HCPCS: 36415; 80076; 82565; 85025; 85651; 86140; 99214 ==

== ENCOUNTER 2024-01-25 11:36 | Oncology outpatient (recurring) (ONCR) | payer MEDICARE, MEDICAID, SELFPAY ==
[2024-01-25] VITALS (9 sets, daily range): BP systolic 121–144; BP diastolic 61–81; PULSE 64–78; RESP 16–18; TEMP 35.9–36.7; O2SAT 94–98
[2024-01-25] MEDS: acetaminophen 325 mg Tablet 650 MG PO (12:36)
[2024-01-25] MEDS: diphenhydrAMINE 50 mg/mL SDV 1mL 25 MG IVP (12:44)
[2024-01-25] MEDS: methylPREDNISolone sod succ 40 mg/mL INJ 20 MG IVP (12:46)
[2024-01-25 13:11] LABS: Basophils % 0.2 %; Eosinophils # 0.3 10^3/uL (0.0-0.8); Eosinophils % 5.1 %; Hematocrit 34.8 % (36-47); Lymphocytes # 1.4 10^3/uL (0.8-4.8); Lymphocytes % 20.9 %; Mean Corpuscular HGB Conc 32.5 g/dL (30-55); Mean Corpuscular Hemoglobin 28.8 pg (27-33); Mean Corpuscular Volume 88.5 fl (85-98); Mean Platelet Volume 9.1 fL (7.4-10.4); Monocytes # 0.4 10^3/uL (0.2-0.9); Monocytes % 5.5 %; Neutrophils # 4.43 10^3/uL (1.8-7.7); Neutrophils % 68.1 %; Nucleated Red Blood Cells % 0 %; Platelet Count 196 10^3/cmm (157-399); Red Blood Count 3.93 10^6/uL (3.85-5.65); Red Cell Distribution Width 16.1 % (12.1-15.1)
[2024-01-25 13:28] LABS: Ferritin 46 ng/mL (15-150); Iron 52 ug/dL (37-145); Percent Saturation 25.6 % (20-50); Total Iron Binding Capacity 203 mcg/dl; Unsaturated Iron Binding 151 ug/dL (112-347)
[2024-01-25] MEDS: infliximab-abda 400 MG in sodium chloride 0.9% 250 ML 10 MG IV (13:28)
== END 2024-02-05 23:59 | disposition home or self-care (01) ==
PROVIDERS: Nurse Practitioner Family; PCP Family Medicine; Visit Provider Internal Medicine Rheumatology
DX: M06.9 Rheumatoid arthritis, unspecified; Z79.899 Other long term (current) drug therapy; E83.110 Hereditary hemochromatosis
CPT/HCPCS: 11056; 11721; 82728; 83540; 83550; 85025; 96375; 96413; 96415; A4222; J1200; J2919; J7050; Q5104

== ENCOUNTER 2024-03-07 13:00 | Oncology outpatient (recurring) (ONCR) | payer MEDICARE, MEDICAID, SELFPAY ==
[2024-02-28] VITALS (7 sets, daily range): BP systolic 136–159; BP diastolic 73–87; PULSE 66–79; RESP 14–17; TEMP 36.1–37; O2SAT 93–97
[2024-02-28] MEDS: acetaminophen 325 mg Tablet 650 MG PO (12:55)
[2024-02-28] MEDS: methylPREDNISolone sod succ 40 mg/mL INJ 20 MG IVP (12:56)
[2024-02-28] MEDS: diphenhydrAMINE 50 mg/mL SDV 1mL 25 MG IVP (12:59)
[2024-02-28] MEDS: infliximab-abda 400 MG in sodium chloride 0.9% 250 ML 10 MG IV (13:49)
[2024-03-07] VITALS (8 sets, daily range): BP systolic 133–158; BP diastolic 77–97; PULSE 66–81; RESP 15–16; TEMP 36.4–36.6; O2SAT 94–97
[2024-03-07] MEDS: sodium chloride 0.9% 250 ML 75 ML IV (15:01)
[2024-03-07] MEDS: acetaminophen 325 mg Tablet 650 MG PO (15:04)
[2024-03-07] MEDS: methylPREDNISolone sod succ 40 mg/mL INJ 20 MG IVP (15:06)
[2024-03-07] MEDS: diphenhydrAMINE 50 mg/mL SDV 1mL 25 MG IVP (15:12)
[2024-03-07] MEDS: infliximab-abda 400 MG in sodium chloride 0.9% 250 ML 10 MG IV (15:40)
== END 2024-03-07 23:59 | disposition home or self-care (01) ==
PROVIDERS: PCP Family Medicine; Visit Provider Internal Medicine Rheumatology
DX: Z53.9 Procedure and treatment not carried out, unspecified reason; M06.9 Rheumatoid arthritis, unspecified; Z79.899 Other long term (current) drug therapy
CPT/HCPCS: 96375; 96413; 96415; A4222; J1200; J2919; J7050; Q5104

== ENCOUNTER → 2024-04-24 10:42 | Outpatient (BNVA) | payer OTHER, MEDICAID, SELFPAY | PROVIDERS: PCP Family Medicine; Visit Provider Family Medicine | DX: E55.9 Vitamin D deficiency, unspecified (principal); Z51.81 Encounter for therapeutic drug level monitoring; E03.9 Hypothyroidism, unspecified; E11.9 Type 2 diabetes mellitus without complications | CPT/HCPCS: 80053; 82306; 83036; 84439; 84443; 85025 ==

== ENCOUNTER 2024-04-28 12:14 | Outpatient (CLI) | payer MEDICARE, MEDICAID, SELFPAY ==
--- NOTE | 2024-04-28 12:30 | CT_ITS ---
WS: [id number] CT LUMBAR SPINE, noncontrast. HISTORY: Low back pain with radiculopathy TECHNIQUE: Contiguous 2.0 mm axial imaging are performed. Sagittal and coronal reformats are submitted and reviewed. All CT scans at [facility] use at least one of these dose optimization techniques: automated exposure control; mA and/or kV adjustment per patient size (includes targeted exams where dose is matched to clinical indication); or iterative reconstruction. IV contrast: None DLP: 416.90 mGy.cm COMPARISON: 03/29/2021 Posterior lumbar alignment is normal. Since the prior examination of 03/29/2021 there has been a significant progression of degenerative changes at L2-3. There is complete loss of the disc with bone upon bone. Bony sclerosis and diffuse cystic areas along the endplates. Loss of the normal cortical surface of the superior endplate L3 greatest anteriorly. Extensive paravertebral soft tissue thickening surrounding the L2-3 vertebral bodies greatest at the level of the disc. Diffuse circumferential inflammatory changes destruction of the bone. L1-2: Mild facet arthritis. Effacement of fat in the LEFT foramen. Suspect LEFT foraminal disc protrusion. L2-3: Loss of the normal fat plane between the vertebral bodies and the psoas muscle with inflammation. Osteophytic ridging with facet joint arthritis. Osseous spiculation encroaches upon the RIGHT lateral thecal sac. This spiculation is probably contacting the traversing RIGHT L3 nerve root. There is at least moderate central, bilateral subarticular recess and foraminal stenosis. Complete effacement of fat in the LEFT foramen. L3-4: Diffuse annular disc bulging with facet arthritis. Mild encroachment upon the subarticular recesses. Mild bilateral foraminal stenosis. L4-5: Diffuse annular disc bulging with severe facet joint arthropathy. Mild bilateral foraminal stenosis. L5-S1: Mild foraminal stenosis and marked facet arthropathy. Degenerative air in the RIGHT SI joint. Visualized kidneys are negative. Mild atherosclerosis aorta. CT/CT lumbar spine wo con* [id number] IMPRESSION: 1. Severe destructive changes involving the L2-3 disc with paravertebral soft tissue inflammatory changes. Sclerotic and lytic changes with osseous destructi on involving the adjacent endplates of L2 and L3. Findings are highly suspiciou s for osteomyelitis and discitis. Recommend follow-up MRI lumbar spine with and without gadolinium. 2. L2-3: Moderate central, bilateral subarticular recess and foraminal stenosi s, LEFT greater than RIGHT. 3. Mild bilateral foraminal stenosis at L3-4, L4-5 and L5-S1. Notified Raleigh Carcamo MD at 04/28/2024 1:34 PM.
== END 2024-04-28 16:22 | disposition home or self-care (01) ==
LOC: RAD 12:16
PROVIDERS: PCP Family Medicine; Visit Provider Family Medicine
DX: M54.16 Radiculopathy, lumbar region (principal); M47.896 Other spondylosis, lumbar region; R93.7 Abnormal findings on diagnostic imaging of other parts of musculoskeletal system; M48.061 Spinal stenosis, lumbar region without neurogenic claudication; M48.07 Spinal stenosis, lumbosacral region; M51.369 Other intervertebral disc degeneration, lumbar region without mention of lumbar back pain or lower extremity pain; M47.897 Other spondylosis, lumbosacral region; R93.89 Abnormal findings on diagnostic imaging of other specified body structures; I70.0 Atherosclerosis of aorta
CPT/HCPCS: 72131

== ENCOUNTER 2024-04-28 16:37 | Inpatient (IN) | payer MEDICARE, MEDICAID, SELFPAY ==
--- OUTSIDE RECORDS SUMMARY | 2024-04-28 16:39 | XMS_ITS | Encounter Summary ---
Author Organization [facility] Address [address] Attn: [place] [address] Care Team Providers Care Fur Comber Name Role Phone Daniel Santos MD, Warren Handley Primary Care Provider Encounter Details Date Type Department Care Team (Late st Contact Info) Description 03/20/1999 Outpatient Historical Warren Sanchez Jr., MD [address] [place] [address] Social History Tobacco Use Types Packs/Day Years Used Date Smoking Tobacco: Never Assessed Comments Unknown Sex and Gender Information Value Date Recorded Sex Assigned at Not on file Legal 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
--- OUTSIDE RECORDS SUMMARY | 2024-04-28 16:40 | XMS_ITS | Encounter Summary ---
Author Organization [facility] Address [address] Attn: [place] [address] Care Team Providers Care Tugboat Mate Name Role Phone Daniel Santos MD, Warren Handley Primary Care Provider Encounter Details Date Type Department Care Team (Late st Contact Info) Description 02/19/2000 Outpatient Historical Warren Sanchez Jr., MD [address] [place] [address] Social History Tobacco Use Types Packs/Day Years Used Date Smoking Tobacco: Never Assessed Comments Unknown Sex and Gender Information Value Date Recorded Sex Assigned at Not on file 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
--- OUTSIDE RECORDS SUMMARY | 2024-04-28 16:40 | XMS_ITS | Encounter Summary ---
Author Organization [facility] Address [address] [place] [address] Care Team Providers Care Window Sash Installer Name Role Phone Daniel Santos MD, Warren Handley Primary Care Provider Encounter Details Date Type Department Care Team (Latest Contact Info) Description 03/20/1999 Outpatient Historical [facility] Warren Sanchez Jr., MD [address] [place] [address] Osteoarthrosis, unspecified whether generalized or localized, unspecified site (Primary Dx); Rheumatoid arthritis(714.0) (CMS/HCC); Corns and callosities; Depressive disorder, not elsewhere classified Social History Tobacco Use Types Packs/Day Years Used Date Smoking Tobacco: Never Assessed Comments Unknown Sex and Gender Information Value Date Recorded Sex Assigned at Not on file 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 Gender Identity Not on file Sexual Orientation Not on file documented as of this encounter Plan of Treatment Not on file documented as of this encounter Visit Diagnoses Diagnosis Osteoarthrosis, unspecified whether generalized or localized, unspecified site- Primary Rheumatoid arthritis(714.0) (CMS/HCC) Rheumatoid arthritis Corns and callosities Depressive disorder, not elsewhere classified documented in this encounter Care Teams Window Sash Installer Relationship Specialty Start Date End Date Warren Sanchez Jr., MD [address] [place] [id number] PCP - General Family Practice 03/20/15 documented as of this encounter
--- OUTSIDE RECORDS SUMMARY | 2024-04-28 16:40 | XMS_ITS | Encounter Summary ---
Author Organization [facility] Address [address] [place] [address] Care Team Providers Care District Resource Officer Name Role Phone Daniel Santos MD, Warren Handley Primary Care Provider Encounter Details Date Type Department Care Team (Latest Contact Info) Description 06/09/1999 Outpatient Historical [facility] Warren Sanchez Jr., MD [address] [place] [address] Rheumatoid arthritis(714.0) (CMS/[facility]) (Primary Dx); Osteoarthrosis, unspecified whether generalized or localized, unspecified site; Depressive disorder, not elsewhere classified; Unspecified sinusitis (chronic) Social History Tobacco Use Types Packs/Day Years Used Date Smoking Tobacco: Never Assessed Comments Unknown Sex and Gender Information Value Date Recorded Sex Assigned at Not on file Legal Sex Female 4:09 AM PET GROOMER Gender Identity Not on file Sexual Orientation Not on file documented as of this encounter Plan of Treatment Not on file documented as of this encounter Visit Diagnoses Diagnosis Rheumatoid arthritis(714.0) (CMS/HCC)- Primary Rheumatoid arthritis Osteoarthrosis, unspecified whether generalized or localized, unspecified site Depressive disorder, not elsewhere classified Unspecified sinusitis (chronic) documented in this encounter Care Teams District Resource Officer Relationship Specialty Start Date End Date Warren Sanchez Jr., MD [address] [place] [address] PCP - General Family Practice 03/20/15 documented as of this encounter
--- OUTSIDE RECORDS SUMMARY | 2024-04-28 16:40 | XMS_ITS | Clinical Summary ---
Author Organization [facility] Address [address] [place] [address] Care Team Providers Care Senior Commissions Analyst Name Role Phone Daniel Santos MD, Warren Handley Primary Care Provider Allergies Active Allergy Reactions Criticality Noted Date Comments Lisinopril Cough Low 03/11/2015 Sulfa (Sulfonamide Antibiotics) Rash Low 06/2015 Medications methotrexate (RHEUMATREX) 2.5 mg Tablet Take 2.5 mg by mouth every 7 days 7 tablets. Active metoprolol tartrate (LOPRESSOR) 25 mg tablet Take 25 mg by mouth 2 times daily. Active topiramate (TOPAMAX) 50 mg tablet Take 50 mg by mouth daily at bedtime . Active levothyroxine 25 mcg tablet Take 25 mcg by mouth daily sausage machine operator. Active folic acid (FOLVITE) 400 mcg Tablet Take 400 mcg by mouth daily. Active mirtazapine (REMERON) 15 mg tablet Take 15 mg by mouth daily at bedtime. Active venlafaxine (EFFEXOR XR) 150 mg Extended Release 24 hour capsule Take 150 mg by mouth daily. Active alendronate (FOSAMAX) 70 mg tablet Take 70 mg by mouth every 7 days empty stomach before other meds,with 8oz of water, stay upright 30 min . Active donepezil (ARICEPT) 5 mg tablet Take 5 mg by mouth daily at bedtime. Active rosuvastatin (CRESTOR) 10 mg tablet Take 10 mg by mouth daily at bedtime. Active omeprazole (PRILOSEC) 20 mg Capsule, Delayed Release(E.C.) Take 20 mg by mouth daily. Active amLODIPine (NORVASC) 5 mg tablet Take 5 mg by mouth daily. Active traMADol (ULTRAM) 50 mg tablet Take 100 mg by mouth every 6 hours as needed for Pain. Active HYDROcodone-delgado taminophen (NORCO) 10-325 mg Tablet Take 1 Tablet by mouth every 8 hours as needed for Pain, Moderate. Active acetaminophen (TYLENOL) 500 mg tablet Take 500 mg by mouth daily. Active ALBUTEROL SULFATE (PROAIR HFA INHALATION) Take by inhalation every 4 hours as needed. Active Active Problems Problem Noted Date Diagnosed Date Pseudophakia of right eye 04/09/2015 Pseudophakia of left eye 03/26/2015 Immunizations Immunization Administration Dates Next Due (PNEUMOVAX 23)(50 YRS UP) PN EUMOCOCCAL POLYSACCHARIDE (PPV23) 0.5 ML, IM 11/19/2003,12/22/1999 (TDVAX)(7 YRS UP) TETANUS AN D DIPHTHERIA TOXOIDS, ADSORBED (2 LF OF TETANUS TOXOID AND 2 LF OF DIPHTHERIA TOXOID), 0.5ML (PF), IM 06/19/2005 Influenza Seasonal Unspecifi ed Formulation IM 12/18/2014,01/04/2003,03/13/2002,02/06 Family History Medical History Relation Name Comments Glaucoma Paternal Uncle Cataract Neg Hx Detachment/Tears Neg Hx Diabetes Neg Hx Macular Degen Neg Hx Relation Name Status Comments Paternal Uncle Social History Tobacco Use Types Packs/Day Years Used Date Smoking Tobacco: Never Smokeless Tobacco: Never Alcohol Use Standard Drinks/Week Comments No 0 (1 standard drink = 0.6 oz pur e alcohol) Comments Unknown Sex and Gender Information Value Date Recorded Sex Assigned at Not on file Legal Sex Female 4:09 AM DRYWALL PROFESSIONAL Gender Identity Not on file Sexual Orientation Not on file Last Filed Vital Signs Vital Sign Reading Time Taken Comments Blood Pressure 148/75 04/09/2015 11:41 AM DRYWALL PROFESSIONAL Pulse 73 04/09/2015 11:41 AM DRYWALL PROFESSIONAL Temperature 36.6 ??C (97.9 ??F) 04/09/2015 10:[address] Respiratory Rate 16 04/09/2015 10:18 AM DRYWALL PROFESSIONAL Oxygen Saturation 96% 04/09/2015 10:18 AM DRYWALL PROFESSIONAL Inhaled Oxygen Concentration - - Weight 82.1 kg (181 lb) 04/09/2015 11:41 AM DRYWALL PROFESSIONAL Height 154.9 cm (5' 1 ) 04/09/2015 11:41 AM DRYWALL PROFESSIONAL Body Mass Index 34.2 04/09/2015 11:41 AM DRYWALL PROFESSIONAL Plan of Treatment Health Maintenance Due Date Last Done Comments COLORECTAL SCREENING 1994 FIT-DNA Q 3 years 1994 Flex Sig/CT Colonography Q 5 years 1994 ZOSTER VACCINE (1 of 2) 1999 Colorectal Cancer Screening 11/02/1999 FIT/FOBT Q 1 year 11/02/1999 11/01/1998, 03/27/1998 PNEUMOCOCCAL VACCINE 65+ YEA RS (2 of 2 - PCV) 11/18/2004 11/19/2003, 12/22/1999 DTAP/TDAP/TD VACCINES (1 - Tdap) 06/20/2005 06/20/19 06 OSTEOPOROSIS SCREENING 2014 INFLUENZA VACCINE (#1) 2023 , 01/04/2003, 03/13/2002, Additional history exists RSV VACCINE (60+ or ) (1 - 1-dose 75+ series) 02/13/2024 Medical Devices Implanted Type Area Aesthetician Device Identifier Shelf Expiration Date Model / Serial / Lot Lens Io Tecnis 1pc 21.5 [id number] - [id number] Implanted:Qty: 1 on 03/26/2015 by Franck Brice MD at [facility] Left: Eye [employer] 12/24/2018 [id number] / [id number] / Lens Io Tecnis 1pc 22.5 [id number] - [id number] Implanted:Qty: 1 on 04/09/2015 by Franck Brice MD at [facility] Right: Eye [employer] 12/22/2018 [id number] / [id number] / Advance Directives For more information, please contact: [phone] * Full Code (Latest Code Status on File) Date Activated Date Inactivated Comments 04/09/2015 9:12 AM 04/09/2015 12:26 PM * Full Code Date Activated Date Inactivated Comments 03/26/2015 10:32 AM 03/26/2015 1:53 PM Care Teams Senior Commissions Analyst Relationship Specialty Start Date End Date Warrne Sanchez Jr., MD [address] [place] [address] PCP - General Family Practice 03/20/15
--- OUTSIDE RECORDS SUMMARY | 2024-04-28 16:40 | XMS_ITS | Encounter Summary ---
Author Organization [facility] Address [address] [facility] Attn: [place] [address] Care Team Providers Care Research Test Engine Evaluator Name Role Phone Daniel Santos MD, Warren Handley Primary Care Provider Encounter Details Date Type Department Care Team (Late st Contact Info) Description 11/17/1999 Outpatient Historical Warren Sanchez Jr., MD [address] [place] [address] Social History Tobacco Use Types Packs/Day Years Used Date Smoking Tobacco: Never Assessed Comments Unknown Sex and Gender Information Value Date Recorded Sex Assigned at Not on file Legal Sex Female 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
--- OUTSIDE RECORDS SUMMARY | 2024-04-28 16:40 | XMS_ITS | Encounter Summary ---
Author Organization [facility] Address [address] [place] [address] Care Team Providers Care Event Producer Name Role Phone Daniel Santos MD, Warren Handley Primary Care Provider Encounter Details Date Type Department Care Team (Latest Contact Info) Description 07/21/1999 Outpatient Historical [facility] Warren Sanchez Jr., MD [address] [place] [address] Rheumatoid arthritis(714.0) (CMS/[facility]) (Primary Dx); Osteoarthrosis, unspecified whether generalized or localized, unspecified site; Osteoporosis, unspecified Social History Tobacco Use Types Packs/Day Years Used Date Smoking Tobacco: Never Assessed Comments Unknown Sex and Gender Information Value Date Recorded Sex Assigned at Not on file Legal Sex Female 4:09 AM SERVICE 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
--- OUTSIDE RECORDS SUMMARY | 2024-04-28 16:40 | XMS_ITS | Encounter Summary ---
Author Organization [facility] Address [address] [place] [address] Care Team Providers Care Waffle Machine Operator Name Role Phone Daniel Santos MD, Warren Handley Primary Care Provider Encounter Details Date Type Department Care Team (Latest Contact Info) Description 12/22/1999 Outpatient Historical [facility] Warren Sanchez Jr., MD [address] [place] [address] Osteoarthrosis, unspecified whether generalized or localized, unspecified site (Primary Dx); Rheumatoid arthritis(714.0) (CMS/HCC); Unspecified asthma(493.90); Need for prophylactic vaccination against Streptococcus pneumoniae (pneumococcus) Social History Tobacco Use Types Packs/Day Years Used Date Smoking Tobacco: Never Assessed Comments Unknown Sex and Gender Information Value Date Recorded Sex Assigned at Not on file Legal Sex Female 4:09 AM 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 Gender Identity Not on file Sexual Orientation Not on file documented as of this encounter Plan of Treatment Not on file documented as of this encounter Visit Diagnoses Diagnosis Osteoarthrosis, unspecified whether generalized or localized, unspecified site- Primary Rheumatoid arthritis(714.0) (CMS/HCC) Rheumatoid arthritis Unspecified asthma(493.90) Unspecified asthma Need for prophylactic vaccination against Streptococcus pneumoniae (pneumococcus) Need for prophylactic vaccination against streptococcus pneumoniae (pneumococcus) documented in this encounter Care Teams Waffle Machine Operator Relationship Specialty Start Date End Date Warren Sanchez Jr., MD [address] [place] [id number] PCP - General Family Practice 03/20/15 documented as of this encounter
--- OUTSIDE RECORDS SUMMARY | 2024-04-28 16:40 | XMS_ITS | Encounter Summary ---
Author Organization [facility] Address [address] [facility] Attn: [place] [address] Care Team Providers Care Scada Operator Name Role Phone Daniel Santos MD, Warren Handley Primary Care Provider Encounter Details Date Type Department Care Team (Late st Contact Info) Description 04/28/1999 Outpatient Historical Warren Sanchez Jr., MD [address] [place] [address] Social History Tobacco Use Types Packs/Day Years Used Date Smoking Tobacco: Never Assessed Comments Unknown Sex and Gender Information Value Date Recorded Sex Assigned at Not on file Legal Sex Female 4:09 AM HYDRAULIC DESIGN 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
--- OUTSIDE RECORDS SUMMARY | 2024-04-28 16:40 | XMS_ITS | Encounter Summary ---
Author Organization [facility] Address [address] [place] [address] Care Team Providers Care Statistics Teacher Name Role Phone Daniel Santos MD, Warren Handley Primary Care Provider Encounter Details Date Type Department Care Team (Latest Contact Info) Description 08/21/1999 Outpatient Historical [facility] Warren Sanchez Jr., MD [address] [place] [address] termite renewal inspector (current) use of anticoagulants (Primary Dx); Rheumatoid arthritis(714.0) (CMS/HCC); Knee joint replacement; Encounter for long-term (current) use of other medications Social History Tobacco Use Types Packs/Day Years Used Date Smoking Tobacco: Never Assessed Comments Unknown Sex and Gender Information Value Date Recorded Sex Assigned at Not on file Legal Sex Female 4:09 AM CLIENT EXPERIENCE SPECIALIST Gender Identity Not on file Sexual Orientation Not on file documented as of this encounter Plan of Treatment Not on file documented as of this encounter Visit Diagnoses Diagnosis skilled nursing (current) use of anticoagulants- Primary Long-term (current) use of anticoagulants Rheumatoid arthritis(714.0) (CMS/HCC) Rheumatoid arthritis Knee joint replacement Knee joint replacement by other means Encounter for long-term (current) use of other medications documented in this encounter Care Teams Statistics Teacher Relationship Specialty Start Date End Date Warren Sanchez Jr., MD [address] [place] [address] PCP - General Family Practice 03/20/15 documented as of this encounter
--- OUTSIDE RECORDS SUMMARY | 2024-04-28 16:40 | XMS_ITS | Encounter Summary ---
Author Organization [facility] Address [address] [place] [address] Care Team Providers Care Rail Car Mechanic Name Role Phone Daniel Santos MD, Warren Handley Primary Care Provider Encounter Details Date Type Department Care Team (Latest Contact Info) Description 12/09/1998 Outpatient Historical [facility] Warren Sanchez Jr., MD [address] [place] [address] Gout, unspecified (Primary Dx); Rheumatoid arthritis(714.0) (CMS/HCC) Social History Tobacco Use Types Packs/Day Years Used Date Smoking Tobacco: Never Assessed Comments Unknown Sex and Gender Information Value Date Recorded Sex Assigned at Not on file Legal Sex Female 4:09 AM SKIN DIVER Gender Identity Not on file Sexual Orientation Not on file documented as of this encounter Plan of Treatment Not on file documented as of this encounter Visit Diagnoses Diagnosis Gout, unspecified- Primary Rheumatoid arthritis(714.0) (CMS/HCC) Rheumatoid arthritis documented in this encounter Care Teams Rail Car Mechanic Relationship Specialty Start Date End Date Warren Sanchez Jr., MD [address] [place] [address] PCP - General Family Practice 03/20/15 documented as of this encounter
--- OUTSIDE RECORDS SUMMARY | 2024-04-28 16:40 | XMS_ITS | Encounter Summary ---
Author Organization [facility] Address [address] [place] [address] Care Team Providers Care Functional Director Name Role Phone Daniel Santos MD, Warren Handley Primary Care Provider Encounter Details Date Type Department Care Team (Latest Contact Info) Description 04/28/1999 Outpatient Historical [facility] Warren Sanchez Jr., MD [address] [place] [address] Rheumatoid arthritis(714.0) (CMS/[facility]) (Primary Dx); Osteoarthrosis, unspecified whether generalized or localized, unspecified site; Bereavement, uncomplicated Social History Tobacco Use Types Packs/Day Years Used Date Smoking Tobacco: Never Assessed Comments Unknown Sex and Gender Information Value Date Recorded Sex Assigned at Not on file Legal Sex Female 4: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
--- OUTSIDE RECORDS SUMMARY | 2024-04-28 16:40 | XMS_ITS | Encounter Summary ---
Author Organization [facility] Address [address] [place] [address] Care Team Providers Care Ela Teacher Name Role Phone Daniel Santos MD, Warren Handley Primary Care Provider Encounter Details Date Type Department Care Team (Late st Contact Info) Description 12/08/2000 Outpatient Historical [facility] Lesa, Raul Ortiz MD [address] [address] Vomiting alone (Primary Dx); Dyspepsia and other specified disorders of function of stomach Social History Tobacco Use Types Packs/Day Years Used Date Smoking Tobacco: Never Assessed Comments Unknown Sex and Gender Information Value Date Recorded Sex Assigned at Not on file Legal Sex Female 4:09 AM PUBLIC OPINION SURVEY TAKER Gender Identity Not on file Sexual Orientation Not on file documented as of this encounter Plan of Treatment Not on file documented as of this encounter Visit Diagnoses Diagnosis Vomiting alone- Primary Dyspepsia and other specified disorders of function of stomach documented in this encounter Care Teams Ela Teacher Relationship Specialty Start Date End Date Warren Sanchez Jr., MD [address] [place] [address] PCP - General Family Practice 03/20/15 documented as of this encounter
--- OUTSIDE RECORDS SUMMARY | 2024-04-28 16:40 | XMS_ITS | Encounter Summary ---
Author Organization [facility] Address [address] [place] [address] Care Team Providers Care Knot Picker Cloth Name Role Phone Daniel Santos MD, Warren Handley Primary Care Provider Encounter Details Date Type Department Care Team (Latest Contact Info) Description 01/05/2001 Outpatient Historical [facility] Warren Sanchez Jr., MD [address] [place] [address] RHEUMATOID ARTHRITIS (CMS/[facility]) (Primary Dx); GENERALIZED ANXIETY DIS; OSTEOARTHROS NOS-UNSPEC Social History Tobacco Use Types Packs/Day Years Used Date Smoking Tobacco: Never Assessed Comments Unknown Sex and Gender Information Value Date Recorded Sex Assigned at Not on file Legal Sex Female 4:09 AM BEAR KEEPER Gender Identity Not on file Sexual Orientation Not on file documented as of this encounter Plan of Treatment Not on file documented as of this encounter Visit Diagnoses Diagnosis Rheumatoid arthritis(714.0) (CMS/HCC)- Primary Rheumatoid arthritis Generalized anxiety disorder Osteoarthrosis, unspecified whether generalized or localized, unspecified site documented in this encounter Care Teams Knot Picker Cloth Relationship Specialty Start Date End Date Warren Sanchez Jr., MD [address] [place] [address] PCP - General Family Practice 03/20/15 documented as of this encounter
--- OUTSIDE RECORDS SUMMARY | 2024-04-28 16:40 | XMS_ITS | Encounter Summary ---
Author Organization [facility] Address [address] [place] [address] Care Team Providers Care Customer Service Advocate Name Role Phone Daniel Santos MD, Warren Handley Primary Care Provider Encounter Details Date Type Department Care Team (Latest Contact Info) Description 11/21/1999 Outpatient Historical [facility] Warren Sanchez Jr., MD [address] [place] [address] Diffus cystic mastopathy (Primary Dx); Insomnia, unspecified; Attention to dressings and sutures Social History Tobacco Use Types Packs/Day Years Used Date Smoking Tobacco: Never Assessed Comments Unknown Sex and Gender Information Value Date Recorded Sex Assigned at Not on file Legal Sex Female 4:09 AM LIABILITY ANALYST Gender Identity Not on file Sexual Orientation Not on file documented as of this encounter Plan of Treatment Not on file documented as of this encounter Visit Diagnoses Diagnosis Diffus cystic mastopathy- Primary Diffuse cystic mastopathy Insomnia, unspecified Attention to dressings and sutures documented in this encounter Care Teams Customer Service Advocate Relationship Specialty Start Date End Date Warren Sanchez Jr., MD [address] [place] [address] PCP - General Family Practice 03/20/15 documented as of this encounter
--- OUTSIDE RECORDS SUMMARY | 2024-04-28 16:40 | XMS_ITS | Encounter Summary ---
Author Organization [facility] Address [address] [place] [address] Care Team Providers Care Stringed Instrument Tuner Name Role Phone Daniel Santos MD, Warren Handley Primary Care Provider Encounter Details Date Type Department Care Team (Latest Contact Info) Description 02/02/2001 Outpatient Historical [facility] Warren Sanchez Jr., MD [address] [place] [address] ACUTE DELIRIUM (Primary Dx); HYPERTENSION NOS; RHEUMATOID ARTHRITIS (CMS/[facility]); DEPRESSIVE DISORDER NEC Social History Tobacco Use Types Packs/Day Years Used Date Smoking Tobacco: Never Assessed Comments Unknown Sex and Gender Information Value Date Recorded Sex Assigned at Not on file Legal Sex Female 4:09 AM MACHINE GRINDER Gender Identity Not on file Sexual Orientation Not on file documented as of this encounter Plan of Treatment Not on file documented as of this encounter Visit Diagnoses Diagnosis Delirium due to conditions classified elsewhere- Primary Unspecified essential hypertension Rheumatoid arthritis(714.0) (CMS/HCC) Rheumatoid arthritis Depressive disorder, not elsewhere classified documented in this encounter Care Teams Stringed Instrument Tuner Relationship Specialty Start Date End Date Warren Sanchez Jr., MD [address] [place] [address] PCP - General Family Practice 03/20/15 documented as of this encounter
--- OUTSIDE RECORDS SUMMARY | 2024-04-28 16:40 | XMS_ITS | Encounter Summary ---
Author Organization [facility] Address [address] [place] [address] Care Team Providers Care Skin Carver Name Role Phone Daniel Santos MD, Warren Handley Primary Care Provider Encounter Details Date Type Department Care Team (Latest Contact Info) Description 02/11/2000 Outpatient Historical [facility] Warren Sanchez Jr., MD [address] [place] [address] Bronchitis, not specified as acute or chronic (Primary Dx); Rheumatoid arthritis(714.0) (CMS/HCC) Social History Tobacco Use Types Packs/Day Years Used Date Smoking Tobacco: Never Assessed Comments Unknown Sex and Gender Information Value Date Recorded Sex Assigned at Not on file Legal Sex Female 4:09 AM CALL CENTER ANALYST Gender Identity Not on file Sexual Orientation Not on file documented as of this encounter Plan of Treatment Not on file documented as of this encounter Visit Diagnoses Diagnosis Bronchitis, not specified as acute or chronic- Primary Rheumatoid arthritis(714.0) (CMS/HCC) Rheumatoid arthritis documented in this encounter Care Teams Skin Carver Relationship Specialty Start Date End Date Warren Sanchez Jr., MD [address] [place] [address] PCP - General Family Practice 03/20/15 documented as of this encounter
--- OUTSIDE RECORDS SUMMARY | 2024-04-28 16:40 | XMS_ITS | Encounter Summary ---
Author Organization [facility] Address [address] [facility] Attn: [place] [address] Care Team Providers Care Real Estate Economist Name Role Phone Daniel Santos MD, Warren Handley Primary Care Provider Encounter Details Date Type Department Care Team (Late st Contact Info) Description 02/02/2001 Outpatient Historical Warren Sanchez Jr., MD [address] [place] [address] Social History Tobacco Use Types Packs/Day Years Used Date Smoking Tobacco: Never Assessed Comments Unknown Sex and Gender Information Value Date Recorded Sex Assigned at Not on file Legal Sex Female 4:09 AM CORRESPONDENCE ANALYST Gender Identity Not on file Sexual Orientation Not on file documented as of this encounter Plan of Treatment Not on file documented as of this encounter Visit Diagnoses Not on filedocumented in this encounter Care Teams Real Estate Economist Relationship Specialty Start Date End Date Warren Sanchez Jr., MD [address] [place] [address] PCP - General Family Practice 03/20/15 documented as of this encounter
--- OUTSIDE RECORDS SUMMARY | 2024-04-28 16:40 | XMS_ITS | Encounter Summary ---
Author Organization [facility] Address [address] Attn: [place] [address] Care Team Providers Care Nursing Support Worker Name Role Phone Daniel Santos MD, Warren Handley Primary Care Provider Encounter Details Date Type Department Care Team (Late st Contact Info) Description 04/22/2001 Outpatient Historical Warren Sanchez Jr., MD [address] [place] [address] Social History Tobacco Use Types Packs/Day Years Used Date Smoking Tobacco: Never Assessed Comments Unknown Sex and Gender Information Value Date Recorded Sex Assigned at Not on file Legal Sex Female 4:09 AM DAMAGE CUTTER Gender Identity Not on file Sexual Orientation Not on file documented as of this encounter Plan of Treatment Not on file documented as of this encounter Visit Diagnoses Not on filedocumented in this encounter Care Teams Nursing Support Worker Relationship Specialty Start Date End Date Warren Sanchez Jr., MD [address] [place] [address] PCP - General Family Practice 03/20/15 documented as of this encounter
--- OUTSIDE RECORDS SUMMARY | 2024-04-28 16:40 | XMS_ITS | Encounter Summary ---
Author Organization [facility] Address [address] [place] [address] Care Team Providers Care Assistant Speech Language Pathologist Name Role Phone Daniel Santos MD, Warren Handley Primary Care Provider Encounter Details Date Type Department Care Team (Latest Contact Info) Description 03/25/2001 Outpatient Historical [facility] Warren Sanchez Jr., MD [address] [place] [address] RHEUMATOID ARTHRITIS (CMS/[facility]) (Primary Dx); OSTEOARTHROS NOS-UNSPEC; HYPERTENSION NOS Social History Tobacco Use Types Packs/Day Years Used Date Smoking Tobacco: Never Assessed Comments Unknown Sex and Gender Information Value Date Recorded Sex Assigned at Not on file Legal Sex Female 4:09 AM HOME STAGER Gender Identity Not on file Sexual Orientation Not on file documented as of this encounter Plan of Treatment Not on file documented as of this encounter Visit Diagnoses Diagnosis Rheumatoid arthritis(714.0) (CMS/HCC)- Primary Rheumatoid arthritis Osteoarthrosis, unspecified whether generalized or localized, unspecified site Unspecified essential hypertension documented in this encounter Care Teams Assistant Speech Language Pathologist Relationship Specialty Start Date End Date Warren Sanchez Jr., MD [address] [place] [address] PCP - General Family Practice 03/20/15 documented as of this encounter
--- OUTSIDE RECORDS SUMMARY | 2024-04-28 16:40 | XMS_ITS | Encounter Summary ---
Author Organization [facility] Address [address] [facility] Attn: [place] [address] Care Team Providers Care Hydro Plant Operator Name Role Phone Daniel Santos MD, Warren Handley Primary Care Provider Encounter Details Date Type Department Care Team (Late st Contact Info) Description 10/03/1999 Outpatient Historical Warren Sanchez Jr., MD [address] [place] [address] Social History Tobacco Use Types Packs/Day Years Used Date Smoking Tobacco: Never Assessed Comments Unknown Sex and Gender Information Value Date Recorded Sex Assigned at Not on file Legal Sex Female 4:09 AM TUNGSTEN TENDER Gender Identity Not on file Sexual Orientation Not on file documented as of this encounter Plan of Treatment Not on file documented as of this encounter Visit Diagnoses Not on filedocumented in this encounter Care Teams Hydro Plant Operator Relationship Specialty Start Date End Date Warren Sanchez Jr., MD [address] [place] [address] PCP - General Family Practice 03/20/15 documented as of this encounter
--- OUTSIDE RECORDS SUMMARY | 2024-04-28 16:40 | XMS_ITS | Encounter Summary ---
Author Organization [facility] Address [address] [facility] Attn: [place] [address] Care Team Providers Care Commercial Account Officer Name Role Phone Daniel Santos MD, Warren Handley Primary Care Provider Encounter Details Date Type Department Care Team (Late st Contact Info) Description 08/21/1999 Outpatient Historical Warren Sanchez Jr., MD [address] [place] [address] Social History Tobacco Use Types Packs/Day Years Used Date Smoking Tobacco: Never Assessed Comments Unknown Sex and Gender Information Value Date Recorded Sex Assigned at Not on file Legal Sex Female 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
--- OUTSIDE RECORDS SUMMARY | 2024-04-28 16:40 | XMS_ITS | Encounter Summary ---
Author Organization [facility] Address [address] [facility] [facility] Attn: [place] [address] Care Team Providers Care Mechanic Name Role Phone Daniel Santos MD, Warren Handley Primary Care Provider Encounter Details Date Type Department Care Team (Late st Contact Info) Description 03/11/2001 Outpatient Historical Warren Sanchez Jr., MD [address] [place] [address] Social History Tobacco Use Types Packs/Day Years Used Date Smoking Tobacco: Never Assessed Comments Unknown Sex and Gender Information Value Date Recorded Sex Assigned at Not on file Legal Sex Female 4:09 AM IT BUSINESS ANALYST Gender Identity Not on file Sexual Orientation Not on file documented as of this encounter Plan of Treatment Not on file documented as of this encounter Visit Diagnoses Not on filedocumented in this encounter Care Teams Mechanic Relationship Specialty Start Date End Date Warren Sanchez Jr., MD [address] [place] [address] PCP - General Family Practice 03/20/15 documented as of this encounter
--- OUTSIDE RECORDS SUMMARY | 2024-04-28 16:40 | XMS_ITS | Encounter Summary ---
Author Organization [facility] Address [address] [facility] Attn: [place] [address] Care Team Providers Care Towel Stretcher Name Role Phone Daniel Santos MD, Warren Handley Primary Care Provider Encounter Details Date Type Department Care Team (Late st Contact Info) Description 06/09/1999 Outpatient Historical Warren Sanchez Jr., MD [address] [place] [address] Social History Tobacco Use Types Packs/Day Years Used Date Smoking Tobacco: Never Assessed Comments Unknown Sex and Gender Information Value Date Recorded Sex Assigned at Not on file Legal Sex Female 4:09 AM PEBBLE MILL OPERATOR Gender Identity Not on file Sexual Orientation Not on file documented as of this encounter Plan of Treatment Not on file documented as of this encounter Visit Diagnoses Not on filedocumented in this encounter Care Teams Towel Stretcher Relationship Specialty Start Date End Date Warren Sanchez Jr., MD [address] [place] [address] PCP - General Family Practice 03/20/15 documented as of this encounter
--- OUTSIDE RECORDS SUMMARY | 2024-04-28 16:40 | XMS_ITS | Encounter Summary ---
Author Organization [facility] Address [address] [place] [address] Care Team Providers Care Nursing Director Name Role Phone Daniel Santos MD, Warren Handley Primary Care Provider Encounter Details Date Type Department Care Team (Latest Contact Info) Description 03/04/2001 Outpatient Historical [facility] Warren Sanchez Jr., MD [address] [place] [address] RHEUMATOID ARTHRITIS (CMS/[facility]) (Primary Dx); HYPERTENSION NOS; DEPRESSIVE DISORDER NEC Social History Tobacco Use Types Packs/Day Years Used Date Smoking Tobacco: Never Assessed Comments Unknown Sex and Gender Information Value Date Recorded Sex Assigned at Not on file Legal Sex Female 4:09 AM ENERGY SYSTEMS LABORATORY DIRECTOR Gender Identity Not on file Sexual Orientation Not on file documented as of this encounter Plan of Treatment Not on file documented as of this encounter Visit Diagnoses Diagnosis Rheumatoid arthritis(714.0) (CMS/HCC)- Primary Rheumatoid arthritis Unspecified essential hypertension Depressive disorder, not elsewhere classified documented in this encounter Care Teams Nursing Director Relationship Specialty Start Date End Date Warren Sanchez Jr., MD [address] [place] [address] PCP - General Family Practice 03/20/15 documented as of this encounter
--- OUTSIDE RECORDS SUMMARY | 2024-04-28 16:40 | XMS_ITS | Encounter Summary ---
Author Organization [facility] Address [address] [place] [address] Care Team Providers Care Lead Atg Developer Name Role Phone Daniel Santos MD, Warren Handley Primary Care Provider Encounter Details Date Type Department Care Team (Latest Contact Info) Description 01/09/1999 Outpatient Historical [facility] Warren Sanchez Jr., MD [address] [place] [address] Osteoarthrosis, unspecified whether generalized or localized, unspecified site (Primary Dx); Rheumatoid arthritis(714.0) (CMS/HCC); Depressive disorder, not elsewhere classified Social History Tobacco Use Types Packs/Day Years Used Date Smoking Tobacco: Never Assessed Comments Unknown Sex and Gender Information Value Date Recorded Sex Assigned at Not on file Legal Sex Female 4:09 AM SAS PROGRAMMER ANALYST Gender Identity Not on file Sexual Orientation Not on file documented as of this encounter Plan of Treatment Not on file documented as of this encounter Visit Diagnoses Diagnosis Osteoarthrosis, unspecified whether generalized or localized, unspecified site- Primary Rheumatoid arthritis(714.0) (CMS/HCC) Rheumatoid arthritis Depressive disorder, not elsewhere classified documented in this encounter Care Teams Lead Atg Developer Relationship Specialty Start Date End Date Warren Sanchez Jr., MD [address] [place] [address] PCP - General Family Practice 03/20/15 documented as of this encounter
--- OUTSIDE RECORDS SUMMARY | 2024-04-28 16:40 | XMS_ITS | Encounter Summary ---
Author Organization [facility] Address [address] [place] [address] Care Team Providers Care Gang Boss Name Role Phone Daniel Santos MD, Warren Handley Primary Care Provider Encounter Details Date Type Department Care Team (Latest Contact Info) Description 04/22/2001 Outpatient Historical [facility] Warren Sanchez Jr., MD [address] [place] [address] HYPERTENSION NOS (Primary Dx); RHEUMATOID ARTHRITIS (CMS/[facility]); OSTEOARTHROS NOS-OTHER SITE; DISORDERS OF SACRUM Social History Tobacco Use Types Packs/Day Years Used Date Smoking Tobacco: Never Assessed Comments Unknown Sex and Gender Information Value Date Recorded Sex Assigned at Not on file Legal Sex Female 4:09 AM RUSSIAN TEACHER Gender Identity Not on file Sexual Orientation Not on file documented as of this encounter Plan of Treatment Not on file documented as of this encounter Visit Diagnoses Diagnosis Unspecified essential hypertension- Primary Rheumatoid arthritis(714.0) (CMS/HCC) Rheumatoid arthritis Osteoarthrosis, unspecified whether generalized or localized, other specified sites Disorders of sacrum documented in this encounter Care Teams Gang Boss Relationship Specialty Start Date End Date Warren Sanchez Jr., MD [address] [place] [address] PCP - General Family Practice 03/20/15 documented as of this encounter
--- OUTSIDE RECORDS SUMMARY | 2024-04-28 16:40 | XMS_ITS | Encounter Summary ---
Author Organization [facility] Address [address] [facility] Attn: [place] [address] Care Team Providers Care Demand Equipment Repairer Name Role Phone Daniel Santos MD, Warren Handley Primary Care Provider Encounter Details Date Type Department Care Team (Late st Contact Info) Description 07/21/1999 Outpatient Historical Warren Sanchez Jr., MD [address] [place] [address] Social History Tobacco Use Types Packs/Day Years Used Date Smoking Tobacco: Never Assessed Comments Unknown Sex and Gender Information Value Date Recorded Sex Assigned at Not on file Legal Sex Female 4:09 AM ACCIDENT REPORT CLERK Gender Identity Not on file Sexual Orientation Not on file documented as of this encounter Plan of Treatment Not on file documented as of this encounter Visit Diagnoses Not on filedocumented in this encounter Care Teams Demand Equipment Repairer Relationship Specialty Start Date End Date Warren Sanchez Jr., MD [address] [place] [address] PCP - General Family Practice 03/20/15 documented as of this encounter
--- OUTSIDE RECORDS SUMMARY | 2024-04-28 16:40 | XMS_ITS | Encounter Summary ---
Author Organization [facility] Address [address] [place] [address] Care Team Providers Care Contact Manager Name Role Phone Daniel Santos MD, Warren Handley Primary Care Provider Encounter Details Date Type Department Care Team (Latest Contact Info) Description 02/06/1999 Outpatient Historical [facility] Warren Sanchez Jr., MD [address] [place] [address] Rheumatoid arthritis(714.0) (CMS/[facility]) (Primary Dx); Osteoarthrosis, unspecified whether generalized or localized, unspecified site; Depressive disorder, not elsewhere classified; Need vaccination-viral disease Social History Tobacco Use Types Packs/Day Years Used Date Smoking Tobacco: Never Assessed Comments Unknown Sex and Gender Information Value Date Recorded Sex Assigned at Not on file Legal Sex Female 4:09 AM FINANCIAL SERVICE REP Gender Identity Not on file Sexual Orientation Not on file documented as of this encounter Plan of Treatment Not on file documented as of this encounter Visit Diagnoses Diagnosis Rheumatoid arthritis(714.0) (CMS/[facility])- Primary Rheumatoid arthritis Osteoarthrosis, unspecified whether generalized or localized, unspecified site Depressive disorder, not elsewhere classified Need vaccination-viral disease Need for prophylactic vaccination and inoculation against other viral diseases documented in this encounter Care Teams Contact Manager Relationship Specialty Start Date End Date Warren Sanchez Jr., MD [address] [place] [address] PCP - General Family Practice 03/20/15 documented as of this encounter
--- OUTSIDE RECORDS SUMMARY | 2024-04-28 16:40 | XMS_ITS | Encounter Summary ---
Author Organization [facility] Address [address] [place] [address] Care Team Providers Care Svp Group Director Name Role Phone Daniel Santos MD, Warren Handley Primary Care Provider Encounter Details Date Type Department Care Team (Latest Contact Info) Description 12/09/2000 Outpatient Historical [facility] Warren Sanchez Jr., MD [address] [place] [address] Rheumatoid arthritis(714.0) (CMS/[facility]) (Primary Dx) Social History Tobacco Use Types Packs/Day Years Used Date Smoking Tobacco: Never Assessed Comments Unknown Sex and Gender Information Value Date Recorded Sex Assigned at Not on file Legal Sex Female 4:09 AM DISPENSARY TECHNICIAN Gender Identity Not on file Sexual Orientation Not on file documented as of this encounter Plan of Treatment Not on file documented as of this encounter Visit Diagnoses Diagnosis Rheumatoid arthritis(714.0) (CMS/HCC)- Primary Rheumatoid arthritis documented in this encounter Care Teams Svp Group Director Relationship Specialty Start Date End Date Warren Sanchez Jr., MD [address] [place] [address] PCP - General Family Practice 03/20/15 documented as of this encounter
--- OUTSIDE RECORDS SUMMARY | 2024-04-28 16:40 | XMS_ITS | Encounter Summary ---
Author Organization [facility] Address [address] [place] [address] Care Team Providers Care Traffic Rate Clerk Name Role Phone Daniel Santos MD, Warren Handley Primary Care Provider Encounter Details Date Type Department Care Team (Latest Contact Info) Description 12/17/1998 Outpatient Historical [facility] Warren Sanchez Jr., MD [address] [place] [address] Anemia, unspecified (Primary Dx) Social History Tobacco Use Types Packs/Day Years Used Date Smoking Tobacco: Never Assessed Comments Unknown Sex and Gender Information Value Date Recorded Sex Assigned at Not on file Legal Sex Female 4:09 AM PUMP HOUSE OPERATOR Gender Identity Not on file Sexual Orientation Not on file documented as of this encounter Plan of Treatment Not on file documented as of this encounter Visit Diagnoses Diagnosis Anemia, unspecified- Primary documented in this encounter Care Teams Traffic Rate Clerk Relationship Specialty Start Date End Date Warren Sanchez Jr., MD [address] [place] [address] PCP - General Family Practice 03/20/15 documented as of this encounter
--- OUTSIDE RECORDS SUMMARY | 2024-04-28 16:40 | XMS_ITS | Encounter Summary ---
Author Organization [facility] Address [address] [facility] Attn: [place] [address] Care Team Providers Care Adjuster Electrical Contacts Name Role Phone Daniel Santos MD, Warren Handley Primary Care Provider Encounter Details Date Type Department Care Team (Late st Contact Info) Description 12/17/2000 Outpatient Historical Warren Sanchez Jr., MD [address] [place] [address] Social History Tobacco Use Types Packs/Day Years Used Date Smoking Tobacco: Never Assessed Comments Unknown Sex and Gender Information Value Date Recorded Sex Assigned at Not on file Legal Sex Female 4:09 AM STORE CONSULTANT Gender Identity Not on file Sexual Orientation Not on file documented as of this encounter Plan of Treatment Not on file documented as of this encounter Visit Diagnoses Not on filedocumented in this encounter Care Teams Adjuster Electrical Contacts Relationship Specialty Start Date End Date Warren Sanchez Jr., MD [address] [place] [address] PCP - General Family Practice 03/20/15 documented as of this encounter
--- OUTSIDE RECORDS SUMMARY | 2024-04-28 16:40 | XMS_ITS | Encounter Summary ---
Author Organization [facility] Address [address] [facility] [facility] Attn: [place] [address] Care Team Providers Care Link And Link Knitting Machine Operator Name Role Phone Daniel Santos MD, Warren Handley Primary Care Provider Encounter Details Date Type Department Care Team (Late st Contact Info) Description 01/08/2000 Outpatient Historical Warren Sanchez Jr., MD [address] [place] [address] Social History Tobacco Use Types Packs/Day Years Used Date Smoking Tobacco: Never Assessed Comments Unknown Sex and Gender Information Value Date Recorded Sex Assigned at Not on file Legal Sex Female 4:09 AM DEPUTY PROBATION OFFICER Gender Identity Not on file Sexual Orientation Not on file documented as of this encounter Plan of Treatment Not on file documented as of this encounter Visit Diagnoses Not on filedocumented in this encounter Care Teams Link And Link Knitting Machine Operator Relationship Specialty Start Date End Date Warren Sanchez Jr., MD [address] [place] [address] PCP - General Family Practice 03/20/15 documented as of this encounter
--- OUTSIDE RECORDS SUMMARY | 2024-04-28 16:40 | XMS_ITS | Encounter Summary ---
Author Organization [facility] Address [address] [place] [address] Care Team Providers Care Craps Manager Name Role Phone Daniel Santos MD, Warren Handley Primary Care Provider Encounter Details Date Type Department Care Team (Latest Contact Info) Description 12/19/1998 Outpatient Historical [facility] Warren Sanchez Jr., MD [address] [place] [address] Rheumatoid arthritis(714.0) (CMS/[facility]) (Primary Dx); Osteoarthrosis, unspecified whether generalized or localized, unspecified site; Anemia, unspecified Social History Tobacco Use Types Packs/Day Years Used Date Smoking Tobacco: Never Assessed Comments Unknown Sex and Gender Information Value Date Recorded Sex Assigned at Not on file Legal Sex Female 4:09 AM APARTMENT COMMUNITY ASSISTANT MANAGER Gender Identity Not on file Sexual Orientation Not on file documented as of this encounter Plan of Treatment Not on file documented as of this encounter Visit Diagnoses Diagnosis Rheumatoid arthritis(714.0) (CMS/HCC)- Primary Rheumatoid arthritis Osteoarthrosis, unspecified whether generalized or localized, unspecified site Anemia, unspecified documented in this encounter Care Teams Craps Manager Relationship Specialty Start Date End Date Warren Sanchez Jr., MD [address] [place] [address] PCP - General Family Practice 03/20/15 documented as of this encounter
--- OUTSIDE RECORDS SUMMARY | 2024-04-28 16:40 | XMS_ITS | Encounter Summary ---
Author Organization [facility] Address [address] [place] [address] Care Team Providers Care Reinforcing Rod Layer Name Role Phone Daniel Santos MD, Warren Handley Primary Care Provider Encounter Details Date Type Department Care Team (Latest Contact Info) Description 03/10/1999 Outpatient Historical [facility] Warren Sanchez Jr., MD [address] [place] [address] Rheumatoid arthritis(714.0) (CMS/[facility]) (Primary Dx); Osteoarthrosis, unspecified whether generalized or localized, unspecified site; Depressive disorder, not elsewhere classified Social History Tobacco Use Types Packs/Day Years Used Date Smoking Tobacco: Never Assessed Comments Unknown Sex and Gender Information Value Date Recorded Sex Assigned at Not on file Legal Sex Female 4:09 AM DIRECTOR OF CORPORATE REAL ESTATE Gender Identity Not on file Sexual Orientation Not on file documented as of this encounter Plan of Treatment Not on file documented as of this encounter Visit Diagnoses Diagnosis Rheumatoid arthritis(714.0) (CMS/HCC)- Primary Rheumatoid arthritis Osteoarthrosis, unspecified whether generalized or localized, unspecified site Depressive disorder, not elsewhere classified documented in this encounter Care Teams Reinforcing Rod Layer Relationship Specialty Start Date End Date Warren Sanchez Jr., MD [address] [place] [address] PCP - General Family Practice 03/20/15 documented as of this encounter
--- OUTSIDE RECORDS SUMMARY | 2024-04-28 16:40 | XMS_ITS | Encounter Summary ---
Author Organization [facility] Address [address] [place] [address] Care Team Providers Care Welder Name Role Phone Daniel Santos MD, Warren Handley Primary Care Provider Encounter Details Date Type Department Care Team (Latest Contact Info) Description 12/17/2000 Outpatient Historical [facility] Warren Sanchez Jr., MD [address] [place] [address] Depressive disorder, not elsewhere classified (Primary Dx); Rheumatoid arthritis(714.0) (CMS/HCC) Social History Tobacco Use Types Packs/Day Years Used Date Smoking Tobacco: Never Assessed Comments Unknown Sex and Gender Information Value Date Recorded Sex Assigned at Not on file Legal Sex Female 4:09 AM INTERVENTIONAL NURSE Gender Identity Not on file Sexual Orientation Not on file documented as of this encounter Plan of Treatment Not on file documented as of this encounter Visit Diagnoses Diagnosis Depressive disorder, not elsewhere classified- Primary Rheumatoid arthritis(714.0) (CMS/HCC) Rheumatoid arthritis documented in this encounter Care Teams Welder Relationship Specialty Start Date End Date Warren Sanchez Jr., MD [address] [place] [address] PCP - General Family Practice 03/20/15 documented as of this encounter
--- OUTSIDE RECORDS SUMMARY | 2024-04-28 16:40 | XMS_ITS | Encounter Summary ---
Author Organization [facility] Address [address] [place] [address] Care Team Providers Care Sewer Line Photo Inspector Name Role Phone Daniel Santos MD, Warren Handley Primary Care Provider Encounter Details Date Type Department Care Team (Latest Contact Info) Description 01/08/2000 Outpatient Historical [facility] Warren Sanchez Jr., MD [address] [place] [address] Rheumatoid arthritis(714.0) (CMS/[facility]) (Primary Dx); Chest pain, unspecified; Encounter for long-term (current) use of other medications Social History Tobacco Use Types Packs/Day Years Used Date Smoking Tobacco: Never Assessed Comments Unknown Sex and Gender Information Value Date Recorded Sex Assigned at Not on file Legal Sex Female 4:09 AM ART GLASS SETTER Gender Identity Not on file Sexual Orientation Not on file documented as of this encounter Plan of Treatment Not on file documented as of this encounter Visit Diagnoses Diagnosis Rheumatoid arthritis(714.0) (CMS/HCC)- Primary Rheumatoid arthritis Chest pain, unspecified Encounter for long-term (current) use of other medications documented in this encounter Care Teams Sewer Line Photo Inspector Relationship Specialty Start Date End Date Warren Sanchez Jr., MD [address] [place] [address] PCP - General Family Practice 03/20/15 documented as of this encounter
--- OUTSIDE RECORDS SUMMARY | 2024-04-28 16:40 | XMS_ITS | Encounter Summary ---
Author Organization [facility] Address [address] [place] [address] Care Team Providers Care Marine Drafter Name Role Phone Daniel Santos MD, Warren Handley Primary Care Provider Encounter Details Date Type Department Care Team (Latest Contact Info) Description 01/20/1999 Outpatient Historical [facility] Warren Sanchez Jr., MD [address] [place] [address] Depressive disorder, not elsewhere classified (Primary Dx); Rheumatoid arthritis(714.0) (CMS/HCC); Osteoarthrosis, unspecified whether generalized or localized, unspecified site Social History Tobacco Use Types Packs/Day Years Used Date Smoking Tobacco: Never Assessed Comments Unknown Sex and Gender Information Value Date Recorded Sex Assigned at Not on file Legal Sex Female 4:09 AM WHEEL ASSEMBLER Gender Identity Not on file Sexual Orientation Not on file documented as of this encounter Plan of Treatment Not on file documented as of this encounter Visit Diagnoses Diagnosis Depressive disorder, not elsewhere classified- Primary Rheumatoid arthritis(714.0) (CMS/HCC) Rheumatoid arthritis Osteoarthrosis, unspecified whether generalized or localized, unspecified site documented in this encounter Care Teams Marine Drafter Relationship Specialty Start Date End Date Warren Sanchez Jr., MD [address] [place] [address] PCP - General Family Practice 03/20/15 documented as of this encounter
--- OUTSIDE RECORDS SUMMARY | 2024-04-28 16:40 | XMS_ITS | Encounter Summary ---
Author Organization [facility] Address [address] [place] [address] Care Team Providers Care Environmental Service Aide Name Role Phone Daniel Santos MD, Warren Handley Primary Care Provider Encounter Details Date Type Department Care Team (Latest Contact Info) Description 01/15/2000 Outpatient Historical [facility] Warren Sanchez Jr., MD [address] [place] [address] Pain in joint, forearm (Primary Dx); Lesion of ulnar nerve; Rheumatoid arthritis(714.0) (CMS/HCC) Social History Tobacco Use Types Packs/Day Years Used Date Smoking Tobacco: Never Assessed Comments Unknown Sex and Gender Information Value Date Recorded Sex Assigned at Not on file Legal Sex Female 4:09 AM COMMUNITY HEALTH COORDINATOR Gender Identity Not on file Sexual Orientation Not on file documented as of this encounter Plan of Treatment Not on file documented as of this encounter Visit Diagnoses Diagnosis Pain in joint, forearm- Primary Lesion of ulnar nerve Rheumatoid arthritis(714.0) (CMS/HCC) Rheumatoid arthritis documented in this encounter Care Teams Environmental Service Aide Relationship Specialty Start Date End Date Warren Sanchez Jr., MD [address] [place] [address] PCP - General Family Practice 03/20/15 documented as of this encounter
--- OUTSIDE RECORDS SUMMARY | 2024-04-28 16:40 | XMS_ITS | Encounter Summary ---
Author Organization [facility] Address [address] [place] [address] Care Team Providers Care Wood Pole Treater Name Role Phone Daniel Santos MD, Warren Handley Primary Care Provider Encounter Details Date Type Department Care Team (Latest Contact Info) Description 03/11/2001 Outpatient Historical [facility] Warren Sanchez Jr., MD [address] [place] [address] RHEUMATOID ARTHRITIS (CMS/[facility]) (Primary Dx); OSTEOARTHROS NOS-UNSPEC; DEPRESSIVE DISORDER NEC Social History Tobacco Use Types Packs/Day Years Used Date Smoking Tobacco: Never Assessed Comments Unknown Sex and Gender Information Value Date Recorded Sex Assigned at Not on file Legal Sex Female 4:09 AM CONVENTION MANAGER Gender Identity Not on file Sexual Orientation Not on file documented as of this encounter Plan of Treatment Not on file documented as of this encounter Visit Diagnoses Diagnosis Rheumatoid arthritis(714.0) (CMS/HCC)- Primary Rheumatoid arthritis Osteoarthrosis, unspecified whether generalized or localized, unspecified site Depressive disorder, not elsewhere classified documented in this encounter Care Teams Wood Pole Treater Relationship Specialty Start Date End Date Warren Sanchez Jr., MD [address] [place] [id number] PCP - General Family Practice 03/20/15 documented as of this encounter
--- OUTSIDE RECORDS SUMMARY | 2024-04-28 16:40 | XMS_ITS | Encounter Summary ---
Author Organization [facility] Address [address] [place] [address] Care Team Providers Care Principal Database Developer Name Role Phone Daniel Santos MD, Warren Handley Primary Care Provider Encounter Details Date Type Department Care Team (Latest Contact Info) Description 10/03/1999 Outpatient Historical [facility] Warren Sanchez Jr., MD [address] [place] [address] Syringomyelia (CMS/HCC) (Primary Dx); Rheumatoid arthritis(714.0) (CMS/HCC); Depressive disorder, not elsewhere classified Social History Tobacco Use Types Packs/Day Years Used Date Smoking Tobacco: Never Assessed Comments Unknown Sex and Gender Information Value Date Recorded Sex Assigned at Not on file Legal Sex Female 4:09 AM MUD TEMPERER Gender Identity Not on file Sexual Orientation Not on file documented as of this encounter Plan of Treatment Not on file documented as of this encounter Visit Diagnoses Diagnosis Syringomyelia (CMS/HCC)- Primary Syringomyelia and syringobulbia Rheumatoid arthritis(714.0) (CMS/HCC) Rheumatoid arthritis Depressive disorder, not elsewhere classified documented in this encounter Care Teams Principal Database Developer Relationship Specialty Start Date End Date Warren Sanchez Jr., MD [address] [place] [address] PCP - General Family Practice 03/20/15 documented as of this encounter
--- OUTSIDE RECORDS SUMMARY | 2024-04-28 16:40 | XMS_ITS | Encounter Summary ---
Author Organization [facility] Address [address] [facility] Attn: [place] [address] Care Team Providers Care Global Regulatory Affairs Manager Name Role Phone Daniel Santos MD, Warren Handley Primary Care Provider Encounter Details Date Type Department Care Team (Late st Contact Info) Description 11/18/1999 Outpatient Historical Warren Sanchez Jr., MD [address] [place] [address] Social History Tobacco Use Types Packs/Day Years Used Date Smoking Tobacco: Never Assessed Comments Unknown Sex and Gender Information Value Date Recorded Sex Assigned at Not on file Legal Sex Female 4:09 AM CRIMINOLOGY PROFESSOR Gender Identity Not on file Sexual Orientation Not on file documented as of this encounter Plan of Treatment Not on file documented as of this encounter Visit Diagnoses Not on filedocumented in this encounter Care Teams Global Regulatory Affairs Manager Relationship Specialty Start Date End Date Warren Sanchez Jr., MD [address] [place] [address] PCP - General Family Practice 03/20/15 documented as of this encounter
--- OUTSIDE RECORDS SUMMARY | 2024-04-28 16:40 | XMS_ITS | Encounter Summary ---
Author Organization [facility] Address [address] [place] [address] Care Team Providers Care Field Staff Name Role Phone Daniel Santos MD, Warren Handley Primary Care Provider Encounter Details Date Type Department Care Team (Latest Contact Info) Description 11/17/1999 Outpatient Historical [facility] Warren Sanchze Jr., MD [address] [place] [address] Benign neoplasm of skin of other and unspecified parts of face (Primary Dx); Rheumatoid arthritis(714.0) (CMS/HCC); Encounter for long-term (current) use of other medications; Screening examination for pulmonary tuberculosis Social History Tobacco Use Types Packs/Day Years Used Date Smoking Tobacco: Never Assessed Comments Unknown Sex and Gender Information Value Date Recorded Sex Assigned at Not on file Legal Sex Female 4:09 AM FUEL CELL BINDER Gender Identity Not on file Sexual Orientation Not on file documented as of this encounter Plan of Treatment Not on file documented as of this encounter Visit Diagnoses Diagnosis Benign neoplasm of skin of other and unspecified parts of face- Primary Rheumatoid arthritis(714.0) (CMS/HCC) Rheumatoid arthritis Encounter for long-term (current) use of other medications Screening examination for pulmonary tuberculosis documented in this encounter Care Teams Field Staff Relationship Specialty Start Date End Date Warren Sanchez Jr., MD [address] [place] [address] PCP - General Family Practice 03/20/15 documented as of this encounter
--- OUTSIDE RECORDS SUMMARY | 2024-04-28 16:40 | XMS_ITS | Encounter Summary ---
Author Organization [facility] Address [address] [place] [address] Care Team Providers Care Head Mechanic Name Role Phone Daniel Santos MD, Warren Handley Primary Care Provider Encounter Details Date Type Department Care Team (Latest Contact Info) Description 12/12/1998 Outpatient Historical [facility] Warren Sanchez Jr., MD [address] [place] [address] Rheumatoid arthritis(714.0) (CMS/[facility]) (Primary Dx); Gout, unspecified; Nausea with vomiting Social History Tobacco Use Types Packs/Day Years Used Date Smoking Tobacco: Never Assessed Comments Unknown Sex and Gender Information Value Date Recorded Sex Assigned at Not on file Legal Sex Female 4:09 AM LOGGING SHOVEL OPERATOR Gender Identity Not on file Sexual Orientation Not on file documented as of this encounter Plan of Treatment Not on file documented as of this encounter Visit Diagnoses Diagnosis Rheumatoid arthritis(714.0) (CMS/[facility])- Primary Rheumatoid arthritis Gout, unspecified Nausea with vomiting documented in this encounter Care Teams Head Mechanic Relationship Specialty Start Date End Date Warren Sanchez Jr., MD [address] [place] [address] PCP - General Family Practice 03/20/15 documented as of this encounter
--- OUTSIDE RECORDS SUMMARY | 2024-04-28 16:40 | XMS_ITS | Encounter Summary ---
Author Organization [facility] Address [address] [place] [address] Care Team Providers Care Benefits Representative Name Role Phone Daniel Santos MD, Warren Handley Primary Care Provider Encounter Details Date Type Department Care Team (Latest Contact Info) Description 02/07/1999 Outpatient Historical [facility] Warren Sanchez Jr., MD [address] [place] [address] Osteoarthrosis, unspecified whether generalized or localized, unspecified site (Primary Dx); Rheumatoid arthritis(714.0) (CMS/HCC); Depressive disorder, not elsewhere classified Social History Tobacco Use Types Packs/Day Years Used Date Smoking Tobacco: Never Assessed Comments Unknown Sex and Gender Information Value Date Recorded Sex Assigned at Not on file Legal Sex Female 4:09 AM BUGGY OPERATOR Gender Identity Not on file Sexual Orientation Not on file documented as of this encounter Plan of Treatment Not on file documented as of this encounter Visit Diagnoses Diagnosis Osteoarthrosis, unspecified whether generalized or localized, unspecified site- Primary Rheumatoid arthritis(714.0) (CMS/HCC) Rheumatoid arthritis Depressive disorder, not elsewhere classified documented in this encounter Care Teams Benefits Representative Relationship Specialty Start Date End Date Warren Sanchez Jr., MD [address] [place] [address] PCP - General Family Practice 03/20/15 documented as of this encounter
--- OUTSIDE RECORDS SUMMARY | 2024-04-28 16:41 | XMS_ITS | Encounter Summary ---
Author Organization [facility] Address [address] [place] [address] Care Team Providers Care Demo Specialist Name Role Phone Daniel Santos MD, Warren Handley Primary Care Provider Encounter Details Date Type Department Care Team (Latest Contact Info) Description 11/16/2001 Outpatient Historical [facility] Warren Sanchez Jr., MD [address] [place] [address] RHEUMATOID ARTHRITIS (CMS/[facility]) (Primary Dx); HYPERTENSION NOS; OSTEOARTHROS NOS-UNSPEC; GOUT NOS Social History Tobacco Use Types Packs/Day Years Used Date Smoking Tobacco: Never Assessed Comments Unknown Sex and Gender Information Value Date Recorded Sex Assigned at Not on file Legal Sex Female 4:09 AM INTERCEPTOR OPERATOR Gender Identity Not on file Sexual Orientation Not on file documented as of this encounter Plan of Treatment Not on file documented as of this encounter Visit Diagnoses Diagnosis Rheumatoid arthritis(714.0) (CMS/HCC)- Primary Rheumatoid arthritis Unspecified essential hypertension Osteoarthrosis, unspecified whether generalized or localized, unspecified site Gout, unspecified documented in this encounter Care Teams Demo Specialist Relationship Specialty Start Date End Date Warren Sanchez Jr., MD [address] [place] [address] PCP - General Family Practice 03/20/15 documented as of this encounter
--- OUTSIDE RECORDS SUMMARY | 2024-04-28 16:41 | XMS_ITS | Encounter Summary ---
Author Organization [facility] Address [address] [place] [address] Care Team Providers Care Loading Checker Name Role Phone Daniel Santos MD, Warren Handley Primary Care Provider Encounter Details Date Type Department Care Team (Latest Contact Info) Description 08/24/2001 Outpatient Historical [facility] Warren Sanchez Jr., MD [address] [place] [address] OSTEOARTHROS NOS-ANKLE (Primary Dx); RHEUMATOID ARTHRITIS (CMS/[facility]); UNS ASTHMA WOSTATUS ASTHMATICUS; CORNS AND CALLOSITIES Social History Tobacco Use Types Packs/Day Years Used Date Smoking Tobacco: Never Assessed Comments Unknown Sex and Gender Information Value Date Recorded Sex Assigned at Not on file Legal Sex Female 4:09 AM REGULATED PROGRAM MANAGER Gender Identity Not on file Sexual Orientation Not on file documented as of this encounter Plan of Treatment Not on file documented as of this encounter Visit Diagnoses Diagnosis Osteoarthrosis, unspecified whether generalized or localized, ankle and foot- Primary Rheumatoid arthritis(714.0) (CMS/HCC) Rheumatoid arthritis Unspecified asthma(493.90) Unspecified asthma Corns and callosities documented in this encounter Care Teams Loading Checker Relationship Specialty Start Date End Date Warren Sanchez Jr., MD [address] [place] [address] PCP - General Family Practice 03/20/15 documented as of this encounter
--- OUTSIDE RECORDS SUMMARY | 2024-04-28 16:41 | XMS_ITS | Encounter Summary ---
Author Organization [facility] Address [address] [place] [address] Care Team Providers Care Electrical Assembler Name Role Phone Daniel Santos MD, Warren Handley Primary Care Provider Encounter Details Date Type Department Care Team (Late st Contact Info) Description 05/01/2002 Outpatient Historical [facility] Warren Sanchez Jr., MD [address] [place] [address] URIN TRACT INFECTION NOS (Primary Dx) Social History Tobacco Use Types Packs/Day Years Used Date Smoking Tobacco: Never Assessed Comments Unknown Sex and Gender Information Value Date Recorded Sex Assigned at Not on file Legal Sex Female 4:09 AM ORDER SCHEDULE CLERK Gender Identity Not on file Sexual Orientation Not on file documented as of this encounter Plan of Treatment Not on file documented as of this encounter Visit Diagnoses Diagnosis Urinary tract infection, site not specified- Primary documented in this encounter Care Teams Electrical Assembler Relationship Specialty Start Date End Date Warren Sanchez Jr., MD [address] [place] [address] PCP - General Family Practice 03/20/15 documented as of this encounter
--- OUTSIDE RECORDS SUMMARY | 2024-04-28 16:41 | XMS_ITS | Encounter Summary ---
Author Organization [facility] Address [address] [facility] Attn: [place] [address] Care Team Providers Care Welcome Wagon Host/Hostess Name Role Phone Daniel Santos MD, Warren Handley Primary Care Provider Encounter Details Date Type Department Care Team (Late st Contact Info) Description 11/17/2001 Outpatient Historical Warren Sanchez Jr., MD [address] [place] [address] Social History Tobacco Use Types Packs/Day Years Used Date Smoking Tobacco: Never Assessed Comments Unknown Sex and Gender Information Value Date Recorded Sex Assigned at Not on file Legal Sex Female 4:09 AM COMPANY DRIVER Gender Identity Not on file Sexual Orientation Not on file documented as of this encounter Plan of Treatment Not on file documented as of this encounter Visit Diagnoses Not on filedocumented in this encounter Care Teams Welcome Wagon Host/Hostess Relationship Specialty Start Date End Date Warren Sanchez Jr., MD [address] [place] [address] PCP - General Family Practice 03/20/15 documented as of this encounter
--- OUTSIDE RECORDS SUMMARY | 2024-04-28 16:41 | XMS_ITS | Encounter Summary ---
Author Organization [facility] Address [address] [place] [address] Care Team Providers Care Pile Driver Engineer Name Role Phone Daniel Santos MD, Warren Handley Primary Care Provider Encounter Details Date Type Department Care Team (Latest Contact Info) Description 02/25/1998 Outpatient Historical [facility] Warren Sanchez Jr., MD [address] [place] [address] Rheumatoid arthritis(714.0) (CMS/[facility]) (Primary Dx); Counseling NOS(V65.40) Social History Tobacco Use Types Packs/Day Years Used Date Smoking Tobacco: Never Assessed Comments Unknown Sex and Gender Information Value Date Recorded Sex Assigned at Not on file Legal Sex Female 4:09 AM ICT SECURITY SPECIALIST Gender Identity Not on file Sexual Orientation Not on file documented as of this encounter Plan of Treatment Not on file documented as of this encounter Visit Diagnoses Diagnosis Rheumatoid arthritis(714.0) (CMS/[facility])- Primary Rheumatoid arthritis Counseling NOS(V65.40) Counseling NOS documented in this encounter Care Teams Pile Driver Engineer Relationship Specialty Start Date End Date Warren Sanchez Jr., MD [address] [place] [address] PCP - General Family Practice 03/20/15 documented as of this encounter
--- OUTSIDE RECORDS SUMMARY | 2024-04-28 16:41 | XMS_ITS | Encounter Summary ---
Author Organization [facility] Address [address] [place] [address] Care Team Providers Care Clinical Psychology Professor Name Role Phone Daniel Santos MD, Warren Handley Primary Care Provider Encounter Details Date Type Department Care Team (Late st Contact Info) Description 07/14/2002 Outpatient Historical [facility] Warren Sanchez Jr., MD [address] [place] [address] ABDOMINAL PAIN UNSPEC SITE (Primary Dx) Social History Tobacco Use Types Packs/Day Years Used Date Smoking Tobacco: Never Assessed Comments Unknown Sex and Gender Information Value Date Recorded Sex Assigned at Not on file Legal Sex Female 4:09 AM VIDEO SPECIALIST Gender Identity Not on file Sexual Orientation Not on file documented as of this encounter Plan of Treatment Not on file documented as of this encounter Visit Diagnoses Diagnosis Abdominal pain, unspecified site- Primary documented in this encounter Care Teams Clinical Psychology Professor Relationship Specialty Start Date End Date Warren Sanchez Jr., MD [address] [place] [address] PCP - General Family Practice 03/20/15 documented as of this encounter
--- OUTSIDE RECORDS SUMMARY | 2024-04-28 16:41 | XMS_ITS | Encounter Summary ---
Author Organization [facility] Address [address] [place] [address] Care Team Providers Care Polisher Dial Name Role Phone Daniel Santos MD, Warren Handley Primary Care Provider Encounter Details Date Type Department Care Team (Latest Contact Info) Description 04/01/2000 Outpatient Historical [facility] Warren Sanchez Jr., MD [address] [place] [address] Rheumatoid arthritis(714.0) (CMS/[facility]) (Primary Dx); Unspecified asthma(493.90); Depressive disorder, not elsewhere classified Social History Tobacco Use Types Packs/Day Years Used Date Smoking Tobacco: Never Assessed Comments Unknown Sex and Gender Information Value Date Recorded Sex Assigned at Not on file Legal Sex Female 4:09 AM CARDIAC REHABILITATION PROGRAM DIRECTOR Gender Identity Not on file Sexual Orientation Not on file documented as of this encounter Plan of Treatment Not on file documented as of this encounter Visit Diagnoses Diagnosis Rheumatoid arthritis(714.0) (CMS/HCC)- Primary Rheumatoid arthritis Unspecified asthma(493.90) Unspecified asthma Depressive disorder, not elsewhere classified documented in this encounter Care Teams Polisher Dial Relationship Specialty Start Date End Date Warren Sanchez Jr., MD [address] [place] [address] PCP - General Family Practice 03/20/15 documented as of this encounter
--- OUTSIDE RECORDS SUMMARY | 2024-04-28 16:41 | XMS_ITS | Encounter Summary ---
Author Organization [facility] Address [address] [facility] Attn: [place] [address] Care Team Providers Care Nib Inspector Name Role Phone Daniel Santos MD, Warren Handley Primary Care Provider Encounter Details Date Type Department Care Team (Late st Contact Info) Description 01/05/2002 Outpatient Historical Warren Sanchez Jr., MD [address] [place] [address] Social History Tobacco Use Types Packs/Day Years Used Date Smoking Tobacco: Never Assessed Comments Unknown Sex and Gender Information Value Date Recorded Sex Assigned at Not on file Legal Sex Female 4:09 AM ABA TUTOR Gender Identity Not on file Sexual Orientation Not on file documented as of this encounter Plan of Treatment Not on file documented as of this encounter Visit Diagnoses Not on filedocumented in this encounter Care Teams Nib Inspector Relationship Specialty Start Date End Date Warren Sanchez Jr., MD [address] [place] [address] PCP - General Family Practice 03/20/15 documented as of this encounter
--- OUTSIDE RECORDS SUMMARY | 2024-04-28 16:41 | XMS_ITS | Encounter Summary ---
Author Organization [facility] Address [address] [facility] Attn: [place] [address] Care Team Providers Care Associate Marketing Manager Name Role Phone Daniel Santos MD, Warren Handley Primary Care Provider Encounter Details Date Type Department Care Team (Late st Contact Info) Description 11/29/2000 Outpatient Historical Warren Sanchez Jr., MD [address] [place] [address] Social History Tobacco Use Types Packs/Day Years Used Date Smoking Tobacco: Never Assessed Comments Unknown Sex and Gender Information Value Date Recorded Sex Assigned at Not on file Legal Sex Female 4:09 AM CNP Gender Identity Not on file Sexual Orientation Not on file documented as of this encounter Plan of Treatment Not on file documented as of this encounter Visit Diagnoses Not on filedocumented in this encounter Care Teams Associate Marketing Manager Relationship Specialty Start Date End Date Warren Sanchez Jr., MD [address] [place] [address] PCP - General Family Practice 03/20/15 documented as of this encounter
--- OUTSIDE RECORDS SUMMARY | 2024-04-28 16:41 | XMS_ITS | Encounter Summary ---
Author Organization [facility] Address [address] [place] [address] Care Team Providers Care Body Repairer Name Role Phone Daniel Santos MD, Warren Handley Primary Care Provider Encounter Details Date Type Department Care Team (Latest Contact Info) Description 01/05/2002 Outpatient Historical [facility] Warren Sanchez Jr., MD [address] [place] [address] RHEUMATOID ARTHRITIS (CMS/[facility]) (Primary Dx); OSTEOARTHROS NOS-UNSPEC; DEPRESSIVE DISORDER NEC Social History Tobacco Use Types Packs/Day Years Used Date Smoking Tobacco: Never Assessed Comments Unknown Sex and Gender Information Value Date Recorded Sex Assigned at Not on file Legal Sex Female 4:09 AM DIRECTOR OF ANCILLARY SERVICES Gender Identity Not on file Sexual Orientation Not on file documented as of this encounter Plan of Treatment Not on file documented as of this encounter Visit Diagnoses Diagnosis Rheumatoid arthritis(714.0) (CMS/HCC)- Primary Rheumatoid arthritis Osteoarthrosis, unspecified whether generalized or localized, unspecified site Depressive disorder, not elsewhere classified documented in this encounter Care Teams Body Repairer Relationship Specialty Start Date End Date Warren Sanchez Jr., MD [address] [place] [address] PCP - General Family Practice 03/20/15 documented as of this encounter
--- OUTSIDE RECORDS SUMMARY | 2024-04-28 16:41 | XMS_ITS | Encounter Summary ---
Author Organization [facility] Address [address] [place] [address] Care Team Providers Care Cardiology Manager Name Role Phone Daniel Santos MD, Warren Handley Primary Care Provider Encounter Details Date Type Department Care Team (Latest Contact Info) Description 02/06/1998 Outpatient Historical [facility] Warren Sanchez Jr., MD [address] [place] [address] Rheumatoid arthritis(714.0) ([facility]) (Primary Dx); Tension headache; Bunion Social History Tobacco Use Types Packs/Day Years Used Date Smoking Tobacco: Never Assessed Comments Unknown Sex and Gender Information Value Date Recorded Sex Assigned at Not on file Legal Sex Female 4:09 AM CERTIFIED ADDICTION COUNSELOR Gender Identity Not on file Sexual Orientation Not on file documented as of this encounter Plan of Treatment Not on file documented as of this encounter Visit Diagnoses Diagnosis Rheumatoid arthritis(714.0) ([facility])- Primary Rheumatoid arthritis Tension headache Bunion documented in this encounter Care Teams Cardiology Manager Relationship Specialty Start Date End Date Warren Sanchez Jr., MD [address] [place] [address] PCP - General Family Practice 03/20/15 documented as of this encounter
--- OUTSIDE RECORDS SUMMARY | 2024-04-28 16:41 | XMS_ITS | Encounter Summary ---
Author Organization [facility] Address [address] [facility] Attn: [place] [address] Care Team Providers Care Furrier Designer Name Role Phone Daniel Santos MD, Warren Handley Primary Care Provider Encounter Details Date Type Department Care Team (Late st Contact Info) Description 01/05/2001 Outpatient Historical Warren Sanchez Jr., MD [address] [place] [address] Social History Tobacco Use Types Packs/Day Years Used Date Smoking Tobacco: Never Assessed Comments Unknown Sex and Gender Information Value Date Recorded Sex Assigned at Not on file Legal Sex Female 4:09 AM OIL FIELD CASER Gender Identity Not on file Sexual Orientation Not on file documented as of this encounter Plan of Treatment Not on file documented as of this encounter Visit Diagnoses Not on filedocumented in this encounter Care Teams Furrier Designer Relationship Specialty Start Date End Date Warren Sanchez Jr., MD [address] [place] [address] PCP - General Family Practice 03/20/15 documented as of this encounter
--- OUTSIDE RECORDS SUMMARY | 2024-04-28 16:41 | XMS_ITS | Encounter Summary ---
Author Organization [facility] Address [address] [place] [address] Care Team Providers Care Assembler Unit Name Role Phone Daniel Santos MD, Warren Handley Primary Care Provider Encounter Details Date Type Department Care Team (Latest Contact Info) Description 11/29/2000 Outpatient Historical [facility] Warren Sanchez Jr., MD [address] [place] [address] Vomiting alone (Primary Dx); Rheumatoid arthritis(714.0) (CMS/[facility]); Esophageal reflux; Other nonspecific finding on examination of urine Social History Tobacco Use Types Packs/Day Years Used Date Smoking Tobacco: Never Assessed Comments Unknown Sex and Gender Information Value Date Recorded Sex Assigned at Not on file Legal Sex Female 4:09 AM REGULATORY SUBMISSIONS SPECIALIST Gender Identity Not on file Sexual Orientation Not on file documented as of this encounter Plan of Treatment Not on file documented as of this encounter Visit Diagnoses Diagnosis Vomiting alone- Primary Rheumatoid arthritis(714.0) ([facility]/HCC) Rheumatoid arthritis Esophageal reflux Other nonspecific finding on examination of urine documented in this encounter Care Teams Assembler Unit Relationship Specialty Start Date End Date Warren Sanchez Jr., MD [address] [place] [address] PCP - General Family Practice 03/20/15 documented as of this encounter
--- OUTSIDE RECORDS SUMMARY | 2024-04-28 16:41 | XMS_ITS | Encounter Summary ---
Author Organization [facility] Address [address] [place] [address] Care Team Providers Care Blueprinting And Photocopy Supervisor Name Role Phone Daniel Santos MD, Warren Handley Primary Care Provider Encounter Details Date Type Department Care Team (Latest Contact Info) Description 07/14/2002 Outpatient Historical [facility] Warren Sanchez Jr., MD [address] [place] [address] HYPOVOLEMIA (Primary Dx); RHEUMATOID ARTHRITIS (CMS/[facility]); OSTEOARTHROS NOS-UNSPEC; ABDOMINAL PAIN UNSPEC SITE Social History Tobacco Use Types Packs/Day Years Used Date Smoking Tobacco: Never Assessed Comments Unknown Sex and Gender Information Value Date Recorded Sex Assigned at Not on file Legal Sex Female 4:09 AM HOP FARMER Gender Identity Not on file Sexual Orientation Not on file documented as of this encounter Plan of Treatment Not on file documented as of this encounter Visit Diagnoses Diagnosis Volume depletion- Primary Rheumatoid arthritis(714.0) (CMS/HCC) Rheumatoid arthritis Osteoarthrosis, unspecified whether generalized or localized, unspecified site Abdominal pain, unspecified site documented in this encounter Care Teams Blueprinting And Photocopy Supervisor Relationship Specialty Start Date End Date Warren Sanchez Jr., MD [address] [place] [address] PCP - General Family Practice 03/20/15 documented as of this encounter
--- OUTSIDE RECORDS SUMMARY | 2024-04-28 16:41 | XMS_ITS | Encounter Summary ---
Author Organization [facility] Address [address] [place] [address] Care Team Providers Care Electrical Tech/Project Manager Name Role Phone Daniel Santos MD, Warren Handley Primary Care Provider Encounter Details Date Type Department Care Team (Latest Contact Info) Description 07/26/2000 Outpatient Historical [facility] Warren Sanchez Jr., MD [address] [place] [address] Rheumatoid arthritis(714.0) (CMS/[facility]) (Primary Dx); Osteoarthrosis, unspecified whether generalized or localized, unspecified site; Cystitis, unspecified Social History Tobacco Use Types Packs/Day Years Used Date Smoking Tobacco: Never Assessed Comments Unknown Sex and Gender Information Value Date Recorded Sex Assigned at Not on file Legal Sex Female 4:09 AM COLOR DIPPER Gender Identity Not on file Sexual Orientation Not on file documented as of this encounter Plan of Treatment Not on file documented as of this encounter Visit Diagnoses Diagnosis Rheumatoid arthritis(714.0) (CMS/HCC)- Primary Rheumatoid arthritis Osteoarthrosis, unspecified whether generalized or localized, unspecified site Cystitis, unspecified documented in this encounter Care Teams Electrical Tech/Project Manager Relationship Specialty Start Date End Date Warren Sanchez Jr., MD [address] [place] [address] PCP - General Family Practice 03/20/15 documented as of this encounter
--- OUTSIDE RECORDS SUMMARY | 2024-04-28 16:41 | XMS_ITS | Encounter Summary ---
Author Organization [facility] Address [address] [facility] Attn: [place] [address] Care Team Providers Care Appliance Service Representative Name Role Phone Daniel Santos MD, Warren Handley Primary Care Provider Encounter Details Date Type Department Care Team (Late st Contact Info) Description 05/13/2000 Outpatient Historical Warren Sanchez Jr., MD [address] [place] [address] Social History Tobacco Use Types Packs/Day Years Used Date Smoking Tobacco: Never Assessed Comments Unknown Sex and Gender Information Value Date Recorded Sex Assigned at Not on file Legal Sex Female 4:09 AM CUSTOMER CARE ASSISTANT Gender Identity Not on file Sexual Orientation Not on file documented as of this encounter Plan of Treatment Not on file documented as of this encounter Visit Diagnoses Not on filedocumented in this encounter Care Teams Appliance Service Representative Relationship Specialty Start Date End Date Warren Sanchez Jr., MD [address] [place] [address] PCP - General Family Practice 03/20/15 documented as of this encounter
--- OUTSIDE RECORDS SUMMARY | 2024-04-28 16:41 | XMS_ITS | Encounter Summary ---
[facility] Address [address] [place] [address] Care Team Providers Care Building Equipment Inspector Name Role Phone Daniel Santos MD, Warren Handley Primary Care Provider Encounter Details Date Type Department Care Team (Latest Contact Info) Description 10/13/2000 Outpatient Historical [facility] Warren Sanchez Jr., MD [address] [place] [address] Rheumatoid arthritis(714.0) ([facility]) (Primary Dx); Nausea alone Social History Tobacco Use Types Packs/Day Years Used Date Smoking Tobacco: Never Assessed Comments Unknown Sex and Gender Information Value Date Recorded Sex Assigned at Not on file Legal Sex Female 4:09 AM VOCATIONAL REHABILITATION ADMINISTRATOR Gender Identity Not on file Sexual Orientation Not on file documented as of this encounter Plan of Treatment Not on file documented as of this encounter Visit Diagnoses Diagnosis Rheumatoid arthritis(714.0) (CMS/[facility])- Primary Rheumatoid arthritis Nausea alone documented in this encounter Care Teams Building Equipment Inspector Relationship Specialty Start Date End Date Warren Sanchez Jr., MD [address] [place] [address] PCP - General Family Practice 03/20/15 documented as of this encounter
--- OUTSIDE RECORDS SUMMARY | 2024-04-28 16:41 | XMS_ITS | Encounter Summary ---
Author Organization [facility] Address [address] [place] [address] Care Team Providers Care Network Relay Tester Name Role Phone Daniel Santos MD, Warren Handley Primary Care Provider Encounter Details Date Type Department Care Team (Latest Contact Info) Description 05/13/2000 Outpatient Historical [facility] Warren Sanchez Jr., MD [address] [place] [address] Rheumatoid arthritis(714.0) (CMS/[facility]) (Primary Dx); Osteoarthrosis, unspecified whether generalized or localized, unspecified site Social History Tobacco Use Types Packs/Day Years Used Date Smoking Tobacco: Never Assessed Comments Unknown Sex and Gender Information Value Date Recorded Sex Assigned at Not on file Legal Sex Female 4:09 AM SUGARCANE PLANTER Gender Identity Not on file Sexual Orientation Not on file documented as of this encounter Plan of Treatment Not on file documented as of this encounter Visit Diagnoses Diagnosis Rheumatoid arthritis(714.0) (CMS/[facility])- Primary Rheumatoid arthritis Osteoarthrosis, unspecified whether generalized or localized, unspecified site documented in this encounter Care Teams Network Relay Tester Relationship Specialty Start Date End Date Warren Sanchez Jr., MD [address] [place] [address] PCP - General Family Practice 03/20/15 documented as of this encounter
--- OUTSIDE RECORDS SUMMARY | 2024-04-28 16:41 | XMS_ITS | Encounter Summary ---
Author Organization [facility] Address [address] [place] [address] Care Team Providers Care Industrial Relations Officer Name Role Phone Daniel Santos MD, Warren Handley Primary Care Provider Encounter Details Date Type Department Care Team (Latest Contact Info) Description 12/22/2001 Outpatient Historical [facility] Warren Sanchez Jr., MD [address] [place] [address] RHEUMATOID ARTHRITIS ([facility]) (Primary Dx); OSTEOARTHROS NOS-UNSPEC; TRACHEA/BRONCHUS DIS NEC; ALLERGIC RHINITIS NOS Social History Tobacco Use Types Packs/Day Years Used Date Smoking Tobacco: Never Assessed Comments Unknown Sex and Gender Information Value Date Recorded Sex Assigned at Not on file Legal Sex Female 4:09 AM INSURANCE FOLLOW UP SPECIALIST Gender Identity Not on file Sexual Orientation Not on file documented as of this encounter Plan of Treatment Not on file documented as of this encounter Visit Diagnoses Diagnosis Rheumatoid arthritis(714.0) ([facility])- Primary Rheumatoid arthritis Osteoarthrosis, unspecified whether generalized or localized, unspecified site Other diseases of trachea and bronchus, not elsewhere classified Allergic rhinitis, cause unspecified documented in this encounter Care Teams Industrial Relations Officer Relationship Specialty Start Date End Date Warren Sanchez Jr., MD [address] [place] [address] PCP - General Family Practice 03/20/15 documented as of this encounter
--- OUTSIDE RECORDS SUMMARY | 2024-04-28 16:41 | XMS_ITS | Encounter Summary ---
Author Organization [facility] Address [address] [facility] Attn: [place] [address] Care Team Providers Care Ip Paralegal Name Role Phone Daniel Santos MD, Warren Handley Primary Care Provider Encounter Details Date Type Department Care Team (Late st Contact Info) Description 06/24/2000 Outpatient Historical Warren Sanchez Jr., MD [address] [place] [address] Social History Tobacco Use Types Packs/Day Years Used Date Smoking Tobacco: Never Assessed Comments Unknown Sex and Gender Information Value Date Recorded Sex Assigned at Not on file Legal Sex Female 4:09 AM SOUND ENGINEER Gender Identity Not on file Sexual Orientation Not on file documented as of this encounter Plan of Treatment Not on file documented as of this encounter Visit Diagnoses Not on filedocumented in this encounter Care Teams Ip Paralegal Relationship Specialty Start Date End Date Warren Sanchez Jr., MD [address] [place] [address] PCP - General Family Practice 03/20/15 documented as of this encounter
--- OUTSIDE RECORDS SUMMARY | 2024-04-28 16:41 | XMS_ITS | Clinical Summary ---
Author Organization [facility] Address [address] [facility] Attn: Epic Prelude ADT [place] [address] Care Team Providers Care Java Developer Analyst Name Role Phone Daniel Santos MD, Warren Handley Primary Care Provider Allergies Active Allergy Reactions Criticality Noted Date Comments Lisinopril Cough Low 03/11/2015 Sulfa (Sulfonamide Antibiotics) Rash Low 06/2015 Medications folic acid (FOLVITE) 400 mcg Tablet Take 400 mcg by mouth daily. 6 Active alendronate (FOSAMAX) 70 mg tablet Take 70 mg by mouth every 7 days empty stomach before other meds,with 8oz of water, stay upright 30 min . 6 Active acetaminophen (TYLENOL) 500 mg tablet Take 500 mg by mouth daily. 6 Active levothyroxine 25 mcg tablet Take 25 mcg by mouth daily propulsion engineer. 6 Active venlafaxine (EFFEXOR XR) 150 mg Extended Release 24 hour capsule Take 150 mg by mouth daily. 6 Active methotrexate (RHEUMATREX) 2.5 mg Tablet Take 2.5 mg by mouth every 7 days 7 tablets. 6 Active HYDROcodone-delgado taminophen (NORCO) 10-325 mg Tablet Take 1 Tablet by mouth every 8 hours as needed for Pain, Moderate. 6 Active traMADoL (ULTRAM) 50 mg tablet Take 100 mg by mouth every 6 hours as needed for Pain. 6 Active donepeziL (ARICEPT) 5 mg tablet Take 5 mg by mouth daily at bedtime. 6 Active albuterol sulfate (PROAIR HFA INHALATION) Take by inhalation every 4 hours as needed. 6 Active rosuvastatin (CRESTOR) 10 mg tablet Take 10 mg by mouth daily at bedtime. 6 Active omeprazole (PriLOSEC) 20 mg Capsule, Delayed Release(E.C.) Take 20 mg by mouth daily. 6 Active topiramate (TOPAMAX) 50 mg tablet Take 50 mg by mouth daily at bedtime . 6 Active mirtazapine (REMERON) 15 mg tablet Take 15 mg by mouth daily at bedtime. 6 Active metoprolol tartrate (LOPRESSOR) 25 mg tablet Take 25 mg by mouth 2 times daily. 6 Active amLODIPine (NORVASC) 5 mg tablet Take 5 mg by mouth daily. 6 Active Active Problems Problem Noted Date Diagnosed [...] at Not on file Legal Sex Female 9:46 AM SENIOR RESEARCH SCIENTIST Gender Identity Not on file Sexual Orientation Not on file Last Filed Vital Signs Vital Sign Reading Time Taken Comments Blood Pressure 148/75 04/09/2015 11:41 AM SENIOR RESEARCH SCIENTIST Pulse 73 04/09/2015 11:41 AM SENIOR RESEARCH SCIENTIST Temperature 36.6 ??C (97.9 ??F) 04/09/2015 10:[address] Respiratory Rate 16 04/09/2015 10:18 AM SENIOR RESEARCH SCIENTIST Oxygen Saturation - - Inhaled Oxygen Concentration - - Weight 82.1 kg (181 lb) 04/09/2015 11:41 AM SENIOR RESEARCH SCIENTIST Height 154.9 cm (5' 1 ) 04/09/2015 11:41 AM SENIOR RESEARCH SCIENTIST Body Mass Index 34.2 04/09/2015 11:41 AM SENIOR RESEARCH SCIENTIST Plan of Treatment Health Maintenance Due Date Last Done Comments COLORECTAL SCREENING 1994 Colorectal Cancer Screening 1994 FIT-DNA Q 3 years 1994 FIT/FOBT Q 1 year 1994 Flex Sig/CT Colonography Q 5 years 1994 ZOSTER VACCINE (1 of 2) 1999 PNEUMOCOCCAL VACCINE 65+ YEA RS (2 of 2 - PCV) 11/18/2004 11/19/2003, 12/22/1999 DTAP/TDAP/TD VACCINES (1 - Tdap) 06/20/2005 06/20/19 06 OSTEOPOROSIS SCREENING 2014 INFLUENZA VACCINE (#1) 2023 5, 01/04/2003, 03/13/2002, Additional history exists RSV VACCINE (60+ or ) (1 - 1-dose 75+ series) 02/13/2024 Medical Devices Implanted Type Area Environmental Professional Device Identifier Shelf Expiration Date Model / Serial / Lot Lens Io Tecnis 1pc 21.5 [id number] - [id number] Implanted:Qty: 1 on 03/26/2015 by Franck Brice MD Eye Left: Eye [employer] 12/24/2018 [id number] / [id number] / Lens Io Tecnis 1pc 22.5 [id number] - [id number] Implanted:Qty: 1 on 04/09/2015 by Franck Brice MD Eye Right: Eye [employer] 12/22/2018 [id number] / [id number] / Insurance MEDICAID [place] Care Teams Java Developer Analyst Relationship Specialty Start Date End Date Warren Sanchez Jr., MD [address] [place] [address] PCP - General Family Practice 03/20/15
--- OUTSIDE RECORDS SUMMARY | 2024-04-28 16:41 | XMS_ITS | Encounter Summary ---
Author Organization [facility] Address [address] [facility] Attn: [place] [address] Care Team Providers Care Employee Counselor Name Role Phone Daniel Santos MD, Warren Handley Primary Care Provider Encounter Details Date Type Department Care Team (Late st Contact Info) Description 10/13/2000 Outpatient Historical Warren Sanchez Jr., MD [address] [place] [address] Social History Tobacco Use Types Packs/Day Years Used Date Smoking Tobacco: Never Assessed Comments Unknown Sex and Gender Information Value Date Recorded Sex Assigned at Not on file Legal Sex Female 4:09 AM MANUFACTURING QUALITY INSPECTOR Gender Identity Not on file Sexual Orientation Not on file documented as of this encounter Plan of Treatment Not on file documented as of this encounter Visit Diagnoses Not on filedocumented in this encounter Care Teams Employee Counselor Relationship Specialty Start Date End Date Warren Sanchez Jr., MD [address] [place] [address] PCP - General Family Practice 03/20/15 documented as of this encounter
--- OUTSIDE RECORDS SUMMARY | 2024-04-28 16:41 | XMS_ITS | Encounter Summary ---
Author Organization [facility] Address [address] [place] [address] Care Team Providers Care Allergy And Immunology Chief Name Role Phone Daniel Santos MD, Warren Handley Primary Care Provider Encounter Details Date Type Department Care Team (Latest Contact Info) Description 09/01/2000 Outpatient Historical [facility] Warren Sanchez Jr., MD [address] [place] [address] Rheumatoid arthritis(714.0) (CMS/[facility]) (Primary Dx); Osteoarthrosis, unspecified whether generalized or localized, unspecified site Social History Tobacco Use Types Packs/Day Years Used Date Smoking Tobacco: Never Assessed Comments Unknown Sex and Gender Information Value Date Recorded Sex Assigned at Not on file Legal Sex Female 4:09 AM PHYSICAL SCIENTIST Gender Identity Not on file Sexual Orientation Not on file documented as of this encounter Plan of Treatment Not on file documented as of this encounter Visit Diagnoses Diagnosis Rheumatoid arthritis(714.0) ([facility])- Primary Rheumatoid arthritis Osteoarthrosis, unspecified whether generalized or localized, unspecified site documented in this encounter Care Teams Allergy And Immunology Chief Relationship Specialty Start Date End Date Warren Sanchez Jr., MD [address] [place] [address] PCP - General Family Practice 03/20/15 documented as of this encounter
--- OUTSIDE RECORDS SUMMARY | 2024-04-28 16:41 | XMS_ITS | Encounter Summary ---
Author Organization [facility] Address [address] [place] [address] Care Team Providers Care Executive Chairman Of The Board Name Role Phone Daniel Santos MD, Warren Handley Primary Care Provider Encounter Details Date Type Department Care Team (Late st Contact Info) Description 03/13/2002 Outpatient Historical [facility] Warren Sanchez Jr., MD [address] [place] [address] RHEUMATOID ARTHRITIS (CMS/[facility]) (Primary Dx) Social History Tobacco Use Types Packs/Day Years Used Date Smoking Tobacco: Never Assessed Comments Unknown Sex and Gender Information Value Date Recorded Sex Assigned at Not on file Legal Sex Female 4:09 AM LOGGING ENGINEER Gender Identity Not on file Sexual Orientation Not on file documented as of this encounter Plan of Treatment Not on file documented as of this encounter Visit Diagnoses Diagnosis Rheumatoid arthritis(714.0) (CMS/HCC)- Primary Rheumatoid arthritis documented in this encounter Care Teams Executive Chairman Of The Board Relationship Specialty Start Date End Date Warren Sanchez Jr., MD [address] [place] [address] PCP - General Family Practice 03/20/15 documented as of this encounter
--- OUTSIDE RECORDS SUMMARY | 2024-04-28 16:41 | XMS_ITS | Encounter Summary ---
Author Organization [facility] Address [address] [place] [address] Care Team Providers Care Sheetmetal Trades Worker Name Role Phone Daniel Santos MD, Warren Handley Primary Care Provider Encounter Details Date Type Department Care Team (Latest Contact Info) Description 02/22/1998 Outpatient Historical [facility] Warren Sanchez Jr., MD [address] [place] [address] Lumbago (Primary Dx); Osteoarthrosis, unspecified whether generalized or localized, unspecified site; Chest pain, unspecified; Other dyspnea and respiratory abnormality Social History Tobacco Use Types Packs/Day Years Used Date Smoking Tobacco: Never Assessed Comments Unknown Sex and Gender Information Value Date Recorded Sex Assigned at Not on file Legal Sex Female 4:09 AM PARTS ROOM CLERK Gender Identity Not on file Sexual Orientation Not on file documented as of this encounter Plan of Treatment Not on file documented as of this encounter Visit Diagnoses Diagnosis Lumbago- Primary Osteoarthrosis, unspecified whether generalized or localized, unspecified site Chest pain, unspecified Other dyspnea and respiratory abnormality documented in this encounter Care Teams Sheetmetal Trades Worker Relationship Specialty Start Date End Date Warren Sanchez Jr., MD [address] [place] [phone] PCP - General Family Practice 03/20/15 documented as of this encounter
--- OUTSIDE RECORDS SUMMARY | 2024-04-28 16:41 | XMS_ITS | Encounter Summary ---
Author Organization [facility] Address [address] [place] [address] Care Team Providers Care Hasher Machine Operator Name Role Phone Daniel Santos MD, Warren Handley Primary Care Provider Encounter Details Date Type Department Care Team (Late st Contact Info) Description 06/12/2002 Outpatient Historical [facility] Warren Sanchez Jr., MD [address] [place] [address] RHEUMATOID ARTHRITIS (CMS/[facility]) (Primary Dx) Social History Tobacco Use Types Packs/Day Years Used Date Smoking Tobacco: Never Assessed Comments Unknown Sex and Gender Information Value Date Recorded Sex Assigned at Not on file Legal Sex Female 4:09 AM HULL GRINDER Gender Identity Not on file Sexual Orientation Not on file documented as of this encounter Plan of Treatment Not on file documented as of this encounter Visit Diagnoses Diagnosis Rheumatoid arthritis(714.0) (CMS/HCC)- Primary Rheumatoid arthritis documented in this encounter Care Teams Hasher Machine Operator Relationship Specialty Start Date End Date Warren Sanchez Jr., MD [address] [place] [address] PCP - General Family Practice 03/20/15 documented as of this encounter
--- OUTSIDE RECORDS SUMMARY | 2024-04-28 16:41 | XMS_ITS | Encounter Summary ---
Author Organization [facility] Address [address] [facility] Attn: [place] [address] Care Team Providers Care Forest Supervisor Name Role Phone Daniel Santos MD, Warren Handley Primary Care Provider Encounter Details Date Type Department Care Team (Late st Contact Info) Description 07/06/2001 Outpatient Historical Warren Sanchez Jr., MD [address] [place] [address] Social History Tobacco Use Types Packs/Day Years Used Date Smoking Tobacco: Never Assessed Comments Unknown Sex and Gender Information Value Date Recorded Sex Assigned at Not on file Legal Sex Female 4:09 AM PLATE MAKER Gender Identity Not on file Sexual Orientation Not on file documented as of this encounter Plan of Treatment Not on file documented as of this encounter Visit Diagnoses Not on filedocumented in this encounter Care Teams Forest Supervisor Relationship Specialty Start Date End Date Warren Sanchez Jr., MD [address] [place] [address] PCP - General Family Practice 03/20/15 documented as of this encounter
--- OUTSIDE RECORDS SUMMARY | 2024-04-28 16:41 | XMS_ITS | Encounter Summary ---
Author Organization [facility] Address [address] [facility] Attn: [place] [address] Care Team Providers Care Research Fellow Name Role Phone Daniel Santos MD, Warren Handley Primary Care Provider Encounter Details Date Type Department Care Team (Late st Contact Info) Description 05/23/2001 Outpatient Historical Warren Sanchez Jr., MD [address] [place] [address] Social History Tobacco Use Types Packs/Day Years Used Date Smoking Tobacco: Never Assessed Comments Unknown Sex and Gender Information Value Date Recorded Sex Assigned at Not on file Legal Sex Female 4:09 AM PANEL SEWER Gender Identity Not on file Sexual Orientation Not on file documented as of this encounter Plan of Treatment Not on file documented as of this encounter Visit Diagnoses Not on filedocumented in this encounter Care Teams Research Fellow Relationship Specialty Start Date End Date Warren Sanchez Jr., MD [address] [place] [address] PCP - General Family Practice 03/20/15 documented as of this encounter
--- OUTSIDE RECORDS SUMMARY | 2024-04-28 16:41 | XMS_ITS | Encounter Summary ---
Author Organization [facility] Address [address] [place] [address] Care Team Providers Care Screen Printing Inspector Name Role Phone Daniel Santos MD, Warren Handley Primary Care Provider Encounter Details Date Type Department Care Team (Latest Contact Info) Description 03/17/2000 Outpatient Historical [facility] Warren Sanchez Jr., MD [address] [place] [address] Rheumatoid arthritis(714.0) (CMS/HCC) (Primary Dx); Osteoarthrosis, unspecified whether generalized or localized, unspecified site; Other diseases of trachea and bronchus, not elsewhere classified; Screening for nephropathy Social History Tobacco Use Types Packs/Day Years Used Date Smoking Tobacco: Never Assessed Comments Unknown Sex and Gender Information Value Date Recorded Sex Assigned at Not on file Legal Sex Female 4:09 AM 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 Gender Identity Not on file Sexual Orientation Not on file documented as of this encounter Plan of Treatment Not on file documented as of this encounter Visit Diagnoses Diagnosis Rheumatoid arthritis(714.0) (CMS/HCC)- Primary Rheumatoid arthritis Osteoarthrosis, unspecified whether generalized or localized, unspecified site Other diseases of trachea and bronchus, not elsewhere classified Screening for nephropathy documented in this encounter Care Teams Screen Printing Inspector Relationship Specialty Start Date End Date Warren Sanchez Jr., MD [address] [place] [phone] PCP - General Family Practice 03/20/15 documented as of this encounter
--- OUTSIDE RECORDS SUMMARY | 2024-04-28 16:41 | XMS_ITS | Encounter Summary ---
Author Organization [facility] Address [address] [place] [address] Care Team Providers Care Sheep Farm Worker Name Role Phone Daniel Santos MD, Warren Handley Primary Care Provider Encounter Details Date Type Department Care Team (Late st Contact Info) Description 01/30/2002 Outpatient Historical [facility] Warren Sanchez Jr., MD [address] [place] [address] RHEUMATOID ARTHRITIS (CMS/[facility]) (Primary Dx) Social History Tobacco Use Types Packs/Day Years Used Date Smoking Tobacco: Never Assessed Comments Unknown Sex and Gender Information Value Date Recorded Sex Assigned at Not on file Legal Sex Female 4:09 AM INSURANCE RISK ANALYST Gender Identity Not on file Sexual Orientation Not on file documented as of this encounter Plan of Treatment Not on file documented as of this encounter Visit Diagnoses Diagnosis Rheumatoid arthritis(714.0) (CMS/HCC)- Primary Rheumatoid arthritis documented in this encounter Care Teams Sheep Farm Worker Relationship Specialty Start Date End Date Warren Sanchez Jr., MD [address] [place] [address] PCP - General Family Practice 03/20/15 documented as of this encounter
--- OUTSIDE RECORDS SUMMARY | 2024-04-28 16:41 | XMS_ITS | Encounter Summary ---
Author Organization [facility] Address [address] [place] [address] Care Team Providers Care Temporary Staff Accountant Name Role Phone Daniel Santos MD, Warren Handley Primary Care Provider Encounter Details Date Type Department Care Team (Latest Contact Info) Description 07/24/[address] [facility] Warren Sanchez Jr., MD [address] [place] [address] BENIGN HYPERTENSION (Primary Dx) Social History Tobacco Use Types Packs/Day Years Used Date Smoking Tobacco: Never Assessed Comments Unknown Sex and Gender Information Value Date Recorded Sex Assigned at Not on file Legal Sex Female 4:09 AM REPORTING CONSULTANT Gender Identity Not on file Sexual Orientation Not on file documented as of this encounter Plan of Treatment Not on file documented as of this encounter Visit Diagnoses Diagnosis Essential hypertension, benign- Primary documented in this encounter Care Teams Temporary Staff Accountant Relationship Specialty Start Date End Date Warren Sanchez Jr., MD [address] [place] [address] PCP - General Family Practice 03/20/15 documented as of this encounter
--- OUTSIDE RECORDS SUMMARY | 2024-04-28 16:41 | XMS_ITS | Encounter Summary ---
Author Organization [facility] Address [address] [place] [address] Care Team Providers Care Tobacco Drummer Name Role Phone Daniel Santos MD, Warren Handley Primary Care Provider Encounter Details Date Type Department Care Team (Late st Contact Info) Description 02/23/[address] [facility] Social History Tobacco Use Types Packs/Day Years Used Date Smoking Tobacco: Never Assessed Comments Unknown Sex and Gender Information Value Date Recorded Sex Assigned at Not on file Legal Sex Female 4:09 AM NATIONAL FACILITIES MANAGER Gender Identity Not on file Sexual Orientation Not on file documented as of this encounter Plan of Treatment Not on file documented as of this encounter Visit Diagnoses Not on filedocumented in this encounter Care Teams Tobacco Drummer Relationship Specialty Start Date End Date Warren Sanchez Jr., MD [address] [place] [address] PCP - General Family Practice 03/20/15 documented as of this encounter
--- OUTSIDE RECORDS SUMMARY | 2024-04-28 16:41 | XMS_ITS | Encounter Summary ---
Author Organization [facility] Address [address] [facility] Attn: [place] [address] Care Team Providers Care Outside Sales Representative Insurance Name Role Phone Daniel Santos MD, Warren Handley Primary Care Provider Encounter Details Date Type Department Care Team (Late st Contact Info) Description 07/26/2000 Outpatient Historical Warren Sanchez Jr., MD [address] [place] [address] Social History Tobacco Use Types Packs/Day Years Used Date Smoking Tobacco: Never Assessed Comments Unknown Sex and Gender Information Value Date Recorded Sex Assigned at Not on file Legal Sex Female 4:09 AM TOOL LIAISON Gender Identity Not on file Sexual Orientation Not on file documented as of this encounter Plan of Treatment Not on file documented as of this encounter Visit Diagnoses Not on filedocumented in this encounter Care Teams Outside Sales Representative Insurance Relationship Specialty Start Date End Date Warren Sanchez Jr., MD [address] [place] [address] PCP - General Family Practice 03/20/15 documented as of this encounter
--- OUTSIDE RECORDS SUMMARY | 2024-04-28 16:41 | XMS_ITS | Encounter Summary ---
Author Organization [facility] Address [address] [place] [address] Care Team Providers Care Senior Marketing Engineer Name Role Phone Daniel Santos MD, Warren Handley Primary Care Provider Encounter Details Date Type Department Care Team (Latest Contact Info) Description 06/24/2000 Outpatient Historical [facility] Warren Sanchez Jr., MD [address] [place] [address] Rheumatoid arthritis(714.0) (CMS/HCC) (Primary Dx); Unspecified hypothyroidism; Osteoarthrosis, unspecified whether generalized or localized, unspecified site; Unspecified essential hypertension Social History Tobacco Use Types Packs/Day Years Used Date Smoking Tobacco: Never Assessed Comments Unknown Sex and Gender Information Value Date Recorded Sex Assigned at Not on file Legal Sex Female 4:09 AM CITY ATTORNEY Gender Identity Not on file Sexual Orientation Not on file documented as of this encounter Plan of Treatment Not on file documented as of this encounter Visit Diagnoses Diagnosis Rheumatoid arthritis(714.0) (CMS/HCC)- Primary Rheumatoid arthritis Unspecified hypothyroidism Osteoarthrosis, unspecified whether generalized or localized, unspecified site Unspecified essential hypertension documented in this encounter Care Teams Senior Marketing Engineer Relationship Specialty Start Date End Date Warren Sanchez Jr., MD [address] [place] [address] PCP - General Family Practice 03/20/15 documented as of this encounter
--- OUTSIDE RECORDS SUMMARY | 2024-04-28 16:41 | XMS_ITS | Encounter Summary ---
Author Organization [facility] Address [address] [facility] Attn: [place] [address] Care Team Providers Care Optics Engineer Name Role Phone Daniel Santos MD, Warren Handley Primary Care Provider Encounter Details Date Type Department Care Team (Late st Contact Info) Description 10/24/2001 Outpatient Historical Warren Sanchez Jr., MD [address] [place] [address] Social History Tobacco Use Types Packs/Day Years Used Date Smoking Tobacco: Never Assessed Comments Unknown Sex and Gender Information Value Date Recorded Sex Assigned at Not on file Legal Sex Female 4:09 AM FURNITURE AND BEDDING INSPECTOR Gender Identity Not on file Sexual Orientation Not on file documented as of this encounter Plan of Treatment Not on file documented as of this encounter Visit Diagnoses Not on filedocumented in this encounter Care Teams Optics Engineer Relationship Specialty Start Date End Date Warren Sanchez Jr., MD [address] [place] [address] PCP - General Family Practice 03/20/15 documented as of this encounter
--- OUTSIDE RECORDS SUMMARY | 2024-04-28 16:41 | XMS_ITS | Encounter Summary ---
Author Organization [facility] Address [address] [place] [address] Care Team Providers Care Web Merchant Name Role Phone Daniel Santos MD, Warren Handley Primary Care Provider Encounter Details Date Type Department Care Team (Latest Contact Info) Description 12/06/2000 Outpatient Historical [facility] Warren Sanchez Jr., MD [address] [place] [address] Rheumatoid arthritis(714.0) (CMS/[facility]) (Primary Dx); Osteoarthrosis, unspecified whether generalized or localized, unspecified site; Nausea alone; Cystitis, unspecified Social History Tobacco Use Types Packs/Day Years Used Date Smoking Tobacco: Never Assessed Comments Unknown Sex and Gender Information Value Date Recorded Sex Assigned at Not on file Legal Sex Female 4:09 AM GENERATOR MAN Gender Identity Not on file Sexual Orientation Not on file documented as of this encounter Plan of Treatment Not on file documented as of this encounter Visit Diagnoses Diagnosis Rheumatoid arthritis(714.0) (CMS/[facility])- Primary Rheumatoid arthritis Osteoarthrosis, unspecified whether generalized or localized, unspecified site Nausea alone Cystitis, unspecified documented in this encounter Care Teams Web Merchant Relationship Specialty Start Date End Date Warren Sanchez Jr., MD [address] [place] [address] PCP - General Family Practice 03/20/15 documented as of this encounter
--- OUTSIDE RECORDS SUMMARY | 2024-04-28 16:41 | XMS_ITS | Encounter Summary ---
Author Organization [facility] Address [address] [place] [address] Care Team Providers Care Dynamicist Name Role Phone Daniel Santos MD, Warren Handley Primary Care Provider Encounter Details Date Type Department Care Team (Latest Contact Info) Description 06/24/2001 Outpatient Historical [facility] Warren Snachez Jr., MD [address] [place] [address] RHEUMATOID ARTHRITIS (CMS/[facility]) (Primary Dx); SPASM OF MUSCLE; LUMBAGO Social History Tobacco Use Types Packs/Day Years Used Date Smoking Tobacco: Never Assessed Comments Unknown Sex and Gender Information Value Date Recorded Sex Assigned at Not on file Legal Sex Female 4:09 AM CALCULATION CLERK Gender Identity Not on file Sexual Orientation Not on file documented as of this encounter Plan of Treatment Not on file documented as of this encounter Visit Diagnoses Diagnosis Rheumatoid arthritis(714.0) (CMS/HCC)- Primary Rheumatoid arthritis Spasm of muscle Lumbago documented in this encounter Care Teams Dynamicist Relationship Specialty Start Date End Date Warren Sanchez Jr., MD [address] [place] [address] PCP - General Family Practice 03/20/15 documented as of this encounter
--- OUTSIDE RECORDS SUMMARY | 2024-04-28 16:41 | XMS_ITS | Encounter Summary ---
Author Organization [facility] Address [address] [facility] Attn: [place] [address] Care Team Providers Care Calender Roll Operator Name Role Phone Daniel Santos MD, Warren Handley Primary Care Provider Encounter Details Date Type Department Care Team (Late st Contact Info) Description 08/24/2001 Outpatient Historical Warren Sanchez Jr., MD [address] [place] [address] Social History Tobacco Use Types Packs/Day Years Used Date Smoking Tobacco: Never Assessed Comments Unknown Sex and Gender Information Value Date Recorded Sex Assigned at Not on file Legal Sex Female 4:09 AM PRODUCT COMMUNICATIONS MANAGER Gender Identity Not on file Sexual Orientation Not on file documented as of this encounter Plan of Treatment Not on file documented as of this encounter Visit Diagnoses Not on filedocumented in this encounter Care Teams Calender Roll Operator Relationship Specialty Start Date End Date Warren Sanchez Jr., MD [address] [place] [address] PCP - General Family Practice 03/20/15 documented as of this encounter
--- OUTSIDE RECORDS SUMMARY | 2024-04-28 16:41 | XMS_ITS | Encounter Summary ---
Author Organization [facility] Address [address] [place] [address] Care Team Providers Care Anatomy Teacher Name Role Phone Daniel Santos MD, Warren Handley Primary Care Provider Encounter Details Date Type Department Care Team (Latest Contact Info) Description 10/05/2001 Outpatient Historical [facility] Warren Sanchez Jr., MD [address] [place] [address] RHEUMATOID ARTHRITIS (CMS/[facility]) (Primary Dx); SCREENING-LIPOID DISORDERS; [facility] ENGINEER USE MEDICATN Social History Tobacco Use Types Packs/Day Years Used Date Smoking Tobacco: Never Assessed Comments Unknown Sex and Gender Information Value Date Recorded Sex Assigned at Not on file Legal Sex Female 4:09 AM DIAMOND SAWER Gender Identity Not on file Sexual Orientation Not on file documented as of this encounter Plan of Treatment Not on file documented as of this encounter Visit Diagnoses Diagnosis Rheumatoid arthritis(714.0) (CMS/HCC)- Primary Rheumatoid arthritis Screening for lipoid disorders Encounter for long-term (current) use of other medications documented in this encounter Care Teams Anatomy Teacher Relationship Specialty Start Date End Date Warren Sanchez Jr., MD [address] [place] [address] PCP - General Family Practice 03/20/15 documented as of this encounter
--- OUTSIDE RECORDS SUMMARY | 2024-04-28 16:41 | XMS_ITS | Encounter Summary ---
Author Organization [facility] Address [address] [place] [address] Care Team Providers Care Methods Examiner Name Role Phone Daniel Santos MD, Warren Handley Primary Care Provider Encounter Details Date Type Department Care Team (Latest Contact Info) Description 02/19/2000 Outpatient Historical [facility] Warren Sanchez Jr., MD [address] [place] [address] Headache(784.0) (Primary Dx); Rheumatoid arthritis(714.0) (CMS/HCC); Osteoarthrosis, unspecified whether generalized or localized, unspecified site; Acute sinusitis, unspecified Social History Tobacco Use Types Packs/Day Years Used Date Smoking Tobacco: Never Assessed Comments Unknown Sex and Gender Information Value Date Recorded Sex Assigned at Not on file Legal Sex Female 4:09 AM METAL CRAFTS 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 Gender Identity Not on file Sexual Orientation Not on file documented as of this encounter Plan of Treatment Not on file documented as of this encounter Visit Diagnoses Diagnosis Headache(784.0)- Primary Headache Rheumatoid arthritis(714.0) (CMS/HCC) Rheumatoid arthritis Osteoarthrosis, unspecified whether generalized or localized, unspecified site Acute sinusitis, unspecified documented in this encounter Care Teams Methods Examiner Relationship Specialty Start Date End Date Warren Sanchez Jr., MD [address] [place] [id number] PCP - General Family Practice 03/20/15 documented as of this encounter
--- OUTSIDE RECORDS SUMMARY | 2024-04-28 16:41 | XMS_ITS | Encounter Summary ---
Author Organization [facility] Address [address] [facility] Attn: [place] [address] Care Team Providers Care Sheet Manufacturing Supervisor Name Role Phone Daniel Santos MD, Warren Handley Primary Care Provider Encounter Details Date Type Department Care Team (Late st Contact Info) Description 09/01/2000 Outpatient Historical Warren Sacnhez Jr., MD [address] [place] [address] Social History Tobacco Use Types Packs/Day Years Used Date Smoking Tobacco: Never Assessed Comments Unknown Sex and Gender Information Value Date Recorded Sex Assigned at Not on file Legal Sex Female 4:09 AM POWER BARKER OPERATOR Gender Identity Not on file Sexual Orientation Not on file documented as of this encounter Plan of Treatment Not on file documented as of this encounter Visit Diagnoses Not on filedocumented in this encounter Care Teams Sheet Manufacturing Supervisor Relationship Specialty Start Date End Date Warren Sanchez Jr., MD [address] [place] [address] PCP - General Family Practice 03/20/15 documented as of this encounter
--- OUTSIDE RECORDS SUMMARY | 2024-04-28 16:41 | XMS_ITS | Encounter Summary ---
Author Organization [facility] Address [address] [facility] Attn: [place] [address] Care Team Providers Care Casino Beverage Server Name Role Phone Daniel Santos MD, Warren Handley Primary Care Provider Encounter Details Date Type Department Care Team (Late st Contact Info) Description 11/16/2001 Outpatient Historical Warren Sanchez Jr., MD [address] [place] [address] Social History Tobacco Use Types Packs/Day Years Used Date Smoking Tobacco: Never Assessed Comments Unknown Sex and Gender Information Value Date Recorded Sex Assigned at Not on file Legal Sex Female 4:09 AM RESEARCH EPIDEMIOLOGIST Gender Identity Not on file Sexual Orientation Not on file documented as of this encounter Plan of Treatment Not on file documented as of this encounter Visit Diagnoses Not on filedocumented in this encounter Care Teams Casino Beverage Server Relationship Specialty Start Date End Date aWrren Sanchez Jr., MD [address] [place] [address] PCP - General Family Practice 03/20/15 documented as of this encounter
--- OUTSIDE RECORDS SUMMARY | 2024-04-28 16:41 | XMS_ITS ---
Author Organization [facility] are Address Unknown Allergies, Adverse Reactions, Alerts Substance Reaction Status Noted Date Resolved Date Sulfa Antibiotics active 05/16/2021 Otezla active 05/16/2021 Lisinopril active 05/16/2021 Problems Problem Status Start Date End Date PERIPROSTHETIC FRACTURE AROU ND INTERNAL PROSTHETIC RIGHT KNEE JOINT, SUBSEQUENT ENCOUNTER (Primary) (M97.11XD - ICD-10-CM) ACTIVE 06/03/2021 PERIPROSTHETIC FRACTURE AROU ND UNSPECIFIED INTERNAL PROSTHETIC JOINT, SUBSEQUENT ENCOUNTER (Primary) (M97.9XXD - ICD-10-CM) RESOLVED 05/16/2021 05/16/2021 PERIPROSTHETIC FRACTURE AROU ND OTHER INTERNAL PROSTHETIC JOINT, SUBSEQUENT ENCOUNTER (Primary) (M97.8XXD - ICD-10-CM) RESOLVED 05/16/2021 05/30/2021 CHRONIC OBSTRUCTIVE PULMONAR Y DISEASE, UNSPECIFIED (J44.9 - ICD-10-CM) ACTIVE 06/03/2021 UNSPECIFIED FRACTURE OF UNSP ECIFIED FEMUR, INITIAL ENCOUNTER FOR CLOSED FRACTURE (S72.90XA - ICD-10-CM) RESOLVED 022 05/16/2021 OTHER SPECIFIED DIABETES CHELSEA LITUS WITH DIABETIC DERMATITIS (E13.620 - ICD-10-CM) RESOLVED 05/16/2021 022 UNSPECIFIED ASTHMA, UNCOMPLI CATED (J45.909 - ICD-10-CM) RESOLVED 05/16/2021 05/31/2021 TYPE 2 DIABETES MELLITUS WIT H DIABETIC NEUROPATHY, UNSPECIFIED (E11.40 - ICD-10-CM) ACTIVE 06/03/2021 CHRONIC OBSTRUCTIVE PULMONAR Y DISEASE, UNSPECIFIED (J44.9 - ICD-10-CM) RESOLVED 05/21/2021 05/31/2021 MUSCLE WEAKNESS (GENERALIZED) (M62.81 - ICD-10-CM) ACT REY 06/03/2021 TYPE 2 DIABETES MELLITUS WIT H DIABETIC NEUROPATHY, UNSPECIFIED (E11.40 - ICD-10-CM) RESOLVED 05/16/2021 022 REPEATED FALLS (R29.6 - ICD-10-CM) ACTIVE 2021 REPEATED FALLS (R29.6 - ICD-10-CM) RESOLVED 202105/31/2021 MUSCLE WEAKNESS (GENERALIZED) (M62.81 - ICD-10-CM) RES OLVED 05/16/2021 05/31/2021 UNSTEADINESS ON FEET (R26.81 - ICD-10-CM) RESOLVED 05/16/2021 05/31/2021 ACUTE KIDNEY FAILURE, UNSPECIFIED (N17.9 - ICD-10-CM) ACTIVE 06/03/2021 DIZZINESS AND GIDDINESS (R42 - ICD-10-CM) ACTIVE 06/03/2021 ACQUIRED ABSENCE OF OTHER SP ECIFIED PARTS OF DIGESTIVE TRACT (Z90.49 - ICD-10-CM) ACTIVE 06/03/2021 CATARACT EXTRACTION STATUS, UNSPECIFIED EYE (Z98.49 - ICD-10-CM) ACTIVE 06/03/2021 ACQUIRED ABSENCE OF UTERUS W ITH REMAINING CERVICAL STUMP (Z90.711 - ICD-10-CM) ACTIVE 06/03/2021 HYPOTENSION, UNSPECIFIED (I95.9 - ICD-10-CM) ACTIVE 06/03/2021 ACIDOSIS (E87.2 - ICD-10-CM) ACTIVE 06/03/2021 RADICULOPATHY, LUMBAR REGION (M54.16 - ICD-10-CM) ACTI VE 06/03/2021 PERSONAL HISTORY OF PNEUMONI A (RECURRENT) (Z87.01 - ICD-10-CM) ACTIVE 06/03/2021 SOLITARY PULMONARY NODULE (R91.1 - ICD-10-CM) ACTIVE 06/03/2021 RHEUMATOID ARTHRITIS, UNSPECIFIED (M06.9 - ICD-10-CM) ACTIVE 06/03/2021 SYNCOPE AND COLLAPSE (R55 - ICD-10-CM) ACTIVE RASH AND OTHER NONSPECIFIC S KIN ERUPTION (R21 - ICD-10-CM) RESOLVED 05/28/2021 05/31/2021 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) RESOLVED 05/26/2021 05/31/2021 OTHER HUMAN HERPESVIRUS INFECTION (B10.89 - ICD-10-CM) RESOLVED 05/22/2021 05/31/2021 SYNCOPE AND COLLAPSE (R55 - ICD-10-CM) RESOLVED 05/31/2021 HYPOTENSION, UNSPECIFIED (I95.9 - ICD-10-CM) RESOLVED 05/16/2021 05/31/2021 PAIN, UNSPECIFIED (R52 - ICD-10-CM) RESOLVED 05/1605/31/2021 CONSTIPATION, UNSPECIFIED (K59.00 - ICD-10-CM) RESOLVE D 05/16/2021 05/31/2021 ESSENTIAL (PRIMARY) HYPERTENSION (I10 - ICD-10-CM) RES OLVED 05/16/2021 05/31/2021 OTHER MUSCLE SPASM (M62.838 - ICD-10-CM) RESOLVED 05/16/2021 05/31/2021 OTHER SEASONAL ALLERGIC RHINITIS (J30.2 - ICD-10-CM) R ESOLVED 05/16/2021 05/31/2021 GASTRO-ESOPHAGEAL REFLUX DIS EASE WITHOUT ESOPHAGITIS (K21.9 - ICD-10-CM) RESOLVED 05/16/2021 05/31/2021 MAJOR DEPRESSIVE DISORDER, S OSIRIS EPISODE, UNSPECIFIED (F32.9 - ICD-10-CM) RESOLVED 05/16/2021 05/31/2021 PNEUMONIA, UNSPECIFIED ORGANISM (J18.9 - ICD-10-CM) RE SOLVED 05/16/2021 05/31/2021 ACUTE KIDNEY FAILURE, UNSPECIFIED (N17.9 - ICD-10-CM) RESOLVED 05/16/2021 05/31/2021 ACIDOSIS (E87.2 - ICD-10-CM) RESOLVED 05/16/2021 05/31/2021 HYPERLIPIDEMIA, UNSPECIFIED (E78.5 - ICD-10-CM) RESOLV ED 05/16/2021 05/31/2021 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 - ICD-10-CM) RESOLVED 05/17/19 22 05/31/2021 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) RESOL KARISHMA 05/16/2021 05/31/2021 OTHER SPECIFIED COUGH (R05.8 - ICD-10-CM) RESOLVED 05/16/2021 05/31/2021 DIZZINESS AND GIDDINESS (R42 - ICD-10-CM) RESOLVED 05/16/2021 05/31/2021 RADICULOPATHY, LUMBAR REGION (M54.16 - ICD-10-CM) RESO LVED 05/16/2021 05/31/2021 SOLITARY PULMONARY NODULE (R91.1 - ICD-10-CM) RESOLVED 05/16/2021 05/31/2021 RHEUMATOID ARTHRITIS, UNSPECIFIED (M06.9 - ICD-10-CM) RESOLVED 05/16/2021 05/31/2021 Results * Individual Tests: IRON / TIBC / Report PDF Performed by: [facility] Component Value Range Date IRON / TIBC Final Report 06/09/2021 11:4 8 pm EDT Report PDF See Attachment 06/09/2021 11 :48 pm EDT * Individual Tests: BMP / IRON / TIBC / CBC with Auto Diff / Report PDF Performed by: [facility] Component Value Range Date BMP Final Report 06/09/2021 07:4 2 pm EDT IRON / TIBC Final Report 06/09/2021 07:4 2 pm EDT CBC with Auto Diff Final Report 07:42 pm EDT Report PDF See Attachment 06/09/2021 07 :42 pm EDT * Individual Tests: CMP / CBC with Auto Diff / Report PDF Performed by: [facility] [address] [place] [address]. [address] [place] [address] [place] [address] Component Value Range Date Report PDF See Attachment 06/06/2021 03 :31 pm EDT * CMP Performed by: [facility] [address] [place] [address]. [address] [place] [address] Component Value Range Date gfr - Non 130.3 >60.0 06/06/2021 03:31 pm EDT gfr - 157.6 >60.0 06/06/2021 03: 31 pm EDT * CBC with Auto Diff Performed by: [facility] [address] [place] [address]. [address] [place] [address] [place] [address] Component Value Range Date LEXY# 1.10 10*3/uL 2.00 - 7.50 06/06/2021 03:3 1 pm EDT LYM# 0.82 10*3/uL 1.00 - 4.00 06/06/2021 03:3 1 pm EDT MON# 0.33 10*3/uL 0.20 - 1.00 06/06/2021 03:3 1 pm EDT EOS# 0.10 10*3/uL 0.00 - 0.50 06/06/2021 03:3 1 pm EDT BAS# 0.02 10*3/uL 0.00 - 0.20 06/06/2021 03:3 1 pm EDT IG# 0.02 10*3/uL 0.00 - 0.10 06/06/2021 03:3 1 pm EDT PLT 252.0 10*3/uL 150.0 - 500.0 06/06/2021 03 :31 pm EDT WBC 2.4 10*3/uL 4.0 - 10.0 06/06/2021 03:3 1 pm EDT HCT 26.6 % 37.0 - 54.0 06/06/2021 03:3 1 pm EDT LEXY% 46.1 % <99.9 06/06/2021 03:3 1 pm EDT LYM% 34.3 % <99.9 06/06/2021 03:3 1 pm EDT MON% 13.8 % <99.9 06/06/2021 03:3 1 pm EDT EOS% 4.2 % 0.0 - 99.9 06/06/2021 03:3 1 pm EDT BAS% 0.8 % 0.0 - 99.9 06/06/2021 03:3 1 pm EDT IG% 0.80 % 06/06/2021 03:3 1 pm EDT RBC 2.7 10*6/uL 3.8 - 6.5 06/06/2021 03:3 1 pm EDT MPV 9.5 fL 8.9 - 12.8 06/06/2021 03:3 1 pm EDT MCV 97.1 fL 80.0 - 100.0 06/06/2021 03:3 1 pm EDT RDW-SD 59.90 fL 39.00 - 46.00 06/06/2021 03: 31 pm EDT MCHC 29.3 g/dl 32.0 - 36.0 06/06/2021 03:3 1 pm EDT HGB 7.8 g/dl 11.5 - 17.0 06/06/2021 03:3 1 pm EDT * CMP Performed by: [facility] A [address] [place] [address] Component Value Range Date Total Protein 5.30 g/dl 6.40 - 8.30 06/06/2021 03: 31 pm EDT Albumin 2.9 g/dl 3.5 - 5.2 06/06/2021 03:3 1 pm EDT CO2 29.4 mEq/L 23.0 - 29.0 06/06/2021 03:3 1 pm EDT Anion Gap 4.7 mg/dl 06/06/2021 03:3 1 pm EDT Calcium 8.1 mg/dl 8.5 - 10.2 06/06/2021 03:3 1 pm EDT BUN 8 mg/dl 6 - 20 06/06/2021 03:3 1 pm EDT Creatinine 0.47 mg/dl 0.60 - 1.10 06/06/2021 03:3 1 pm EDT Glucose 153 mg/dl 70 - 105 06/06/2021 03:3 1 pm EDT bilirubin total 0.7 mg/dl 0.3 - 1.2 06/06/2021 0 3:31 pm EDT Sodium 143.7 mmol/L 136.0 - 145.0 06/06/2021 03: 31 pm EDT Potassium 3.44 mmol/L 3.50 - 5.10 06/06/2021 03:3 1 pm EDT Chloride 109.6 mmol/L 98.0 - 107.0 06/06/2021 03:3 1 pm EDT * CBC with Auto Diff Performed by: [facility] [address] [facility] A [address] [place] [address] [place] [address] Component Value Range Date MCH 28.5 pg 27.0 - 32.0 06/06/2021 03:3 1 pm EDT * CMP Performed by: [facility] A [address] [place] [address] [place] [address] Component Value Range Date Alk phosphate 98 u/l 44 - 147 06/06/2021 03: 31 pm EDT AST 15 u/l 7 - 31 06/06/2021 03:3 1 pm EDT ALT 11 u/l 5 - 30 06/06/2021 03:3 1 pm EDT * CBC with Auto Diff Performed by: [facility] [address] [facility]. [address] [place] [address] Component Value Range Date RDW-CV 16.90 % 11.80 - 14.50 06/06/2021 03: 31 pm EDT * Individual Tests: CMP / Lipid / A1C / TSH / CBC with Auto Diff / Report PDF Performed by: [facility] [address] [place] [address]. [address] [place] [address] Component Value Range Date A1C 7.0 % <5.8 05/19/2021 04:0 6 pm EDT TSH 1.9 uiU/ml 0.5 - 5.8 05/19/2021 04:0 6 pm EDT * CBC with Auto Diff Performed by: [facility] [address] [place] [address]. [address] [place] [address] Component Value Range Date MCH 31.3 pg 27.0 - 32.0 05/19/2021 04:0 6 pm EDT * CMP Performed by: [facility]. [address] [place] [address] Component Value Range Date Alk phosphate 40 u/l 44 - 147 05/19/2021 04: 06 pm EDT AST 22 u/l 7 - 31 05/19/2021 04:0 6 pm EDT ALT 28 u/l 5 - 30 05/19/2021 04:0 6 pm EDT Sodium 138.6 mmol/L 136.0 - 145.0 05/19/2021 04: 06 pm EDT Potassium 3.93 mmol/L 3.50 - 5.10 05/19/2021 04:0 6 pm EDT Chloride 104.8 mmol/L 98.0 - 107.0 05/19/2021 04:0 6 pm EDT CO2 25.8 mEq/L 23.0 - 29.0 05/19/2021 04:0 6 pm EDT Anion Gap 8.0 mg/dl 05/19/2021 04:0 6 pm EDT Calcium 8.5 mg/dl 8.5 - 10.2 05/19/2021 04:0 6 pm EDT BUN 13 mg/dl 6 - 20 05/19/2021 04:0 6 pm EDT Creatinine 0.61 mg/dl 0.60 - 1.10 05/19/2021 04:0 6 pm EDT Glucose 152 mg/dl 70 - 105 05/19/2021 04:0 6 pm EDT bilirubin total 1.1 mg/dl 0.3 - 1.2 05/19/2021 0 4:06 pm EDT * Lipid Performed by: [facility] [address] [place] [address]. [address] [place] [address] Component Value Range Date Triglycerides 127 mg/dl <150 05/19/2021 04: 06 pm EDT Cholesterol 131 mg/dl <200 05/19/2021 04:0 6 pm EDT HDL 39 mg/dl 23 - 92 05/19/2021 04:0 6 pm EDT LDL 69.0 mg/dl 75.0 - 193.0 05/19/2021 04:0 6 pm EDT non-HDL 92.0 mg/dl <130.0 05/19/2021 04:0 6 pm EDT * CBC with Auto Diff Performed by: [facility] [address] [place] [address]. [address] [place] [address] Component Value Range Date MCHC 31.0 g/dl 32.0 - 36.0 05/19/2021 04:0 6 pm EDT HGB 9.1 g/dl 11.5 - 17.0 05/19/2021 04:0 6 pm EDT * CMP Performed by: [facility] [address] [place] [address]. [address] [place] [address] Component Value Range Date Total Protein 5.80 g/dl 6.40 - 8.30 05/19/2021 04: 06 pm EDT Albumin 3.3 g/dl 3.5 - 5.2 05/19/2021 04:0 6 pm EDT * CBC with Auto Diff Performed by: [facility] [address] [place] [address]. [address] [place] [address] Component Value Range Date RDW-SD 67.00 fL 39.00 - 46.00 05/19/2021 04: 06 pm EDT MCV 101.0 fL 80.0 - 100.0 05/19/2021 04:0 6 pm EDT MPV 9.8 fL 8.9 - 12.8 05/19/2021 04:0 6 pm EDT RDW-CV 18.70 % 11.80 - 14.50 05/19/2021 04: 06 pm EDT PLT 197.0 10*3/uL 150.0 - 500.0 05/19/2021 04 :06 pm EDT WBC 8.0 10*3/uL 4.0 - 10.0 05/19/2021 04:0 6 pm EDT LEXY# 5.42 10*3/uL 2.00 - 7.50 05/19/2021 04:0 6 pm EDT LYM# 1.46 10*3/uL 1.00 - 4.00 05/19/2021 04:0 6 pm EDT MON# 1.04 10*3/uL 0.20 - 1.00 05/19/2021 04:0 6 pm EDT EOS# 0.04 10*3/uL 0.00 - 0.50 05/19/2021 04:0 6 pm EDT BAS# 0.02 10*3/uL 0.00 - 0.20 05/19/2021 04:0 6 pm EDT IG# 0.06 10*3/uL 0.00 - 0.10 05/19/2021 04:0 6 pm EDT RBC 2.9 10*6/uL 3.8 - 6.5 05/19/2021 04:0 6 pm EDT * Individual Tests: CMP / Lipid / A1C / TSH / CBC with Auto Diff / Report PDF Performed by: [facility] [address] [place] [address]. [address] [place] [address] Component Value Range Date Report PDF See Attachment 05/19/2021 04 :06 pm EDT * CMP Performed by: [facility] [address] [place] [address] [place]. [address] [place] [address] Component Value Range Date gfr - Non 96.4 >60.0 05/19/2021 04:06 pm EDT gfr - 116.7 >60.0 05/19/2021 04: 06 pm EDT * CBC with Auto Diff Performed by: [facility]. [address] [place] [address] Component Value Range Date HCT 29.4 % 37.0 - 54.0 05/19/2021 04:0 6 pm EDT LEXY% 67.5 % <99.9 05/19/2021 04:0 6 pm EDT LYM% 18.2 % <99.9 05/19/2021 04:0 6 pm EDT MON% 12.9 % <99.9 05/19/2021 04:0 6 pm EDT EOS% 0.5 % 0.0 - 99.9 05/19/2021 04:0 6 pm EDT BAS% 0.2 % 0.0 - 99.9 05/19/2021 04:0 6 pm EDT IG% 0.70 % 05/19/2021 04:0 6 pm EDT Encounters Encounter Performer Performer Role Encounter Diagnoses Location Date Discharge - Discharged / Transferred to another [facility] 05/16/2021 11:06 am EST - 05/30/2021 06:50 am EDT Discharge - Discharged to home or self care - Home - Home/apt. with home health services [facility] 06/03/2021 11:37 am EDT - 06/23/2021 09:23 am EDT Immunizations Vaccine Date SARS-COV-2 (COVID-19) 10/18/2020 01:00 a m EDT SARS-COV-2 (COVID-19) 09/20/2020 01:00 a m EDT SARS - COV2 (Moderna) Booster 04/23/2021 01:00 am EST Social History
--- OUTSIDE RECORDS SUMMARY | 2024-04-28 16:41 | XMS_ITS | Encounter Summary ---
Author Organization [facility] Address [address] [place] [address] Care Team Providers Care Rail Car Welder Name Role Phone Daniel Santos MD, Warren Handley Primary Care Provider Encounter Details Date Type Department Care Team (Latest Contact Info) Description 01/30/2002 Outpatient Historical [facility] Warren Sanchez Jr., MD [address] [place] [address] CYSTITIS NOS (Primary Dx); ACUTE URI NOS; HYPERTENSION NOS; ABNORMAL URINE FINDINGS NEC Social History Tobacco Use Types Packs/Day Years Used Date Smoking Tobacco: Never Assessed Comments Unknown Sex and Gender Information Value Date Recorded Sex Assigned at Not on file 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
--- OUTSIDE RECORDS SUMMARY | 2024-04-28 16:41 | XMS_ITS | Encounter Summary ---
Author Organization [facility] Address [address] [place] [address] Care Team Providers Care Research Methods Instructor Name Role Phone Daniel Santos MD, Warren Handley Primary Care Provider Encounter Details Date Type Department Care Team (Latest Contact Info) Description 03/04/2000 Outpatient Historical [facility] Warren Sanchez Jr., MD [address] [place] [address] Rheumatoid arthritis(714.0) (CMS/[facility]) (Primary Dx); Osteoarthrosis, unspecified whether generalized or localized, unspecified site; Unspecified essential hypertension Social History Tobacco Use Types Packs/Day Years Used Date Smoking Tobacco: Never Assessed Comments Unknown Sex and Gender Information Value Date Recorded Sex Assigned at Not on file Legal Sex Female 4:[address] Gender Identity Not on file Sexual Orientation Not on file documented as of this encounter Plan of Treatment Not on file documented as of this encounter Visit Diagnoses Diagnosis Rheumatoid arthritis(714.0) (CMS/HCC)- Primary Rheumatoid arthritis Osteoarthrosis, unspecified whether generalized or localized, unspecified site Unspecified essential hypertension documented in this encounter Care Teams Research Methods Instructor Relationship Specialty Start Date End Date Warren Sanchez Jr., MD [address] [place] [address] PCP - General Family Practice 03/20/15 documented as of this encounter
--- OUTSIDE RECORDS SUMMARY | 2024-04-28 16:41 | XMS_ITS | Encounter Summary ---
Author Organization [facility] Address [address] [place] [address] Care Team Providers Care Electric Tool Repairer Name Role Phone Daniel Santos MD, Warren Handley Primary Care Provider Encounter Details Date Type Department Care Team (Latest Contact Info) Description 05/23/2001 Outpatient Historical [facility] Warren Sanchez Jr., MD [address] [place] [address] HYPERTENSION NOS (Primary Dx); RHEUMATOID ARTHRITIS (CMS/[facility]); GENERALIZED ANXIETY DIS Social History Tobacco Use Types Packs/Day Years Used Date Smoking Tobacco: Never Assessed Comments Unknown Sex and Gender Information Value Date Recorded Sex Assigned at Not on file 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
--- OUTSIDE RECORDS SUMMARY | 2024-04-28 16:41 | XMS_ITS | Encounter Summary ---
Author Organization [facility] Address [address] [place] [address] Care Team Providers Care Vp Ad Sales West Name Role Phone Daniel Santos MD, Warren Handley Primary Care Provider Encounter Details Date Type Department Care Team (Latest Contact Info) Description 05/01/2002 Outpatient Historical [facility] Warren Sanchez Jr., MD [address] [place] [address] RHEUMATOID ARTHRITIS ([facility]) (Primary Dx); LUMBAGO; URIN TRACT INFECTION NOS; AFTERCARE ASSISTED USE MEDICATN Social History Tobacco Use Types Packs/Day Years Used Date Smoking Tobacco: Never Assessed Comments Unknown Sex and Gender Information Value Date Recorded Sex Assigned at Not on file 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 Gender Identity Not on file Sexual Orientation Not on file documented as of this encounter Plan of Treatment Not on file documented as of this encounter Visit Diagnoses Diagnosis Rheumatoid arthritis(714.0) (CMS/[facility])- Primary Rheumatoid arthritis Lumbago Urinary tract infection, site not specified Encounter for long-term (current) use of other medications documented in this encounter Care Teams Vp Ad Sales West Relationship Specialty Start Date End Date Warren Sanchez Jr., MD [address] [place] [address] PCP - General Family Practice 03/20/15 documented as of this encounter
--- OUTSIDE RECORDS SUMMARY | 2024-04-28 16:41 | XMS_ITS | Encounter Summary ---
Author Organization [facility] Address [address] [place] [address] Care Team Providers Care Hog Room Supervisor Name Role Phone Daniel Santos MD, Warren Handley Primary Care Provider Encounter Details Date Type Department Care Team (Latest Contact Info) Description 02/27/1998 Outpatient Historical [facility] Warren Sanchez Jr., MD [address] [place] [address] Rheumatoid arthritis(714.0) (CMS/[facility]) (Primary Dx) Social History Tobacco Use Types Packs/Day Years Used Date Smoking Tobacco: Never Assessed Comments Unknown Sex and Gender Information Value Date Recorded Sex Assigned at Not on file 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
--- OUTSIDE RECORDS SUMMARY | 2024-04-28 16:41 | XMS_ITS | Encounter Summary ---
Author Organization [facility] Address [address] [place] [address] Care Team Providers Care Medical Office Manager Name Role Phone Daniel Santos MD, Warren Handley Primary Care Provider Encounter Details Date Type Department Care Team (Latest Contact Info) Description 06/12/2002 Outpatient Historical [facility] Warren Sanchez Jr., MD [address] [place] [address] RHEUMATOID ARTHRITIS (CMS/[facility]) (Primary Dx); OSTEOARTHROS NOS-UNSPEC; HYPERTENSION NOS; ABNORMAL URINE FINDINGS NEC Social History Tobacco Use Types Packs/Day Years Used Date Smoking Tobacco: Never Assessed Comments Unknown Sex and Gender Information Value Date Recorded Sex Assigned at Not on file 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 Gender Identity Not on file Sexual Orientation Not on file documented as of this encounter Plan of Treatment Not on file documented as of this encounter Visit Diagnoses Diagnosis Rheumatoid arthritis(714.0) (CMS/HCC)- Primary Rheumatoid arthritis Osteoarthrosis, unspecified whether generalized or localized, unspecified site Unspecified essential hypertension Other nonspecific finding on examination of urine documented in this encounter Care Teams Medical Office Manager Relationship Specialty Start Date End Date Warren Sanchez Jr., MD [address] [place] [address] PCP - General Family Practice 03/20/15 documented as of this encounter
--- OUTSIDE RECORDS SUMMARY | 2024-04-28 16:41 | XMS_ITS | Encounter Summary ---
Author Organization [facility] Address [address] [facility] Attn: [place] [address] Care Team Providers Care Emergency Room Clerk Name Role Phone Daniel Santos MD, Warren Handley Primary Care Provider Encounter Details Date Type Department Care Team (Late st Contact Info) Description 10/05/2001 Outpatient Historical Warren Sanchez Jr., MD [address] [place] [address] Social History Tobacco Use Types Packs/Day Years Used Date Smoking Tobacco: Never Assessed Comments Unknown Sex and Gender Information Value Date Recorded Sex Assigned at Not on file 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
--- OUTSIDE RECORDS SUMMARY | 2024-04-28 16:41 | XMS_ITS | Encounter Summary ---
Author Organization [facility] Address [address] [place] [address] Care Team Providers Care Geothermal Field Technician Name Role Phone Daniel Santos MD, Warren Handley Primary Care Provider Encounter Details Date Type Department Care Team (Latest Contact Info) Description 10/24/2001 Outpatient Historical [facility] Warren Sanchez Jr., MD [address] [place] [address] Pure hypercholesterolem (Primary Dx); RHEUMATOID ARTHRITIS (CMS/HCC); OTHER MALAISE AND FATIGUE; CHRONIC AIRWAY OBSTRUCTION NEC (CMS/HCC) Social History Tobacco Use Types Packs/Day Years Used Date Smoking Tobacco: Never Assessed Comments Unknown Sex and Gender Information Value Date Recorded Sex Assigned at Not on file 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 Gender Identity Not on file Sexual Orientation Not on file documented as of this encounter Plan of Treatment Not on file documented as of this encounter Visit Diagnoses Diagnosis Pure hypercholesterolem- Primary Pure hypercholesterolemia Rheumatoid arthritis(714.0) (CMS/HCC) Rheumatoid arthritis Other malaise and fatigue Chronic airway obstruction, not elsewhere classified (CMS/HCC) Chronic airway obstruction, not elsewhere classified documented in this encounter Care Teams Geothermal Field Technician Relationship Specialty Start Date End Date Warren Sanchez Jr., MD [address] [place] [address] PCP - General Family Practice 03/20/15 documented as of this encounter
--- OUTSIDE RECORDS SUMMARY | 2024-04-28 16:41 | XMS_ITS | Encounter Summary ---
Author Organization [facility] Address [address] [facility] Attn: [place] [address] Care Team Providers Care Boatwright Name Role Phone Daniel Santos MD, Warren Handley Primary Care Provider Encounter Details Date Type Department Care Team (Late st Contact Info) Description 04/01/2000 Outpatient Historical Warren Sanchez Jr., MD [address] [place] [address] Social History Tobacco Use Types Packs/Day Years Used Date Smoking Tobacco: Never Assessed Comments Unknown Sex and Gender Information Value Date Recorded Sex Assigned at Not on file Legal Sex Female 4:09 AM DIRECTOR GOVERNMENT Gender Identity Not on file Sexual Orientation Not on file documented as of this encounter Plan of Treatment Not on file documented as of this encounter Visit Diagnoses Not on filedocumented in this encounter Care Teams Boatwright Relationship Specialty Start Date End Date Warren Sanchez Jr., MD [address] [place] [address] PCP - General Family Practice 03/20/15 documented as of this encounter
--- OUTSIDE RECORDS SUMMARY | 2024-04-28 16:41 | XMS_ITS | Encounter Summary ---
Author Organization [facility] Address [address] [place] [address] Care Team Providers Care Museum Exhibit Technician Name Role Phone Daniel Santos MD, Warren Handley Primary Care Provider Encounter Details Date Type Department Care Team (Latest Contact Info) Description 07/06/2001 Outpatient Historical [facility] Warren Sanchez Jr., MD [address] [place] [address] RHEUMATOID ARTHRITIS (CMS/[facility], [facility]) (Primary Dx); OSTEOARTHROS NOS-UNSPEC; HYPERTENSION NOS; AFTERCARE ALF USE MEDICATN Social History Tobacco Use Types Packs/Day Years Used Date Smoking Tobacco: Never Assessed Comments Unknown Sex and Gender Information Value Date Recorded Sex Assigned at Not on file Legal Sex Female 4:09 AM LOAN BROKER Gender Identity Not on file Sexual Orientation Not on file documented as of this encounter Plan of Treatment Not on file documented as of this encounter Visit Diagnoses Diagnosis Rheumatoid arthritis(714.0) (CMS/HCC)- Primary Rheumatoid arthritis Osteoarthrosis, unspecified whether generalized or localized, unspecified site Unspecified essential hypertension Encounter for long-term (current) use of other medications documented in this encounter Care Teams Museum Exhibit Technician Relationship Specialty Start Date End Date Warren Sanchez Jr., MD [address] [place] [address] PCP - General Family Practice 03/20/15 documented as of this encounter
--- OUTSIDE RECORDS SUMMARY | 2024-04-28 16:42 | XMS_ITS | Encounter Summary ---
Author Organization [facility] Address [address] [place] [address] Care Team Providers Care Automobile Travel Club Counselor Name Role Phone Daniel Sanots MD, Warren Handley Primary Care Provider Encounter Details Date Type Department Care Team (Latest Contact Info) Description 07/10/1998 Outpatient Historical [facility] Warren Sanchez Jr., MD [address] [place] [address] Rheumatoid arthritis(714.0) (CMS/HCC) (Primary Dx); Osteoarthrosis, unspecified whether generalized or localized, unspecified site; Unspecified asthma(493.90) Social History Tobacco Use Types Packs/Day Years Used Date Smoking Tobacco: Never Assessed Comments Unknown Sex and Gender Information Value Date Recorded Sex Assigned at Not on file Legal Sex Female 4:09 AM ECONOMICS PROFESSOR Gender Identity Not on file Sexual Orientation Not on file documented as of this encounter Plan of Treatment Not on file documented as of this encounter Visit Diagnoses Diagnosis Rheumatoid arthritis(714.0) (CMS/HCC)- Primary Rheumatoid arthritis Osteoarthrosis, unspecified whether generalized or localized, unspecified site Unspecified asthma(493.90) Unspecified asthma documented in this encounter Care Teams Automobile Travel Club Counselor Relationship Specialty Start Date End Date Warren Sanchez Jr., MD [address] [place] [address] PCP - General Family Practice 03/20/15 documented as of this encounter
--- OUTSIDE RECORDS SUMMARY | 2024-04-28 16:42 | XMS_ITS | Encounter Summary ---
Author Organization [facility] Address [address] [place] [address] Care Team Providers Care Molder Automobile Carpets Name Role Phone Daniel Santos MD, Warren Handley Primary Care Provider Encounter Details Date Type Department Care Team (Latest Contact Info) Description 01/04/2003 Outpatient Historical [facility] Warren Sanchez Jr., MD [address] [place] [address] RHEUMATOID ARTHRITIS ([facility]) (Primary Dx); DEPRESSIVE DISORDER NEC; HYPERTENSION NOS; Vaccine for influenza Social History Tobacco Use Types Packs/Day Years Used Date Smoking Tobacco: Never Assessed Comments Unknown Sex and Gender Information Value Date Recorded Sex Assigned at Not on file Legal Sex Female 4:09 AM SPEECH LANG PATH THERAPIST Gender Identity Not on file Sexual Orientation Not on file documented as of this encounter Plan of Treatment Not on file documented as of this encounter Visit Diagnoses Diagnosis Rheumatoid arthritis(714.0) (CMS/[facility])- Primary Rheumatoid arthritis Depressive disorder, not elsewhere classified Unspecified essential hypertension Vaccine for influenza Need for prophylactic vaccination and inoculation against influenza documented in this encounter Care Teams Molder Automobile Carpets Relationship Specialty Start Date End Date Warren Sanchez Jr., MD [address] [place] [address] PCP - General Family Practice 03/20/15 documented as of this encounter
--- OUTSIDE RECORDS SUMMARY | 2024-04-28 16:42 | XMS_ITS | Encounter Summary ---
Author Organization [facility] Address [address] [place] [address] Care Team Providers Care Flavor Maker Name Role Phone Daniel Santos MD, Warren Handley Primary Care Provider Encounter Details Date Type Department Care Team (Latest Contact Info) Description 07/27/2002 Outpatient Historical [facility] Pod[facility] [place] [address] [place] [address] Gil Camara, DPM [address] [place] [address] Pain in limb (Primary Dx); BURSITIS NEC; Plantar fibromatosis; CALCANEAL SPUR; TIBIALIS TENDINITIS Social History Tobacco Use Types Packs/Day Years Used Date Smoking Tobacco: Never Assessed Comments Unknown Sex and Gender Information Value Date Recorded Sex Assigned at Not on file Legal Sex Female 4:09 AM ACID TREATER Gender Identity Not on file Sexual Orientation Not on file documented as of this encounter Plan of Treatment Not on file documented as of this encounter Visit Diagnoses Diagnosis Pain in limb- Primary Pain in soft tissues of limb Other bursitis disorders Plantar fibromatosis Plantar fascial fibromatosis Calcaneal spur Tibialis tendinitis documented in this encounter Care Teams Flavor Maker Relationship Specialty Start Date End Date Warren Sanchez Jr., MD [address] [place] [address] PCP - General Family Practice 03/20/15 documented as of this encounter
--- OUTSIDE RECORDS SUMMARY | 2024-04-28 16:42 | XMS_ITS | Encounter Summary ---
Author Organization [facility] Address [address] [place] [address] Care Team Providers Care Supervisor Public Message Service Name Role Phone Daniel Santos MD, Warren Handley Primary Care Provider Encounter Details Date Type Department Care Team (Latest Contact Info) Description 10/03/1998 Outpatient Historical [facility] Hernando Burgos Jr., MD [address] [place] [address] Preoperative examination, unspecified (Primary Dx) Social History Tobacco Use Types Packs/Day Years Used Date Smoking Tobacco: Never Assessed Comments Unknown Sex and Gender Information Value Date Recorded Sex Assigned at Not on file Legal Sex Female 4:09 AM ELECTRICIAN ASSISTANT Gender Identity Not on file Sexual Orientation Not on file documented as of this encounter Plan of Treatment Not on file documented as of this encounter Visit Diagnoses Diagnosis Preoperative examination, unspecified- Primary documented in this encounter Care Teams Supervisor Public Message Service Relationship Specialty Start Date End Date Warren Sanchez Jr., MD [address] [place] [address] PCP - General Family Practice 03/20/15 documented as of this encounter
--- OUTSIDE RECORDS SUMMARY | 2024-04-28 16:42 | XMS_ITS | Encounter Summary ---
Author Organization [facility] Address [address] [place] [address] Care Team Providers Care Learning Solutions Specialist Name Role Phone Daniel Santos MD, Warren Handley Primary Care Provider Encounter Details Date Type Department Care Team (Latest Contact Info) Description 09/17/1998 Outpatient Historical [facility] Hernando Burgos Jr., MD [address] [place] [address] Preoperative examination, unspecified (Primary Dx) Social History Tobacco Use Types Packs/Day Years Used Date Smoking Tobacco: Never Assessed Comments Unknown Sex and Gender Information Value Date Recorded Sex Assigned at Not on file Legal Sex Female 4:09 AM BED TEACHER Gender Identity Not on file Sexual Orientation Not on file documented as of this encounter Plan of Treatment Not on file documented as of this encounter Visit Diagnoses Diagnosis Preoperative examination, unspecified- Primary documented in this encounter Care Teams Learning Solutions Specialist Relationship Specialty Start Date End Date Warren Sanchez Jr., MD [address] [place] [address] PCP - General Family Practice 03/20/15 documented as of this encounter
--- OUTSIDE RECORDS SUMMARY | 2024-04-28 16:42 | XMS_ITS | Encounter Summary ---
Author Organization [facility] Address [address] [place] [address] Care Team Providers Care Dropper Tank Storage Name Role Phone Daniel Santos MD, Warren Handley Primary Care Provider Encounter Details Date Type Department Care Team (Latest Contact Info) Description 04/18/2002 Outpatient Historical [facility] PLASTIC SURGERY Abdiaziz Celis MD NO ADDRESS ON FILE POSTSURG AFTERCARE OTHER SPECIFIED (Primary Dx) Social History Tobacco Use Types Packs/Day Years Used Date Smoking Tobacco: Never Assessed Comments Unknown Sex and Gender Information Value Date Recorded Sex Assigned at Not on file Legal Sex Female 4:09 AM APPRAISER Gender Identity Not on file Sexual Orientation Not on file documented as of this encounter Plan of Treatment Not on file documented as of this encounter Visit Diagnoses Diagnosis Other specified aftercare following surgery- Primary documented in this encounter Care Teams Dropper Tank Storage Relationship Specialty Start Date End Date Warren Sanchez Jr., MD [address] [place] [address] PCP - General Family Practice 03/20/15 documented as of this encounter
--- OUTSIDE RECORDS SUMMARY | 2024-04-28 16:42 | XMS_ITS | Encounter Summary ---
Author Organization [facility] Address [address] [place] [address] Care Team Providers Care Donor Specialist Name Role Phone Daniel Santos MD, Warren Handley Primary Care Provider Encounter Details Date Type Department Care Team (Latest Contact Info) Description 01/11/1998 Outpatient Historical [facility] Warren Sanchez Jr., MD [address] [place] [address] Hemorrhage, unspecified (Primary Dx); Rheumatoid arthritis(714.0) (CMS/HCC) Social History Tobacco Use Types Packs/Day Years Used Date Smoking Tobacco: Never Assessed Comments Unknown Sex and Gender Information Value Date Recorded Sex Assigned at Not on file Legal Sex Female 4:09 AM GROUP FITNESS MANAGER Gender Identity Not on file Sexual Orientation Not on file documented as of this encounter Plan of Treatment Not on file documented as of this encounter Visit Diagnoses Diagnosis Hemorrhage, unspecified- Primary Rheumatoid arthritis(714.0) (CMS/HCC) Rheumatoid arthritis documented in this encounter Care Teams Donor Specialist Relationship Specialty Start Date End Date Warren Sanchez Jr., MD [address] [place] [address] PCP - General Family Practice 03/20/15 documented as of this encounter
--- OUTSIDE RECORDS SUMMARY | 2024-04-28 16:42 | XMS_ITS | Encounter Summary ---
Author Organization [facility] Address [address] [place] [address] Care Team Providers Care Assistant Professor Of Life Sciences Name Role Phone Daniel Santos MD, Warren Handley Primary Care Provider Encounter Details Date Type Department Care Team (Latest Contact Info) Description 11/01/1998 Outpatient Historical [facility] Warren Sanchez Jr., MD [address] [place] [address] Unspecified septicemia(038.9) (CMS/[facility]) (Primary Dx); Chronic parametritis Social History Tobacco Use Types Packs/Day Years Used Date Smoking Tobacco: Never Assessed Comments Unknown Sex and Gender Information Value Date Recorded Sex Assigned at Not on file Legal Sex Female 4:09 AM MECHANICAL AND AUTO BODY CAR CHECKER Gender Identity Not on file Sexual Orientation Not on file documented as of this encounter Plan of Treatment Not on file documented as of this encounter Visit Diagnoses Diagnosis Unspecified septicemia(038.9) (CMS/HCC)- Primary Unspecified septicemia Chronic parametritis Chronic or unspecified parametritis and pelvic cellulitis documented in this encounter Care Teams Assistant Professor Of Life Sciences Relationship Specialty Start Date End Date Warren Sanchez Jr., MD [address] [place] [address] PCP - General Family Practice 03/20/15 documented as of this encounter
--- OUTSIDE RECORDS SUMMARY | 2024-04-28 16:42 | XMS_ITS | Encounter Summary ---
Author Organization [facility] Address [address] [place] [address] Care Team Providers Care Compacting Machine Operator/Tender Name Role Phone Daniel Santos MD, Warren Handley Primary Care Provider Encounter Details Date Type Department Care Team (Latest Contact Info) Description 10/16/2002 Outpatient Historical [facility] Warren Sanchez Jr., MD [address] [place] [address] UNSPEC CONSTIPATION (Primary Dx); URIN TRACT INFECTION NOS Social History Tobacco Use Types Packs/Day Years Used Date Smoking Tobacco: Never Assessed Comments Unknown Sex and Gender Information Value Date Recorded Sex Assigned at Not on file Legal Sex Female 4:09 AM MANAGER DRUG Gender Identity Not on file Sexual Orientation Not on file documented as of this encounter Plan of Treatment Not on file documented as of this encounter Visit Diagnoses Diagnosis Unspecified constipation- Primary Urinary tract infection, site not specified documented in this encounter Care Teams Compacting Machine Operator/Tender Relationship Specialty Start Date End Date Warren Sanchez Jr., MD [address] [place] [address] PCP - General Family Practice 03/20/15 documented as of this encounter
--- OUTSIDE RECORDS SUMMARY | 2024-04-28 16:42 | XMS_ITS | Encounter Summary ---
Author Organization [facility] Address [address] [place] [address] Care Team Providers Care Metal Casting Trades Worker Name Role Phone Daniel Santos MD, Warren Handley Primary Care Provider Encounter Details Date Type Department Care Team (Latest Contact Info) Description 10/21/1998 Outpatient Historical [facility] Warren Sanchez Jr., MD [address] [place] [address] Hypopotassemia (Primary Dx); Other specified noninflammatory disorder of vagina; Benign kathy vagina Social History Tobacco Use Types Packs/Day Years Used Date Smoking Tobacco: Never Assessed Comments Unknown Sex and Gender Information Value Date Recorded Sex Assigned at Not on file Legal Sex Female 4:09 AM SNUFF CONTAINER INSPECTOR Gender Identity Not on file Sexual Orientation Not on file documented as of this encounter Plan of Treatment Not on file documented as of this encounter Visit Diagnoses Diagnosis Hypopotassemia- Primary Other specified noninflammatory disorder of vagina 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
--- OUTSIDE RECORDS SUMMARY | 2024-04-28 16:42 | XMS_ITS | Encounter Summary ---
Author Organization [facility] Address [address] [place] [address] Care Team Providers Care English Adjunct Faculty Name Role Phone Daniel Santos MD, Warren Handley Primary Care Provider Encounter Details Date Type Department Care Team (Latest Contact Info) Description 06/10/1998 Outpatient Historical [facility] Warren Sanchez Jr., MD [address] [place] [address] Rheumatoid arthritis(714.0) (CMS/HCC) (Primary Dx); Osteoarthrosis, unspecified whether generalized or localized, shoulder region; Unspecified asthma(493.90) Social History Tobacco Use Types Packs/Day Years Used Date Smoking Tobacco: Never Assessed Comments Unknown Sex and Gender Information Value Date Recorded Sex Assigned at Not on file Legal Sex Female 4:09 AM LITHARGE SUPERVISOR Gender Identity Not on file Sexual Orientation Not on file documented as of this encounter Plan of Treatment Not on file documented as of this encounter Visit Diagnoses Diagnosis Rheumatoid arthritis(714.0) (CMS/HCC)- Primary Rheumatoid arthritis Osteoarthrosis, unspecified whether generalized or localized, shoulder region Unspecified asthma(493.90) Unspecified asthma documented in this encounter Care Teams English Adjunct Faculty Relationship Specialty Start Date End Date Warren Sanchez Jr., MD [address] [place] [address] PCP - General Family Practice 03/20/15 documented as of this encounter
--- OUTSIDE RECORDS SUMMARY | 2024-04-28 16:42 | XMS_ITS | Encounter Summary ---
Author Organization [facility] Address [address] [place] [address] Care Team Providers Care Shipping Processor Name Role Phone Daniel Santos MD, Warren Handley Primary Care Provider Encounter Details Date Type Department Care Team (Latest Contact Info) Description 10/25/2002 Outpatient Historical [facility] Warren Sanchez Jr., MD [address] [place] [address] OSTEOARTHROS NOS-UNSPEC (Primary Dx); ANEMIA NOS Social History Tobacco Use Types Packs/Day Years Used Date Smoking Tobacco: Never Assessed Comments Unknown Sex and Gender Information Value Date Recorded Sex Assigned at Not on file Legal Sex Female 4:09 AM ELECTRONIC TRAIN CONTROL TECHNICIAN Gender Identity Not on file Sexual Orientation Not on file documented as of this encounter Plan of Treatment Not on file documented as of this encounter Visit Diagnoses Diagnosis Osteoarthrosis, unspecified whether generalized or localized, unspecified site- Primary Anemia, unspecified documented in this encounter Care Teams Shipping Processor Relationship Specialty Start Date End Date Warren Sanchez Jr., MD [address] [place] [address] PCP - General Family Practice 03/20/15 documented as of this encounter
--- OUTSIDE RECORDS SUMMARY | 2024-04-28 16:42 | XMS_ITS | Encounter Summary ---
Author Organization [facility] Address [address] [place] [address] Care Team Providers Care Computerized Machine Fabric Cutter Name Role Phone Daniel Santos MD, Warren Handley Primary Care Provider Encounter Details Date Type Department Care Team (Latest Contact Info) Description 03/13/2002 Outpatient Historical [facility] Warren Sanchez Jr., MD [address] [place] [address] RHEUMATOID ARTHRITIS ([facility]) (Primary Dx); HYPERTENSION NOS; URIN TRACT INFECTION NOS; VACCINE FOR INFLUENZA Social History Tobacco Use Types Packs/Day Years Used Date Smoking Tobacco: Never Assessed Comments Unknown Sex and Gender Information Value Date Recorded Sex Assigned at Not on file Legal Sex Female 4:09 AM WINDOW SHADE ESTIMATOR Gender Identity Not on file Sexual Orientation Not on file documented as of this encounter Plan of Treatment Not on file documented as of this encounter Visit Diagnoses Diagnosis Rheumatoid arthritis(714.0) (CMS/HCC)- Primary Rheumatoid arthritis Unspecified essential hypertension Urinary tract infection, site not specified Need vaccination-viral disease Need for prophylactic vaccination and inoculation against other viral diseases documented in this encounter Care Teams Computerized Machine Fabric Cutter Relationship Specialty Start Date End Date Warren Sanchez Jr., MD [address] [place] [address] PCP - General Family Practice 03/20/15 documented as of this encounter
--- OUTSIDE RECORDS SUMMARY | 2024-04-28 16:42 | XMS_ITS | Encounter Summary ---
Author Organization [facility] Address [address] [place] [address] Care Team Providers Care Data Network Architect Name Role Phone Daniel Santos MD, Warren Handley Primary Care Provider Encounter Details Date Type Department Care Team (Latest Contact Info) Description 03/27/2002 Outpatient Historical [facility] PLASTIC SURGERY Abdiaziz Celis MD NO ADDRESS ON FILE RHEUMATOID ARTHRITIS (CMS/[facility]) (Primary Dx) Social History Tobacco Use Types Packs/Day Years Used Date Smoking Tobacco: Never Assessed Comments Unknown Sex and Gender Information Value Date Recorded Sex Assigned at Not on file Legal Sex Female 4:09 AM UNDERGROUND SUPERVISOR Gender Identity Not on file Sexual Orientation Not on file documented as of this encounter Plan of Treatment Not on file documented as of this encounter Visit Diagnoses Diagnosis Rheumatoid arthritis(714.0) (CMS/HCC)- Primary Rheumatoid arthritis documented in this encounter Care Teams Data Network Architect Relationship Specialty Start Date End Date Warren Sanchez Jr., MD [address] [place] [address] PCP - General Family Practice 03/20/15 documented as of this encounter
--- OUTSIDE RECORDS SUMMARY | 2024-04-28 16:42 | XMS_ITS | Encounter Summary ---
Author Organization [facility] Address [address] [place] [address] Care Team Providers Care Pond Worker Name Role Phone Daniel Santos MD, Warren Handley Primary Care Provider Encounter Details Date Type Department Care Team (Latest Contact Info) Description 03/25/1998 Outpatient Historical [facility] Warren Sanchez Jr., MD [address] [place] [address] Osteoarthrosis, unspecified whether generalized or localized, unspecified site (Primary Dx); Encounter for long-term (current) use of other medications; Rheumatoid arthritis(714.0) (CMS/HCC) Social History Tobacco Use Types Packs/Day Years Used Date Smoking Tobacco: Never Assessed Comments Unknown Sex and Gender Information Value Date Recorded Sex Assigned at Not on file Legal Sex Female 4:09 AM CARBIDE OPERATOR Gender Identity Not on file Sexual Orientation Not on file documented as of this encounter Plan of Treatment Not on file documented as of this encounter Visit Diagnoses Diagnosis Osteoarthrosis, unspecified whether generalized or localized, unspecified site- Primary Encounter for long-term (current) use of other medications Rheumatoid arthritis(714.0) (CMS/HCC) Rheumatoid arthritis documented in this encounter Care Teams Pond Worker Relationship Specialty Start Date End Date Warren Sanchez Jr., MD [address] [place] [id number] PCP - General Family Practice 03/20/15 documented as of this encounter
--- OUTSIDE RECORDS SUMMARY | 2024-04-28 16:42 | XMS_ITS | Encounter Summary ---
Author Organization [facility] Address [address] [place] [address] Care Team Providers Care Upper Tier Name Role Phone Daniel Santos MD, Warren Handley Primary Care Provider Encounter Details Date Type Department Care Team (Latest Contact Info) Description 01/07/1998 Outpatient Historical [facility] Warren Sanchez Jr., MD [address] [place] [address] Rheumatoid arthritis(714.0) (CMS/[facility]) (Primary Dx); Osteoarthrosis, unspecified whether generalized or localized, unspecified site; Headache(784.0); Unspecified otitis media Social History Tobacco Use Types Packs/Day Years Used Date Smoking Tobacco: Never Assessed Comments Unknown Sex and Gender Information Value Date Recorded Sex Assigned at Not on file Legal Sex Female 4:09 AM DELINQUENCY PREVENTION SOCIAL WORKER Gender Identity Not on file Sexual Orientation Not on file documented as of this encounter Plan of Treatment Not on file documented as of this encounter Visit Diagnoses Diagnosis Rheumatoid arthritis(714.0) (CMS/HCC)- Primary Rheumatoid arthritis Osteoarthrosis, unspecified whether generalized or localized, unspecified site Headache(784.0) Headache Unspecified otitis media documented in this encounter Care Teams Upper Tier Relationship Specialty Start Date End Date Warren Sanchez Jr., MD [address] [place] [address] PCP - General Family Practice 03/20/15 documented as of this encounter
--- OUTSIDE RECORDS SUMMARY | 2024-04-28 16:42 | XMS_ITS | Encounter Summary ---
Author Organization [facility] Address [address] [place] [address] Care Team Providers Care Public Policy Mediator Name Role Phone Daniel Santos MD, Warren Handley Primary Care Provider Encounter Details Date Type Department Care Team (Latest Contact Info) Description 05/23/1998 Outpatient Historical [facility] Hernando Burgos Jr., MD [address] [place] [address] Leiomyoma of uterus, unspecified (Primary Dx) Social History Tobacco Use Types Packs/Day Years Used Date Smoking Tobacco: Never Assessed Comments Unknown Sex and Gender Information Value Date Recorded Sex Assigned at Not on file Legal Sex Female 4:09 AM PAYMENT MANAGER Gender Identity Not on file Sexual Orientation Not on file documented as of this encounter Plan of Treatment Not on file documented as of this encounter Visit Diagnoses Diagnosis Leiomyoma of uterus, unspecified- Primary documented in this encounter Care Teams Public Policy Mediator Relationship Specialty Start Date End Date Warren Sanchez Jr., MD [address] [place] [address] PCP - General Family Practice 03/20/15 documented as of this encounter
--- OUTSIDE RECORDS SUMMARY | 2024-04-28 16:42 | XMS_ITS | Encounter Summary ---
Author Organization [facility] Address [address] [place] [address] Care Team Providers Care Porcelain Buildup Assistant Name Role Phone Daniel Santos MD, Warren Handley Primary Care Provider Encounter Details Date Type Department Care Team (Latest Contact Info) Description 11/21/1998 Outpatient Historical [facility] Hernando Burgos Jr., MD [address] [place] [address] Follow-up examination following surgery (Primary Dx) Social History Tobacco Use Types Packs/Day Years Used Date Smoking Tobacco: Never Assessed Comments Unknown Sex and Gender Information Value Date Recorded Sex Assigned at Not on file Legal Sex Female 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
--- OUTSIDE RECORDS SUMMARY | 2024-04-28 16:42 | XMS_ITS | Encounter Summary ---
Author Organization [facility] Address [address] [place] [address] Care Team Providers Care Associate Director Of Biostatistics Name Role Phone Daniel Santos MD, Warren Handley Primary Care Provider Encounter Details Date Type Department Care Team (Latest Contact Info) Description 08/12/1998 Outpatient Historical [facility] Warren Sanchez Jr., MD [address] [place] [address] Osteoarthrosis, unspecified whether generalized or localized, unspecified site (Primary Dx); Unspecified essential hypertension; Rheumatoid arthritis(714.0) (CMS/HCC) Social History Tobacco Use Types Packs/Day Years Used Date Smoking Tobacco: Never Assessed Comments Unknown Sex and Gender Information Value Date Recorded Sex Assigned at Not on file Legal Sex Female 4:09 AM FRONT END DRIVER Gender Identity Not on file Sexual Orientation Not on file documented as of this encounter Plan of Treatment Not on file documented as of this encounter Visit Diagnoses Diagnosis Osteoarthrosis, unspecified whether generalized or localized, unspecified site- Primary Unspecified essential hypertension Rheumatoid arthritis(714.0) (CMS/HCC) Rheumatoid arthritis documented in this encounter Care Teams Associate Director Of Biostatistics Relationship Specialty Start Date End Date Warren Sanchez Jr., MD [address] [place] [address] PCP - General Family Practice 03/20/15 documented as of this encounter
--- OUTSIDE RECORDS SUMMARY | 2024-04-28 16:42 | XMS_ITS | Encounter Summary ---
Author Organization [facility] Address [address] [place] [address] Care Team Providers Care Liquified Natural Gas Specialist Name Role Phone Daniel Santos MD, Warren Handley Primary Care Provider Encounter Details Date Type Department Care Team (Latest Contact Info) Description 10/24/2002 Outpatient Historical [facility] [place] [address] [place] [address] Gil Camara, DPM [address] [place] [address] TIBIALIS TENDINITIS (Primary Dx); Plantar fibromatosis Social History Tobacco Use Types Packs/Day Years Used Date Smoking Tobacco: Never Assessed Comments Unknown Sex and Gender Information Value Date Recorded Sex Assigned at Not on file Legal Sex Female 4:09 AM AUTO DISMANTLER Gender Identity Not on file Sexual Orientation Not on file documented as of this encounter Plan of Treatment Not on file documented as of this encounter Visit Diagnoses Diagnosis Tibialis tendinitis- Primary Plantar fibromatosis Plantar fascial fibromatosis documented in this encounter Care Teams Liquified Natural Gas Specialist Relationship Specialty Start Date End Date Warren Sanchez Jr., MD [address] [place] [phone] PCP - General Family Practice 03/20/15 documented as of this encounter
--- OUTSIDE RECORDS SUMMARY | 2024-04-28 16:42 | XMS_ITS | Encounter Summary ---
Author Organization [facility] Address [address] [place] [address] Care Team Providers Care Er Registrar Name Role Phone Daniel Santos MD, Warren Handley Primary Care Provider Encounter Details Date Type Department Care Team (Latest Contact Info) Description 10/02/1998 Outpatient Historical [facility] Warren Sanchez Jr., MD [address] [place] [address] Abnormal involuntary movements(781.0) (Primary Dx); Osteoarthrosis, unspecified whether generalized or localized, shoulder region; Rheumatoid arthritis(714.0) (CMS/HCC); Unspecified asthma(493.90) Social History Tobacco Use Types Packs/Day Years Used Date Smoking Tobacco: Never Assessed Comments Unknown Sex and Gender Information Value Date Recorded Sex Assigned at Not on file Legal Sex Female 4:09 AM CONCRETE MIXER Gender Identity Not on file Sexual Orientation Not on file documented as of this encounter Plan of Treatment Not on file documented as of this encounter Visit Diagnoses Diagnosis Abnormal involuntary movements(781.0)- Primary Abnormal involuntary movements Osteoarthrosis, unspecified whether generalized or localized, shoulder region Rheumatoid arthritis(714.0) (CMS/HCC) Rheumatoid arthritis Unspecified asthma(493.90) Unspecified asthma documented in this encounter Care Teams Er Registrar Relationship Specialty Start Date End Date Warren Sanchez Jr., MD [address] [place] [address] PCP - General Family Practice 03/20/15 documented as of this encounter
--- OUTSIDE RECORDS SUMMARY | 2024-04-28 16:42 | XMS_ITS | Encounter Summary ---
Author Organization 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
--- OUTSIDE RECORDS SUMMARY | 2024-04-28 16:42 | XMS_ITS | Encounter Summary ---
Author Organization [facility] Address [address] [place] [address] Care Team Providers Care Senior Report Developer Name Role Phone Daniel Santos MD, Warren Handley Primary Care Provider Encounter Details Date Type Department Care Team (Latest Contact Info) Description 11/22/1997 Outpatient Historical [facility] Hernando Burgos Jr., MD [address] [place] [address] Leiomyoma of uterus, unspecified (Primary Dx) Social History Tobacco Use Types Packs/Day Years Used Date Smoking Tobacco: Never Assessed Comments Unknown Sex and Gender Information Value Date Recorded Sex Assigned at Not on file Legal Sex Female 4:09 AM PLASTIC JOINT MAKER Gender Identity Not on file Sexual Orientation Not on file documented as of this encounter Plan of Treatment Not on file documented as of this encounter Visit Diagnoses Diagnosis Leiomyoma of uterus, unspecified- Primary documented in this encounter Care Teams Senior Report Developer Relationship Specialty Start Date End Date Warren Sanchez Jr., MD [address] [place] [address] PCP - General Family Practice 03/20/15 documented as of this encounter
--- OUTSIDE RECORDS SUMMARY | 2024-04-28 16:42 | XMS_ITS | Encounter Summary ---
Author Organization [email or web address] Address [address] [place] [address] Care Team Providers Care Breaker Mechanic Name Role Phone Daniel Santos MD, Warren Handley Primary Care Provider Encounter Details Date Type Department Care Team (Latest Contact Info) Description 03/06/1998 Outpatient Historical [facility] Warren Sanchez Jr., MD [address] [place] [address] Rheumatoid arthritis(714.0) (CMS/[facility]) (Primary Dx) Social History Tobacco Use Types Packs/Day Years Used Date Smoking Tobacco: Never Assessed Comments Unknown Sex and Gender Information Value Date Recorded Sex Assigned at Not on file Legal Sex Female 4:09 AM HEAVY EQUIPMENT OPERATOR APPRENTICE Gender Identity Not on file Sexual Orientation Not on file documented as of this encounter Plan of Treatment Not on file documented as of this encounter Visit Diagnoses Diagnosis Rheumatoid arthritis(714.0) (CMS/HCC)- Primary Rheumatoid arthritis documented in this encounter Care Teams Breaker Mechanic Relationship Specialty Start Date End Date Warren Sanchez Jr., MD [address] [place] [address] PCP - General Family Practice 03/20/15 documented as of this encounter
--- OUTSIDE RECORDS SUMMARY | 2024-04-28 16:42 | XMS_ITS | Encounter Summary ---
Author Organization [facility] Address [address] [place] [address] Care Team Providers Care Stoneworking Belt Sander Name Role Phone Daniel Santos MD, Warren Handley Primary Care Provider Encounter Details Date Type Department Care Team (Latest Contact Info) Description 08/28/1998 Outpatient Historical [facility] Warren Sanchez Jr., MD [address] [place] [address] Rheumatoid arthritis(714.0) (CMS/HCC) (Primary Dx); Osteoarthrosis, unspecified whether generalized or localized, unspecified site; Unspecified asthma(493.90) Social History Tobacco Use Types Packs/Day Years Used Date Smoking Tobacco: Never Assessed Comments Unknown Sex and Gender Information Value Date Recorded Sex Assigned at Not on file Legal Sex Female 4:09 AM BLANCHARD GRINDER OPERATOR Gender Identity Not on file Sexual Orientation Not on file documented as of this encounter Plan of Treatment Not on file documented as of this encounter Visit Diagnoses Diagnosis Rheumatoid arthritis(714.0) (CMS/HCC)- Primary Rheumatoid arthritis Osteoarthrosis, unspecified whether generalized or localized, unspecified site Unspecified asthma(493.90) Unspecified asthma documented in this encounter Care Teams Stoneworking Belt Sander Relationship Specialty Start Date End Date Warren Sanchez Jr., MD [address] [place] [address] PCP - General Family Practice 03/20/15 documented as of this encounter
--- OUTSIDE RECORDS SUMMARY | 2024-04-28 16:42 | XMS_ITS | Encounter Summary ---
Author Organization [facility] Address [address] [place] [address] Care Team Providers Care Attraction Attendant Name Role Phone Daniel Santos MD, Warren Handley Primary Care Provider Encounter Details Date Type Department Care Team (Latest Contact Info) Description 07/24/2002 Outpatient Historical [facility] Warren Sanchez Jr., MD [address] [place] [address] GOUT NOS (Primary Dx); RHEUMATOID ARTHRITIS (CMS/[facility]); OSTEOARTHROS NOS-UNSPEC; HYPERTENSION NOS Social History Tobacco Use Types Packs/Day Years Used Date Smoking Tobacco: Never Assessed Comments Unknown Sex and Gender Information Value Date Recorded Sex Assigned at Not on file Legal Sex Female 4:09 AM EXTRUSION PROCESS OPERATOR Gender Identity Not on file Sexual Orientation Not on file documented as of this encounter Plan of Treatment Not on file documented as of this encounter Visit Diagnoses Diagnosis Gout, unspecified- Primary Rheumatoid arthritis(714.0) (CMS/HCC) Rheumatoid arthritis Osteoarthrosis, unspecified whether generalized or localized, unspecified site Unspecified essential hypertension documented in this encounter Care Teams Attraction Attendant Relationship Specialty Start Date End Date Warren Sanchez Jr., MD [address] [place] [address] PCP - General Family Practice 03/20/15 documented as of this encounter
--- OUTSIDE RECORDS SUMMARY | 2024-04-28 16:42 | XMS_ITS | Encounter Summary ---
Author Organization [facility] Address [address] [place] [address] Care Team Providers Care Jacquard Loom Fixer Name Role Phone Daniel Santos MD, Warren Handley Primary Care Provider Encounter Details Date Type Department Care Team (Late st Contact Info) Description 09/04/2002 Outpatient Historical [facility] Warren Sanchez Jr., MD [address] [place] [address] AFTERCARE HALF-WAY USE MEDICATN (Primary Dx) Social History Tobacco Use Types Packs/Day Years Used Date Smoking Tobacco: Never Assessed Comments Unknown Sex and Gender Information Value Date Recorded Sex Assigned at Not on file Legal Sex Female 4:09 AM BAIT PACKER Gender Identity Not on file Sexual Orientation Not on file documented as of this encounter Plan of Treatment Not on file documented as of this encounter Visit Diagnoses Diagnosis Encounter for long-term (current) use of other medications- Primary documented in this encounter Care Teams Jacquard Loom Fixer Relationship Specialty Start Date End Date Warren Sanchez Jr., MD [address] [place] [address] PCP - General Family Practice 03/20/15 documented as of this encounter
--- OUTSIDE RECORDS SUMMARY | 2024-04-28 16:42 | XMS_ITS | Encounter Summary ---
Author Organization [facility] Address [address] [place] [address] Care Team Providers Care Head Of Data Name Role Phone Daniel Santos MD, Warren Handley Primary Care Provider Encounter Details Date Type Department Care Team (Latest Contact Info) Description 07/18/1998 Outpatient Historical [facility] Warren Sanchez Jr., MD [address] [place] [address] Excessive menstruation (Primary Dx) Social History Tobacco Use Types Packs/Day Years Used Date Smoking Tobacco: Never Assessed Comments Unknown Sex and Gender Information Value Date Recorded Sex Assigned at Not on file Legal Sex Female 4:09 AM UKRAINIAN FOLK ARTS INSTRUCTOR Gender Identity Not on file Sexual Orientation Not on file documented as of this encounter Plan of Treatment Not on file documented as of this encounter Visit Diagnoses Diagnosis Excessive menstruation- Primary Excessive or frequent menstruation documented in this encounter Care Teams Head Of Data Relationship Specialty Start Date End Date Warren Sanchez Jr., MD [address] [place] [address] PCP - General Family Practice 03/20/15 documented as of this encounter
--- OUTSIDE RECORDS SUMMARY | 2024-04-28 16:42 | XMS_ITS | Encounter Summary ---
Author Organization [facility] Address [address] [place] [address] Care Team Providers Care Supervisor Seaming Name Role Phone Daniel Santos MD, Warren Handley Primary Care Provider Encounter Details Date Type Department Care Team (Latest Contact Info) Description 12/05/1998 Outpatient Historical [facility] Warren Sanchez Jr., MD [address] [place] [address] Rheumatoid arthritis(714.0) (CMS/HCC) (Primary Dx); Osteoarthrosis, unspecified whether generalized or localized, unspecified site; Unspecified essential hypertension; Anemia, unspecified Social History Tobacco Use Types Packs/Day Years Used Date Smoking Tobacco: Never Assessed Comments Unknown Sex and Gender Information Value Date Recorded Sex Assigned at Not on file Legal Sex Female 4:09 AM SEWER INSPECTOR Gender Identity Not on file Sexual Orientation Not on file documented as of this encounter Plan of Treatment Not on file documented as of this encounter Visit Diagnoses Diagnosis Rheumatoid arthritis(714.0) (CMS/HCC)- Primary Rheumatoid arthritis Osteoarthrosis, unspecified whether generalized or localized, unspecified site Unspecified essential hypertension Anemia, unspecified documented in this encounter Care Teams Supervisor Seaming Relationship Specialty Start Date End Date Warren Sanchez Jr., MD [address] [place] [address] PCP - General Family Practice 03/20/15 documented as of this encounter
--- OUTSIDE RECORDS SUMMARY | 2024-04-28 16:42 | XMS_ITS | Encounter Summary ---
Author Organization [facility] Address [address] [place] [address] Care Team Providers Care Gifted Teacher Name Role Phone Daniel Santos MD, Warren Handley Primary Care Provider Encounter Details Date Type Department Care Team (Latest Contact Info) Description 08/04/2002 Outpatient Historical [facility] Warren Sanchez Jr., MD [address] [place] [address] RHEUMATOID ARTHRITIS (CMS/[facility]) (Primary Dx); OSTEOARTHROS NOS-UNSPEC; GOUT NOS; HYPERTENSION NOS Social History Tobacco Use Types Packs/Day Years Used Date Smoking Tobacco: Never Assessed Comments Unknown Sex and Gender Information Value Date Recorded Sex Assigned at Not on file Legal Sex Female 4:09 AM INDUSTRIAL REAL ESTATE AGENT Gender Identity Not on file Sexual Orientation Not on file documented as of this encounter Plan of Treatment Not on file documented as of this encounter Visit Diagnoses Diagnosis Rheumatoid arthritis(714.0) (CMS/HCC)- Primary Rheumatoid arthritis Osteoarthrosis, unspecified whether generalized or localized, unspecified site Gout, unspecified Unspecified essential hypertension documented in this encounter Care Teams Gifted Teacher Relationship Specialty Start Date End Date Warren Sanchez Jr., MD [address] [place] [address] PCP - General Family Practice 03/20/15 documented as of this encounter
--- OUTSIDE RECORDS SUMMARY | 2024-04-28 16:42 | XMS_ITS | Encounter Summary ---
Author Organization [facility] Address [address] [place] [address] Care Team Providers Care Balance Truing Inspector Name Role Phone Daniel Santos MD, Warren Handley Primary Care Provider Encounter Details Date Type Department Care Team (Latest Contact Info) Description 01/18/2003 Outpatient Historical [facility] [place] [address] [place] [address] Gil Camara, DPM [address] [place] [address] Plantar fibromatosis (Primary Dx); ACQ ANKLE-FOOT DEF NEC Social History Tobacco Use Types Packs/Day Years Used Date Smoking Tobacco: Never Assessed Comments Unknown Sex and Gender Information Value Date Recorded Sex Assigned at Not on file Legal Sex Female 4:09 AM TOUR DIRECTOR Gender Identity Not on file Sexual Orientation Not on file documented as of this encounter Plan of Treatment Not on file documented as of this encounter Visit Diagnoses Diagnosis Plantar fibromatosis- Primary Plantar fascial fibromatosis Other acquired deformity of ankle and foot(736.79) Other acquired deformity of ankle and foot documented in this encounter Care Teams Balance Truing Inspector Relationship Specialty Start Date End Date Warren Sanchez Jr., MD [address] [place] [phone] PCP - General Family Practice 03/20/15 documented as of this encounter
--- OUTSIDE RECORDS SUMMARY | 2024-04-28 16:42 | XMS_ITS | Encounter Summary ---
Author Organization [facility] Address [address] [place] [address] Care Team Providers Care Telecom Coordinator Name Role Phone Daniel Santos MD, Warren Handley Primary Care Provider Encounter Details Date Type Department Care Team (Latest Contact Info) Description 10/29/1998 Outpatient Historical [facility] Hernando Burgos Jr., MD [address] [place] [address] Follow-up examination following surgery (Primary Dx) Social History Tobacco Use Types Packs/Day Years Used Date Smoking Tobacco: Never Assessed Comments Unknown Sex and Gender Information Value Date Recorded Sex Assigned at Not on file Legal Sex Female 4:09 AM CLINICAL MEDICAL ASSISTANT Gender Identity Not on file Sexual Orientation Not on file documented as of this encounter Plan of Treatment Not on file documented as of this encounter Visit Diagnoses Diagnosis Follow-up examination following surgery- Primary documented in this encounter Care Teams Telecom Coordinator Relationship Specialty Start Date End Date Warren Sanchez Jr., MD [address] [place] [address] PCP - General Family Practice 03/20/15 documented as of this encounter
--- OUTSIDE RECORDS SUMMARY | 2024-04-28 16:42 | XMS_ITS | Encounter Summary ---
Author Organization [facility] Address [address] [place] [address] Care Team Providers Care Sales And Business Development Manager Name Role Phone Daniel Santos MD, Warren Handley Primary Care Provider Encounter Details Date Type Department Care Team (Latest Contact Info) Description 09/04/2002 Outpatient Historical [facility] Warren Sanchez Jr., MD [address] [place] [address] RHEUMATOID ARTHRITIS (CMS/[facility]) (Primary Dx); OSTEOARTHROS NOS-UNSPEC; HYPERTENSION NOS; CHRONIC AIRWAY OBSTRUCTION NEC (CMS/HCC) Social History Tobacco Use Types Packs/Day Years Used Date Smoking Tobacco: Never Assessed Comments Unknown Sex and Gender Information Value Date Recorded Sex Assigned at Not on file Legal Sex Female 4:09 AM SQL SERVER DEVELOPER Gender Identity Not on file Sexual Orientation Not on file documented as of this encounter Plan of Treatment Not on file documented as of this encounter Visit Diagnoses Diagnosis Rheumatoid arthritis(714.0) (CMS/HCC)- Primary Rheumatoid arthritis Osteoarthrosis, unspecified whether generalized or localized, unspecified site Unspecified essential hypertension Chronic airway obstruction, not elsewhere classified (CMS/HCC) Chronic airway obstruction, not elsewhere classified documented in this encounter Care Teams Sales And Business Development Manager Relationship Specialty Start Date End Date Warren Sanchez Jr., MD [address] [place] [address] PCP - General Family Practice 03/20/15 documented as of this encounter
--- OUTSIDE RECORDS SUMMARY | 2024-04-28 16:42 | XMS_ITS | Encounter Summary ---
Author Organization [facility] Address [address] [place] [address] Care Team Providers Care Policy Intern Name Role Phone Daniel Santos MD, Warren Handley Primary Care Provider Encounter Details Date Type Department Care Team (Latest Contact Info) Description 11/14/1998 Outpatient Historical [facility] Warren Sanchez Jr., MD [address] [place] [address] Rheumatoid arthritis(714.0) (CMS/[facility]) (Primary Dx); Anemia, unspecified Social History Tobacco Use Types Packs/Day Years Used Date Smoking Tobacco: Never Assessed Comments Unknown Sex and Gender Information Value Date Recorded Sex Assigned at Not on file Legal Sex Female 4:09 AM CUSTOMER SUPPORT EXECUTIVE Gender Identity Not on file Sexual Orientation Not on file documented as of this encounter Plan of Treatment Not on file documented as of this encounter Visit Diagnoses Diagnosis Rheumatoid arthritis(714.0) (CMS/HCC)- Primary Rheumatoid arthritis Anemia, unspecified documented in this encounter Care Teams Policy Intern Relationship Specialty Start Date End Date Warren Sanchez Jr., MD [address] [place] [address] PCP - General Family Practice 03/20/15 documented as of this encounter
--- OUTSIDE RECORDS SUMMARY | 2024-04-28 16:42 | XMS_ITS | Encounter Summary ---
Author Organization [facility] Address [address] [place] [address] Care Team Providers Care Transit Planning Manager Name Role Phone Daniel Santos MD, Warren Handley Primary Care Provider Encounter Details Date Type Department Care Team (Latest Contact Info) Description 03/04/1998 Outpatient Historical [facility] Warren Sanchez Jr., MD [address] [place] [address] Rheumatoid arthritis(714.0) (CMS/[facility]) (Primary Dx) Social History Tobacco Use Types Packs/Day Years Used Date Smoking Tobacco: Never Assessed Comments Unknown Sex and Gender Information Value Date Recorded Sex Assigned at Not on file Legal Sex Female 4:09 AM GENERAL INTERN Gender Identity Not on file Sexual Orientation Not on file documented as of this encounter Plan of Treatment Not on file documented as of this encounter Visit Diagnoses Diagnosis Rheumatoid arthritis(714.0) (CMS/HCC)- Primary Rheumatoid arthritis documented in this encounter Care Teams Transit Planning Manager Relationship Specialty Start Date End Date Warren Sanchez Jr., MD [address] [place] [address] PCP - General Family Practice 03/20/15 documented as of this encounter
--- OUTSIDE RECORDS SUMMARY | 2024-04-28 16:42 | XMS_ITS | Encounter Summary ---
Author Organization [facility] Address [address] [place] [address] Care Team Providers Care Radiographer Name Role Phone Daniel Santos MD, Warren Handley Primary Care Provider Encounter Details Date Type Department Care Team (Latest Contact Info) Description 05/09/1998 Outpatient Historical [facility] Warren Sanchez Jr., MD [address] [place] [address] Rheumatoid arthritis(714.0) (CMS/[facility]) (Primary Dx); Osteoarthrosis, unspecified whether generalized or localized, unspecified site; Spontaneous ecchymoses Social History Tobacco Use Types Packs/Day Years Used Date Smoking Tobacco: Never Assessed Comments Unknown Sex and Gender Information Value Date Recorded Sex Assigned at Not on file Legal Sex 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
--- OUTSIDE RECORDS SUMMARY | 2024-04-28 16:42 | XMS_ITS | Encounter Summary ---
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[facility]); DEPRESSIVE DISORDER NEC Social History Tobacco Use Types Packs/Day Years Used Date Smoking Tobacco: Never Assessed Comments Unknown Sex and Gender Information Value Date Recorded Sex Assigned at Not on file Legal Sex Female 4:09 AM 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
--- OUTSIDE RECORDS SUMMARY | 2024-04-28 16:42 | XMS_ITS | Encounter Summary ---
Author Organization [facility] Address [address] [place] [address] Care Team Providers Care Timber Buyer Name Role Phone Daniel Santos MD, Warren Handley Primary Care Provider Encounter Details Date Type Department Care Team (Latest Contact Info) Description 03/27/2002 Outpatient Historical [facility] Operating Room [address] [place] [address] Abdiaziz Celis MD NO ADDRESS ON FILE ARTHROPATHY NOS-HAND (Primary Dx) Social History Tobacco Use Types Packs/Day Years Used Date Smoking Tobacco: Never Assessed Comments Unknown Sex and Gender Information Value Date Recorded Sex Assigned at Not on file Legal Sex Female 4:09 AM FORMER HAND Gender Identity Not on file Sexual Orientation Not on file documented as of this encounter Plan of Treatment Not on file documented as of this encounter Visit Diagnoses Diagnosis Unspecified arthropathy, hand- Primary documented in this encounter Care Teams Timber Buyer Relationship Specialty Start Date End Date Warren Sanchez Jr., MD [address] [place] [address] PCP - General Family Practice 03/20/15 documented as of this encounter
--- OUTSIDE RECORDS SUMMARY | 2024-04-28 16:42 | XMS_ITS | Encounter Summary ---
Author Organization [facility] Address [address] [place] [address] Care Team Providers Care Welding Specialist Name Role Phone Daniel Santos MD, Warren Handley Primary Care Provider Encounter Details Date Type Department Care Team (Latest Contact Info) Description 04/12/1998 Outpatient Historical [facility] Warren Sanchez Jr., MD [address] [place] [address] Rheumatoid arthritis(714.0) (CMS/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
--- OUTSIDE RECORDS SUMMARY | 2024-04-28 16:42 | XMS_ITS | Encounter Summary ---
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
--- OUTSIDE RECORDS SUMMARY | 2024-04-28 16:42 | XMS_ITS | Encounter Summary ---
Author Organization [facility] Address [address] [place] [address] Care Team Providers Care Esthetician Makeup Artist Name Role Phone Daniel Sanots MD, Warren Handley Primary Care Provider Encounter Details Date Type Department Care Team (Latest Contact Info) Description 03/27/1998 Outpatient Historical 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
[2024-04-28 16:48] VITALS: BP 149/97; PULSE 95; RESP 16; TEMP 36.4; O2SAT 97
[2024-04-28 17:03] VITALS: BMI 30.1
--- NOTE | 2024-04-28 17:33 | PM.HP ---
Providers/Chief Complaint Admitting Physician: Cholo Villalba MD Primary Care Provider: Raleigh Carcamo MD Chief Complaint: 267-1 History of Present Illness Corinna Lance is a 74 year old female with a past medical history of rheumatoid arthritis on Renflexis, type 2 diabetes, who presents [facility] due to back pain, left-sided sciatica. Patient tells me that for the last 2 months she has had back pain, back pain with range of motion, with pain rating down the left side of her back, she has been feeling well for the last 2 months, no fevers, no chills, but does have fatigue, malaise, she did have a fall about a month ago carrying her dog, no urinary continence, no bowel incontinence no saddle paresthesia Review of Systems Const: Reports: fatigue and malaise; Denies: fever(s) Card: Denies: chest pain GI: Denies: abdominal pain : Denies: flank pain Medications/Allergies Home Medications ?Medication ?Instructions ?Recorded ?Confirmed ?Last Taken ?Type albuterol sulfate 90 mcg/actuation 2 puff inhalation 6XD PRN 04/08/22 04/25/24 03/03/23 Rx aerosol inhaler Shortness Of Breath #8.5 grams clobetasol 0.05 % topical cream 1 applic topical BID PRN Rash 12/24/22 04/25/24 Unknown History alendronate 70 mg tablet 70 mg PO Q7D #12 tabs 05/06/23 04/25/24 Unknown Rx gabapentin 300 mg capsule 300 mg PO TID #270 caps 05/06/23 04/25/24 Unknown Rx metoprolol succinate 50 mg 50 mg PO DAILY #90 tabs 05/06/23 04/25/24 Unknown Rx tablet,extended release 24 hr rosuvastatin 20 mg tablet 20 mg PO BEDTIME #90 tabs 05/06/23 04/25/24 Unknown Rx venlafaxine 37.5 mg 37.5 mg PO DAILY #90 caps 05/06/23 04/25/24 Unknown Rx capsule,extended release 24 hr (Effexor XR) hydrochlorothiazide 12.5 mg tablet 12.5 mg PO DAILY #30 tabs 05/13/23 04/25/24 Unknown Rx montelukast 10 mg tablet 10 mg PO DAILY #90 tabs 07/01/23 04/25/24 Unknown Rx glipizide 5 mg tablet, extended 5 mg PO BID #180 tabs 10/26/23 04/25/24 Unknown Rx release 24 hr infliximab-abda [Renflexis] IV 12/22/23 04/25/24 Unknown History lactulose 10 gram/15 mL (15 mL) 30 g (45 mL) PO BID #600 mL 12/23/23 04/25/24 Unknown Rx oral solution sitagliptin phosphate 25 mg tablet 25 mg PO DAILY #30 tabs 02/24/24 04/25/24 Unknown Rx (Januvia) cyclobenzaprine 10 mg tablet 10 mg PO TID PRN muscle spasm #30 02/28/24 04/25/24 Unknown Rx tabs diclofenac sodium 1 % topical gel 2 g topical QID #100 grams 02/28/24 04/25/24 Unknown Rx (Voltaren Arthritis Pain) hydrocodone 5 mg-acetaminophen 325 1 tab PO Q8H PRN pain 10 days #30 03/02/24 04/25/24 Unknown Rx mg tablet tabs diclofenac sodium 100 mg 100 mg PO BID PRN pain (scale 03/13/24 04/25/24 Unknown Rx tablet,extended release 24 hr score 7-10) #30 tabs amlodipine 5 mg tablet 5 mg PO DAILY #90 tabs 03/14/24 04/25/24 Unknown Rx pantoprazole 40 mg tablet,delayed 40 mg PO DAILY #90 tabs 03/14/24 04/25/24 Unknown Rx release cholecalciferol (vitamin D3) 50 50 mcg PO DAILY #30 caps 04/27/24 Unknown Rx mcg (2,000 unit) capsule Allergies Allergy/AdvReac Type Severity Reaction Status Date / Time lisinopril Allergy Unknown unknown Verified 04/25/24 08:33 sulfabenzamide Allergy Unknown unknown Verified 04/25/24 08:33 apremilast (From Otezla) Allergy cough Verified 04/25/24 08:33 Sulfa (Sulfonamide Allergy Unknown Verified 04/25/24 08:33 Antibiotics) PFSH Acute PFSH: Medical History Immunization counseling Seropositive rheumatoid arthritis of multiple sites Hypothyroidism Depression Hypertension History of COVID-19 Osteoporosis Peripheral neuropathy Type 2 diabetes mellitus Hereditary hemochromatosis Psoriasis Hyperlipidemia GERD (gastroesophageal reflux disease) Pulmonary embolism 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 Pulmonary nodules CAD (coronary artery disease) Asthma COPD (chronic obstructive pulmonary disease) Lumbar radiculopathy Rheumatoid arthritis Surgical History History of knee surgery Right knee fracture History of foot surgery History of hand surgery Status post total knee replacement, right History of tubal ligation History of hysterectomy History of cataract extraction History of tonsillectomy History of cholecystectomy History of appendectomy Family History Sister Hypertension Social History Smoking and tobacco/nicotine status: never used tobacco/nicotine Second hand smoke exposure: Yes Alcohol intake: never Substance/Drug Use: never Lives independently: Yes Household members: none Housing: Apartment Marital status: / Current occupational status: retired Pets and animals: Yes Do you think of yourself as: Straight/Heterosexual Current gender identity: Female Physical Exam Const: COMMON NORMALS: no acute distress and patient oriented x3 Eye: COMMON NORMALS: Equal, round and reactive pupils present Resp: COMMON NORMALS: normal respiratory effort, No retractions, No use of accessory muscles and clear to auscultation bilaterally AUSCULTATION: clear to auscultation bilaterally Cardio: COMMON NORMALS: no JVD, regular rate, regular rhythm, S1 normal heart sound present and S2 normal heart sound present RATE: regular rate RHYTHM: regular rhythm HEART SOUNDS: S1 normal heart sound present and S2 normal heart sound present GI: COMMON NORMALS: Normal to inspection, nondistended, normoactive bowel sounds present, Soft to palpation and non-tender Extremity: COMMON NORMALS: no pedal edema Neuro: COMMON NORMALS: patient oriented x3, CN's II-XII intact bilaterally and moves all extremities Psych: COMMON NORMALS: mental status grossly normal A&P Assessment and plan (1) Vertebral osteomyelitis, acute: (2) Discitis: (3) Acute low back pain: Plan Acute low back pain CT lumbar spine without contrast CT/CT lumbar spine wo con* [id number] IMPRESSION: 1. Severe destructive changes involving the L2-3 disc with paravertebral soft tissue inflammatory changes. Sclerotic and lytic changes with osseous destruction involving the adjacent endplates of L2 and L3. Findings are highly suspicious for osteomyelitis and discitis. Recommend follow-up MRI lumbar spine with and without gadolinium. 2. L2-3: Moderate central, bilateral subarticular recess and foraminal stenosis, LEFT greater than RIGHT. 3. Mild bilateral foraminal stenosis at L3-4, L4-5 and L5-S1 Plan -CBC, CMP, sed rate, CRP, blood cultures -MRI lumbar spine with and without -Vancomycin -Zosyn -Follow blood cultures -Will consult to care based on clinical results -Patient is DNR/DNI, confirmed with her multiple times, family at bedside -Lovenox for DVT prophylaxis -Type 2 diabetes mellitus, low-dose sliding scale PDMP PDMP Reviewed: Not Reviewed Attestations Medical Necessity Statement*: Patient requires hospitalization for acute low back pain, lumbar vertebral osteomyelitis, discitis, inpatient, greater than 2 midnights Diagnoses Vertebral osteomyelitis, acute M46.20 Discitis M46.40 Acute low back pain M54.50
[2024-04-28 17:47] LABS: Hematocrit 37.2 % (36-47); Mean Corpuscular HGB Conc 30.4 g/dL (30-55); Mean Corpuscular Hemoglobin 28.8 pg (27-33); Mean Corpuscular Volume 94.7 fl (85-98); Mean Platelet Volume 8.5 fL (7.4-10.4); Platelet Count 140 10^3/cmm (157-399); Red Blood Count 3.93 10^6/uL (3.85-5.65); Red Cell Distribution Width 14.9 % (12.1-15.1); White Blood Count 5.05 10^3/uL (3.29-11.43)
[2024-04-28] MEDS: piperacillin-tazobactam 3.375 GM in sodium chloride 0.9% (plus) 50 ML IV (17:50)
[2024-04-28] MEDS: sodium chloride 0.9% 1,000 ML 50 ML IV (17:50)
[2024-04-28] MEDS: enoxaparin 40 mg/0.4 mL Syringe SUBCUT (17:50)
[2024-04-28] MEDS: pantoprazole 40 mg SDV IVP (17:50)
[2024-04-28 17:51] LABS: Erythrocyte Sedimentation Rate 59 mm/hr (0-15)
[2024-04-28 18:00] VITALS: O2SAT 98
[2024-04-28 18:02] LABS: Glucose Point of Care 124 mg/dL (70-110)
[2024-04-28 18:06] LABS: Lactic Sepsis W/Reflex 2.4 mmol/L (0.5-2.2)
[2024-04-28 18:07] LABS: Alanine Aminotransferase 10 U/L (0-33); Albumin Level 3.5 g/dL (3.5-5.2); Alkaline Phosphatase 83 U/L (35-105); Anion Gap 16.2 (5-19); Aspartate Amino Transferase 20 U/L (0-32); Blood Urea Nitrogen 13 mg/dL (8-23); C Reactive Protein 7.9 mg/L (0.0-4.9); Calcium 9.3 mg/dL (8.5-10.5); Carbon Dioxide 22 mmol/L (22-29); Chloride 105 mmol/L (98-107); Globulin 4.4 g/dL (1.3-4.6); Glucose 137 mg/dL (65-115); Osmolality Calculated 290 mOsm/kg (285-295); Potassium 4.2 mmol/L (3.5-5.1); Sodium 139 mmol/L (136-145); Total Bilirubin 0.4 mg/dL (0.15-1.2); Total Protein 7.9 g/dL (6.6-8.7)
[2024-04-28 18:42] LABS: Reflex Lactate Order REFLEX LACTIC ORDERD
--- NOTE | 2024-04-28 18:46 | PHA.VACGOAL ---
Vancomycin Goal - Goal Vancomycin Goal:: 15-20 mg/L Vancomycin Indication:: Osteo - Therapy Current therapy:: Pip/Tazo Day of therpy:: Day []of [] . Actual body weight (kg): 154 lb 6.4 oz - Data Labs: WBC 5.05 10^3/uL (3.29-11.43) 04/28/24 17:29 RBC 3.93 10^6/uL (3.85-5.65) 04/28/24 17:29 Hgb 11.30 g/dL (11.27-16.99) 04/28/24 17:29 Hct 37.2 % (36-47) 04/28/24 17: MCV 94.7 fl (85-98) 04/28/24 17: MCH 28.8 pg (27-33) 04/28/24 17:29 MCHC 30.4 g/dL (30-55) 04/28/24 17:29 RDW 14.9 % (12.1-15.1) 04/28/24 17:29 Sodium 139 mmol/L (136-145) 04/28/24 17:29 Potassium 4.2 mmol/L (3.5-5.1) 04/28/24 17:29 Chloride 105 mmol/L (98-107) 04/28/24 17:29 Carbon Dioxide 22 mmol/L (22-29) 04/28/24 17:29 Anion Gap 16.2 (5-19) 04/28/24 17:29 BUN 13 mg/dL (8-23) 04/28/24 17:29 Creatinine 0.5 mg/dL (0.5-0.9) 04/28/24 17:29 GFR Calculation Not Reportable 04/28/24 17:29 Last dialysis session:: N/A Treatment plan:: new consult Regimen:: LOADING DOSE OF 2000 MG PER DOSING PROTOCOL. MAINTENANCE DOSE OF 1000 MG Q8H Follow up:: WILL CONTINUE TO MONITOR AND FOLLOW UP DAILY
[2024-04-28 19:06] LABS: Absolute Eosinophils 0.3 10^3/cmm (0.0-0.7); Absolute Segmented Neutrophil 2.8 10/cmm (1.6-7.1); Eosinophils 5 %; Lymphocytes 33 %; Lymphocytes Absolute 1.7 10^3/cmm (1.2-3.4); Monocytes Absolute 0.3 10^3/cmm (0.1-0.6); Segmented Neutrophils 56 %; Total Cells Counted 100 (0-100)
[2024-04-28 19:40] LABS: Absolute Neutrophil 2.8 10^3/cmm (1.4-6.5); Platelet Estimate Normal (Normal)
[2024-04-28 19:56] VITALS: BP 121/76; PULSE 94; RESP 16; TEMP 36.9; O2SAT 94
[2024-04-28] MEDS: gabapentin 300 mg Capsule PO (20:42)
[2024-04-28] MEDS: vancomycin 2,000 MG/400 ML PIGGYBACK 200 MG IV (20:45)
[2024-04-28 20:57] LABS: Glucose Point of Care 173 mg/dL (70-110)
[2024-04-28 22:07] LABS: Lactic Acid level (Lactate) 1.1 mmol/L (0.5-2.2)
[2024-04-28] MEDS: zolpidem 5 mg Tablet PO (22:59)
[2024-04-29] VITALS (9 sets, daily range): BP systolic 130–147; BP diastolic 76–89; PULSE 79–113; RESP 15–18; TEMP 36.4–37.1; O2SAT 94–97; BMI 26.5
[2024-04-29 01:28] LABS: Bilirubin Urine Negative (Negative); Blood Urine Negative (Negative); Glucose Urine UA Negative (Normal); Ketones Urine Negative (Negative); Leukocyte Esterase Urine 1+ (Negative); Nitrate Urine Negative (Negative); Protein Urine Negative (Negative); Specific Gravity, Urine 1.019 (1.005-1.030); Urine Appearance Clear (CLEAR); Urine Color Yellow (Yellow); Urobilinogen Urine 0.2 mg/dL (Negative)
[2024-04-29 01:47] LABS: Add Urine Microscopic? YES; Bacteria Urine TRACE /hpf; RBC Urine 0-4 /hpf (0-2); Squamous Epithelial Cell Urine 0-4 /hpf (0-5); UA Manual Slide Review YES
[2024-04-29] MEDS: piperacillin-tazobactam 3.375 GM in sodium chloride 0.9% (plus) 50 ML IV ×3 (01:54→17:26)
[2024-04-29] MEDS: VANCOMYCIN ADD-Vantage 1,000 MG in 0.9% NaCl ADD-Vantage 250 ML 250 MG IV (04:29)
[2024-04-29 06:02] LABS: Basophils % 0.5 %; Eosinophils # 0.2 10^3/uL (0.0-0.8); Eosinophils % 3.8 %; Hematocrit 33.6 % (36-47); Lymphocytes # 1.2 10^3/uL (0.8-4.8); Lymphocytes % 30.8 %; Mean Corpuscular HGB Conc 31.5 g/dL (30-55); Mean Corpuscular Hemoglobin 28.9 pg (27-33); Mean Corpuscular Volume 91.6 fl (85-98); Mean Platelet Volume 8.6 fL (7.4-10.4); Monocytes # 0.5 10^3/uL (0.2-0.9); Monocytes % 11.6 %; Nucleated Red Blood Cells % 0 %; Platelet Count 127 10^3/cmm (157-399); Red Blood Count 3.67 10^6/uL (3.85-5.65); Red Cell Distribution Width 14.9 % (12.1-15.1); White Blood Count 3.96 10^3/uL (3.29-11.43)
[2024-04-29 06:27] LABS: Alanine Aminotransferase 7 U/L (0-33); Albumin Level 3.3 g/dL (3.5-5.2); Alkaline Phosphatase 74 U/L (35-105); Anion Gap 13.7 (5-19); Aspartate Amino Transferase 13 U/L (0-32); Blood Urea Nitrogen 10 mg/dL (8-23); Calcium 8.8 mg/dL (8.5-10.5); Carbon Dioxide 24 mmol/L (22-29); Chloride 106 mmol/L (98-107); Creatinine Clr Calc Pharmacy 58.4042; Glucose 129 mg/dL (65-115); Magnesium 1.9 mg/dL (1.7-2.3); Osmolality Calculated 291 mOsm/kg (285-295); Phosphorus 3.1 mg/dL (2.5-4.5); Potassium 3.7 mmol/L (3.5-5.1); Sodium 140 mmol/L (136-145); Total Bilirubin 0.5 mg/dL (0.15-1.2); Total Protein 7.3 g/dL (6.6-8.7)
[2024-04-29 06:30] LABS: Glucose Point of Care 149 mg/dL (70-110)
[2024-04-29] MEDS: insulin lispro 100 unit/1 mL SUBCUT (09:09)
[2024-04-29] MEDS: gabapentin 300 mg Capsule PO ×3 (09:10→20:09)
[2024-04-29] MEDS: hydroCHLOROthiazide 25 mg Tablet 12.5 MG PO (09:10)
[2024-04-29] MEDS: amlodipine 5 mg Tablet PO (09:10)
[2024-04-29] MEDS: venlafaxine ER (24HR) 37.5 mg Capsule PO (09:10)
[2024-04-29] MEDS: metoprolol succinate ER (24 HR) 50 mg Tablet PO (09:10)
--- NOTE | 2024-04-29 11:00 | MRR_ITS ---
PROCEDURE INFORMATION: Exam: MR Lumbar Spine Without and With Contrast Exam date and time: 04/29/2024 11:17 AM Age: 74 years old Clinical indication: Abnormal findings; Abnormal xray or scan of thoracolumbar spine; Abnormal CT 04/29; Additional info: L2-l3 discitis and veternal osteo TECHNIQUE: Imaging protocol: Magnetic resonance imaging of the lumbar spine without and with contrast. Contrast material: MULTIHANCE; Contrast volume: 16 ml; Contrast route: INTRAVENOUS (IV); COMPARISON: CT lumbar spine wo con* [id number] 04/28/2024 12:28 PM FINDINGS: Bones/joints: Vertebral body heights are maintained. There is disc desiccation. There are L1 and L5 vertebral hemangiomas. Depending on level, there are various degrees of disc bulges, facet degenerative changes, thickening of ligamentum flavum, and marginal osteophyte formation. Spinal cord: Conus terminates at T12-L1 and appears normal in signal intensity without intrinsic or extrinsic lesion. T12-L1: There is no significant spinal stenosis. There is no significant neural foraminal narrowing. L1-L2: There is no significant spinal stenosis. There is incomplete effacement of fat in left neural foramen and this shows contrast enhancement and is consistent with superior extension of epidural phlegmon. There is no significant right neural foraminal narrowing. L2-L3: There is disc height loss, disc edema and enhancement, and edema and enhancement nearly involving the L2 and L3 vertebral bodies and extending into bilateral pedicles. There are endplate erosive changes. Findings are consistent with discitis and osteomyelitis. There is circumferential inflammatory changes and phlegmon around the vertebral bodies extending into the psoas muscles without drainable abscess at this time. This inflammatory change/phlegmon also extends into the spinal canal circumferentially surrounding the thecal sac with severe thecal sac narrowing and this extends into the L2 and L3 neural foramen. L3-L4: Degenerative changes. There is moderate spinal stenosis. There is mild left and slightly greater right neural foraminal narrowing. L4-L5: There is mild spinal stenosis. There is mild right greater than left neural foraminal narrowing. L5-S1: There is no significant spinal stenosis. There is no significant neural foraminal narrowing. Soft tissues: See above. MR/MR lumbar spine wo/w con [id number] IMPRESSION: MRI confirms L2-L3 discitis and osteomyelitis prominent paravertebral, and epidural phlegmon as discussed.
[2024-04-29] MEDS: gadobenate dimeglumine 20 mL vial IV (11:48)
[2024-04-29] MEDS: acetaminophen 325 mg Tablet 650 MG PO ×2 (12:03→20:12)
[2024-04-29 12:09] LABS: Glucose Point of Care 100 mg/dL (70-110)
--- NOTE | 2024-04-29 15:04 | PM.CONSULT ---
Providers/Reason For Consult Consulting Physician/Specialty*: Hospitalist Reason for Consult*: L2-3 discitis osteomyelitis Attending Physician: Cholo Villalba MD Primary Care Provider: Raleigh Carcamo MD History of Present Illness History of Present Illness Corinna Lance is a 74 year old female patient is having back pain not having any neurologic symptoms in her legs. She is complaining of right knee pain. I did actually treat her for a femur fracture in the past. At this point patient has been admitted will likely treat with IV antibiotics Review of Systems Const: Reports: fatigue and malaise; Denies: fever(s) Card: Denies: chest pain GI: Denies: abdominal pain : Denies: flank pain Medications/Allergies Home Medications ?Medication ?Instructions ?Recorded ?Confirmed ?Last Taken ?Type albuterol sulfate 90 mcg/actuation 2 puff inhalation 6XD PRN 04/08/22 04/25/24 03/03/23 Rx aerosol inhaler Shortness Of Breath #8.5 grams clobetasol 0.05 % topical cream 1 applic topical BID PRN Rash 12/24/22 04/25/24 Unknown History alendronate 70 mg tablet 70 mg PO Q7D #12 tabs 05/06/23 04/25/24 Unknown Rx gabapentin 300 mg capsule 300 mg PO TID #270 caps 05/06/23 04/25/24 Unknown Rx metoprolol succinate 50 mg 50 mg PO DAILY #90 tabs 05/06/23 04/25/24 Unknown Rx tablet,extended release 24 hr rosuvastatin 20 mg tablet 20 mg PO BEDTIME #90 tabs 05/06/23 04/25/24 Unknown Rx venlafaxine 37.5 mg 37.5 mg PO DAILY #90 caps 05/06/23 04/25/24 Unknown Rx capsule,extended release 24 hr (Effexor XR) hydrochlorothiazide 12.5 mg tablet 12.5 mg PO DAILY #30 tabs 05/13/23 04/25/24 Unknown Rx montelukast 10 mg tablet 10 mg PO DAILY #90 tabs 07/01/23 04/25/24 Unknown Rx glipizide 5 mg tablet, extended 5 mg PO BID #180 tabs 10/26/23 04/25/24 Unknown Rx release 24 hr infliximab-abda [Renflexis] IV 12/22/23 04/25/24 Unknown History lactulose 10 gram/15 mL (15 mL) 30 g (45 mL) PO BID #600 mL 12/23/23 04/25/24 Unknown Rx oral solution sitagliptin phosphate 25 mg tablet 25 mg PO DAILY #30 tabs 02/24/24 04/25/24 Unknown Rx (Januvia) cyclobenzaprine 10 mg tablet 10 mg PO TID PRN muscle spasm #30 02/28/24 04/25/24 Unknown Rx tabs diclofenac sodium 1 % topical gel 2 g topical QID #100 grams 02/28/24 04/25/24 Unknown Rx (Voltaren Arthritis Pain) hydrocodone 5 mg-acetaminophen 325 1 tab PO Q8H PRN pain 10 days #30 03/02/24 04/25/24 Unknown Rx mg tablet tabs diclofenac sodium 100 mg 100 mg PO BID PRN pain (scale 03/13/24 04/25/24 Unknown Rx tablet,extended release 24 hr score 7-10) #30 tabs amlodipine 5 mg tablet 5 mg PO DAILY #90 tabs 03/14/24 04/25/24 Unknown Rx pantoprazole 40 mg tablet,delayed 40 mg PO DAILY #90 tabs 03/14/24 04/25/24 Unknown Rx release cholecalciferol (vitamin D3) 50 50 mcg PO DAILY #30 caps 04/27/24 Unknown Rx mcg (2,000 unit) capsule Allergies Allergy/AdvReac Type Severity Reaction Status Date / Time lisinopril Allergy Unknown unknown Verified 04/25/24 08:33 sulfabenzamide Allergy Unknown unknown Verified 04/25/24 08:33 apremilast (From Otezla) Allergy cough Verified 04/25/24 08:33 Sulfa (Sulfonamide Allergy Unknown Verified 04/25/24 08:33 Antibiotics) Current Medications Generic Name Dose Route Start Last Admin Trade Name Freq PRN Reason Stop Dose Admin Acetaminophen 650 mg 04/28/24 17:03 04/29/24 12:03 Acetaminophen 325 Mg Tablet PO 650 mg Q6H PRN Administration Mild/Mod Pain Or Temp >/= 101 Amlodipine Besylate 5 mg 04/29/24 09:00 04/29/24 09:10 Amlodipine 5 Mg Tablet PO 5 mg DAILY SAVANA Administration Atorvastatin Calcium 40 mg 04/28/24 21:00 04/28/24 20:42 Atorvastatin 40 Mg Tablet PO Not Given BEDTIME SAVANA Enoxaparin Sodium 40 mg 04/28/24 17:15 04/28/24 17:50 Enoxaparin 40 Mg/0.4 Ml Syringe SUBCUT 40 mg Q24H SAVANA Administration Gabapentin 300 mg 04/28/24 21:00 04/29/24 09:10 Gabapentin 300 Mg Capsule PO 300 mg TID SAVANA Administration Hydrochlorothiazide 12.5 mg 04/29/24 09:00 04/29/24 09:10 Hydrochlorothiazide 25 Mg Tablet PO 12.5 mg DAILY SAVANA Administration Sodium Chloride 1,000 mls @ 50 mls/hr 04/28/24 17:15 04/29/24 13:56 Sodium Chloride 0.9% IV 50 mls/hr .Q20H SAVANA Infusion Piperacillin Sod/Tazobactam 50 mls @ 12.5 mls/hr 04/28/24 17:30 04/29/24 14:03 Sod 3.375 gm/ Sodium Chloride IV 12.5 mls/hr Q8H SAVANA Infusion Insulin Human Lispro 0 unit 04/28/24 18:00 04/29/24 12:03 Insulin Lispro 100 Unit/1 Ml SUBCUT Not Given [facility] Protocol Metoprolol Succinate 50 mg 04/29/24 09:00 04/29/24 09:10 Metoprolol Succinate Er (24 Hr) 50 Mg Tablet PO 50 mg DAILY SAVANA Administration Pantoprazole Sodium 40 mg 04/28/24 17:15 04/28/24 17:50 Pantoprazole 40 Mg Sdv IVP 40 mg Q24H SAVANA Administration Venlafaxine HCl 37.5 mg 04/29/24 09:00 04/29/24 09:10 Venlafaxine Er (24hr) 37.5 Mg Capsule PO 37.5 mg DAILY SAVANA Administration Zolpidem Tartrate 5 mg 04/28/24 22:45 04/28/24 22:59 Zolpidem 5 Mg Tablet PO 5 mg BEDTIME PRN Administration INSOMNIA PFSH Acute PFSH: Medical History Immunization counseling Seropositive rheumatoid arthritis of multiple sites Hypothyroidism Depression Hypertension History of COVID-19 Osteoporosis Peripheral neuropathy Type 2 diabetes mellitus Hereditary hemochromatosis Psoriasis Hyperlipidemia GERD (gastroesophageal reflux disease) Pulmonary embolism 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 Pulmonary nodules CAD (coronary artery disease) Asthma COPD (chronic obstructive pulmonary disease) Lumbar radiculopathy Rheumatoid arthritis Surgical History History of knee surgery Right knee fracture History of foot surgery History of hand surgery Status post total knee replacement, right History of tubal ligation History of hysterectomy History of cataract extraction History of tonsillectomy History of cholecystectomy History of appendectomy Family History Sister Hypertension Social History Smoking and tobacco/nicotine status: never used tobacco/nicotine Second hand smoke exposure: Yes Alcohol intake: never Substance/Drug Use: never Lives independently: Yes Household members: none Housing: Apartment Marital status: / Current occupational status: retired Pets and animals: Yes Do you think of yourself as: Straight/Heterosexual Current gender identity: Female Vitals/I&O/Wt Last Vital Signs Temp 98.1 F 04/29/24 12:02 Pulse 88 04/29/24 12:02 Resp 15 04/29/24 12:02 BP 147/86 04/29/24 12:02 Pulse Ox 96 04/29/24 12:02 O2 Del Method Room Air 04/29/24 12:02 04/29/24 04/29/24 04/29/24 06:59 14:59 22:59 Intake Total 300 / 750 1201 / 1201 Output Total 700 / 700 Balance 300 / 750 501 / 501 Weight last 48 hrs Weight 154 lb 11.2 oz Weight 154 lb 6.4 oz Physical Exam Narrative: Alert and oriented x 3 Head is normocephalic atraumatic Respirations are intact No evidence of any rashes or infection 5/5 strength in bilateral upper and lower extremities Sensation intact in all extremities Deep tendon reflexes 2 out of 4 bilateral upper and lower extremities Patient right knee incision is healed no evidence of any infection. Complaining of medial sided joint pain. Data 04/29/24 05:16 04/29/24 05:16 Micro: Microbiology 04/28/24 17:36 Blood Culture - Preliminary Blood SPECIMEN COLLECTED 04/28/24 17:29 Blood Culture - Preliminary Blood SPECIMEN COLLECTED A&P Assessment and plan (1) Osteomyelitis of lumbar vertebra: L2-3 discitis Treat with antibiotics at this time. Will check x-rays of the right knee. PDMP PDMP Reviewed: Not Reviewed Consult Attestations Medical Necessity Statement: Per primary service Coding Level of Care Code Acute Code for [facility] Fwd Diagnoses Osteomyelitis of lumbar vertebra M46.26
--- NOTE | 2024-04-29 15:06 | XRR_ITS ---
PROCEDURE INFORMATION: Exam: XR Right Knee Exam date and time: 04/29/2024 6:38 PM Age: 74 years old Clinical indication: Injury or trauma; Fall; Blunt trauma; Prior surgery; Surgery date: 6+ months; Surgery type: Right knee; Additional info: Status post fracture TECHNIQUE: Imaging protocol: Radiologic exam of the right knee. Views: 1 or 2 views. COMPARISON: OT XR knee RT 1-2V [id number] 08/07/2022 8:18 AM FINDINGS: Bones/joints: Right total knee arthroplasty with femoral intramedullary nail and screw fixation without evidence of fracture or lucency. Decreased mineralization. Small joint effusion. Soft tissues: Normal. XR/XR knee RT -V [id number] IMPRESSION: Stable appearance of right total knee arthroplasty with femoral intramedullary nail and screw fixation without evidence of hardware abnormality.
[2024-04-29] MEDS: VANCOMYCIN ADD-Vantage 750 MG in 0.9% NaCl ADD-Vantage 250 ML 250 MG IV (15:56)
--- NOTE | 2024-04-29 16:08 | P.PN_ITS ---
Subjective 2 Subjective: Patient was seen this morning, her back pain is minimal, but does persist, persist with range of motion, awaiting for MRI results, reviewed MRI results, evidence of MRI confirms L2-L3 discitis and osteomyelitis prominent paravertebral, and epidural phlegmon as discussed. -Spoke to Dr. Dumont about results, will consult Vitals/I&O/Wt Last Vital Signs Temp 98.0 F 04/29/24 15:40 Pulse 83 04/29/24 15:40 Resp 16 04/29/24 15:40 BP 140/89 04/29/24 15:40 Pulse Ox 95 04/29/24 15:40 O2 Del Method Room Air 04/29/24 15:40 04/29/24 04/29/24 04/29/24 06:59 14:59 22:59 Intake Total 300 / 750 1201 / 1201 9 / 1210 Output Total 700 / 700 Balance 300 / 750 501 / 501 9 / 510 Weight last 48 hrs Weight 70.171 kg Weight 70.035 kg Physical Exam 2 Const: COMMON NORMALS: no acute distress and patient oriented x3 Resp: COMMON NORMALS: normal respiratory effort, No retractions, No use of accessory muscles and clear to auscultation bilaterally AUSCULTATION: clear to auscultation bilaterally Cardio: COMMON NORMALS: regular rate, regular rhythm, S1 normal heart sound present and S2 normal heart sound present RATE: regular rate RHYTHM: r egular rhythm HEART SOUNDS: S1 normal heart sound present and S2 normal heart sound present GI: COMMON NORMALS: Normal to inspection, nondistended, normoactive bowel sounds present and non-tender Extremity: COMMON NORMALS: no pedal edema Neuro: COMMON NORMALS: patient oriented x3 Psych: COMMON NORMALS: mental status grossly normal Data 04/29/24 05:16 04/29/24 05:16 Micro: Microbiology 04/28/24 17:36 Blood Culture - Preliminary Blood SPECIMEN COLLECTED 04/28/24 17:29 Blood Culture - Preliminary Blood SPECIMEN COLLECTED A&P Assessment and plan (1) Vertebral osteomyelitis, acute: (2) Discitis: (3) Acute low back pain: Plan Acute low back pain CT lumbar spine without contrast CT/CT lumbar spine wo con* [id number] IMPRESSION: 1. Severe destructive changes involving the L2-3 disc with paravertebral soft tissue inflammatory changes. Sclerotic and lytic changes with osseous destruction involving the adjacent endplates of L2 and L3. Findings are highly suspicious for osteomyelitis and discitis. Recommend follow-up MRI lumbar spine with and without gadolinium. 2. L2-3: Moderate central, bilateral subarticular recess and foraminal stenosis, LEFT greater than RIGHT. 3. Mild bilateral foraminal stenosis at L3-4, L4-5 and L5-S1 -Immunocompromised on Renflexis Plan -Sed rate 55 -MRI lumbar spine with and without -Vancomycin -Zosyn -Follow blood cultures -Will consult to care based on clinical results -Patient is DNR/DNI, confirmed with her multiple times, family at bedside -Lovenox for DVT prophylaxis -Type 2 diabetes mellitus, low-dose sliding scale PDMP PDMP Reviewed: Not Reviewed Attestations 2 Medical Necessity Statement*: Patient requires hospitalization for acute L2-L3 discitis, vertebral osteomyelitis, requiring IV antibiotics, orthopedic spine consult Diagnoses Vertebral osteomyelitis, acute M46.20 Discitis M46.40 Acute low back pain M54.50
[2024-04-29 16:40] LABS: Glucose Point of Care 115 mg/dL (70-110)
[2024-04-29] MEDS: enoxaparin 40 mg/0.4 mL Syringe SUBCUT (17:26)
[2024-04-29] MEDS: pantoprazole 40 mg SDV IVP (17:26)
[2024-04-29] MEDS: atorvastatin 40 mg Tablet PO (20:08)
[2024-04-29] MEDS: zolpidem 5 mg Tablet PO (20:12)
[2024-04-29] MEDS: sodium chloride 0.9% 1,000 ML 50 ML IV (20:13)
[2024-04-29 21:07] LABS: Glucose Point of Care 129 mg/dL (70-110)
[2024-04-30] VITALS (10 sets, daily range): BP systolic 121–157; BP diastolic 77–90; PULSE 76–98; RESP 16–19; TEMP 36.5–37.1; O2SAT 92–95
[2024-04-30] MEDS: piperacillin-tazobactam 3.375 GM in sodium chloride 0.9% (plus) 50 ML IV ×2 (00:49→08:57)
[2024-04-30 04:26] LABS: Basophils % 0.3 %; Eosinophils # 0.2 10^3/uL (0.0-0.8); Eosinophils % 6.1 %; Hematocrit 34.1 % (36-47); Lymphocytes # 1.3 10^3/uL (0.8-4.8); Lymphocytes % 34.2 %; Mean Corpuscular HGB Conc 30.8 g/dL (30-55); Mean Corpuscular Hemoglobin 28.6 pg (27-33); Mean Corpuscular Volume 92.9 fl (85-98); Mean Platelet Volume 8.7 fL (7.4-10.4); Monocytes # 0.5 10^3/uL (0.2-0.9); Monocytes % 12.1 %; Neutrophils # 1.79 10^3/uL (1.8-7.7); Nucleated Red Blood Cells % 0 %; Platelet Count 124 10^3/cmm (157-399); Red Blood Count 3.67 10^6/uL (3.85-5.65)
[2024-04-30 04:52] LABS: Alanine Aminotransferase 7 U/L (0-33); Albumin Level 3.3 g/dL (3.5-5.2); Alkaline Phosphatase 70 U/L (35-105); Anion Gap 12.5 (5-19); Aspartate Amino Transferase 14 U/L (0-32); Blood Urea Nitrogen 7 mg/dL (8-23); Calcium 9.1 mg/dL (8.5-10.5); Carbon Dioxide 27 mmol/L (22-29); Chloride 104 mmol/L (98-107); Creatinine Clr Calc Pharmacy 58.4042; Globulin 4.1 g/dL (1.3-4.6); Glucose 130 mg/dL (65-115); Magnesium 2.1 mg/dL (1.7-2.3); Osmolality Calculated 290 mOsm/kg (285-295); Phosphorus 3.8 mg/dL (2.5-4.5); Potassium 3.5 mmol/L (3.5-5.1); Sodium 140 mmol/L (136-145); Total Bilirubin 0.6 mg/dL (0.15-1.2); Total Protein 7.4 g/dL (6.6-8.7)
[2024-04-30] MEDS: VANCOMYCIN ADD-Vantage 750 MG in 0.9% NaCl ADD-Vantage 250 ML 250 MG IV ×2 (05:29→17:36)
[2024-04-30 06:24] LABS: Glucose Point of Care 134 mg/dL (70-110)
[2024-04-30] MEDS: hydroCHLOROthiazide 25 mg Tablet 12.5 MG PO (08:55)
[2024-04-30] MEDS: venlafaxine ER (24HR) 37.5 mg Capsule PO (08:55)
[2024-04-30] MEDS: amlodipine 5 mg Tablet PO (08:55)
[2024-04-30] MEDS: gabapentin 300 mg Capsule PO ×3 (08:55→20:16)
[2024-04-30] MEDS: metoprolol succinate ER (24 HR) 50 mg Tablet PO (08:55)
[2024-04-30] MEDS: acetaminophen 325 mg Tablet 650 MG PO (08:56)
[2024-04-30 11:21] LABS: Glucose Point of Care 131 mg/dL (70-110)
--- NOTE | 2024-04-30 12:53 | P.PN_ITS ---
Subjective 2 Subjective: Patient's pain is controlled is not complain of back pain today. Reviewed the x-rays with the patient for the right knee everything looks good there. Vitals/I&O/Wt Last Vital Signs Temp 97.7 F 04/30/24 11:36 Pulse 81 04/30/24 11:36 Resp 18 04/30/24 11:36 BP 144/82 04/30/24 11:36 Pulse Ox 94 04/30/24 11:36 O2 Del Method Room Air 04/30/24 11:36 04/29/24 04/30/24 04/30/24 22:59 06:59 14:59 Intake Total 749 / 1950 300 / 2250 240 / 240 Output Total 700 / 1400 1050 / 2450 Balance 49 / 550 -750 / -200 240 / 240 Weight last 48 hrs Weight 153 lb 12.8 oz Weight 154 lb 11.2 oz Weight 154 lb 6.4 oz Physical Exam 2 Narrative: Patient resting comfortably in bed no complaints Data 04/30/24 03:34 04/30/24 03:34 Micro: Microbiology 04/28/24 17:36 Blood Culture - Preliminary Blood NEGATIVE TO DATE 04/28/24 17:29 Blood Culture - Preliminary Blood NEGATIVE TO DATE A&P Assessment and plan (1) Discitis: Patient is awaiting set up for PICC line and IV antibiotics. Qualifiers: Spinal region: lumbar Qualified Code(s): M46.46 - Discitis, unspecified, lumbar region PDMP PDMP Reviewed: Not Reviewed Attestations 2 Medical Necessity Statement*: Per primary service Coding Level of Care Code Acute Code for [facility] Diagnoses Discitis of lumbar region M46.46 Spinal region: lumbar
[2024-04-30] MEDS: HYDROcodone-acetaminophen 5-325 mg Tablet 0.5 TAB PO (15:56)
[2024-04-30 16:43] LABS: Vancomycin Trough 14.7 ug/mL (10-15)
--- NOTE | 2024-04-30 17:04 | P.PN_ITS ---
Subjective 2 Subjective: Patient was seen this morning, denies any fevers, no chills, no cough, discussed MRI findings, discussed need for 6 weeks of IV antibiotics, PICC line placement, she understands left to set up IV antibiotics she tells me she does not want to live with a roommate anymore, discussed options that are available Vitals/I&O/Wt Last Vital Signs Temp 98.2 F 04/30/24 16:02 Pulse 76 04/30/24 16:04 Resp 19 H 04/30/24 16:02 BP 143/89 04/30/24 16:02 Pulse Ox 95 04/30/24 16:02 O2 Del Method Room Air 04/30/24 16:02 04/30/24 04/30/24 04/30/24 06:59 14:59 22:59 Intake Total 300 / 2250 240 / 240 1190 / 1430 Output Total 1050 / 2450 Balance -750 / -200 240 / 240 1190 / 1430 Weight last 48 hrs Weight 69.763 kg Weight 70.171 kg Physical Exam 2 Const: COMMON NORMALS: no acute distress and patient oriented x3 Resp: COMMON NORMALS: normal respiratory effort, No retractions, No use of accessory muscles and clear to auscultation bilaterally AUSCULTATION: clear to auscultation bilaterally Cardio: COMMON NORMALS: regular rate, regular rhythm, S1 normal heart sound present and S2 normal heart sound present RATE: regular rate RHYTHM: r egular rhythm HEART SOUNDS: S1 normal heart sound present and S2 normal heart sound present GI: COMMON NORMALS: Normal to inspection, nondistended, normoactive bowel sounds present and non-tender Extremity: COMMON NORMALS: no pedal edema Neuro: COMMON NORMALS: patient oriented x3 Psych: COMMON NORMALS: mental status grossly normal Data 04/30/24 03:34 04/30/24 03:34 Micro: Microbiology 04/28/24 17:36 Blood Culture - Preliminary Blood NEGATIVE TO DATE 04/28/24 17:29 Blood Culture - Preliminary Blood NEGATIVE TO DATE A&P Assessment and plan (1) Vertebral osteomyelitis, acute: (2) Discitis: Qualifiers: Spinal region: lumbar Qualified Code(s): M46.46 - Discitis, unspecified, lumbar region (3) Acute low back pain: Plan Acute low back pain CT lumbar spine without contrast CT/CT lumbar spine wo con* [id number] IMPRESSION: 1. Severe destructive changes involving the L2-3 disc with paravertebral soft tissue inflammatory changes. Sclerotic and lytic changes with osseous destruction involving the adjacent endplates of L2 and L3. Findings are highly suspicious for osteomyelitis and discitis. Recommend follow-up MRI lumbar spine with and without gadolinium. 2. L2-3: Moderate central, bilateral subarticular recess and foraminal stenosis, LEFT greater than RIGHT. 3. Mild bilateral foraminal stenosis at L3-4, L4-5 and L5-S1 -Immunocompromised on Renflexis MRI lumbar spine FINDINGS: Bones/joints: Vertebral body heights are maintained. There is disc desiccation. There are L1 and L5 vertebral hemangiomas. Depending on level, there are various degrees of disc bulges, facet degenerative changes, thickening of ligamentum flavum, and marginal osteophyte formation. Spinal cord: Conus terminates at T12-L1 and appears normal in signal intensity without intrinsic or extrinsic lesion. T12-L1: There is no significant spinal stenosis. There is no significant neural foraminal narrowing. L1-L2: There is no significant spinal stenosis. There is incomplete effacement of fat in left neural foramen and this shows contrast enhancement and is consistent with superior extension of epidural phlegmon. There is no significant right neural foraminal narrowing. L2-L3: There is disc height loss, disc edema and enhancement, and edema and enhancement nearly involving the L2 and L3 vertebral bodies and extending into bilateral pedicles. There are endplate erosive changes. Findings are consistent with discitis and osteomyelitis. There is circumferential inflammatory changes and phlegmon around the vertebral bodies extending into the psoas muscles without drainable abscess at this time. This inflammatory change/phlegmon also extends into the spinal canal circumferentially surrounding the thecal sac with severe thecal sac narrowing and this extends into the L2 and L3 neural foramen. L3-L4: Degenerative changes. There is moderate spinal stenosis. There is mild left and slightly greater right neural foraminal narrowing. L4-L5: There is mild spinal stenosis. There is mild right greater than left neural foraminal narrowing. L5-S1: There is no significant spinal stenosis. There is no significant neural foraminal narrowing. Soft tissues: See above. Plan -Sed rate 55 -Vancomycin -Zosyn -Will likely need 6 weeks of IV vancomycin, Rocephin 1 g every 24 hours, PICC line to be placed -Follow blood cultures -Orthopedic service, Dr. Dumont on consult -Patient is DNR/DNI, confirmed with her multiple times, family at bedside -Lovenox for DVT prophylaxis -Type 2 diabetes mellitus, low-dose sliding scale PDMP PDMP Reviewed: Not Reviewed Attestations 2 Medical Necessity Statement*: Patient requires hospitalization for discitis, vertebral osteomyelitis requiring IV antibiotics Diagnoses Vertebral osteomyelitis, acute M46.20 Discitis of lumbar region M46.46 Spinal region: lumbar Acute low back pain M54.50
[2024-04-30 17:08] LABS: Glucose Point of Care 128 mg/dL (70-110)
[2024-04-30] MEDS: pantoprazole 40 mg SDV IVP (17:37)
[2024-04-30] MEDS: enoxaparin 40 mg/0.4 mL Syringe SUBCUT (17:37)
[2024-04-30] MEDS: atorvastatin 40 mg Tablet PO (20:16)
[2024-04-30] MEDS: zolpidem 5 mg Tablet PO (20:16)
[2024-04-30 20:26] LABS: Glucose Point of Care 134 mg/dL (70-110)
[2024-05-01] MEDS: VANCOMYCIN ADD-Vantage 750 MG in 0.9% NaCl ADD-Vantage 250 ML 250 MG IV ×2 (03:52→16:41)
[2024-05-01 04:00] VITALS: BP 124/78; PULSE 95; RESP 18; TEMP 37.1; O2SAT 93
[2024-05-01 04:27] LABS: Basophils % 0.5 %; Eosinophils # 0.2 10^3/uL (0.0-0.8); Eosinophils % 5.1 %; Hematocrit 34.1 % (36-47); Lymphocytes # 1.2 10^3/uL (0.8-4.8); Mean Corpuscular HGB Conc 31.1 g/dL (30-55); Mean Corpuscular Hemoglobin 28.5 pg (27-33); Mean Corpuscular Volume 91.7 fl (85-98); Mean Platelet Volume 8.8 fL (7.4-10.4); Monocytes # 0.5 10^3/uL (0.2-0.9); Neutrophils # 2.21 10^3/uL (1.8-7.7); Neutrophils % 53.9 %; Nucleated Red Blood Cells % 0 %; Platelet Count 127 10^3/cmm (157-399); Red Blood Count 3.72 10^6/uL (3.85-5.65); Red Cell Distribution Width 14.6 % (12.1-15.1)
[2024-05-01 04:38] LABS: Alanine Aminotransferase 9 U/L (0-33); Albumin Level 3.3 g/dL (3.5-5.2); Alkaline Phosphatase 73 U/L (35-105); Anion Gap 13.1 (5-19); Aspartate Amino Transferase 17 U/L (0-32); Blood Urea Nitrogen 8 mg/dL (8-23); Calcium 9.2 mg/dL (8.5-10.5); Carbon Dioxide 26 mmol/L (22-29); Chloride 101 mmol/L (98-107); Creatinine Clr Calc Pharmacy 58.2477; Globulin 4.3 g/dL (1.3-4.6); Glucose 136 mg/dL (65-115); Osmolality Calculated 282 mOsm/kg (285-295); Potassium 4.1 mmol/L (3.5-5.1); Sodium 136 mmol/L (136-145); Total Bilirubin 0.5 mg/dL (0.15-1.2); Total Protein 7.6 g/dL (6.6-8.7)
[2024-05-01 05:47] LABS: Glucose Point of Care 131 mg/dL (70-110)
[2024-05-01 08:00] VITALS: BP 118/78; PULSE 76; RESP 18; TEMP 36.8; O2SAT 94
[2024-05-01] MEDS: gabapentin 300 mg Capsule PO ×3 (09:42→21:01)
[2024-05-01] MEDS: venlafaxine ER (24HR) 37.5 mg Capsule PO (09:42)
[2024-05-01] MEDS: cefTRIAXone 1,000 mg SDV 1000 MG IVP (09:42)
[2024-05-01] MEDS: amlodipine 5 mg Tablet PO (09:43)
[2024-05-01] MEDS: hydroCHLOROthiazide 25 mg Tablet 12.5 MG PO (09:43)
[2024-05-01] MEDS: metoprolol succinate ER (24 HR) 50 mg Tablet PO (09:43)
--- NOTE | 2024-05-01 09:43 | PC.CHAP ---
Pastoral Care Encounter/Spiritual Assessment Type of Contact [] Declined change coordinator visit [] Patient/Family/Request visit [] Outpatient visit [] Follow-up visit [] Physician referral [] Code/Alert [x] Routine visit [] Staff referral [] Actively dying [] Patient sleeping [x] Family support [] [] Out of room [] Palliative care [] [] Receiving care in room [] Pre-surgical visit [] Trauma [] Long length of stay [] ICU visit [] Other: Relational/Emotional Strength [] Patient feels connected with others/family/visitors/staff [] Distress [] Loneliness/isolation [] Abandonment Spirituality of Patient [x] Person of [place] [] Attends Church of their [place] [x] Believes in Prayer [] Reads Bible or Sikhism materials [] There are Spiritual issues to be addressed [employer] Interventions [x] Prayer [x] Active listening [] Non-anxious presence [] Spiritual/emotional support [] Crisis/trauma care [] Spiritual counseling [] Bereavement support [] Provided bereavement packet [] Provided Bible/devotional materials [] Provided toy/stuffed animal, coloring book to patient or family member [] Provided Communion [] Anointing/[place] [] Salvation [x] Completed spiritual assessment [] Other: Impact on Illness or Injury [] Angry [] Fearful [] Anxious [] Often cries [] Exhaustion [] Unable to work [] Unable to attend jainism [] Unable to walk/stand [] Unable to read [] Unable to drive [] Unable to eat/drink [] Unable to sleep [] Unable to be with family [] Patient intubated [] Other: Summary Time spent with patient 10 min
[2024-05-01 11:41] LABS: Glucose Point of Care 131 mg/dL (70-110)
[2024-05-01 11:46] VITALS: BP 134/78; PULSE 85; RESP 17; TEMP 37.1; O2SAT 95
--- NOTE | 2024-05-01 13:08 | PC.SOCIAL ---
IMM Update pg 2 of IMM Updated and reviewed w/ patient. Copy provided and copy dated, initialed and placed in chart.
--- NOTE | 2024-05-01 14:19 | XR_ITS ---
WS: [id number] CHEST XRAY TECHNIQUE: Portable chest. CLINICAL INFORMATION: picc insertion FINDINGS: RIGHT PICC line tip in the distal SVC. No pneumothorax. XR/XR chest 1V portable [id number] IMPRESSION: See above
[2024-05-01 15:53] LABS: Glucose Point of Care 118 mg/dL (70-110)
[2024-05-01 16:00] VITALS: BP 146/97; PULSE 105; RESP 18; TEMP 37; O2SAT 95
[2024-05-01] MEDS: pantoprazole 40 mg SDV IVP (18:25)
[2024-05-01] MEDS: enoxaparin 40 mg/0.4 mL Syringe SUBCUT (18:25)
--- NOTE | 2024-05-01 18:37 | P.PN_ITS ---
Subjective 2 Subjective: Patient was seen this morning, denies any fevers, no chills, no cough, no nausea, no vomiting Vitals/I&O/Wt Last Vital Signs Temp 98.6 F 05/01/24 16:00 Pulse 105 H 05/01/24 16:00 Resp 18 05/01/24 16:00 BP 146/97 05/01/24 16:00 Pulse Ox 95 05/01/24 16:00 O2 Del Method Room Air 05/01/24 16:00 05/01/24 05/01/24 05/01/24 06:59 14:59 22:59 Intake Total 490 / 2510 360 / 360 480 / 840 Balance 490 / 2510 360 / 360 480 / 840 Weight last 48 hrs Weight 69.672 kg Weight 69.763 kg Physical Exam 2 Const: COMMON NORMALS: no acute distress and patient oriented x3 Resp: COMMON NORMALS: normal respiratory effort, No retractions, No use of accessory muscles and clear to auscultation bilaterally AUSCULTATION: clear to auscultation bilaterally Cardio: COMMON NORMALS: regular rate, regular rhythm, S1 normal heart sound present and S2 normal heart sound present RATE: regular rate RHYTHM: r egular rhythm HEART SOUNDS: S1 normal heart sound present and S2 normal heart sound present GI: COMMON NORMALS: Normal to inspection, nondistended, normoactive bowel sounds present and non-tender Extremity: COMMON NORMALS: no pedal edema Neuro: COMMON NORMALS: patient oriented x3 Psych: COMMON NORMALS: mental status grossly normal Data 05/01/24 02:47 05/01/24 02:47 A&P Assessment and plan (1) Vertebral osteomyelitis, acute: (2) Discitis: Qualifiers: Spinal region: lumbar Qualified Code(s): M46.46 - Discitis, unspecified, lumbar region (3) Acute low back pain: Plan Acute low back pain -With evidence of L2-L3 discitis and osteomyelitis prominent paravertebral and epidural phlegmon CT lumbar spine without contrast CT/CT lumbar spine wo con* [id number] IMPRESSION: 1. Severe destructive changes involving the L2-3 disc with paravertebral soft tissue inflammatory changes. Sclerotic and lytic changes with osseous destruction involving the adjacent endplates of L2 and L3. Findings are highly suspicious for osteomyelitis and discitis. Recommend follow-up MRI lumbar spine with and without gadolinium. 2. L2-3: Moderate central, bilateral subarticular recess and foraminal stenosis, LEFT greater than RIGHT. 3. Mild bilateral foraminal stenosis at L3-4, L4-5 and L5-S1 -Immunocompromised on Renflexis MRI lumbar spine FINDINGS: Bones/joints: Vertebral body heights are maintained. There is disc desiccation. There are L1 and L5 vertebral hemangiomas. Depending on level, there are various degrees of disc bulges, facet degenerative changes, thickening of ligamentum flavum, and marginal osteophyte formation. Spinal cord: Conus terminates at T12-L1 and appears normal in signal intensity without intrinsic or extrinsic lesion. T12-L1: There is no significant spinal stenosis. There is no significant neural foraminal narrowing. L1-L2: There is no significant spinal stenosis. There is incomplete effacement of fat in left neural foramen and this shows contrast enhancement and is consistent with superior extension of epidural phlegmon. There is no significant right neural foraminal narrowing. L2-L3: There is disc height loss, disc edema and enhancement, and edema and enhancement nearly involving the L2 and L3 vertebral bodies and extending into bilateral pedicles. There are endplate erosive changes. Findings are consistent with discitis and osteomyelitis. There is circumferential inflammatory changes and phlegmon around the vertebral bodies extending into the psoas muscles without drainable abscess at this time. This inflammatory change/phlegmon also extends into the spinal canal circumferentially surrounding the thecal sac with severe thecal sac narrowing and this extends into the L2 and L3 neural foramen. L3-L4: Degenerative changes. There is moderate spinal stenosis. There is mild left and slightly greater right neural foraminal narrowing. L4-L5: There is mild spinal stenosis. There is mild right greater than left neural foraminal narrowing. L5-S1: There is no significant spinal stenosis. There is no significant neural foraminal narrowing. Soft tissues: See above. Plan -Sed rate 55 -Vancomycin -Will likely need 6 weeks of IV vancomycin, Rocephin 1 g every 24 hours, PICC line to be placed -Follow blood cultures -Orthopedic service, Dr. Dumont on consult -Patient is DNR/DNI, confirmed with her multiple times, family at bedside -Lovenox for DVT prophylaxis -Type 2 diabetes mellitus, low-dose sliding scale PDMP PDMP Reviewed: Not Reviewed Attestations 2 Medical Necessity Statement*: Patient requires hospitalization for vertebral osteomyelitis, phlegmon, IV antibiotics Diagnoses Vertebral osteomyelitis, acute M46.20 Discitis of lumbar region M46.46 Spinal region: lumbar Acute low back pain M54.50
[2024-05-01 20:00] VITALS: BP 128/80; PULSE 83; RESP 16; TEMP 36.7; O2SAT 93
[2024-05-01 20:18] LABS: Glucose Point of Care 142 mg/dL (70-110)
[2024-05-01] MEDS: atorvastatin 40 mg Tablet PO (21:01)
[2024-05-01] MEDS: zolpidem 5 mg Tablet PO (21:01)
[2024-05-01] MEDS: HYDROcodone-acetaminophen 5-325 mg Tablet 0.5 TAB PO (21:35)
[2024-05-01 23:39] VITALS: BP 143/94; PULSE 104; RESP 18; TEMP 36.6; O2SAT 92
[2024-05-02] VITALS (7 sets, daily range): BP systolic 117–147; BP diastolic 72–88; PULSE 83–102; RESP 15–19; TEMP 36.4–36.9; O2SAT 91–95; BMI 26.2
[2024-05-02 04:49] LABS: Basophils % 0.3 %; Eosinophils # 0.2 10^3/uL (0.0-0.8); Eosinophils % 4.8 %; Hematocrit 34.1 % (36-47); Lymphocytes # 1.3 10^3/uL (0.8-4.8); Lymphocytes % 35.4 %; Mean Corpuscular HGB Conc 31.4 g/dL (30-55); Mean Corpuscular Hemoglobin 28.4 pg (27-33); Mean Corpuscular Volume 90.5 fl (85-98); Mean Platelet Volume 9.1 fL (7.4-10.4); Monocytes # 0.5 10^3/uL (0.2-0.9); Monocytes % 12.5 %; Neutrophils # 1.76 10^3/uL (1.8-7.7); Neutrophils % 46.7 %; Nucleated Red Blood Cells % 0 %; Platelet Count 150 10^3/cmm (157-399); Red Blood Count 3.77 10^6/uL (3.85-5.65); Red Cell Distribution Width 14.7 % (12.1-15.1); White Blood Count 3.76 10^3/uL (3.29-11.43)
[2024-05-02] MEDS: VANCOMYCIN ADD-Vantage 750 MG in 0.9% NaCl ADD-Vantage 250 ML 250 MG IV ×2 (05:10→15:23)
[2024-05-02 05:11] LABS: Alanine Aminotransferase 9 U/L (0-33); Albumin Level 3.3 g/dL (3.5-5.2); Alkaline Phosphatase 67 U/L (35-105); Blood Urea Nitrogen 8 mg/dL (8-23); Carbon Dioxide 25 mmol/L (22-29); Chloride 103 mmol/L (98-107); Creatinine Clr Calc Pharmacy 58.2128; Globulin 4.3 g/dL (1.3-4.6); Glucose 123 mg/dL (65-115); Osmolality Calculated 288 mOsm/kg (285-295); Sodium 139 mmol/L (136-145); Total Bilirubin 0.5 mg/dL (0.15-1.2); Total Protein 7.6 g/dL (6.6-8.7)
[2024-05-02 05:12] LABS: Anion Gap 14.7 (5-19); Aspartate Amino Transferase 22 U/L (0-32); Potassium 3.7 mmol/L (3.5-5.1)
[2024-05-02 05:47] LABS: Glucose Point of Care 126 mg/dL (70-110)
[2024-05-02] MEDS: metoprolol succinate ER (24 HR) 50 mg Tablet PO (09:08)
[2024-05-02] MEDS: cefTRIAXone 1,000 mg SDV 1000 MG IVP (09:08)
[2024-05-02] MEDS: venlafaxine ER (24HR) 37.5 mg Capsule PO (09:09)
[2024-05-02] MEDS: hydroCHLOROthiazide 25 mg Tablet 12.5 MG PO (09:09)
[2024-05-02] MEDS: gabapentin 300 mg Capsule PO ×3 (09:09→21:10)
[2024-05-02] MEDS: amlodipine 5 mg Tablet PO (09:10)
[2024-05-02 11:24] LABS: Glucose Point of Care 162 mg/dL (70-110)
[2024-05-02] MEDS: insulin lispro 100 unit/1 mL SUBCUT (11:35)
[2024-05-02] MEDS: acetaminophen 325 mg Tablet 650 MG PO (13:41)
[2024-05-02 16:46] LABS: Glucose Point of Care 132 mg/dL (70-110)
--- NOTE | 2024-05-02 17:14 | P.PN_ITS ---
Subjective 2 Subjective: Patient was seen this morning, she is alert oriented x 3, following all commands, receiving IV antibiotics Vitals/I&O/Wt Last Vital Signs Temp 98.5 F 05/02/24 15:15 Pulse 94 05/02/24 15:15 Resp 16 05/02/24 15:15 BP 117/74 05/02/24 15:15 Pulse Ox 93 05/02/24 15:15 O2 Del Method Room Air 05/02/24 15:15 05/02/24 05/02/24 05/02/24 06:59 14:59 22:59 Intake Total 490 / 1820 120 / 120 250 / 370 Balance 490 / 1820 120 / 120 250 / 370 Weight last 48 hrs Weight 69.4 kg Weight 69.672 kg Physical Exam 2 Const: COMMON NORMALS: no acute distress and patient oriented x3 Resp: COMMON NORMALS: normal respiratory effort, No retractions, No use of accessory muscles and clear to auscultation bilaterally AUSCULTATION: clear to auscultation bilaterally Cardio: COMMON NORMALS: regular rate, regular rhythm, S1 normal heart sound present and S2 normal heart sound present RATE: regular rate RHYTHM: r egular rhythm HEART SOUNDS: S1 normal heart sound present and S2 normal heart sound present GI: COMMON NORMALS: Normal to inspection, nondistended, normoactive bowel sounds present and non-tender Extremity: COMMON NORMALS: no pedal edema Neuro: COMMON NORMALS: patient oriented x3 Psych: COMMON NORMALS: mental status grossly normal Data 05/02/24 04:08 05/02/24 04:08 A&P Assessment and plan (1) Vertebral osteomyelitis, acute: (2) Discitis: Qualifiers: Spinal region: lumbar Qualified Code(s): M46.46 - Discitis, unspecified, lumbar region (3) Acute low back pain: Plan Acute low back pain -With evidence of L2-L3 discitis and osteomyelitis prominent paravertebral and epidural phlegmon CT lumbar spine without contrast CT/CT lumbar spine wo con* [id number] IMPRESSION: 1. Severe destructive changes involving the L2-3 disc with paravertebral soft tissue inflammatory changes. Sclerotic and lytic changes with osseous destruction involving the adjacent endplates of L2 and L3. Findings are highly suspicious for osteomyelitis and discitis. Recommend follow-up MRI lumbar spine with and without gadolinium. 2. L2-3: Moderate central, bilateral subarticular recess and foraminal stenosis, LEFT greater than RIGHT. 3. Mild bilateral foraminal stenosis at L3-4, L4-5 and L5-S1 -Immunocompromised on Renflexis MRI lumbar spine FINDINGS: Bones/joints: Vertebral body heights are maintained. There is disc desiccation. There are L1 and L5 vertebral hemangiomas. Depending on level, there are various degrees of disc bulges, facet degenerative changes, thickening of ligamentum flavum, and marginal osteophyte formation. Spinal cord: Conus terminates at T12-L1 and appears normal in signal intensity without intrinsic or extrinsic lesion. T12-L1: There is no significant spinal stenosis. There is no significant neural foraminal narrowing. L1-L2: There is no significant spinal stenosis. There is incomplete effacement of fat in left neural foramen and this shows contrast enhancement and is consistent with superior extension of epidural phlegmon. There is no significant right neural foraminal narrowing. L2-L3: There is disc height loss, disc edema and enhancement, and edema and enhancement nearly involving the L2 and L3 vertebral bodies and extending into bilateral pedicles. There are endplate erosive changes. Findings are consistent with discitis and osteomyelitis. There is circumferential inflammatory changes and phlegmon around the vertebral bodies extending into the psoas muscles without drainable abscess at this time. This inflammatory change/phlegmon also extends into the spinal canal circumferentially surrounding the thecal sac with severe thecal sac narrowing and this extends into the L2 and L3 neural foramen. L3-L4: Degenerative changes. There is moderate spinal stenosis. There is mild left and slightly greater right neural foraminal narrowing. L4-L5: There is mild spinal stenosis. There is mild right greater than left neural foraminal narrowing. L5-S1: There is no significant spinal stenosis. There is no significant neural foraminal narrowing. Soft tissues: See above. Plan -Sed rate 55 -Vancomycin -Will need 6 weeks of IV vancomycin, Rocephin 1 g every 24 hours, PICC line to be placed -Follow blood cultures so far negative -Orthopedic service, Dr. Dumont on consult -Patient is DNR/DNI, confirmed with her multiple times, family at bedside -Lovenox for DVT prophylaxis -Type 2 diabetes mellitus, low-dose sliding scale -History of rheumatoid arthritis, indefinitely hold infliximab PDMP PDMP Reviewed: Not Reviewed Attestations 2 Medical Necessity Statement*: Patient requires hospitalization for acute low back pain L2-L3 discitis osteomyelitis requiring IV antibiotics Diagnoses Vertebral osteomyelitis, acute M46.20 Discitis of lumbar region M46.46 Spinal region: lumbar Acute low back pain M54.50
[2024-05-02] MEDS: pantoprazole 40 mg SDV IVP (17:27)
[2024-05-02] MEDS: enoxaparin 40 mg/0.4 mL Syringe SUBCUT (17:27)
[2024-05-02 21:00] LABS: Glucose Point of Care 169 mg/dL (70-110)
[2024-05-02] MEDS: atorvastatin 40 mg Tablet PO (21:10)
[2024-05-02] MEDS: zolpidem 5 mg Tablet PO (21:10)
[2024-05-03] VITALS (7 sets, daily range): BP systolic 122–139; BP diastolic 76–91; PULSE 85–100; RESP 15–19; TEMP 36.3–36.8; O2SAT 91–94
[2024-05-03] MEDS: acetaminophen 325 mg Tablet 650 MG PO (01:33)
[2024-05-03 04:59] LABS: Basophils % 0.4 %; Eosinophils # 0.3 10^3/uL (0.0-0.8); Eosinophils % 6.5 %; Hematocrit 34.6 % (36-47); Lymphocytes # 1.3 10^3/uL (0.8-4.8); Mean Corpuscular HGB Conc 32.1 g/dL (30-55); Mean Corpuscular Hemoglobin 29.2 pg (27-33); Mean Corpuscular Volume 91.1 fl (85-98); Mean Platelet Volume 8.6 fL (7.4-10.4); Monocytes # 0.6 10^3/uL (0.2-0.9); Monocytes % 12.7 %; Neutrophils # 2.43 10^3/uL (1.8-7.7); Neutrophils % 52.2 %; Nucleated Red Blood Cells % 0 %; Platelet Count 155 10^3/cmm (157-399); Red Cell Distribution Width 14.6 % (12.1-15.1); White Blood Count 4.65 10^3/uL (3.29-11.43)
[2024-05-03 05:11] LABS: Vancomycin Trough 11.2 ug/mL (10-15)
[2024-05-03] MEDS: VANCOMYCIN ADD-Vantage 750 MG in 0.9% NaCl ADD-Vantage 250 ML 250 MG IV (05:17)
[2024-05-03 05:27] LABS: Alanine Aminotransferase 11 U/L (0-33); Albumin Level 3.5 g/dL (3.5-5.2); Alkaline Phosphatase 70 U/L (35-105); Anion Gap 16.4 (5-19); Aspartate Amino Transferase 20 U/L (0-32); Blood Urea Nitrogen 11 mg/dL (8-23); Calcium 9.1 mg/dL (8.5-10.5); Carbon Dioxide 26 mmol/L (22-29); Chloride 102 mmol/L (98-107); Creatinine Clr Calc Pharmacy 58.1084; Globulin 3.8 g/dL (1.3-4.6); Glucose 140 mg/dL (65-115); Osmolality Calculated 294 mOsm/kg (285-295); Potassium 3.4 mmol/L (3.5-5.1); Sodium 141 mmol/L (136-145); Total Bilirubin 0.4 mg/dL (0.15-1.2); Total Protein 7.3 g/dL (6.6-8.7)
[2024-05-03 06:13] LABS: Glucose Point of Care 178 mg/dL (70-110)
[2024-05-03 06:13] LABS: Glucose Point of Care 83 mg/dL (70-110)
[2024-05-03 06:13] LABS: Glucose Point of Care 133 mg/dL (70-110)
[2024-05-03 06:13] LABS: Glucose Point of Care 211 mg/dL (70-110)
[2024-05-03 06:13] LABS: Glucose Point of Care 104 mg/dL (70-110)
[2024-05-03] MEDS: cefTRIAXone 1,000 mg SDV 1000 MG IVP (08:20)
[2024-05-03] MEDS: amlodipine 5 mg Tablet PO (08:20)
[2024-05-03] MEDS: venlafaxine ER (24HR) 37.5 mg Capsule PO (08:20)
[2024-05-03] MEDS: metoprolol succinate ER (24 HR) 50 mg Tablet PO (08:20)
[2024-05-03] MEDS: hydroCHLOROthiazide 25 mg Tablet 12.5 MG PO (08:20)
[2024-05-03] MEDS: gabapentin 300 mg Capsule PO ×3 (08:20→21:04)
[2024-05-03] MEDS: insulin lispro 100 unit/1 mL SUBCUT (08:21)
[2024-05-03] MEDS: HYDROcodone-acetaminophen 5-325 mg Tablet 0.5 TAB PO ×2 (08:22→17:35)
--- NOTE | 2024-05-03 10:00 | PC.SOCIAL ---
IMM Update pg 2 of IMM Updated and reviewed w/ patient. Copy provided and copy dated, initialed and placed in chart.
[2024-05-03 12:09] LABS: Glucose Point of Care 145 mg/dL (70-110)
--- NOTE | 2024-05-03 15:33 | P.PN_ITS ---
Subjective 2 Subjective: patient was seen this morning, has no complaints Vitals/I&O/Wt Last Vital Signs Temp 97.4 F L 05/03/24 11:53 Pulse 86 05/03/24 11:53 Resp 16 05/03/24 11:53 BP 122/83 05/03/24 11:53 Pulse Ox 93 05/03/24 11:53 O2 Del Method Room Air 05/03/24 11:53 05/03/24 05/03/24 05/03/24 06:59 14:59 22:59 Intake Total 490 / 490 Balance 490 / 490 Weight last 48 hrs Weight 69.4 kg Weight 69.4 kg Physical Exam 2 Const: COMMON NORMALS: no acute distress and patient oriented x3 Resp: COMMON NORMALS: normal respiratory effort, No retractions, No use of accessory muscles and clear to auscultation bilaterally AUSCULTATION: clear to auscultation bilaterally Cardio: COMMON NORMALS: regular rate, regular rhythm, S1 normal heart sound present and S2 normal heart sound present RATE: regular rate RHYTHM: r egular rhythm HEART SOUNDS: S1 normal heart sound present and S2 normal heart sound present GI: COMMON NORMALS: Normal to inspection, nondistended, normoactive bowel sounds present and non-tender Extremity: COMMON NORMALS: no pedal edema Neuro: COMMON NORMALS: patient oriented x3 Psych: COMMON NORMALS: mental status grossly normal Data 05/03/24 04:20 05/03/24 04:20 A&P Assessment and plan (1) Vertebral osteomyelitis, acute: (2) Discitis: Qualifiers: Spinal region: lumbar Qualified Code(s): M46.46 - Discitis, unspecified, lumbar region (3) Acute low back pain: Plan Acute low back pain -With evidence of L2-L3 discitis and osteomyelitis prominent paravertebral and epidural phlegmon CT lumbar spine without contrast CT/CT lumbar spine wo con* [id number] IMPRESSION: 1. Severe destructive changes involving the L2-3 disc with paravertebral soft tissue inflammatory changes. Sclerotic and lytic changes with osseous destruction involving the adjacent endplates of L2 and L3. Findings are highly suspicious for osteomyelitis and discitis. Recommend follow-up MRI lumbar spine with and without gadolinium. 2. L2-3: Moderate central, bilateral subarticular recess and foraminal stenosis, LEFT greater than RIGHT. 3. Mild bilateral foraminal stenosis at L3-4, L4-5 and L5-S1 -Immunocompromised on Renflexis MRI lumbar spine FINDINGS: Bones/joints: Vertebral body heights are maintained. There is disc desiccation. There are L1 and L5 vertebral hemangiomas. Depending on level, there are various degrees of disc bulges, facet degenerative changes, thickening of ligamentum flavum, and marginal osteophyte formation. Spinal cord: Conus terminates at T12-L1 and appears normal in signal intensity without intrinsic or extrinsic lesion. T12-L1: There is no significant spinal stenosis. There is no significant neural foraminal narrowing. L1-L2: There is no significant spinal stenosis. There is incomplete effacement of fat in left neural foramen and this shows contrast enhancement and is consistent with superior extension of epidural phlegmon. There is no significant right neural foraminal narrowing. L2-L3: There is disc height loss, disc edema and enhancement, and edema and enhancement nearly involving the L2 and L3 vertebral bodies and extending into bilateral pedicles. There are endplate erosive changes. Findings are consistent with discitis and osteomyelitis. There is circumferential inflammatory changes and phlegmon around the vertebral bodies extending into the psoas muscles without drainable abscess at this time. This inflammatory change/phlegmon also extends into the spinal canal circumferentially surrounding the thecal sac with severe thecal sac narrowing and this extends into the L2 and L3 neural foramen. L3-L4: Degenerative changes. There is moderate spinal stenosis. There is mild left and slightly greater right neural foraminal narrowing. L4-L5: There is mild spinal stenosis. There is mild right greater than left neural foraminal narrowing. L5-S1: There is no significant spinal stenosis. There is no significant neural foraminal narrowing. Soft tissues: See above. Plan -Sed rate 55 -Vancomycin -Will need 6 weeks of IV vancomycin, Rocephin 1 g every 24 hours, PICC line to be placed -Follow blood cultures so far negative -Orthopedic service, Dr. Dumont on consult -Patient is DNR/DNI, confirmed with her multiple times, family at bedside -Lovenox for DVT prophylaxis -Type 2 diabetes mellitus, low-dose sliding scale -History of rheumatoid arthritis, indefinitely hold infliximab PDMP PDMP Reviewed: Not Reviewed Attestations 2 Medical Necessity Statement*: patient requires hospitalization for L2-L3 discitis and osteomyelitis prominent paravertebral and epidural phlegmon Diagnoses Vertebral osteomyelitis, acute M46.20 Discitis of lumbar region M46.46 Spinal region: lumbar Acute low back pain M54.50
[2024-05-03 17:03] LABS: Glucose Point of Care 141 mg/dL (70-110)
[2024-05-03] MEDS: enoxaparin 40 mg/0.4 mL Syringe SUBCUT (17:35)
[2024-05-03] MEDS: pantoprazole 40 mg SDV IVP (17:35)
[2024-05-03] MEDS: VANCOMYCIN ADD-Vantage 1,000 MG in 0.9% NaCl ADD-Vantage 250 ML 250 MG IV (17:35)
[2024-05-03 20:42] LABS: Glucose Point of Care 176 mg/dL (70-110)
[2024-05-03] MEDS: zolpidem 5 mg Tablet PO (21:04)
[2024-05-03] MEDS: atorvastatin 40 mg Tablet PO (21:04)
[2024-05-04 00:02] VITALS: BP 145/81; PULSE 72; RESP 16; TEMP 36.8; O2SAT 94
[2024-05-04 04:13] VITALS: BP 130/80; PULSE 106; RESP 18; TEMP 37.1; O2SAT 90
[2024-05-04] MEDS: VANCOMYCIN ADD-Vantage 1,000 MG in 0.9% NaCl ADD-Vantage 250 ML 250 MG IV (04:20)
[2024-05-04 04:40] LABS: Basophils % 0.5 %; Eosinophils # 0.2 10^3/uL (0.0-0.8); Eosinophils % 5.1 %; Hematocrit 30.4 % (36-47); Lymphocytes # 1.3 10^3/uL (0.8-4.8); Lymphocytes % 32.7 %; Mean Corpuscular HGB Conc 31.3 g/dL (30-55); Mean Corpuscular Hemoglobin 28.7 pg (27-33); Mean Corpuscular Volume 91.8 fl (85-98); Mean Platelet Volume 9.4 fL (7.4-10.4); Monocytes # 0.5 10^3/uL (0.2-0.9); Neutrophils % 48.4 %; Nucleated Red Blood Cells % 0 %; Platelet Count 143 10^3/cmm (157-399); Red Blood Count 3.31 10^6/uL (3.85-5.65); Red Cell Distribution Width 14.6 % (12.1-15.1); White Blood Count 3.92 10^3/uL (3.29-11.43)
[2024-05-04 05:06] LABS: Alanine Aminotransferase < 5 U/L (0-33); Alkaline Phosphatase 60 U/L (35-105); Blood Urea Nitrogen 9 mg/dL (8-23); Calcium 8.3 mg/dL (8.5-10.5); Carbon Dioxide 27 mmol/L (22-29); Chloride 102 mmol/L (98-107); Creatinine Clr Calc Pharmacy 58.0562; Globulin 3.9 g/dL (1.3-4.6); Glucose 129 mg/dL (65-115); Osmolality Calculated 288 mOsm/kg (285-295); Sodium 139 mmol/L (136-145); Total Bilirubin 0.4 mg/dL (0.15-1.2); Total Protein 6.9 g/dL (6.6-8.7)
[2024-05-04 05:12] LABS: Anion Gap 13.6 (5-19); Aspartate Amino Transferase 23 U/L (0-32); Potassium 3.6 mmol/L (3.5-5.1)
[2024-05-04 06:32] VITALS: PULSE 89
[2024-05-04 06:35] LABS: Glucose Point of Care 134 mg/dL (70-110)
[2024-05-04 08:00] VITALS: BP 131/82; PULSE 93; RESP 16; TEMP 36.8; O2SAT 91
[2024-05-04] MEDS: metoprolol succinate ER (24 HR) 50 mg Tablet PO (08:52)
[2024-05-04] MEDS: amlodipine 5 mg Tablet PO (08:52)
[2024-05-04] MEDS: HYDROcodone-acetaminophen 5-325 mg Tablet 0.5 TAB PO (08:52)
[2024-05-04] MEDS: venlafaxine ER (24HR) 37.5 mg Capsule PO (08:52)
[2024-05-04] MEDS: gabapentin 300 mg Capsule PO (08:52)
[2024-05-04] MEDS: hydroCHLOROthiazide 25 mg Tablet 12.5 MG PO (08:53)
[2024-05-04] MEDS: cefTRIAXone 1,000 mg SDV 1000 MG IVP (08:53)
[2024-05-04 11:11] LABS: Glucose Point of Care 161 mg/dL (70-110)
[2024-05-04 11:33] VITALS: BP 118/79; PULSE 85; RESP 16; TEMP 36.8; O2SAT 92
--- NOTE | 2024-05-04 11:56 | XR_ITS ---
WS: [id number] Portable AP semiupright chest, 05/04/2024 Clinical Data: diminshed lung sounds R side, developed new cough Comparison: Portable chest, 05/01/2024 Findings: No nodules, masses or effusions are seen. The heart is normal. The pulmonary vascularity is not increased. No pneumonia or pneumothorax is seen. The aortic arch shows tortuosity as does the descending thoracic aorta. The right PICC line remains in the same position. There are monitor leads on the chest wall. 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 XR/XR chest 1V portable [id number] Impression: Atherosclerosis.
[2024-05-04] MEDS: insulin lispro 100 unit/1 mL SUBCUT (12:43)
--- NOTE | 2024-05-04 13:25 | P.TS_ITS ---
Transfer Summary Providers Date of Admission: 04/28/24 16:37 Date of Discharge/Transfer: 05/04/24 Attending Provider at Admission: Cholo Villalba MD Attending Provider at Transfer: Cholo Villalba MD Primary Care Provider: Raleigh Carcamo MD Transfer Plans: Anticipated date of transfer: 05/04/24 . Diagnoses at Discharge Discharge Diagnosis (1) Vertebral osteomyelitis, acute: Status: Acute (2) Discitis: Status: Acute Qualifiers: Spinal region: lumbar Qualified Code(s): M46.46 - Discitis, unspecified, lumbar region (3) Acute low back pain: Status: Acute Reason for Visit Reason for Visit 267-1 TS Data Studies Completed and Pending Pending at discharge Category Date Time Status SARS Covid-2 Antigen Routine Lab 05/04/24 12:44 Received Vancomycin Trough Timed Lab 05/05/24 04:00 Ordered Completed Studies During Hospitalization Category Date Time Status CXRP [XR chest 1V portable [id number]] Routine Exams 05/01/24 14:19 Completed XR chest 1V portable [id number] Stat Exams 05/04/24 11:56 Completed XR knee RT 1-2V [id number] Routine Exams 04/29/24 15:06 Completed MR lumbar spine wo/w con [id number] Routine MRI 04/29/24 11:00 Completed Laboratory Last Values WBC 3.92 10^3/uL (3.29-11.43) 05/04/24 04:17 RBC 3.31 10^6/uL (3.85-5.65) L 05/04/24 04:17 Hgb 9.50 g/dL (11.27-16.99) L 05/04/24 04:17 Hct 30.4 % (36-47) L 05/04/24 04:17 MCV 91.8 fl (85-98) 05/04/24 04:17 MCH 28.7 pg (27-33) 05/04/24 04:17 MCHC 31.3 g/dL (30-55) 05/04/24 04:17 RDW 14.6 % (12.1-15.1) 05/04/24 04:17 Plt Count 143 10^3/cmm (157-399) L 05/04/24 04:17 MPV 9.4 fL (7.4-10.4) 05/04/24 04:17 Neut % (Auto) 48.4 % 05/04/24 04:17 Lymph % (Auto) 32.7 % 05/04/24 04:17 [place] % (Auto) 13.0 % 05/04/24 04:17 Eos % (Auto) 5.1 % 05/04/24 04:17 Baso % (Auto) 0.5 % 05/04/24 04:17 Neut # (Auto) 1.90 10^3/uL (1.8-7.7) 05/04/24 04:17 Lymph # (Auto) 1.3 10^3/uL (0.8-4.8) 05/04/24 04:17 [place] # (Auto) 0.5 10^3/uL (0.2-0.9) 05/04/24 04:17 Eos # (Auto) 0.2 10^3/uL (0.0-0.8) 05/04/24 04:17 Baso # (Auto) 0.0 10^3/uL (0.0-0.1) 05/04/24 04:17 Nucleated RBC % (auto) 0 % 05/04/24 04:17 Total Counted 100 (0-100) 04/28/24 17:29 Atypical Lymphs % 1.0 % (0-5) 04/28/24 17:29 Absolute Neutrophils 2.8 10^3/cmm (1.4-6.5) 04/28/24 17:29 Segmented Neutrophils 56 % 04/28/24 17:29 Band Neutrophils 0.0 % 04/28/24 17:29 Absolute Lymphocytes 1.7 10^3/cmm (1.2-3.4) 04/28/24 17:29 Lymphocytes (Manual) 33 % 04/28/24 17:29 Monocytes (Manual) 5.0 % 04/28/24 17: Absolute Monocytes 0.3 10^3/cmm (0.1-0.6) 04/28/24 17: Eosinophils (Manual) 5 % 04/28/24 17: Absolute Eosinophils 0.3 10^3/cmm (0.0-0.7) 04/28/24 17: Basophils (Manual) 0.0 % 04/28/24 17: Absolute Basophils 0.0 10^3/cmm (0.0-0.2) 04/28/24 17:29 Nucleated RBCs # 0.0 /100WBC 05/04/24 04:17 Platelet Estimate Normal (Normal) 04/28/24 17:29 ESR 59 mm/hr (0-15) H 04/28/24 17:29 Sodium 139 mmol/L (136-145) 05/04/24 04:17 Potassium 3.6 mmol/L (3.5-5.1) 05/04/24 04:17 Chloride 102 mmol/L (98-107) 05/04/24 04:17 Carbon Dioxide 27 mmol/L (22-29) 05/04/24 04:17 Anion Gap 13.6 (5-19) 05/04/24 04:17 BUN 9 mg/dL (8-23) 05/04/24 04:17 Creatinine 0.5 mg/dL (0.5-0.9) 05/04/24 04:17 GFR Calculation Not Reportable 05/04/24 04:17 Glucose 129 mg/dL (65-115) H 05/04/24 04:17 POC Glucose 161 mg/dL (70-110) H 05/04/24 11:08 Calculated Osmolality 288 mOsm/kg (285-295) 05/04/24 04:17 Lactic Acid 2.4 mmol/L (0.5-2.2) H 04/28/24 17:29 Lactic Acid (Sepsis) 1.1 mmol/L (0.5-2.2) 04/28/24 21:35 Calcium 8.3 mg/dL (8.5-10.5) L 05/04/24 04:17 Phosphorus 3.8 mg/dL (2.5-4.5) 04/30/24 03:34 Magnesium 2.1 mg/dL (1.7-2.3) 04/30/24 03:34 Total Bilirubin 0.4 mg/dL (0.15-1.2) 05/04/24 04:17 AST 23 U/L (0-32) 05/04/24 04:17 ALT < 5 U/L (0-33) 05/04/24 04:17 Alkaline Phosphatase 60 U/L (35-105) 05/04/24 04:17 C-Reactive Protein 7.9 mg/L (0.0-4.9) H 04/28/24 17:29 Total Protein 6.9 g/dL (6.6-8.7) 05/04/24 04:17 Albumin 3.0 g/dL (3.5-5.2) L 05/04/24 04:17 Globulin 3.9 g/dL (1.3-4.6) 05/04/24 04:17 Procalcitonin 0.10 ng/mL (0-0.5) 04/28/24 17:29 Urine Color Yellow (Yellow) 04/28/24 23: Urine Appearance Clear (CLEAR) 04/28/24 23: Urine pH 6.0 (5-7) 04/28/24 23: Ur Specific [place] 1.019 (1.005-1.030) 04/28/24 23: Urine Protein Negative (Negative) 04/28/24 23: Urine Glucose (UA) Negative (Normal) 04/28/24 23: Urine Ketones Negative (Negative) 04/28/24 23: Urine Blood Negative (Negative) 04/28/24 23: Urine Nitrate Negative (Negative) 04/28/24 23: Urine Bilirubin Negative (Negative) 04/28/24 23: Urine Urobilinogen 0.2 mg/dL (Negative) 04/28/24 23: Ur Leukocyte Esterase 1+ (Negative) A 04/28/24 23:28 Urine RBC 0-4 /hpf (0-2) H 04/28/24 23:28 Urine WBC 5-10 /hpf (0-5) H 04/28/24 23:28 Ur Squamous Epith Cells 0-4 /hpf (0-5) H 04/28/24 23:28 Amorphous Sediment Not Reportable 04/28/24 23: Urine Bacteria Trace /hpf (NONE) 04/28/24 23: Vancomycin Trough 11.2 ug/mL (10-15) 05/03/24 04:20 Radiology Impressions Lumbar Spine MRI 04/29/24 11:00 IMPRESSION: MRI confirms L2-L3 discitis and osteomyelitis prominent paravertebral, and epidural phlegmon as discussed. Knee X-Ray 04/29/24 15:06 IMPRESSION: Stable appearance of right total knee arthroplasty with femoral intramedullary nail and screw fixation without evidence of hardware abnormality. Chest X-Ray 05/04/24 11:56 Impression: Atherosclerosis. Recent Clincial Data Last Vital Signs Temp 98.3 F 05/04/24 11:33 Pulse 85 05/04/24 11:33 Resp 16 05/04/24 11:33 BP 118/79 05/04/24 11:33 Pulse Ox 92 05/04/24 11:33 O2 Del Method Nasal Cannula 05/04/24 11:33 Vital Signs Temp Pulse Resp BP Pulse Ox O2 Del Method 05/04/24 11:33 98.3 F 85 16 118/79 92 Nasal Cannula 05/04/24 08:00 98.2 F 93 16 131/82 91 Room Air 05/04/24 06:32 89 05/04/24 04:13 98.7 F 106 H 18 130/80 90 Room Air Intake & Output/Weight 05/02/24 05/03/24 05/04/24 05/05/24 06:59 06:59 06:59 06:59 Intake Total 1820 / 1820 730 / 730 1410 / 1410 240 / 240 Balance 1820 / 1820 730 / 730 1410 / 1410 240 / 240 Weight 69.4 kg 69.4 kg 69.264 kg Vitals Last Vital Signs Temp 98.3 F 05/04/24 11:33 Pulse 85 05/04/24 11:33 Resp 16 05/04/24 11:33 BP 118/79 05/04/24 11:33 Pulse Ox 92 05/04/24 11:33 O2 Del Method Nasal Cannula 05/04/24 11:33 TS Medications Medications Acetaminophen (Acetaminophen 325 Mg Tablet) 650 mg PO Q6H PRN PRN Reason: Mild/Mod Pain Or Temp >/= 101 Last Admin: 05/03/24 01:33 Dose: 650 mg Hydrocodone Bitart/Acetaminophen (Hydrocodone-Acetaminophen 5-325 Mg Tablet) 0.5 tab PO Q6H PRN PRN Reason: MODERATE PAIN Last Admin: 05/04/24 08:52 Dose: 0.5 tab Amlodipine Besylate (Amlodipine 5 Mg Tablet) 5 mg PO DAILY SAVANA Last Admin: 05/04/24 08:52 Dose: 5 mg Atorvastatin Calcium (Atorvastatin 40 Mg Tablet) 40 mg PO BEDTIME SAVANA Last Admin: 05/03/24 21:04 Dose: 40 mg Ceftriaxone Sodium (Ceftriaxone 1,000 Mg Sdv) 1,000 mg IVP Q24H [facility]; Protocol Last Admin: 05/04/24 08:53 Dose: 1,000 mg Enoxaparin Sodium (Enoxaparin 40 Mg/0.4 Ml Syringe) 40 mg SUBCUT Q24H [facility] Last Admin: 05/03/24 17:35 Dose: 40 mg Gabapentin (Gabapentin 300 Mg Capsule) 300 mg PO TID [facility] Last Admin: 05/04/24 08:52 Dose: 300 mg Glucagon (Glucagon 1 Mg/Ml Kit 1 Ml) 1 mg IM ONCE PRN; Protocol PRN Reason: Adult Acute Hypoglycemia Nursing Prot. Hydrochlorothiazide (Hydrochlorothiazide 25 Mg Tablet) 12.5 mg PO DAILY [facility] Last Admin: 05/04/24 08:53 Dose: 12.5 mg Dextrose (D5w) 500 mls @ 0 mls/hr IV ONCE PRN; Protocol PRN Reason: Adult Acute Hypoglycemia Prot Dextrose (D10w) 125 mls @ 750 mls/hr IV PRN PRN; Protocol PRN Reason: Adult Acute Hypoglycemia Nursing Protocol Dextrose (D10w) 250 mls @ 1,000 mls/hr IV PRN PRN; Protocol PRN Reason: Adult Acute Hypoglycemia Nursing Protocol Vancomycin HCl 1,000 mg/ (Sodium Chloride) 250 mls @ 250 mls/hr IV Q12H [facility] Last Infusion: 05/04/24 05:24 Dose: Infused Insulin Human Lispro (Insulin Lispro 100 Unit/1 Ml) 0 unit SUBCUT TIDWM [facility]; Protocol Last Admin: 05/04/24 12:43 Dose: 2 unit Metoprolol Succinate (Metoprolol Succinate Er (24 Hr) 50 Mg Tablet) 50 mg PO DAILY [facility] Last Admin: 05/04/24 08:52 Dose: 50 mg Ondansetron HCl (Ondansetron 2 Mg/Ml Sdv 2 Ml) 4 mg IVP Q8H PRN PRN Reason: vomiting, or N/V if npo Pantoprazole Sodium (Pantoprazole 40 Mg Sdv) 40 mg IVP Q24H [facility] Last Admin: 05/03/24 17:35 Dose: 40 mg Venlafaxine HCl (Venlafaxine Er (24hr) 37.5 Mg Capsule) 37.5 mg PO DAILY [facility] Last Admin: 05/04/24 08:52 Dose: 37.5 mg Zolpidem Tartrate (Zolpidem 5 Mg Tablet) 5 mg PO BEDTIME PRN PRN Reason: INSOMNIA Last Admin: 05/03/24 21:04 Dose: 5 mg Discontinued Medications Gadobenate Dimeglumine (Gadobenate Dimeglumine 20 Ml Vial) 0 ml IV ONCE ONE Stop: 04/29/24 11:49 Last Admin: 04/29/24 11:48 Dose: 16 ml Sodium Chloride (Sodium Chloride 0.9%) 1,000 mls @ 50 mls/hr IV .Q20H [facility] Last Infusion: 04/30/24 17:50 Dose: Infused Vancomycin HCl / Sodium (Chloride) 250 mls @ 0 mls/hr [id number] PROTOCOL [facility]AVANA; Protocol Piperacillin Sod/Tazobactam (Sod / Sodium Chloride) 50 mls @ 0 mls/hr [id number] CONT [facility]; Protocol Piperacillin Sod/Tazobactam (Sod 3.375 gm/ Sodium Chloride) 50 mls @ 12.5 mls/hr IV Q8H [facility] Last Infusion: 04/30/24 15:06 Dose: Infused Vancomycin HCl (Vancocin) 2,000 mg in 400 mls @ 200 mls/hr IV ONCE ONE Stop: 04/28/24 20:59 Last Infusion: 04/28/24 22:50 Dose: Infused Vancomycin HCl 1,000 mg/ (Sodium Chloride) 250 mls @ 250 mls/hr IV Q8H [facility] Last Infusion: 04/29/24 05:35 Dose: Infused Vancomycin HCl 750 mg/ Sodium (Chloride) 250 mls @ 250 mls/hr IV Q12H [facility] Last Infusion: 05/03/24 10:24 Dose: Infused Morphine Sulfate (Morphine 4 Mg/Ml Sdv 1 Ml) 2 mg IVP Q4H PRN PRN Reason: SEVERE PAIN Zolpidem Tartrate (Zolpidem 5 Mg Tablet) 5 mg PO BEDTIME PRN PRN Reason: INSOMNIA Last Admin: 05/02/24 21:10 Dose: 5 mg Allergies lisinopril Allergy (Unknown, Verified 04/25/24 08:33) unknown sulfabenzamide Allergy (Unknown, Verified 04/25/24 08:33) unknown apremilast (From Otezla) Allergy (Verified 04/25/24 08:33) cough Sulfa (Sulfonamide Antibiotics) Allergy (Verified 04/25/24 08:33) Unknown Home Medications albuterol sulfate 90 mcg/actuation aerosol inhaler 2 puff inhalation 6XD PRN Shortness Of Breath #8.5 grams 04/08/22 [Rx Confirmed 04/29/24] alendronate 70 mg tablet 70 mg PO Q7D #12 tabs 05/06/23 [Rx Confirmed 04/30/24] gabapentin 300 mg capsule 300 mg PO TID #270 caps 05/06/23 [Rx Confirmed 04/29/24] metoprolol succinate 50 mg tablet,extended release 24 hr 50 mg PO DAILY #90 tabs 05/06/23 [Rx Confirmed 04/29/24] rosuvastatin 20 mg tablet 20 mg PO BEDTIME #90 tabs 05/06/23 [Rx Confirmed 04/29/24] venlafaxine 37.5 mg capsule,extended release 24 hr (Effexor XR) 37.5 mg PO DAILY #90 caps 05/06/23 [Rx Confirmed 04/29/24] montelukast 10 mg tablet 10 mg PO DAILY #90 tabs 07/01/23 [Rx Confirmed 04/29/24] glipizide 5 mg tablet, extended release 24 hr 5 mg PO BID #180 tabs 10/26/23 [Rx Confirmed 04/29/24] sitagliptin phosphate 25 mg tablet (Januvia) 25 mg PO DAILY #30 tabs 02/24/24 [Rx Confirmed 04/29/24] diclofenac sodium 1 % topical gel (Voltaren Arthritis Pain) 2 g topical QID #100 grams 02/28/24 [Rx Confirmed 04/29/24] diclofenac sodium 100 mg tablet,extended release 24 hr 100 mg PO BID PRN pain (scale score 7-10) #30 tabs 03/13/24 [Rx Confirmed 04/29/24] amlodipine 5 mg tablet 5 mg PO DAILY #90 tabs 03/14/24 [Rx Confirmed 04/29/24] pantoprazole 40 mg tablet,delayed release 40 mg PO DAILY #90 tabs 03/14/24 [Rx Confirmed 04/29/24] cholecalciferol (vitamin D3) 50 mcg (2,000 unit) capsule 50 mcg PO DAILY #30 caps 04/27/24 [Rx Confirmed 04/29/24] hydrocodone 5 mg-acetaminophen 325 mg tablet 0.5 tab PO Q6H PRN Moderate Pain 7 days #14 tabs 05/04/24 [Rx] Discharge Plan Discharge Patient Disposition: Xfer SNF Condition: Stable Prescriptions: New hydrocodone-acetaminophen 5-325 mg Tablet 0.5 tab PO Q6H PRN (Reason: Moderate Pain) 7 Days Qty: 14 0RF hydrochlorothiazide 25 mg Tablet 12.5 mg PO DAILY 30 Days Qty: 30 0RF insulin lispro [Humalog U-100 Insulin] 100 unit/mL Solution See Rx Instructions .ROUTE .COMPLEX Qty: 10 0RF Rx Instructions: Inject, subcut, 3 times daily, after meals, based on low-dose insulin sliding scale Continued albuterol sulfate 90 mcg/actuation HFA aerosol inhaler 2 puff INHALATION 6XD PRN (Reason: Shortness Of Breath) Qty: 8.5 6RF alendronate 70 mg tablet 70 mg PO Q7D Qty: 12 4RF gabapentin 300 mg capsule 300 mg PO TID Qty: 270 3RF metoprolol succinate 50 mg tablet extended release 24 hr 50 mg PO DAILY Qty: 90 3RF rosuvastatin 20 mg tablet 20 mg PO BEDTIME Qty: 90 3RF venlafaxine [Effexor XR] 37.5 mg capsule,extended release 24hr 37.5 mg PO DAILY Qty: 90 3RF montelukast 10 mg tablet 10 mg PO DAILY Qty: 90 3RF Januvia 25 mg tablet 25 mg PO DAILY Qty: 30 6RF pantoprazole 40 mg tablet,delayed release (DR/EC) 40 mg PO DAILY Qty: 90 3RF amlodipine 5 mg tablet 5 mg PO DAILY Qty: 90 3RF cholecalciferol (vitamin D3) 50 mcg (2,000 unit) capsule 50 mcg PO DAILY Qty: 30 6RF Discontinued glipizide 5 mg tablet extended release 24hr 5 mg PO BID Qty: 180 3RF Rx Instructions: TAKE 1 TABLET BY MOUTH TWICE DAILY diclofenac sodium [Voltaren Arthritis Pain] 1 % gel 2 g topical QID Qty: 100 2RF Rx Instructions: apply to low back - Do not use in conjunction with diclofenac pill diclofenac sodium 100 mg tablet extended release 24 hr 100 mg PO BID PRN (Reason: pain (scale score 7-10)) Qty: 30 1RF Discharge Orders: Discharge Order (Routine); Ordered 05/04/24 Ordered By: Cholo Villalba Referrals: [facility], [place] [Outside] Cristian Dumont DO [Physician] - 2 weeks Lea Argueta MD [Hospitalist] - 05/16/24 9:30 am Raleigh Carcamo MD [Primary Care Provider] - 7-10 days Discharge Diet: Cardiac Discharge Activity: Resume usual activity Patient Instructions: Opioid Safety Activity Restrictions/Additional Instructions: - Vancomycin 1 g IV every 12 hours for a total of 6 weeks, stop date 06/10/2024 -Weekly CBC, CRP, creatinine, LFT, Vanco trough weekly -Rocephin 1 g IV every 24 hours, for total of 6 weeks, stop date 06/10/2024 -Dr. Argueta will follow -Please follow-up with Dr. Dumont -Follow-up with Dr. Carcamo Coding Level of Care Code Acute Code for Chg Fwd Diagnoses Vertebral osteomyelitis, acute M46.20 Discitis of lumbar region M46.46 Spinal region: lumbar Acute low back pain M54.50
--- NOTE | 2024-05-04 13:34 | PM.DCS ---
Discharge Providers Date of Admission: 04/28/24 16:37 Date of Discharge: May 04, 2024 Attending Provider at Admission: Cholo Villalba MD Attending Provider at Discharge: Cholo Villalba MD Primary Care Provider: Raleigh Carcamo MD Diagnoses at Discharge Discharge Diagnosis (1) Vertebral osteomyelitis, acute: Status: Acute (2) Discitis: Status: Acute Qualifiers: Spinal region: lumbar Qualified Code(s): M46.46 - Discitis, unspecified, lumbar region (3) Acute low back pain: Status: Acute Reason for Visit Reason for Visit: 267-1 Hospital Course Hospital Course Corinna Lance is a 74 year old female with a past medical history of rheumatoid arthritis on Renflexis, type 2 diabetes, who presents [facility] due to back pain, left-sided sciatica. Patient tells me that for the last 2 months she has had back pain, back pain with range of motion, with pain rating down the left side of her back, she has been feeling well for the last 2 months, no fevers, no chills, but does have fatigue, malaise, she did have a fall about a month ago carrying her dog, no urinary continence, no bowel incontinence no saddle paresthesia Acute low back pain -With evidence of L2-L3 discitis and osteomyelitis prominent paravertebral and epidural phlegmon CT lumbar spine without contrast CT/CT lumbar spine wo con* [id number] IMPRESSION: 1. Severe destructive changes involving the L2-3 disc with paravertebral soft tissue inflammatory changes. Sclerotic and lytic changes with osseous destruction involving the adjacent endplates of L2 and L3. Findings are highly suspicious for osteomyelitis and discitis. Recommend follow-up MRI lumbar spine with and without gadolinium. 2. L2-3: Moderate central, bilateral subarticular recess and foraminal stenosis, LEFT greater than RIGHT. 3. Mild bilateral foraminal stenosis at L3-4, L4-5 and L5-S1 -Immunocompromised on Renflexis MRI lumbar spine FINDINGS: Bones/joints: Vertebral body heights are maintained. There is disc desiccation. There are L1 and L5 vertebral hemangiomas. Depending on level, there are various degrees of disc bulges, facet degenerative changes, thickening of ligamentum flavum, and marginal osteophyte formation. Spinal cord: Conus terminates at T12-L1 and appears normal in signal intensity without intrinsic or extrinsic lesion. T12-L1: There is no significant spinal stenosis. There is no significant neural foraminal narrowing. L1-L2: There is no significant spinal stenosis. There is incomplete effacement of fat in left neural foramen and this shows contrast enhancement and is consistent with superior extension of epidural phlegmon. There is no significant right neural foraminal narrowing. L2-L3: There is disc height loss, disc edema and enhancement, and edema and enhancement nearly involving the L2 and L3 vertebral bodies and extending into bilateral pedicles. There are endplate erosive changes. Findings are consistent with discitis and osteomyelitis. There is circumferential inflammatory changes and phlegmon around the vertebral bodies extending into the psoas muscles without drainable abscess at this time. This inflammatory change/phlegmon also extends into the spinal canal circumferentially surrounding the thecal sac with severe thecal sac narrowing and this extends into the L2 and L3 neural foramen. L3-L4: Degenerative changes. There is moderate spinal stenosis. There is mild left and slightly greater right neural foraminal narrowing. L4-L5: There is mild spinal stenosis. There is mild right greater than left neural foraminal narrowing. L5-S1: There is no significant spinal stenosis. There is no significant neural foraminal narrowing. Soft tissues: See above. -Sed rate 55 -Patient was admitted to [facility], received IV antibiotics, orthopedic service was consulted, overall clinically proved to remain afebrile blood cultures so far unremarkable PICC line placed -Will need 6 weeks of IV [id number], Rocephin 1 g every 24 hours, PICC line to be placed -cbc, cmp, vanc trough weekly -Follow-up with Dr. Argueta Physical Exam Const: COMMON NORMALS: no acute distress and patient oriented x3 Resp: COMMON NORMALS: normal respiratory effort, No retractions, No use of accessory muscles and clear to auscultation bilaterally AUSCULTATION: clear to auscultation bilaterally Cardio: COMMON NORMALS: regular rate, regular rhythm, S1 normal heart sound present and S2 normal heart sound present RATE: regular rate RHYTHM: regular rhythm HEART SOUNDS: S1 normal heart sound present and S2 normal heart sound present GI: COMMON NORMALS: Normal to inspection, nondistended, normoactive bowel sounds present and non-tender Extremity: COMMON NORMALS: no pedal edema Neuro: COMMON NORMALS: patient oriented x3 Psych: COMMON NORMALS: mental status grossly normal Discharge Data Studies Completed and Pending Completed Studies During Hospitalization Category Date Time Status CXRP [XR chest 1V portable [id number]] Routine Exams 05/01/24 14:19 Completed XR chest 1V portable [id number] Stat Exams 05/04/24 11:56 Completed XR knee RT 1-2V [id number] Routine Exams 04/29/24 15:06 Completed MR lumbar spine wo/w con [id number] Routine MRI 04/29/24 11:00 Completed Pending at discharge Category Date Time Status SARS Covid-2 Antigen Routine Lab 05/04/24 12:44 Received Vancomycin Trough Timed Lab 05/05/24 04:00 Ordered Radiology Impressions Lumbar Spine MRI 04/29/24 11:00 IMPRESSION: MRI confirms L2-L3 discitis and osteomyelitis prominent paravertebral, and epidural phlegmon as discussed. Knee X-Ray 04/29/24 15:06 IMPRESSION: Stable appearance of right total knee arthroplasty with femoral intramedullary nail and screw fixation without evidence of hardware abnormality. Chest X-Ray 05/04/24 11:56 Impression: Atherosclerosis. Laboratory Results WBC 3.92 10^3/uL (3.29-11.43) 05/04/24 04:17 RBC 3.31 10^6/uL (3.85-5.65) L 05/04/24 04:17 Hgb 9.50 g/dL (11.27-16.99) L 05/04/24 04:17 Hct 30.4 % (36-47) L 05/04/24 04:17 MCV 91.8 fl (85-98) 05/04/24 04:17 MCH 28.7 pg (27-33) 05/04/24 04:17 MCHC 31.3 g/dL (30-55) 05/04/24 04:17 RDW 14.6 % (12.1-15.1) 05/04/24 04:17 Plt Count 143 10^3/cmm (157-399) L 05/04/24 04:17 MPV 9.4 fL (7.4-10.4) 05/04/24 04:17 Neut % (Auto) 48.4 % 05/04/24 04:17 Lymph % (Auto) 32.7 % 05/04/24 04:17 Story % (Auto) 13.0 % 05/04/24 04:17 Eos % (Auto) 5.1 % 05/04/24 04:17 Baso % (Auto) 0.5 % 05/04/24 04:17 Neut # (Auto) 1.90 10^3/uL (1.8-7.7) 05/04/24 04:17 Lymph # (Auto) 1.3 10^3/uL (0.8-4.8) 05/04/24 04:17 Story # (Auto) 0.5 10^3/uL (0.2-0.9) 05/04/24 04:17 Eos # (Auto) 0.2 10^3/uL (0.0-0.8) 05/04/24 04:17 Baso # (Auto) 0.0 10^3/uL (0.0-0.1) 05/04/24 04:17 Nucleated RBC % (auto) 0 % 05/04/24 04:17 Total Counted 100 (0-100) 04/28/24 17:29 Atypical Lymphs % 1.0 % (0-5) 04/28/24 17: Absolute Neutrophils 2.8 10^3/cmm (1.4-6.5) 04/28/24 17:29 Segmented Neutrophils 56 % 04/28/24 17: Band Neutrophils 0.0 % 04/28/24 17: Absolute Lymphocytes 1.7 10^3/cmm (1.2-3.4) 04/28/24 17:29 Lymphocytes (Manual) 33 % 04/28/24 17: Monocytes (Manual) 5.0 % 04/28/24 17: Absolute Monocytes 0.3 10^3/cmm (0.1-0.6) 04/28/24 17: Eosinophils (Manual) 5 % 04/28/24 17: Absolute Eosinophils 0.3 10^3/cmm (0.0-0.7) 04/28/24 17: Basophils (Manual) 0.0 % 04/28/24 17: Absolute Basophils 0.0 10^3/cmm (0.0-0.2) 04/28/24 17: Nucleated RBCs # 0.0 /100WBC 05/04/24 04:17 Platelet Estimate Normal (Normal) 04/28/24 17:29 ESR 59 mm/hr (0-15) H 04/28/24 17:29 Sodium 139 mmol/L (136-145) 05/04/24 04:17 Potassium 3.6 mmol/L (3.5-5.1) 05/04/24 04:17 Chloride 102 mmol/L (98-107) 05/04/24 04:17 Carbon Dioxide 27 mmol/L (22-29) 05/04/24 04:17 Anion Gap 13.6 (5-19) 05/04/24 04:17 BUN 9 mg/dL (8-23) 05/04/24 04:17 Creatinine 0.5 mg/dL (0.5-0.9) 05/04/24 04:17 GFR Calculation Not Reportable 05/04/24 04:17 Glucose 129 mg/dL (65-115) H 05/04/24 04:17 POC Glucose 161 mg/dL (70-110) H 05/04/24 11:08 Calculated Osmolality 288 mOsm/kg (285-295) 05/04/24 04:17 Lactic Acid 2.4 mmol/L (0.5-2.2) H 04/28/24 17:29 Lactic Acid (Sepsis) 1.1 mmol/L (0.5-2.2) 04/28/24 21:35 Calcium 8.3 mg/dL (8.5-10.5) L 05/04/24 04:17 Phosphorus 3.8 mg/dL (2.5-4.5) 04/30/24 03:34 Magnesium 2.1 mg/dL (1.7-2.3) 04/30/24 03:34 Total Bilirubin 0.4 mg/dL (0.15-1.2) 05/04/24 04:17 AST 23 U/L (0-32) 05/04/24 04:17 ALT < 5 U/L (0-33) 05/04/24 04:17 Alkaline Phosphatase 60 U/L (35-105) 05/04/24 04:17 C-Reactive Protein 7.9 mg/L (0.0-4.9) H 04/28/24 17:29 Total Protein 6.9 g/dL (6.6-8.7) 05/04/24 04:17 Albumin 3.0 g/dL (3.5-5.2) L 05/04/24 04:17 Globulin 3.9 g/dL (1.3-4.6) 05/04/24 04:17 Procalcitonin 0.10 ng/mL (0-0.5) 04/28/24 17:29 Urine Color Yellow (Yellow) 04/28/24 23:28 Urine Appearance Clear (CLEAR) 04/28/24 23: Urine pH 6.0 (5-7) 04/28/24 23: Ur Specific [place] 1.019 (1.005-1.030) 04/28/24 23: Urine Protein Negative (Negative) 04/28/24 23: Urine Glucose (UA) Negative (Normal) 04/28/24 23: Urine Ketones Negative (Negative) 04/28/24 23: Urine Blood Negative (Negative) 04/28/24 23: Urine Nitrate Negative (Negative) 04/28/24 23: Urine Bilirubin Negative (Negative) 04/28/24 23:28 Urine Urobilinogen 0.2 mg/dL (Negative) 04/28/24 23:28 Ur Leukocyte Esterase 1+ (Negative) A 04/28/24 23:28 Urine RBC 0-4 /hpf (0-2) H 04/28/24 23:28 Urine WBC 5-10 /hpf (0-5) H 04/28/24 23:28 Ur Squamous Epith Cells 0-4 /hpf (0-5) H 04/28/24 23:28 Amorphous Sediment Not Reportable 04/28/24 23:28 Urine Bacteria Trace /hpf (NONE) 04/28/24 23:28 Vancomycin Trough 11.2 ug/mL (10-15) 05/03/24 04:20 Vitals Last Vital Signs Temp 98.3 F 05/04/24 11:33 Pulse 85 05/04/24 11:33 Resp 16 05/04/24 11:33 BP 118/79 05/04/24 11:33 Pulse Ox 92 05/04/24 11:33 O2 Del Method Nasal Cannula 05/04/24 11:33 Discharge Plan Discharge Patient Disposition: Xfer SNF Condition: Stable Prescriptions: New hydrocodone-acetaminophen 5-325 mg Tablet 0.5 tab PO Q6H PRN (Reason: Moderate Pain) 7 Days Qty: 14 0RF hydrochlorothiazide 25 mg Tablet 12.5 mg PO DAILY 30 Days Qty: 30 0RF insulin lispro [Humalog U-100 Insulin] 100 unit/mL Solution See Rx Instructions .ROUTE .COMPLEX Qty: 10 0RF Rx Instructions: Inject, subcut, 3 times daily, after meals, based on low-dose insulin sliding scale Continued albuterol sulfate 90 mcg/actuation HFA aerosol inhaler 2 puff INHALATION 6XD PRN (Reason: Shortness Of Breath) Qty: 8.5 6RF alendronate 70 mg tablet 70 mg PO Q7D Qty: 12 4RF gabapentin 300 mg capsule 300 mg PO TID Qty: 270 3RF metoprolol succinate 50 mg tablet extended release 24 hr 50 mg PO DAILY Qty: 90 3RF rosuvastatin 20 mg tablet 20 mg PO BEDTIME Qty: 90 3RF venlafaxine [Effexor XR] 37.5 mg capsule,extended release 24hr 37.5 mg PO DAILY Qty: 90 3RF montelukast 10 mg tablet 10 mg PO DAILY Qty: 90 3RF Januvia 25 mg tablet 25 mg PO DAILY Qty: 30 6RF pantoprazole 40 mg tablet,delayed release (DR/EC) 40 mg PO DAILY Qty: 90 3RF amlodipine 5 mg tablet 5 mg PO DAILY Qty: 90 3RF cholecalciferol (vitamin D3) 50 mcg (2,000 unit) capsule 50 mcg PO DAILY Qty: 30 6RF Discontinued glipizide 5 mg tablet extended release 24hr 5 mg PO BID Qty: 180 3RF Rx Instructions: TAKE 1 TABLET BY MOUTH TWICE DAILY diclofenac sodium [Voltaren Arthritis Pain] 1 % gel 2 g topical QID Qty: 100 2RF Rx Instructions: apply to low back - Do not use in conjunction with diclofenac pill diclofenac sodium 100 mg tablet extended release 24 hr 100 mg PO BID PRN (Reason: pain (scale score 7-10)) Qty: 30 1RF Discharge Orders: Discharge Order (Routine); Ordered 05/04/24 Ordered By: Cholo Villalba Referrals: [facility] [Outside] Cristian Dumont DO [Physician] - 2 weeks (We have notified your physician's clinic of the need for a follow-up appointment to be scheduled. If you have not heard from them within the next 2 business days, please call them directly. ) Lea Argueta MD [Hospitalist] - 05/16/24 9:30 am Raleigh Carcamo MD [Primary Care Provider] - 7-10 days Discharge Diet: Cardiac Discharge Activity: Resume usual activity Patient Instructions: Hydrochlorothiazide (By mouth), Hydrocodone/Acetaminophen (By mouth), PICC (Peripherally Inserted Central Catheter) (GEN), Opioid Safety Activity Restrictions/Additional Instructions: - Vancomycin 1 g IV every 12 hours for a total of 6 weeks, stop date 06/10/2024 -Weekly CBC, CRP, creatinine, LFT, Vanco trough weekly -Rocephin 1 g IV every 24 hours, for total of 6 weeks, stop date 06/10/2024 -Dr. Argueta will follow -Please follow-up with Dr. Dumont -Follow-up with Dr. Carcamo -Please monitor your blood sugars closely -Monitor your blood sugars 3 times daily as after meals -Please record your blood sugars, and a blood sugar log -For your NovoLog -Please inject blood sugar after meals based on sliding scale provided -Do not inject insulin if you do not eat as hypoglycemia kills -This is a NovoLog sliding scale -Insulin sliding ?fingerstick? Insulin ?141-180?0 units/sq 181-220?2 units/sq ?221-260?4 units/sq ?261-300 6 units/sq ?301-350?8 units/sq ?351-400 10 units/sq ?401-450?12 units/sq >450? 14units/sq -If your blood sugar is greater than 500 go to the emergency room -If your blood sugar is less than 60 or at anytime you feel lightheaded or dizzy or diaphoretic or have chest palpitations check your blood sugar, and eat a hard candy or drink orange juice and go immediately to the emergency room -Remember hypoglycemia kills, so if his blood sugar is less than 60 we have to increase it by taking in a sugary meal such as a hard candy or orange juice and go to the emergency room -If you have any questions please call us where here to help Discharge Attestations Time Spent in Discharge Care*: greater than 30 min Quality Metrics Clinical Quality Measures [ No reported AMI, CVA or VTE this stay] Coding Level of Care Code 46812 Total time (in minutes) for Discharge: 45 Diagnoses Vertebral osteomyelitis, acute M46.20 Discitis of lumbar region M46.46 Spinal region: lumbar Acute low back pain M54.50
[2024-05-04 13:56] LABS: SARS Covid-2 Antigen Negative (Negative)
== END 2024-05-04 14:20 | disposition skilled nursing facility (03) | DRG 539 ==
PROVIDERS: Admitting Provider Family Medicine; PCP Family Medicine; Visit Provider Family Medicine
DX: M46.26 Osteomyelitis of vertebra, lumbar region (principal); G06.1 Intraspinal abscess and granuloma; D84.821 Immunodeficiency due to drugs; M46.46 Discitis, unspecified, lumbar region; M05.79 Rheumatoid arthritis with rheumatoid factor of multiple sites without organ or systems involvement; J44.9 Chronic obstructive pulmonary disease, unspecified; E03.9 Hypothyroidism, unspecified; I10 Essential (primary) hypertension; M81.0 Age-related osteoporosis without current pathological fracture; E11.42 Type 2 diabetes mellitus with diabetic polyneuropathy; K21.9 Gastro-esophageal reflux disease without esophagitis; F32.A Depression, unspecified; L40.9 Psoriasis, unspecified; E83.110 Hereditary hemochromatosis; Z66 Do not resuscitate; Z96.651 Presence of right artificial knee joint; I25.10 Atherosclerotic heart disease of native coronary artery without angina pectoris; Z86.16 Personal history of COVID-19; Z86.711 Personal history of pulmonary embolism; Z90.49 Acquired absence of other specified parts of digestive tract; Z90.710 Acquired absence of both cervix and uterus; Z11.52 Encounter for screening for COVID-19; Z79.899 Other long term (current) drug therapy; Z79.620 Long term (current) use of immunosuppressive biologic; Z91.81 History of falling; Z79.84 Long term (current) use of oral hypoglycemic drugs; Z88.8 Allergy status to other drugs, medicaments and biological substances; Z88.2 Allergy status to sulfonamides
CPT/HCPCS: 36415; 36416; 36573; 36592; 71045; 72131; 72158; 73560; 80053; 80202; 81001; 82962; 83605; 83735; 84100; 84145; 85007; 85025; 85027; 85651; 86140; 87040; 87426; 94664; 96372; 97161; 97165; J0696; J1650; J1815; J2470; J2543; J3370; J3372; J7030; J7050

== ENCOUNTER → 2024-05-11 14:51 | Outpatient (BNVA) | payer MEDICARE, MEDICAID, SELFPAY | PROVIDERS: PCP Family Medicine; Visit Provider Orthopaedic Surgery | DX: M54.16 Radiculopathy, lumbar region (principal); M86.9 Osteomyelitis, unspecified | CPT/HCPCS: 72110; 99213 ==

== ENCOUNTER → 2024-05-16 09:13 | Outpatient (BNVA) | payer MEDICARE, MEDICAID, SELFPAY | PROVIDERS: PCP Family Medicine; Visit Provider Student in an Organized Health Care Education/Training Program | DX: M86.9 Osteomyelitis, unspecified (principal); M54.16 Radiculopathy, lumbar region | CPT/HCPCS: 99205 ==

== ENCOUNTER 2024-06-08 10:36 | Outpatient (CLI) | payer MEDICARE, MEDICAID, SELFPAY | END 2024-06-08 10:37 | disposition home or self-care (01) | PROVIDERS: PCP Family Medicine; Visit Provider Family Medicine | DX: M05.79 Rheumatoid arthritis with rheumatoid factor of multiple sites without organ or systems involvement (principal); Z71.85 Encounter for immunization safety counseling; Z79.899 Other long term (current) drug therapy | CPT/HCPCS: 99213; 99214 ==

== ENCOUNTER 2024-06-19 12:51 | Oncology outpatient (recurring) (ONCR) | payer MEDICARE, MEDICAID, SELFPAY ==
--- NOTE | 2024-06-19 13:00 | MR_ITS ---
WS: [id number] MRI LUMBAR SPINE WITH CONTRAST TECHNIQUE: Sagittal T1, T2 and STIR imaging. Axial T1 and T2 imaging. Post gadolinium imaging was obtained. CLINICAL INFORMATION: follow up discistis COMPARISON: 04/29/2024 FINDINGS: Again seen are findings of L2-3 discitis. Progressive loss of disc space height today with endplate erosive changes. Persistent surrounding paravertebral soft tissue edema and enhancement. No evidence of drainable abscess or fluid collection. Enhancement involving the L2 and L3 vertebral bodies has improved compared to previous. No evidence of progression. L1-L2: Mild annular bulging. Mild facet arthropathy. Mild LEFT foraminal narrowing. L2-L3: Findings of discitis as described above. Moderate facet arthropathy. Moderate central canal stenosis is unchanged. Moderate LEFT and mild RIGHT foraminal narrowing similar to previous. L3-L4: Slight anterolisthesis. Moderate to advanced facet arthropathy. Mild central canal stenosis. Mild RIGHT foraminal narrowing. L4-L5: Slight anterolisthesis. Mild disc bulging with slight narrowing of the RIGHT subarticular recess. Mild RIGHT foraminal narrowing. Moderate to advanced facet arthropathy. L5-S1: No significant disc bulging. Moderate facet arthropathy. Spinal canal and foramina are patent. MR/MR lumbar spine wo/w con [id number] IMPRESSION: Overall expected evolution of the L2-3 discitis 1. Persistent findings of discitis L2-3 described above with progressive loss of disc space height. Progressive erosion of the endplates. 2. Persistent enhancing paravertebral soft tissue with epidural enhancement. P reviously described phlegmon appears improved. No drainable abscess or drainabl e fluid collection. 3. No other significant changes.
[2024-06-19] MEDS: gadobenate dimeglumine 20 mL vial 14 ML IV (13:32)
== END 2024-07-05 23:59 | disposition home or self-care (01) ==
LOC: ONCMED 12:51 → RAD 12:52 → ONCMED 06-20 09:04
PROVIDERS: PCP Family Medicine; Visit Provider Student in an Organized Health Care Education/Training Program
DX: M46.26 Osteomyelitis of vertebra, lumbar region (principal)
CPT/HCPCS: 72158

== ENCOUNTER 2024-06-27 12:01 | Outpatient (CLI) | payer OTHER, SELFPAY ==
[2024-06-27 12:18] LABS: Basophils % 0.4 %; Eosinophils # 0.2 10^3/uL (0.0-0.8); Eosinophils % 2.9 %; Hematocrit 36.2 % (36-47); Lymphocytes # 1.2 10^3/uL (0.8-4.8); Lymphocytes % 21.2 %; Mean Corpuscular HGB Conc 31.5 g/dL (30-55); Mean Corpuscular Hemoglobin 27.9 pg (27-33); Mean Corpuscular Volume 88.7 fl (85-98); Mean Platelet Volume 8.5 fL (7.4-10.4); Monocytes # 0.5 10^3/uL (0.2-0.9); Monocytes % 8.4 %; Neutrophils # 3.67 10^3/uL (1.8-7.7); Neutrophils % 66.9 %; Nucleated Red Blood Cells % 0 %; Platelet Count 224 10^3/cmm (157-399); Red Blood Count 4.08 10^6/uL (3.85-5.65); Red Cell Distribution Width 15.8 % (12.1-15.1); White Blood Count 5.48 10^3/uL (3.29-11.43)
[2024-06-27 12:23] LABS: Erythrocyte Sedimentation Rate 27 mm/hr (0-15)
[2024-06-27 12:39] LABS: Alanine Aminotransferase 10 U/L (0-33); Albumin Level 3.8 g/dL (3.5-5.2); Alkaline Phosphatase 65 U/L (35-105); Anion Gap 14.1 (5-19); Aspartate Amino Transferase 14 U/L (0-32); Blood Urea Nitrogen 15 mg/dL (8-23); C Reactive Protein 5.4 mg/L (0.0-4.9); Calcium 9.5 mg/dL (8.5-10.5); Carbon Dioxide 25 mmol/L (22-29); Chloride 105 mmol/L (98-107); Globulin 4.3 g/dL (1.3-4.6); Glucose 171 mg/dL (65-115); Osmolality Calculated 295 mOsm/kg (285-295); Potassium 4.1 mmol/L (3.5-5.1); Sodium 140 mmol/L (136-145); Total Bilirubin 0.3 mg/dL (0.15-1.2); Total Protein 8.1 g/dL (6.6-8.7)
== END 2024-06-27 12:02 | disposition home or self-care (01) ==
PROVIDERS: PCP Family Medicine; Visit Provider Student in an Organized Health Care Education/Training Program
DX: M86.9 Osteomyelitis, unspecified (principal)
CPT/HCPCS: 36415; 80053; 85025; 85651; 86140; 99215

== ENCOUNTER → 2024-07-05 10:48 | Outpatient (BNVA) | payer OTHER, SELFPAY | PROVIDERS: PCP Family Medicine; Visit Provider Podiatrist Foot & Ankle Surgery | DX: E11.42 Type 2 diabetes mellitus with diabetic polyneuropathy (principal); L60.3 Nail dystrophy; L84 Corns and callosities; M19.071 Primary osteoarthritis, right ankle and foot; M19.072 Primary osteoarthritis, left ankle and foot; M21.41 Flat foot [pes planus] (acquired), right foot; M21.42 Flat foot [pes planus] (acquired), left foot; M20.21 Hallux rigidus, right foot; M20.22 Hallux rigidus, left foot; M06.9 Rheumatoid arthritis, unspecified | CPT/HCPCS: 11056; 11721 ==

== ENCOUNTER → 2024-08-30 10:31 | Outpatient (BNVA) | payer MEDICARE, MEDICAID, SELFPAY | PROVIDERS: PCP Family Medicine; Visit Provider Podiatrist Foot & Ankle Surgery | DX: E11.42 Type 2 diabetes mellitus with diabetic polyneuropathy (principal); L60.3 Nail dystrophy; L84 Corns and callosities; E11.8 Type 2 diabetes mellitus with unspecified complications; M19.071 Primary osteoarthritis, right ankle and foot; M19.072 Primary osteoarthritis, left ankle and foot; M21.41 Flat foot [pes planus] (acquired), right foot; M21.42 Flat foot [pes planus] (acquired), left foot; M20.21 Hallux rigidus, right foot; M20.22 Hallux rigidus, left foot; M06.9 Rheumatoid arthritis, unspecified | CPT/HCPCS: 11055; 11721 ==

== ENCOUNTER → 2024-09-05 12:17 | Outpatient (BNVA) | payer MEDICARE, MEDICAID, SELFPAY | PROVIDERS: PCP Family Medicine; Visit Provider Student in an Organized Health Care Education/Training Program | DX: Z09 Encounter for follow-up examination after completed treatment for conditions other than malignant neoplasm (principal) | CPT/HCPCS: 99213 ==

== ENCOUNTER → 2024-10-05 12:33 | Outpatient (BNVA) | payer MEDICARE, SELFPAY | PROVIDERS: PCP Family Medicine; Visit Provider Internal Medicine Rheumatology | DX: M05.79 Rheumatoid arthritis with rheumatoid factor of multiple sites without organ or systems involvement (principal); Z71.85 Encounter for immunization safety counseling; Z79.899 Other long term (current) drug therapy | CPT/HCPCS: 36415; 80076; 82306; 82565; 85025; 85651; 86140; 99214 ==

== ENCOUNTER → 2024-10-30 10:30 | Outpatient (BNVA) | payer OTHER, SELFPAY | PROVIDERS: PCP Family Medicine; Visit Provider Podiatrist Foot & Ankle Surgery | DX: E11.42 Type 2 diabetes mellitus with diabetic polyneuropathy (principal); L60.3 Nail dystrophy; L84 Corns and callosities; M19.071 Primary osteoarthritis, right ankle and foot; E11.8 Type 2 diabetes mellitus with unspecified complications; M19.072 Primary osteoarthritis, left ankle and foot; M21.41 Flat foot [pes planus] (acquired), right foot; M21.42 Flat foot [pes planus] (acquired), left foot; M20.21 Hallux rigidus, right foot; M20.22 Hallux rigidus, left foot; M06.9 Rheumatoid arthritis, unspecified | CPT/HCPCS: 11056; 11721; 99213 ==

== ENCOUNTER 2024-12-05 15:00 | Oncology outpatient (recurring) (ONCR) | payer OTHER, SELFPAY ==
--- NOTE | 2024-11-28 13:30 | CT_ITS ---
WS: [id number] CTA HEAD AND NECK TECHNIQUE: Contrast enhanced CTA of the head and neck with coronal and sagittal reformatted images and maximum intensity projection (MIP) images. NASCET criteria utilized. CLINICAL INFORMATION: TIA COMPARISON: None. DLP: 444.[address] scans at [facility] use at least one of these dose optimization techniques: automated exposure control; mA and/or kV adjustment per patient size (includes targeted exams where dose is matched to clinical indication); or iterative reconstruction. FINDINGS: RIGHT: No significant RIGHT ICA stenosis. LEFT: No significant LEFT ICA stenosis. LEFT dominant vertebral artery. Smaller but patent RIGHT vertebral artery. INTRACRANIAL CTA: Both ICAs are patent at the skull base. Cavernous carotid calcification. Small RIGHT A1 segment. Anterior communicating artery is patent. Normal vascularity to the LESLY and MCA territories bilaterally. No evidence of proximal flow-limiting stenosis. Proximal subclavian arteries are patent. Distal vertebral arteries are patent. Basilar artery is patent. Persistent RIGHT WIPING RAG WASHER. Normal vascularity to the WIPING RAG WASHER territory bilaterally. Noncalcified nodule RIGHT upper lobe lobe posterior medially measuring 6 mm. This could be followed up with chest CT. A few additional smaller subcentimeter nodules in the RIGHT upper lobe laterally CT/CT angio headneck* [id number] IMPRESSION: 1. No significant ICA stenosis. 2. No proximal flow-limiting intracranial stenosis. 3. Noncalcified nodule RIGHT upper lobe lobe posterior medially measuring 6 mm . This could be followed up with chest CT
--- NOTE | 2024-11-28 13:30 | CT_ITS ---
WS: [id number] CT HEAD TECHNIQUE: Noncontrast CT of the head obtained from the skullbase to the vertex. CLINICAL INFORMATION: TIA COMPARISON: 2021 DLP: 990.[address] scans at [facility] use at least one of these dose optimization techniques: automated exposure control; mA and/or kV adjustment per patient size (includes targeted exams where dose is matched to clinical indication); or iterative reconstruction. FINDINGS: No evidence of intracranial hemorrhage or mass effect. Ventricular system and basal cisterns are patent. Mild small vessel changes with mild parenchymal volume loss. No extra-axial fluid collections. Intracranial vascular calcification. Retention cyst RIGHT maxillary sinus measuring 8 mm. Mastoid air cells are well aerated. CT/CT head wo con* [id number] IMPRESSION: 1. No evidence of intracranial hemorrhage or mass effect. 2. Vascular calcification. 3. Mild small vessel changes with mild parenchymal volume loss. 4. Small retention cyst measuring 8 mm RIGHT maxillary sinus. Mastoid air cell s are well aerated. 5. No significant changes since 2021.
[2024-11-28 13:54] LABS: Hematocrit 38.8 % (36-47); Hemoglobin 12.60 g/dL (11.27-16.99); Mean Corpuscular HGB Conc 32.5 g/dL (30-55); Mean Corpuscular Hemoglobin 27.9 pg (27-33); Mean Corpuscular Volume 85.8 fl (85-98); Nucleated Red Blood Cells % 0 %; Platelet Count 187 10^3/cmm (157-399); Red Blood Count 4.52 10^6/uL (3.85-5.65); White Blood Count 5.89 10^3/uL (3.29-11.43)
[2024-11-28] MEDS: iohexol 350 mg/mL 500 mL Btl (per mL) IV (14:11)
[2024-11-28 14:21] LABS: Alanine Aminotransferase 16 U/L (0-33); Albumin Level 4.0 g/dL (3.5-5.2); Alkaline Phosphatase 74 U/L (35-105); Aspartate Amino Transferase 18 U/L (0-32); Globulin 4.0 g/dL (1.3-4.6); Total Protein 8.0 g/dL (6.6-8.7)
== END 2024-12-05 23:59 | disposition home or self-care (01) ==
LOC: RAD 12-06 00:01 → ONCMED 12-06 11:21
PROVIDERS: Absent Provider Internal Medicine Rheumatology; PCP Family Medicine; Visit Provider Student in an Organized Health Care Education/Training Program
DX: Z53.9 Procedure and treatment not carried out, unspecified reason (principal)
CPT/HCPCS: 70450; 70496; 70498; 80076; 82565; 85025; 85651; 86140

== ENCOUNTER 2025-02-26 11:07 | Outpatient (CLI) | payer MEDICARE, SELFPAY ==
[2025-02-26 11:50] LABS: Hematocrit 40.8 % (36-47); Hemoglobin 13.10 g/dL (11.27-16.99); Mean Corpuscular HGB Conc 32.1 g/dL (30-55); Mean Corpuscular Hemoglobin 27.9 pg (27-33); Mean Corpuscular Volume 86.8 fl (85-98); Nucleated Red Blood Cells % 0 %; Platelet Count 168 10^3/cmm (157-399); Red Blood Count 4.70 10^6/uL (3.85-5.65); White Blood Count 6.74 10^3/uL (3.29-11.43)
[2025-02-26 12:06] LABS: Alanine Aminotransferase 10 U/L (0-33); Albumin Level 3.8 g/dL (3.5-5.2); Alkaline Phosphatase 72 U/L (35-105); Aspartate Amino Transferase 21 U/L (0-32); Globulin 3.5 g/dL (1.3-4.6); Total Protein 7.3 g/dL (6.6-8.7)
== END 2025-02-26 11:08 | disposition home or self-care (01) ==
LOC: LAB 11:11
PROVIDERS: PCP Family Medicine; Visit Provider Internal Medicine Rheumatology
DX: M05.79 Rheumatoid arthritis with rheumatoid factor of multiple sites without organ or systems involvement (principal); Z79.899 Other long term (current) drug therapy
CPT/HCPCS: 80076; 82565; 85025; 85651; 86140

== ENCOUNTER → 2025-02-27 09:54 | Outpatient (BNVA) | payer MEDICARE, SELFPAY | PROVIDERS: PCP Family Medicine; Visit Provider Family Medicine | DX: Z13.6 Encounter for screening for cardiovascular disorders (principal); R53.81 Other malaise; R53.83 Other fatigue; E11.9 Type 2 diabetes mellitus without complications | CPT/HCPCS: 80061; 83036; 84439; 84443 ==